=== PATIENT | female | born 1960 | race Caucasian/White ===

== ENCOUNTER 2022-05-01 08:57 | Outpatient (CLI) | payer MEDICAID, SELFPAY ==
[2022-05-01 11:58] LABS: Chloride* 105 mmol/L (96-114); Sodium* 141 mmol/L (135-149)
[2022-05-01 11:59] LABS: Potassium* 4.7 mmol/L (3.6-5.1)
[2022-05-01 12:01] LABS: Alkaline Phosphatase* 95 U/L (40-150); Aspartate Amino Transferase* 19 U/L (12-35); Bilirubin Total* 0.3 mg/dL (0.1-1.5); Blood Urea Nitrogen* 21 mg/dL (7-30); Carbon Dioxide* 30 mmol/L (20-32); Creatinine* 0.9 mg/dL (0.5-1.5); Estimated Glomerular Filt Rate 74 ml/min; Total Protein* 6.5 g/dL (6.0-8.3)
[2022-05-01 12:02] LABS: Alanine Aminotransferase* 10 U/L (4-35); Calcium* 9.3 mg/dL (8.4-10.6); Glucose* 117 mg/dL (60-115)
[2022-05-01 12:31] LABS: TSH With Reflex to FT4* 0.859 uIU/mL (0.270-4.200)
[2022-05-01 12:39] LABS: Ferritin* 66.3 ng/mL (11.1-264.0)
== END 2022-05-01 08:58 | disposition home or self-care (01) ==
PROVIDERS: PCP Family Medicine; Visit Provider Family Medicine
DX: G25.81 Restless legs syndrome (principal); I95.9 Hypotension, unspecified; R42 Dizziness and giddiness; E03.9 Hypothyroidism, unspecified; I10 Essential (primary) hypertension
CPT/HCPCS: 80053; 82728; 84443

== ENCOUNTER 2022-05-13 09:00 | Outpatient (RCR) | payer MEDICAID, SELFPAY | END 2022-08-14 13:50 | disposition home or self-care (01) | PROVIDERS: PCP Family Medicine; Visit Provider Family Medicine | DX: M54.16 Radiculopathy, lumbar region (principal); M51.36 Other intervertebral disc degeneration, lumbar region; M54.50 Low back pain, unspecified; Z51.89 Encounter for other specified aftercare | CPT/HCPCS: 97110 ==

== ENCOUNTER 2022-10-28 08:55 | Outpatient (CLI) | payer MEDICAID, SELFPAY ==
[2022-10-28 13:28] LABS: Basophils Absolute Auto 0.09 K/uL (0.00-0.30); Basophils Percent Auto 1.1 % (0.0-3.0); Eosinophils Absolute Auto 0.28 K/uL (0.00-0.50); Eosinophils Percent Auto 3.5 % (0.0-7.0); Hematocrit 41.9 % (33.0-51.0); Hemoglobin* 13.3 gm/dL (12.0-16.0); Immature Granulocytes Abs Auto 0.01 K/uL (0.00-0.30); Immature Granulocytes Pct Auto 0.1 %; Lymphocytes Percent Auto 44.2 % (20-44); Mean Corpuscular HGB Conc 32 gm/dL (32-36); Mean Corpuscular Hemoglobin 28 pg (26-34); Mean Corpuscular Volume 87 fL (80-100); Monocytes Percent Auto 6.8 % (0.0-11.0); Neutrophils Absolute Auto 3.53 K/uL (1.7-7.0); Neutrophils Percent Auto 44.3 % (42.0-72.0); Platelet Count* 360 K/uL (140-440); RDW Coefficient of Variation % 14.1 % (11.5-15.5); Red Blood Count 4.82 m/uL (4.00-5.20); White Blood Count* 7.98 K/uL (4.50-11.00)
[2022-10-28 13:40] LABS: Albumin* 4.1 g/dL (3.3-5.0); Chloride* 105 mmol/L (96-114); Sodium* 140 mmol/L (135-149)
[2022-10-28 13:41] LABS: Potassium* 5.5 mmol/L (3.6-5.1)
[2022-10-28 13:43] LABS: Bilirubin Total* 0.3 mg/dL (0.1-1.5); Carbon Dioxide* 29 mmol/L (20-32); Cholesterol* 200 mg/dL (90-199); Creatinine* 0.7 mg/dL (0.5-1.5); Estimated Glomerular Filt Rate 99 ml/min; Total Protein* 7.3 g/dL (6.0-8.3)
[2022-10-28 13:44] LABS: Alanine Aminotransferase* 12 U/L (4-35); Alkaline Phosphatase* 97 U/L (40-150); Blood Urea Nitrogen* 13 mg/dL (7-30); Calcium* 9.7 mg/dL (8.4-10.6); Glucose* 99 mg/dL (60-115); HDL Cholesterol* 45 mg/dL (>=50); LDL Cholesterol Calculated 130 mg/dL (<100); Triglycerides* 123 mg/dL (40-149)
[2022-10-28 13:58] LABS: Slide Review Reflex No
[2022-10-28 14:15] LABS: C Reactive Protein* < 0.5 mg/dL (0.5-1.0)
[2022-10-28 15:15] LABS: Erythrocyte SedimentationRate* 7 mm/hr (2-20)
[2022-10-28 15:17] LABS: TSH With Reflex to FT4* 0.801 uIU/mL (0.270-4.200)
[2022-10-28 15:35] LABS: Hepatitis C Virus Antibody* Negative (Negative)
[2022-10-28 16:03] LABS: Aspartate Amino Transferase* 20 U/L (12-35)
== END 2022-10-28 08:56 | disposition home or self-care (01) ==
PROVIDERS: PCP Nurse Practitioner Family; Visit Provider Nurse Practitioner Family
DX: R63.4 Abnormal weight loss (principal); E78.5 Hyperlipidemia, unspecified; E03.9 Hypothyroidism, unspecified
CPT/HCPCS: 80053; 80061; 84443; 85025; 85651; 86140; 86803

== ENCOUNTER 2022-11-11 10:48 | Outpatient (CLI) | payer MEDICAID, SELFPAY ==
[2022-11-11 14:39] LABS: Troponin I* < 0.01 ng/mL (0.01-0.04)
== END 2022-11-11 10:49 | disposition home or self-care (01) ==
LOC: KYNREF 10:52
PROVIDERS: PCP Nurse Practitioner Family; Visit Provider Nurse Practitioner Family
DX: R55 Syncope and collapse (principal)
CPT/HCPCS: 84484

== ENCOUNTER 2022-11-21 13:53 | Outpatient (CLI) | payer MEDICAID, SELFPAY ==
--- NOTE | 2022-11-21 14:00 | CRLHL7_ITS ---
For Patients: As a result of the Century Cures Act, medical imaging exams and procedure reports are released immediately into your electronic medical record. You may view this report before your referring provider. If you have questions, please contact your health care provider. Indication: UNINTENDED WEIGHT LOSS Technique: Postcontrast CT chest, abdomen and pelvis. 61 cc Isovue 370 intravenous contrast. Please note that all CT scans at this facility use dose modulation, iterative reconstruction, and/or weight-based dosing when appropriate to reduce radiation dose to as low as reasonably achievable. Comparison: 04/03/2021, 09/17/2019 Findings: In the chest, no suspicious pulmonary nodule is present. COPD/emphysema. No infiltrate or edema. No effusion or pneumothorax. No mediastinal, hilar or axillary adenopathy. No fracture. In the abdomen, a residual ovoid area of low attenuation is present adjacent to the superolateral spleen. Resolution of the previously noted ascites. Liver parenchyma normal. Small stones in the gallbladder. No biliary obstruction. Pancreas normal. Atherosclerotic disease. No aneurysm. Normal adrenal glands. Nonobstructing stones within the left kidney measuring 3 millimeters in the upper pole and 6 millimeters in the lower pole. No bowel obstruction or free air. No retroperitoneal or mesenteric adenopathy. In the pelvis, no pelvic or inguinal adenopathy noted. No inflammatory changes. Bladder, uterus and adnexa are normal. Normal appendix. Severe degenerative disc disease L4-5. Impression: COPD/emphysema. No suspicious pulmonary nodule. Small residual circumscribed ovoid area of decreased attenuation measuring 3.8 x 2.0 associated with the spleen representing sequela of previous injury. Resolution of previously noted ascites. Nonobstructing left renal stones measuring up to 6 millimeters. Please note that all CT scans at this facility use dose modulation, iterative reconstruction, and/or weight-based dosing when appropriate to reduce radiation dose to as low as reasonably achievable. Dictated by Jered Zaidi MD @ 11/22/2022 12:29:01 PM (Electronically Signed)
== END 2022-11-21 13:54 | disposition home or self-care (01) ==
PROVIDERS: PCP Nurse Practitioner Family; Visit Provider Nurse Practitioner Family
DX: R63.4 Abnormal weight loss (principal); J43.9 Emphysema, unspecified; N20.0 Calculus of kidney; I95.9 Hypotension, unspecified
CPT/HCPCS: 71260; 74177; 93306; Q9967

== ENCOUNTER 2022-12-02 10:57 | Outpatient (CLI) | payer MEDICAID, SELFPAY ==
[2022-12-02 13:44] LABS: Potassium* 4.5 mmol/L (3.6-5.1)
== END 2022-12-02 10:58 | disposition home or self-care (01) ==
LOC: KYNREF 10:57
PROVIDERS: PCP Nurse Practitioner Family; Visit Provider Nurse Practitioner Family
DX: E87.5 Hyperkalemia (principal)
CPT/HCPCS: 84132

== ENCOUNTER 2023-03-28 08:45 | Outpatient (RCR) | payer MEDICAID, SELFPAY | END 2023-07-16 10:18 | disposition home or self-care (01) | PROVIDERS: PCP Nurse Practitioner Family; Visit Provider Nurse Practitioner Family | DX: M54.50 Low back pain, unspecified (principal); M54.2 Cervicalgia; Z74.09 Other reduced mobility; R53.1 Weakness; Z51.89 Encounter for other specified aftercare | CPT/HCPCS: 97110; 97140; 97162 ==

== ENCOUNTER 2023-05-13 20:51 | Outpatient (CLI) | payer MEDICAID, SELFPAY | END 2023-05-13 20:52 | disposition home or self-care (01) | PROVIDERS: PCP Nurse Practitioner Family; Visit Provider Internal Medicine | DX: G47.33 Obstructive sleep apnea (adult) (pediatric) (principal) | CPT/HCPCS: 95810 ==

== ENCOUNTER 2023-06-06 08:21 | Outpatient (CLI) | payer MEDICAID, SELFPAY | END 2023-06-06 08:22 | disposition home or self-care (01) | PROVIDERS: PCP Nurse Practitioner Family; Visit Provider Nurse Practitioner Family | DX: R53.83 Other fatigue (principal); M25.562 Pain in left knee; E03.9 Hypothyroidism, unspecified | CPT/HCPCS: 84443; 85025; 85651; 86140; 86618; 87798 ==

== ENCOUNTER 2023-06-09 09:00 | Outpatient (RCR) | payer MEDICAID, SELFPAY | END 2023-06-30 14:31 | disposition home or self-care (01) | PROVIDERS: PCP Nurse Practitioner Family; Visit Provider Nurse Practitioner Family | DX: M54.50 Low back pain, unspecified (principal); R53.1 Weakness; Z74.09 Other reduced mobility; Z51.89 Encounter for other specified aftercare | CPT/HCPCS: 87798; 97110; 97161 ==

== ENCOUNTER 2023-07-29 09:00 | Outpatient (RCR) | payer MEDICAID, SELFPAY ==
--- NOTE | 2023-07-08 13:54 | URNOTE ---
Request received for authorization for?Injectafer ([id number]). Prior authorization is not required per [facility] JHON RepNighat Fitzpatrick Ref#[id number].
[2023-07-22 09:08] VITALS: BP 121/76; PULSE 66; RESP 16; TEMP 36.5; O2SAT 96
[2023-07-22] MEDS: SODIUM CHLORIDE 0.9 % (FLUSH) 10 ML SYRINGE IVF (09:15)
[2023-07-22] MEDS: FERRIC CARBOXYMALTOSE 750 MG in 0.9 % SODIUM CHLORIDE 250 ml 250 ML 1060 MG IVPB (09:31)
[2023-07-22] MEDS: 0.9 % SODIUM CHLORIDE 250 ml IV (09:33)
[2023-07-22 10:02] VITALS: BP 104/65; PULSE 51; RESP 16; TEMP 36.7; O2SAT 97
[2023-07-22 10:42] VITALS: BP 106/61; PULSE 50; RESP 16; TEMP 36.8; O2SAT 96
[2023-07-29 09:01] VITALS: BP 112/66; PULSE 58; RESP 16; TEMP 36.7; O2SAT 95
[2023-07-29] MEDS: 0.9 % SODIUM CHLORIDE 250 ml IV (09:10)
[2023-07-29] MEDS: SODIUM CHLORIDE 0.9 % (FLUSH) 10 ML SYRINGE IVF (09:10)
[2023-07-29] MEDS: FERRIC CARBOXYMALTOSE 750 MG in 0.9 % SODIUM CHLORIDE 250 ml 250 ML 1060 MG IVPB (09:35)
[2023-07-29 10:30] VITALS: BP 105/65; PULSE 65; RESP 14; TEMP 36.6; O2SAT 99
== END 2024-01-18 23:59 | disposition home or self-care (01) ==
LOC: CCIC 09:00
PROVIDERS: PCP Nurse Practitioner Family; Referring Provider Nurse Practitioner Family; Visit Provider Clinical Nurse Specialist
DX: G25.81 Restless legs syndrome (principal)
CPT/HCPCS: 96374; J1439; J7050

== ENCOUNTER 2023-09-30 15:14 | Outpatient (CLI) | payer MEDICAID, SELFPAY ==
--- OUTSIDE RECORDS SUMMARY | 2023-09-30 15:21 | XMS_ITS | Continuity of Care Document ---
Author Name Unknown Organization [facility] Address [address] [place] [address] Care Team Providers Care Therapeutic Support Staff Name Role Phone [facility] Unavailable Unav ailable Procedures Procedure Date INJECT EPIDURAL PATCH FLUOROGUIDE FOR SPINE INJECT Advance Directives Directive Yes / No Effective Date File Name No Information Encounters Encounter Description Practice Location Reason(s) For Visit Diagnoses Date Provider Providers Copied on Encounter [facility], [address] [place], [place], [id number], [facility] No Information [facility]. [address] [place], [place], [id number], . tel:[phone] Referring Provider: Shabnam Cardona, [address] [place], [address]. tel:[phone] Family History Family Member Type Diagnosis Age At Onset No Information Payers Payer name Insurance type Covered republican ID Authorkacia phoenix(s) David [facility] [id number] Social History Type Description Quantity Date Captured Comments Sex Female Smoking Status No Information Chief Complaint And Reason For Visit No Information Reason For Referral Reason For Referral No Information History Of Present Illness Encounter Date Complaint History Of Prese nt Illness No Information Functional Status Date Functional Assessmen t No Information Instructions Date Instruction Additional Infor mation No Information Assessments Type Assessment Date No Information Patient Care Teams Name Effective Dates (start - stop) Status Members No Information
--- OUTSIDE RECORDS SUMMARY | 2023-09-30 15:21 | XMS_ITS | Continuity of Care Document ---
Author Name Unknown Organization [facility] Address [address] [place] [address] Care Team Providers Care Prison Guard Supervisor Name Role Phone Alexis Gray CRNA Unavailable Unavailable Procedures Procedure Date ANESTH, HEAD/NECK/PTRUNK Percutaneous Image guided neuromodulatio n or intra Advance Directives Directive Yes / No Effective Date File Name No Information Encounters Encounter Description Practice Location Reason(s) For Visit Diagnoses Date Provider Providers Copied on Encounter [facility], [address] [place], [place], [id number], [facility] No Information 3 Isaac Espinoza. [address] [place], [place], [id number] , . tel:[phone] Referring Provider: Susannah Cabral, [address] [place], [address] . tel:[phone] [facility], [address] [place], [place], [id number], [facility] No Information 2 Alvaro Park. [address] [facility], [place], [place], [id number] , . tel:[phone] Referring Provider: Fredis Quintana [address] [facility] [address], [place], [address]. tel:[phone] Family History Family Member Type Diagnosis Age At Onset No Information Payers Payer name Insurance type Covered libertarian ID Tae garibay(s) [facility] [id number] Social History Type Description Quantity Date Captured [...]
--- OUTSIDE RECORDS SUMMARY | 2023-09-30 15:21 | XMS_ITS | Continuity of Care Document ---
Author Name Unknown Organization [facility] Address [address] [place] [phone] Phone Care Team Providers Care Direct Chill Casting Operator Name Role Phone [facility] Unavailable Unava ilable Procedures Procedure Date INSRT/REDO SPINE N GENERATOR IMPLANT NEUROELECTRODES Implt neurostim elctr each Imp neurosti pls gn any type FLUOROGUIDE FOR SPINE INJECT IMPLANT NEUROELECTRODES IMPLANT NEUROELECTRODES IMPLANT NEUROELECTRODES Implt neurostim elctr each Advance Directives Directive Yes / No Effective Date File Name No Information Encounters Encounter Description Practice Location Reason(s) For Visit Diagnoses Date Provider Providers Copied on Encounter [facility], [address] [place] [address], [id number], tel:[phone] [place] [address] No Information 2 [facility]. [address] [place] [address], [id number], [place]. tel:[phone] Referring Provider: Susannah Cabral, [address] [facility] [place], [address] . tel:[phone] [facility], [address] [place] [address], [id number], tel:[phone] [place] [address] No Information 2 [facility]. [address] [facility] [address], [place], [place], [id number], [place]. tel:[phone] Referring Provider: Rito Falcon [facility] [address], [place], [address]. tel:[phone] Family History Family Member Type Diagnosis Age At Onset No Information Payers Payer name Insurance type Covered alliance party ID Authorkathie garibay(s) David [facility] [id number] Social History Type Description Quantity Date Captured [...]
--- OUTSIDE RECORDS SUMMARY | 2023-09-30 15:22 | XMS_ITS | Continuity of Care Document ---
Author Name Unknown Organization [facility] Address [address] [place] [address] Phone Care Team Providers Care Dependency Case Manager Name Role Phone Apolinar Londono MD Unavailable Unavailable Advance Directives Directive Yes / No Effective Date File Name No Information Encounters Encounter Description Practice Location Reason(s) For Visit Diagnoses Date Provider Providers Copied on Encounter [facility] [place], [address] [place], [place] [address], [place], [address], [place] tel:[phone] [facility] No Information Spring Jiang. [facility], [address], [place], [place], [id number] , [place]. tel:[phone] Family History Family Member Type Diagnosis Age At Onset No Information Payers Payer name Insurance type Covered libertarian ID Authoriza tion(s) No Information Social History Type Description Quantity Date Captured [...]
--- OUTSIDE RECORDS SUMMARY | 2023-09-30 15:22 | XMS_ITS | Continuity of Care Document ---
Author Name Unknown Organization [facility] femi Address [address] [facility] [place] [address] Phone Care Team Providers Care Embedded Systems Software Developer Name Role Phone Samira Lyn DNP Unavailable Unavailable Allergies, Adverse Reactions, Alerts Substance Reaction Status Criticality PENICILLIN HivesHivesHives Active No Informati on celecoxib crawling out of body Active No In formation Medications Medication Instructions Dosage Effective Dates (start - stop) Status Comments hydrocodone 5 mg-acetaminophen 325 mg tablet take 1 tablet by ORAL route every 4 hours prn, MAX 3-4 /DAY for chronic pain - Active okay to fill early on 09/29 d/t national drug shortages, to start on 10/05 Fioricet 50 mg-300 mg-40 mg capsule take 1 - 2 capsule by oral route every 4 hours as needed not to exceed 2 capsules per 24hrs - Active Topamax 25 mg tablet take 1 tablet by oral route in am ; 3 tabs at HS chronic headaches - Active atorvastatin 20 mg tablet Take 1 tablet by mouth once daily. - Active prednisone 20 mg tablet take 1 tablet by oral route every day 20 MG - Active lorazepam 0.5 mg tablet take 2 tablet by oral route 3 times every day as needed as needed 1 MG - Active sertraline 100 mg tablet take 1 tablet by oral route every day 100 MG - Active levothyroxine 75 mcg tablet take 1 tablet by oral route every day 75 MCG - Active TRAZODONE HCL (unknown strength) take 1 - 2 tablet by ORAL route every bedtime after meals Not Available - Active omeprazole 20 mg capsule,delayed release take 1 capsule by oral route every day 30 minutes to 1 hour before a meal 20 MG - Active baclofen 10 mg tablet take 1 tablet by oral route 2 times every day 10 MG - Active CENTRUM ADULT 50 FRESH-FRUITY (unknown strength) Not Available - Active B COMPLEX WITH B-12 (unknown strength) Not Available - Active Extra Strength Narayan 500 mg tablet take 2 tablet by oral route every 6 hours as needed 1000 MG - Active CBD product OTC ORAL LIQUID - Active Procedures Procedure Date OFFICE/OUTPATIENT VISIT, EST Drug test def 8-14 classes Drug Urine Toxology With Chromatography OFFICE/OUTPATIENT VISIT, EST OFFICE/OUTPATIENT VISIT, EST OFFICE/OUTPATIENT VISIT, EST OFFICE/OUTPATIENT VISIT, EST Drug Urine Toxology With Chromatography Drug test def 8-14 classes OFFICE/OUTPATIENT VISIT, EST ANALYZE NEUROSTIM, COMPLEX OFFICE/OUTPATIENT VISIT, EST OFFICE/OUTPATIENT VISIT, EST Foll-up eval q3mo opiod tx Foll-up eval q3mo opiod tx OFFICE/OUTPATIENT VISIT, EST ANALYZE NEUROSTIM, COMPLEX OFFICE/OUTPATIENT VISIT, EST Drug Urine Toxology With Chromatography Drug test def 8-14 classes Foll-up eval q3mo opiod tx OFFICE/OUTPATIENT VISIT, EST PT EVAL MOD COMPLEX 30 MIN THERAPEUTIC EXERCISES OFFICE/OUTPATIENT VISIT, EST Foll-up eval q3mo opiod tx SCS Post Op Satellite Foll-up eval q3mo opiod tx SCS Post Op Satellite INSRT/REDO SPINE N GENERATOR IMPLANT NEUROELECTRODES ASC IMPLANT NEUROELECTRODES ASC Foll-up eval q3mo opiod tx OFFICE/OUTPATIENT VISIT, EST Foll-up eval q3mo opiod tx OFFICE/OUTPATIENT VISIT, EST EPIDURAL BLOOD PATCH SCS Lead Pull Satellite ORTHOTIC MGMT AND TRAINING Initial Encou nter Lower Back LSO Brace IMPLANT NEUROELECTRODES ASC IMPLANT NEUROELECTRODES ASC ANALYZE NEUROSTIM, COMPLEX Foll-up eval q3mo opiod tx OFFICE VISIT, EST TELEMEDICINE Foll-up eval q3mo opiod tx OFFICE/OUTPATIENT VISIT, EST Foll-up eval q3mo opiod tx OFFICE/OUTPATIENT VISIT, EST Foll-up eval q3mo opiod tx OFFICE/OUTPATIENT VISIT, EST Psych Dx Eval Drug Urine Toxology With Chromatography Drug test def 8-14 classes OFFICE/OUTPATIENT VISIT, NEW PT-FOCUSED HLTH RISK ASSMT Advance Directives Directive Yes / No Effective Date File Name No Information Encounters Encounter Description Practice Location Reason(s) For Visit Diagnoses Date Provider Providers Copied on Encounter [facility], [address] [facility] [place], [id number] , [place] tel: [phone] [facility] [place] No Information 3 Mtclement Samira. [address], [place], [id number] , [place]. tel: [phone] [facility], [address] [place], [id number] , [place] tel: [phone] [facility] [place] No Information 3 Yon Elias. [address] [facility] [place], [id number] , [place]. tel: [phone] OFFICE/OUTPAT IENT VISIT, EST [facility], [address], [place], [id number] , [place] tel: [phone] [facility] low back pain (chief complaint) Insomnia, unspecifiedChroni c pain syndromeOther spondylosis, cervical regionInterverteb ral disc disorders with radiculopathy, lumbar regionPostlaminec lucero syndrome, not elsewhere classifiedHeadach e, unspecifiedLong term (current) use of opiate analgesic [address] [facility] [address], [place], [place], [id number] , [place]. tel: [phone] Ref[facility]: [facility] [address] [place], [address]. [phone] [facility], [address], [place], [id number] , [place] tel: [phone] [facility] No Information [address] [facility] [address], [place], [place], [id number] , [place]. tel:[phone] Referring Provider: [facility] [address] [place], [address]. tel:[phone] OFFICE/OUTPAT IENT VISIT, [facility], [address], [place], [id number] , [place] tel: [phone] [facility] low back pain (chief complaint) Insomnia, unspecifiedChroni c pain syndromeOther spondylosis, cervical regionInterverteb ral disc disorders with radiculopathy, lumbar regionPostlaminec lucero syndrome, not elsewhere classifiedHeadach e, unspecifiedLong term (current) use of opiate analgesic [address] [facility] [address], [place], [place], [id number] , [place]. tel: [phone] Referring Provider: Keyon Muller [facility] [address] [place], [address]. tel:[phone] OFFICE/OUTPAT IENT VISIT, EST [facility], [address], [place], [id number] , [place] tel: [phone] [facility] low back pain (chief complaint) Insomnia, unspecifiedChroni c pain syndromeOther spondylosis, cervical regionInterverteb ral disc disorders with radiculopathy, lumbar regionPostlaminec lucero syndrome, not elsewhere classifiedLong term (current) use of opiate analgesicHeadache , unspecified Oct- 3 Nyongesa Samira. [address], [place], [id number] , [place]. tel: [phone] Referring Provider: Keyon Muller [facility] [address] [place], [address]. tel:[phone] OFFICE/OUTPAT IENT VISIT, EST [facility], [address], [place], [id number] , [place] tel: [phone] [facility] low back pain (chief complaint) Insomnia, unspecifiedChroni c pain syndromeOther spondylosis, cervical regionInterverteb ral disc disorders with radiculopathy, lumbar regionPostlaminec lucero syndrome, not elsewhere classifiedLong term (current) use of opiate analgesic Sep-0 3 Nyongesa Samira. [address], [place], [id number] , [place]. tel:[phone] Referring Provider: Keyon Muller [facility] [address] [place], [address]. [phone] OFFICE/OUTPAT IENT VISIT, [facility], [address] [place] [address], [id number] , [place] tel: [phone] [facility] low back pain (chief complaint) Chronic pain syndromeOther spondylosis, cervical regionInterverteb ral disc disorders with radiculopathy, lumbar regionPostlaminec lucero syndrome, not elsewhere classifiedLong term (current) use of opiate analgesicEncounte r for therapeutic drug level monitoringInsomni a, unspecified 3 Eboni Hogan. [address], [place], [id number] , [place]. tel: [phone] Referring Provider: Keyon Muller [facility] [address] [place], [address]. [phone] [facility], [address], [place], [id number] , [place] tel: [phone] [facility] [place] No Information [address] [facility] [address], [place], [id number] , [place]. tel: [phone] Referring Provider: Keyon Muller [facility] [address] [place], [address]. tel:[phone] OFFICE/OUTPAT IENT VISIT, EST [facility], [address], [place], [id number] , [place] tel: [phone] [facility] low back pain (chief complaint) Major depressive disorder, single episode, unspecifiedChroni c pain syndromeOther spondylosis, cervical regionInterverteb ral disc disorders with radiculopathy, lumbar regionPostlaminec lucero syndrome, not elsewhere classifiedLong term (current) use of opiate analgesic 3 Elisa Samira. [address], [place], [id number] , [place]. tel: [phone] Referring Provider: Keyon Muller [facility] [address] [place], [address]. tel:[phone] [facility], [address], [place], [id number] , [place] tel: [phone] [facility] Postlaminectomy syndrome, not elsewhere classified 3 Eboni Samira. [address], [place], [id number] , [place]. tel: [phone] OFFICE/OUTPAT IENT VISIT, EST [facility], [address], [place], [id number] , [place] tel: [phone] [facility] low back pain (chief complaint) Major depressive disorder, single episode, unspecifiedChroni c pain syndromeOther spondylosis, cervical regionInterverteb ral disc disorders with radiculopathy, lumbar regionPostlaminec lucero syndrome, not elsewhere classifiedLong term (current) use of opiate analgesic 3 Nyongesa Samira. [address], [place], [id number] , [place]. tel: [phone] Referring Provider: Keyon Muller [facility] [address] [place], [address]. [phone] OFFICE/OUTPAT IENT VISIT, [facility], [address], [place], [address] , [place] tel: [phone] [facility] low back pain (chief complaint) Major depressive disorder, single episode, unspecifiedInterv ertebral disc disorders with radiculopathy, lumbar regionPostlaminec lucero syndrome, not elsewhere classifiedLong term (current) use of opiate analgesicChronic pain syndromeOther spondylosis, cervical region 3 Nyongesa Samira. [address], [place], [id number] , [place]. tel:[phone] Referring [facility]: [facility] [address] [place], [address]. tel:[phone] OFFICE/OUTPAT IENT VISIT, [facility], [address], [place], [id number] , [place] tel: [phone] [facility] low back pain (chief complaint) Major depressive disorder, single episode, unspecifiedPostla minectomy syndrome, not elsewhere classifiedLong term (current) use of opiate analgesicInterver tebral disc disorders with radiculopathy, lumbar region 3 Nyongesa Samira. [address], [place], [id number] , [place]. tel:[phone] Referring Provider: Keyon Muller [facility] [address] [place], [address]. tel:[phone] [facility], [address], [place], [id number] , [place] tel:[phone] [facility] Intervertebral disc disorders with radiculopathy, lumbar region 3 Nyongesa Samira. [address], [place], [id number] , [place]. tel:[phone] Referring Provider: Keyon Muller [facility] [address] [place], [address]. tel:[phone] OFFICE/OUTPAT IENT VISIT, EST [facility], [address], [place], [id number] , [place] tel:[phone] [facility] low back pain (chief complaint) Major depressive disorder, single episode, unspecifiedInterv ertebral disc disorders with radiculopathy, lumbar regionPostlaminec lucero syndrome, not elsewhere classifiedLong term (current) use of opiate analgesic 3 Nyongesa Samira. [address], [place], [id number] , [place]. tel:[phone] Referring Provider: Keyon Muller [facility] [address] [place], [address]. tel:[phone] [facility], [address], [place], [id number] , [place] tel:[phone] [facility] No Information 3 Nyongesa Samira. [address], [place], [id number] , [place]. tel:[phone] Referring Provider: Keyon Muller [facility] [address] [facility], [place], [address]. tel:[phone] OFFICE/OUTPAT IENT VISIT, [facility], [address] [place] [address], [id number] , [place] tel: [phone] [facility] low back pain (chief complaint) Major depressive disorder, single episode, unspecifiedInterv ertebral disc disorders with radiculopathy, lumbar regionPostlaminec lucero syndrome, not elsewhere classifiedLong term (current) use of opiate analgesic 0 3 Eboni Hogan. [address], [place], [place], [address] , [place]. tel: [phone] Referring Provider: Keyon Muller [facility] [address] [place], [address]. [phone] [facility], [address] [place] [address], [id number] , [place] tel: [phone] [facility] No Information 3 Yon Elias. [address] [place] [address], [id number] , [place]. [phone] [facility], [address] [place] [address], [id number] , [place] tel: [phone] [facility] lumbago (chief complaint) Postlaminectomy syndrome, not elsewhere classified 3 Emily Cleveland. [address] [place], [place], [id number] , [place]. tel:[phone] Referring Provider: Keyon Muller [facility] [address] [place], [address]. tel:[phone] OFFICE/OUTPAT IENT VISIT, [facility], [address] [place] [address], [id number] , [place] tel:[phone] [facility] low back pain (chief complaint) Major depressive disorder, single episode, unspecifiedInterv ertebral disc disorders with radiculopathy, lumbar regionPostlaminec lucero syndrome, not elsewhere classifiedLong term (current) use of opiate analgesic 3 Eboni Hogan. [address], [place], [place], [address] , [place]. tel:[phone] Referring Provider: Keyon Muller [facility] [address] [place], [address]. [phone] [facility], [address] [place] [address], [id number] , [place] tel:[phone] [facility] low back pain (chief complaint) Major depressive disorder, single episode, unspecifiedInterv ertebral disc disorders with radiculopathy, lumbar regionPostlaminec lucero syndrome, not elsewhere classifiedLong term (current) use of opiate analgesic 3 Barron Muse. [address], [place], [address] , [place]. tel:[phone] Referring Provider: Keyon Muller [facility] [address] [place], [address]. tel:[phone] [facility], [address] [place] [address], [id number] , [place] tel:[phone] [place] [facility] [place] Postlaminectomy syndrome, not elsewhere classified 2 Misha Davalos. [address], [place], [id number] , [place]. tel:[phone] Referring Provider: Keyon Muller [facility] [address] [place], [address]. tel:[phone] OFFICE/OUTPAT IENT VISIT, EST [facility], [address] [place] [address], [id number] , [place] tel:[phone] [facility] low back pain (chief complaint) Major depressive disorder, single episode, unspecifiedInterv ertebral disc disorders with radiculopathy, lumbar regionPostlaminec lucero syndrome, not elsewhere classifiedLong term (current) use of opiate analgesicEncounte r for therapeutic drug level monitoring [address] [facility] [address], [place], [id number] , [place]. tel: [phone] Referring Provider: Keyon Muller [facility] [address] [place], [address]. [phone] OFFICE/OUTPAT IENT VISIT, [facility], [address] [facility] [place], [id number] , [place] tel: [phone] [facility] low back pain (chief complaint) Major depressive disorder, single episode, unspecifiedInterv ertebral disc disorders with radiculopathy, lumbar regionPostlaminec lucero syndrome, not elsewhere classifiedLong term (current) use of opiate analgesic [address] [facility] [address], [place], [id number] , [place]. tel: [phone] Referring Provider: Keyon Muller [facility] [address] [place], [address]. tel:[phone] [facility], [address] [facility] [address] [facility] [place], [address] , [place] tel: [phone] [facility] Postlaminectomy syndrome, not elsewhere classified 2 Dulce Haque. [address], [place], [id number] , [place]. tel:[phone] Referring Provider: Keyon Muller [facility] [address] [place], [address]. tel:[phone] [facility], [address] [facility] [address] [facility] [place], [address] , [place] tel:[phone] [facility] Postlaminectomy syndrome, not elsewhere classified 2 Yon Elias. [address], [place], [id number] , [place]. tel: [phone] [facility], [address] [facility] [place], [address] , [place] tel: [phone] [facility] [place] Postlaminectomy syndrome, not elsewhere classified 0 - [address] [facility] [address], [place], [id number] , [place]. tel: [phone] Referring Provider: Keyon Muller [facility] [address] [place], [address]. tel:[phone] [facility], [address] [facility] [place], [address] , [place] tel: [phone] [facility] No Information 0 [address] [facility] [address], [place], [place], [address] , [place]. tel: [phone] Referring Provider: Keyon Muller [facility] [address] [place], [address]. tel:[phone] [facility], [address], [place], [address] , [place] tel: [phone] [facility] Postlaminectomy syndrome, not elsewhere classified 0 [address] [facility] [address], [place], [place], [id number] , [place]. tel: [phone] Referring Provider: Keyon Muller [facility] [address] [place], [address]. tel:[phone] [facility], [address], [place], [address] , [place] tel: [phone] [place] [facility] [place] No Information Jun-2 2 Quintana Fredis. [facility], [address], [place], [address], [place]. [phone] Referring Provider: Keyon Muller [facility] [address] [place], [address]. tel:[phone] [facility], [address] [place] [address], [id number] , [place] tel: [phone] [facility] [place] Postlaminectomy syndrome, not elsewhere classified Sep-1 3-202 2 Nyongesa Samira. [address], [place], [place], [id number] , [place]. tel: [phone] Referring Provider: Keyon Muller, [facility] [address] [place], [address]. tel:[phone] OFFICE VISIT, EST TELEMEDICINE [facility], [address] [place] [address], [id number] , [place] tel: [phone] [facility] low back pain (chief complaint) Major depressive disorder, single episode, unspecifiedInterv ertebral disc disorders with radiculopathy, lumbar regionPostlaminec lucero syndrome, not elsewhere classifiedLong term (current) use of opiate analgesic Sep-0 8 2 Nyongesa Samira. [address], [place], [address] , [place]. tel: [phone] OFFICE/OUTPAT IENT VISIT, EST [facility], [address] [place] [address], [id number] , [place] tel: [phone] [facility] Back Pain (chief complaint) Major depressive disorder, single episode, unspecifiedInterv ertebral disc disorders with radiculopathy, lumbar regionOther intervertebral disc degeneration, lumbar regionPostlaminec lucero syndrome, not elsewhere classifiedLong term (current) use of opiate analgesic Aug-0 2 Nyongesa Samira. [address], [place], [place], [id number] , [place]. tel: [phone] Referring Provider: Keyon Muller, [facility] [address] [place], [address]. tel:[phone] OFFICE/OUTPAT IENT VISIT, EST [facility], [address], [place], [id number] , [place] tel: [phone] [facility] Back Pain (chief complaint) Major depressive disorder, single episode, unspecifiedInterv ertebral disc disorders with radiculopathy, lumbar regionOther intervertebral disc degeneration, lumbar regionPostlaminec lucero syndrome, not elsewhere classifiedLong term (current) use of opiate analgesic 2 Eboni Hogan. [address], [place], [address] , [place]. tel: [phone] Referring Provider: Keyon Muller [facility] [address] [place], [address]. [phone] OFFICE/OUTPAT IENT VISIT, [facility], [address], [place], [address] , [place] tel: [phone] [facility] Back Pain (chief complaint) Major depressive disorder, single episode, unspecifiedInterv ertebral disc disorders with radiculopathy, lumbar regionOther intervertebral disc degeneration, lumbar regionPostlaminec lucero syndrome, not elsewhere classifiedLong term (current) use of opiate analgesic 2 Genovevaongesa Hogan. [address], [place], [id number] , [place]. tel: [phone] Referring Provider: Keyon Muller [facility] [address] [place], [address]. [phone] Psych Dx Eval [facility], [address] [place] [address], [id number] , [place] tel: [phone] [facility] Pain disorder with related psychological factorsMajor depressive disorder, recurrent, in full remission 2 Rosa Shah. [address], [place], [id number] , [place]. tel: [phone] [facility], [address] [place] [address], [id number] , [place] tel:[phone] [facility] [place] No Information 2 Eboni Hogan. [address], [place], [id number] , [place]. tel: [phone] Referring Provider: Keyon Muller [facility] [address] [facility], [place], [address]. [phone] OFFICE/OUTPAT IENT VISIT, NEW [facility], [address], [place], [id number] , [place] tel: [phone] [facility] Back Pain (chief complaint) Encounter for screening for other disorderPostlamin ectomy syndrome, not elsewhere classifiedOther intervertebral disc degeneration, lumbar regionInterverteb ral disc disorders with radiculopathy, lumbar regionMajor depressive disorder, single episode, unspecified 2 Eboni Hogan. [address], [place], [id number] , [place]. tel: [phone] Referring Provider: Keyon Muller [facility] [facility] [address], [place], [id number]. [phone] [id number] Family History Family Member Type Diagnosis Age At Onset No Information Payers Payer name Insurance type Covered democrat ID Tae garibay(s) vitaliy [facility] [id number] Social History Type Description Quantity Date Captured Comments Sex Female Smoking Status No Information Chief Complaint And Reason For Visit No Information Reason For Referral Reason For Referral No Information Plan Of Treatment Date Type Action Status Goal UDT. Due on due Goal Order Annual PT. Due on due Goal Weight. Due on d ue Goal BUSINESS PERFORMANCE SPECIALIST Paperwork. Due on due Goal FIT-DNA. Due on due Goal Hepatitis C screening. Due o n due Goal Update Social History. Due o n due Goal PHQ-9. Due on du e Goal Review Allergy List. Due on due Goal DIRECTOR MEDICAL WRITING Scanned. Due on due Goal Lipid panel. Due on due Goal FIT. Due on due Goal AST (SGOT). Due on due Goal Medication Reconciliation. D ue on due Goal Tobacco Use. Due on due Goal Zoster vaccine (1st). Due on due Goal HPV. Due on due Goal Unhealthy drug use screening . Due on due Goal CT-Colonography. Due on due Goal ALT (SGPT). Due on due Goal Creatinine. Due on due Goal OARS. Due on due Goal Height. Due on d ue Goal OARS. Due on due Goal AST (SGOT). Due on due Goal UDT. Due on due Goal BUSINESS PERFORMANCE SPECIALIST Paperwork. Due on due Goal DIRECTOR MEDICAL WRITING Scanned. Due on due Goal Review Allergy List. Due on due Goal Creatinine. Due on due Goal Medication Reconciliation. D ue on due Goal ALT (SGPT). Due on due Goal Order Annual PT. Due on due Goal Update Social History. Due o n due Goal Lipid panel. Due on due Goal Height. Due on d ue Goal Hepatitis C screening. Due o n due Goal Unhealthy drug use screening . Due on due Goal HPV. Due on due Goal Zoster vaccine (1st). Due on due Goal FIT. Due on due Goal PHQ-9. Due on du e Goal Weight. Due on d ue Goal FIT-DNA. Due on due Goal Tobacco Use. Due on due Goal CT-Colonography. Due on due Goal Order Annual PT. Due on due Goal DIRECTOR MEDICAL WRITING Scanned. Due on due Goal Creatinine. Due on due Goal OARS. Due on due Goal ALT (SGPT). Due on due Goal AST (SGOT). Due on due Goal CT-Colonography. Due on due Goal Hepatitis C screening. Due o n due Goal UDT. Due on due Goal BUSINESS PERFORMANCE SPECIALIST Paperwork. Due on due Goal Zoster vaccine (1st). Due on due Goal PHQ-9. Due on du e Goal Update Social History. Due o n due Goal Height. Due on d ue Goal FIT. Due on due Goal Weight. Due on d ue Goal FIT-DNA. Due on due Goal Lipid panel. Due on due Goal Unhealthy drug use screening . Due on due Goal HPV. Due on due Goal Tobacco Use. Due on due Goal Medication Reconciliation. D ue on due Goal Review Allergy List. Due on due Goal Update Social History. Due o n due Goal UDT. Due on due Goal Medication Reconciliation. D ue on due Goal HPV. Due on due Goal Weight. Due on d ue Goal Tobacco Use. Due on due Goal Hepatitis C screening. Due o n due Goal PHQ-9. Due on du e Goal Creatinine. Due on due Goal OARS. Due on due Goal Zoster vaccine (1st). Due on due Goal Order Annual PT. Due on due Goal DIRECTOR MEDICAL WRITING Scanned. Due on due Goal CT-Colonography. Due on due Goal BUSINESS PERFORMANCE SPECIALIST Paperwork. Due on due Goal ALT (SGPT). Due on due Goal FIT. Due on due Goal AST (SGOT). Due on due Goal Unhealthy drug use screening . Due on due Goal FIT-DNA. Due on due Goal Review Allergy List. Due on due Goal Lipid panel. Due on due Goal Height. Due on d ue Goal AST (SGOT). Due on due Goal Unhealthy drug use screening . Due on due Goal Medication Reconciliation. D ue on due Goal OARS. Due on due Goal CT-Colonography. Due on due Goal Hepatitis C screening. Due o n due Goal ALT (SGPT). Due on due Goal Zoster vaccine (1st). Due on due Goal Creatinine. Due on due Goal Tobacco Use. Due on due Goal DIRECTOR MEDICAL WRITING Scanned. Due on due Goal PHQ-9. Due on du e Goal FIT. Due on due Goal BUSINESS PERFORMANCE SPECIALIST Paperwork. Due on due Goal HPV. Due on due Goal Weight. Due on d ue Goal Order Annual PT. Due on due Goal Update Social History. Due o n due Goal FIT-DNA. Due on due Goal Review Allergy List. Due on due Goal Lipid panel. Due on 023 due Goal UDT. Due on due Goal Height. Due on d ue Goal Tobacco cessation counseling completed Goal AST (SGOT). Due on due Goal FIT. Due on due Goal Lipid panel. Due on 023 due Goal Zoster vaccine (1st). Due on due Goal CT-Colonography. Due on due Goal Weight. Due on d ue Goal HPV. Due on due Goal PHQ-9. Due on du e Goal Creatinine. Due on due Goal Order Annual PT. Due on due Goal BUSINESS PERFORMANCE SPECIALIST Paperwork. Due on due Goal FIT-DNA. Due on due Goal OARS. Due on due Goal DIRECTOR MED[employer] WRITING Scanned. Due on 023 due Goal ALT (SGPT). Due on due Goal Unhealthy drug use screening . Due on due Goal UDT. Due on due Goal Review Allergy List. Due on due Goal Update Social History. Due o n due Goal Tobacco Use. Due on due Goal Hepatitis C screening. Due o n due Goal Height. Due on d ue Goal Medication Reconciliation. D ue on due Goal BUSINESS PERFORMANCE SPECIALIST Paperwork. Due on due Goal Order Annual PT. Due on due Goal FIT-DNA. Due on due Goal AST (SGOT). Due on due Goal ALT (SGPT). Due on due Goal Update Social History. Due o n due Goal Creatinine. Due on due Goal CT-Colonography. Due on due Goal Unhealthy drug use screening . Due on due Goal Tobacco Use. Due on due Goal FIT. Due on due Goal UDT. Due on due Goal Weight. Due on d ue Goal DIRECTOR MED[employer] WRITING Scanned. Due on due Goal Review Allergy List. Due on due Goal OARS. Due on due Goal Lipid panel. Due on due Goal Hepatitis C screening. Due o n due Goal Medication Reconciliation. D ue on due Goal Zoster vaccine (1st). Due on due Goal HPV. Due on due Goal Height. Due on d ue Goal PHQ-9. Due on du e Goal Creatinine. Due on due Goal AST (SGOT). Due on due Goal Order Annual PT. Due on due Goal ALT (SGPT). Due on due Goal Hepatitis C screening. Due o n due Goal OARS. Due on due Goal BUSINESS PERFORMANCE SPECIALIST Paperwork. Due on due Goal DIRECTOR MED[employer] WRITING Scanned. Due on due Goal UDT. Due on due Goal FIT-DNA. Due on due Goal Medication Reconciliation. D ue on due Goal Lipid panel. Due on due Goal Update Social History. Due o n due Goal FIT. Due on due Goal Review Allergy List. Due on due Goal Height. Due on d ue Goal Zoster vaccine (1st). Due on due Goal PHQ-9. Due on du e Goal CT-Colonography. Due on due Goal HPV. Due on due Goal Tobacco Use. Due on due Goal Unhealthy drug use screening . Due on due Goal Weight. Due on d ue Goal UDT. Due on due Goal Creatinine. Due on due Goal FIT-DNA. Due on due Goal Lipid panel. Due on due Goal Medication Reconciliation. D ue on due Goal Update Social History. Due o n due Goal BUSINESS PERFORMANCE SPECIALIST Paperwork. Due on due Goal Order Annual PT. Due on due Goal OARS. Due on due Goal Height. Due on d ue Goal AST (SGOT). Due on due Goal CT-Colonography. Due on due Goal HPV. Due on due Goal ALT (SGPT). Due on due Goal Zoster vaccine (1st). Due on due Goal PHQ-9. Due on du e Goal Tobacco Use. Due on due Goal Hepatitis C screening. Due o n due Goal Unhealthy drug use screening . Due on due Goal DIRECTOR MED[employer] WRITING Scanned. Due on due Goal Weight. Due on d ue Goal FIT. Due on due Goal Review Allergy List. Due on due Goal UDT. Due on due Goal Unhealthy drug use screening . Due on due Goal Creatinine. Due on due Goal Medication Reconciliation. D ue on due Goal Weight. Due on d ue Goal PHQ-9. Due on du e Goal OARS. Due on due Goal AST (SGOT). Due on due Goal ALT (SGPT). Due on due Goal Tobacco Use. Due on due Goal BUSINESS PERFORMANCE SPECIALIST Paperwork. Due on due Goal HPV. Due on due Goal Review Allergy List. Due on due Goal Update Social History. Due o n due Goal CT-Colonography. Due on due Goal DIRECTOR MED[employer] WRITING Scanned. Due on 023 due Goal Order Annual PT. Due on due Goal FIT-DNA. Due on due Goal Lipid panel. Due on 023 due Goal Zoster vaccine (1st). Due on due Goal Height. Due on d ue Goal FIT. Due on due Goal Hepatitis C screening. Due o n due Goal CT-Colonography. Due on due Goal AST (SGOT). Due on due Goal Creatinine. Due on due Goal UDT. Due on due Goal DIRECTOR MEDICAL WRITING Scanned. Due on due Goal Tobacco Use. Due on due Goal BUSINESS PERFORMANCE SPECIALIST Paperwork. Due on due Goal Review Allergy List. Due on due Goal Order Annual PT. Due on due Goal Height. Due on d ue Goal Lipid panel. Due on due Goal ALT (SGPT). Due on due Goal OARS. Due on due Goal HPV. Due on due Goal Medication Reconciliation. D ue on due Goal Weight. Due on d ue Goal FIT. Due on due Goal Zoster vaccine (1st). Due on due Goal FIT-DNA. Due on due Goal Update Social History. Due o n due Goal Hepatitis C screening. Due o n due Goal Unhealthy drug use screening . Due on due Goal PHQ-9. Due on du e Goal CT-Colonography. Due on due Goal DIRECTOR MEDICAL WRITING Scanned. Due on due Goal BUSINESS PERFORMANCE SPECIALIST Paperwork. Due on due Goal Order Annual PT. Due on due Goal Creatinine. Due on due Goal Tobacco Use. Due on due Goal ALT (SGPT). Due on due Goal FIT-DNA. Due on due Goal OARS. Due on due Goal AST (SGOT). Due on due Goal UDT. Due on due Goal Zoster vaccine (). Due on due Goal Hepatitis C screening. Due o n due Goal Unhealthy drug use screening . Due on due Goal Review Allergy List. Due on due Goal Height. Due on d ue Goal FIT. Due on due Goal HPV. Due on due Goal Medication Reconciliation. D ue on due Goal Update Social History. Due o n due Goal Weight. Due on d ue Goal PHQ-9. Due on du e Goal Lipid panel. Due on due Goal Tobacco cessation counseling completed Goal DIRECTOR MEDICAL WRITING Scanned. Due on due Goal AST (SGOT). Due on due Goal Zoster vaccine (1st). Due on due Goal ALT (SGPT). Due on due Goal CT-Colonography. Due on due Goal Creatinine. Due on due Goal Tobacco Use. Due on due Goal OARS. Due on due Goal FIT-DNA. Due on due Goal Medication Reconciliation. D ue on due Goal FIT. Due on due Goal UDT. Due on due Goal Review Allergy List. Due on due Goal Unhealthy drug use screening . Due on due Goal HPV. Due on due Goal Lipid panel. Due on due Goal BUSINESS PERFORMANCE SPECIALIST Paperwork. Due on due Goal Weight. Due on d ue Goal Height. Due on d ue Goal PHQ-9. Due on du e Goal Order Annual PT. Due on due Goal Hepatitis C screening. Due o n due Goal Update Social History. Due o n due Goal AST (SGOT). Due on due Goal ALT (SGPT). Due on due Goal UDT. Due on due Goal DIRECTOR MEDICAL WRITING Scanned. Due on due Goal Creatinine. Due on due Goal OARS. Due on due Goal BUSINESS PERFORMANCE SPECIALIST Paperwork. Due on due Goal Order Annual PT. Due on due Goal FIT-DNA. Due on due Goal Lipid panel. Due on due Goal PHQ-9. Due on du e Goal CT-Colonography. Due on due Goal Weight. Due on d ue Goal Tobacco Use. Due on due Goal Hepatitis C screening. Due o n due Goal FIT. Due on due Goal Update Social History. Due o n due Goal Zoster vaccine (1st). Due on due Goal Medication Reconciliation. D ue on due Goal HPV. Due on due Goal Height. Due on d ue Goal Review Allergy List. Due on due Goal Unhealthy drug use screening . Due on due Goal Order Annual PT. Due on due Goal AST (SGOT). Due on due Goal FIT-DNA. Due on due Goal BUSINESS PERFORMANCE SPECIALIST Paperwork. Due on due Goal FIT. Due on due Goal Lipid panel. Due on due Goal Height. Due on d ue Goal Review Allergy List. Due on due Goal CT-Colonography. Due on due Goal OARS. Due on due Goal Hepatitis C screening. Due o n due Goal Update Social History. Due o n due Goal Unhealthy drug use screening . Due on due Goal DIRECTOR MEDICAL WRITING Scanned. Due on due Goal Weight. Due on d ue Goal UDT. Due on due Goal HPV. Due on due Goal Zoster vaccine (1st). Due on due Goal ALT (SGPT). Due on due Goal PHQ-9. Due on du e Goal Creatinine. Due on due Goal Tobacco Use. Due on due Goal Medication Reconciliation. D ue on due Goal DIRECTOR MEDICAL WRITING Scanned. Due on due Goal Creatinine. Due on due Goal UDT. Due on due Goal ALT (SGPT). Due on due Goal AST (SGOT). Due on due Goal Unhealthy drug use screening . Due on due Goal CT-Colonography. Due on due Goal FIT. Due on due Goal BUSINESS PERFORMANCE SPECIALIST Paperwork. Due on due Goal OARS. Due on due Goal Order Annual PT. Due on due Goal Height. Due on d ue Goal Tobacco Use. Due on due Goal Weight. Due on d ue Goal Hepatitis C screening. Due o n due Goal Update Social History. Due o n due Goal Medication Reconciliation. D ue on due Goal HPV. Due on due Goal PHQ-9. Due on du e Goal Zoster vaccine (). Due on due Goal Review Allergy List. Due on due Goal FIT-DNA. Due on due Goal Lipid panel. Due on due Goal Creatinine. Due on due Goal Order Annual PT. Due on due Goal OARS. Due on due Goal Lipid panel. Due on due Goal FIT-DNA. Due on due Goal HPV. Due on due Goal Zoster vaccine (). Due on due Goal Tobacco Use. Due on due Goal CT-Colonography. Due on due Goal ALT (SGPT). Due on due Goal FIT. Due on due Goal Height. Due on d ue Goal Unhealthy drug use screening . Due on due Goal UDT. Due on due Goal PHQ-9. Due on du e Goal AST (SGOT). Due on due Goal Review Allergy List. Due on due Goal BUSINESS PERFORMANCE SPECIALIST Paperwork. Due on due Goal Weight. Due on d ue Goal Update Social History. Due o n due Goal Hepatitis C screening. Due o n due Goal Medication Reconciliation. D ue on due Goal DIRECTOR MEDICAL WRITING Scanned. Due on due Goal DIRECTOR MEDICAL WRITING Scanned. Due on due Goal BUSINESS PERFORMANCE SPECIALIST Paperwork. Due on due Goal OARS. Due on due Goal AST (SGOT). Due on due Goal Order Annual PT. Due on due Goal UDT. Due on due Goal Creatinine. Due on due Goal Zoster vaccine (1st). Due on due Goal Update Social History. Due o n due Goal Lipid panel. Due on due Goal HPV. Due on due Goal FIT. Due on due Goal CT-Colonography. Due on due Goal Unhealthy drug use screening . Due on due Goal Review Allergy List. Due on due Goal Height. Due on d ue Goal Tobacco Use. Due on due Goal ALT (SGPT). Due on due Goal FIT-DNA. Due on due Goal Hepatitis C screening. Due o n due Goal PHQ-9. Due on du e Goal Medication Reconciliation. D ue on due Goal Weight. Due on d ue Goal OARS. Due on due Goal AST (SGOT). Due on due Goal CT-Colonography. Due on due Goal PHQ-9. Due on du e Goal DIRECTOR MEDICAL WRITING Scanned. Due on due Goal Order Annual PT. Due on due Goal Review Allergy List. Due on due Goal Zoster vaccine (1st). Due on due Goal Medication Reconciliation. D ue on due Goal Lipid panel. Due on due Goal Hepatitis C screening. Due o n due Goal UDT. Due on due Goal Height. Due on d ue Goal Creatinine. Due on due Goal FIT-DNA. Due on due Goal ALT (SGPT). Due on due Goal BUSINESS PERFORMANCE SPECIALIST Paperwork. Due on due Goal HPV. Due on due Goal Tobacco Use. Due on due Goal Update Social History. Due o n due Goal Weight. Due on d ue Goal Unhealthy drug use screening . Due on due Goal FIT. Due on due Goal Creatinine. Due on due Goal BUSINESS PERFORMANCE SPECIALIST Paperwork. Due on due Goal Review Allergy List. Due on due Goal Weight. Due on d ue Goal FIT. Due on due Goal Order Annual PT. Due on due Goal Lipid panel. Due on 023 due Goal PHQ-9. Due on du e Goal OARS. Due on due Goal Medication Reconciliation. D ue on due Goal FIT-DNA. Due on due Goal ALT (SGPT). Due on due Goal Unhealthy drug use screening . Due on due Goal HPV. Due on due Goal Update Social History. Due o n due Goal Tobacco Use. Due on [address]-Colonography. Due on due Goal Hepatitis C screening. Due o n due Goal DIRECTOR MEDICAL WRITING Scanned. Due on 023 due Goal Height. Due on d ue Goal Zoster vaccine (1st). Due on due Goal UDT. Due on due Goal AST (SGOT). Due on due Goal DIRECTOR MEDICAL WRITING Scanned. Due on due Goal CT-Colonography. Due on due Goal AST (SGOT). Due on due Goal ALT (SGPT). Due on due Goal BUSINESS PERFORMANCE SPECIALIST Paperwork. Due on due Goal Creatinine. Due on due Goal OARS. Due on due Goal FIT-DNA. Due on due Goal UDT. Due on due Goal Weight. Due on d ue Goal Order Annual PT. Due on due Goal Hepatitis C screening. Due o n due Goal HPV. Due on due Goal PHQ-9. Due on du e Goal Tobacco Use. Due on due Goal Medication Reconciliation. D ue on due Goal Review Allergy List. Due on due Goal FIT. Due on due Goal Update Social History. Due o n due Goal Height. Due on d ue Goal Lipid panel. Due on due Goal Zoster vaccine (). Due on due Goal Unhealthy drug use screening . Due on due Goal BUSINESS PERFORMANCE SPECIALIST Paperwork. Due on due Goal FIT-DNA. Due on due Goal Hepatitis C screening. Due o n due Goal Creatinine. Due on due Goal CT-Colonography. Due on due Goal DIRECTOR MEDICAL WRITING Scanned. Due on due Goal Lipid panel. Due on due Goal Zoster vaccine (). Due on due Goal UDT. Due on due Goal Unhealthy drug use screening . Due on due Goal FIT. Due on due Goal Update Social History. Due o n due Goal Review Allergy List. Due on due Goal Tobacco Use. Due on due Goal Medication Reconciliation. D ue on due Goal Height. Due on d ue Goal HPV. Due on due Goal PHQ-9. Due on du e Goal Weight. Due on d ue Goal ALT (SGPT). Due on due Goal Order Annual PT. Due on due Goal AST (SGOT). Due on due Goal OARS. Due on due Goal Creatinine. Due on due Goal ALT (SGPT). Due on due Goal Order Annual PT. Due on due Goal AST (SGOT). Due on due Goal DIRECTOR MEDICAL WRITING Scanned. Due on due Goal HPV. Due on due Goal PHQ-9. Due on du e Goal Lipid panel. Due on due Goal Review Allergy List. Due on due Goal CT-Colonography. Due on due Goal Medication Reconciliation. D ue on due Goal FIT. Due on due Goal Weight. Due on d ue Goal Height. Due on d ue Goal FIT-DNA. Due on due Goal Hepatitis C screening. Due o n due Goal BUSINESS PERFORMANCE SPECIALIST Paperwork. Due on due Goal Unhealthy drug use screening . Due on due Goal Update Social History. Due o n due Goal Tobacco Use. Due on due Goal OARS. Due on due Goal Zoster vaccine (1st). Due on due Goal UDT. Due on due Goal Hepatitis C screening. Due o n due Goal DIRECTOR MEDICAL WRITING Scanned. Due on due Goal HPV. Due on due Goal UDT. Due on due Goal PHQ-9. Due on du e Goal AST (SGOT). Due on due Goal Review Allergy List. Due on due Goal Creatinine. Due on due Goal Weight. Due on d ue Goal BUSINESS PERFORMANCE SPECIALIST Paperwork. Due on due Goal Order Annual PT. Due on due Goal ALT (SGPT). Due on due Goal OARS. Due on due Goal Update Social History. Due o n due Goal Medication Reconciliation. D ue on due Goal Lipid panel. Due on due Goal Height. Due on d ue Goal Unhealthy drug use screening . Due on due Goal CT-Colonography. Due on due Goal FIT-DNA. Due on due Goal Zoster vaccine (1st). Due on due Goal Tobacco Use. Due on due Goal FIT. Due on due Goal Creatinine. Due on due Goal OARS. Due on due Goal UDT. Due on due Goal Review Allergy List. Due on due Goal Hepatitis C screening. Due o n due Goal Update Social History. Due o n due Goal Weight. Due on d ue Goal BUSINESS PERFORMANCE SPECIALIST Paperwork. Due on due Goal AST (SGOT). Due on due Goal Medication Reconciliation. D ue on due Goal Zoster vaccine (1st). Due on due Goal Lipid panel. Due on due Goal DIRECTOR MEDICAL WRITING Scanned. Due on due Goal Order Annual PT. Due on due Goal FIT-DNA. Due on due Goal ALT (SGPT). Due on due Goal Unhealthy drug use screening . Due on due Goal CT-Colonography. Due on due Goal Tobacco Use. Due on due Goal FIT. Due on due Goal Height. Due on d ue Goal HPV. Due on due Goal PHQ-9. Due on du e Goal DIRECTOR MEDICAL WRITING Scanned. Due on due Goal Creatinine. Due on due Goal ALT (SGPT). Due on due Goal Order Annual PT. Due on due Goal Hepatitis C screening. Due o n due Goal AST (SGOT). Due on due Goal Lipid panel. Due on due Goal OARS. Due on due Goal CT-Colonography. Due on due Goal BUSINESS PERFORMANCE SPECIALIST Paperwork. Due on due Goal Tobacco Use. Due on due Goal UDT. Due on due Goal FIT. Due on due Goal Height. Due on d ue Goal HPV. Due on due Goal PHQ-9. Due on du e Goal Medication Reconciliation. D ue on due Goal Unhealthy drug use screening . Due on due Goal Review Allergy List. Due on due Goal FIT-DNA. Due on due Goal Update Social History. Due o n due Goal Weight. Due on d ue Goal Zoster vaccine (1st). Due on due Goal Order Annual PT. Due on due Goal DIRECTOR MEDICAL WRITING Scanned. Due on due Goal Creatinine. Due on due Goal ALT (SGPT). Due on due Goal BUSINESS PERFORMANCE SPECIALIST Paperwork. Due on due Goal AST (SGOT). Due on due Goal OARS. Due on due Goal UDT. Due on due Goal Update Social History. Due o n due Goal HPV. Due on due Goal Tobacco Use. Due on due Goal Lipid panel. Due on due Goal Zoster vaccine (1st). Due on due Goal Medication Reconciliation. D ue on due Goal Review Allergy List. Due on due Goal FIT. Due on due Goal Hepatitis C screening. Due o n due Goal Height. Due on d ue Goal CT-Colonography. Due on due Goal PHQ-9. Due on du e Goal Unhealthy drug use screening . Due on due Goal Weight. Due on d ue Goal FIT-DNA. Due on due Goal Height. Due on d ue Goal Review Allergy List. Due on due Goal Update Social History. Due o n due Goal Creatinine. Due on due Goal DIRECTOR MEDICAL WRITING Scanned. Due on due Goal PHQ-9. Due on du e Goal Zoster vaccine (1st). Due on due Goal UDT. Due on due Goal CT-Colonography. Due on due Goal Order Annual PT. Due on due Goal FIT-DNA. Due on due Goal OARS. Due on due Goal Tobacco Use. Due on due Goal Hepatitis C screening. Due o n due Goal Unhealthy drug use screening . Due on due Goal Lipid panel. Due on due Goal ALT (SGPT). Due on due Goal BUSINESS PERFORMANCE SPECIALIST Paperwork. Due on due Goal AST (SGOT). Due on due Goal FIT. Due on due Goal Weight. Due on d ue Goal HPV. Due on due Goal Medication Reconciliation. D ue on due Goal Order Annual PT. Due on due Goal BUSINESS PERFORMANCE SPECIALIST Paperwork. Due on due Goal DIRECTOR MEDICAL WRITING Scanned. Due on due Goal Creatinine. Due on due Goal UDT. Due on due Goal ALT (SGPT). Due on due Goal AST (SGOT). Due on due Goal OARS. Due on due Goal Height. Due on d ue Goal PHQ-9. Due on du e Goal Unhealthy drug use screening . Due on due Goal FIT. Due on due Goal Review Allergy List. Due on due Goal HPV. Due on due Goal FIT-DNA. Due on due Goal Tobacco Use. Due on due Goal Lipid panel. Due on due Goal CT-Colonography. Due on due Goal Update Social History. Due o n due Goal Zoster vaccine (1st). Due on due Goal Medication Reconciliation. D ue on due Goal Hepatitis C screening. Due o n due Goal Weight. Due on d ue Goal UDT. Due on due Goal Order Annual PT. Due on due Goal AST (SGOT). Due on due Goal BUSINESS PERFORMANCE SPECIALIST Paperwork. Due on due Goal ALT (SGPT). Due on due Goal Creatinine. Due on due Goal OARS. Due on due Goal DIRECTOR MEDICAL WRITING Scanned. Due on due Goal Tobacco Use. Due on due Goal FIT. Due on due Goal CT-Colonography. Due on due Goal Weight. Due on d ue Goal Review Allergy List. Due on due Goal Zoster vaccine (1st). Due on due Goal HPV. Due on due Goal FIT-DNA. Due on due Goal Update Social History. Due o n due Goal Unhealthy drug use screening . Due on due Goal Height. Due on d ue Goal PHQ-9. Due on du e Goal Lipid panel. Due on due Goal Hepatitis C screening. Due o n due Goal Medication Reconciliation. D ue on due Goal Update Social History. Due o n due Goal Unhealthy drug use screening . Due on due Goal Medication Reconciliation. D ue on due Goal Height. Due on d ue Goal HPV. Due on due Goal FIT-DNA. Due on due Goal PHQ-9. Due on du e Goal Lipid panel. Due on due Goal Hepatitis C screening. Due o n due Goal Zoster vaccine (1st). Due on due Goal Review Allergy List. Due on due Goal Tobacco Use. Due on due Goal Weight. Due on d ue Goal FIT. Due on due Goal CT-Colonography. Due on due Goal Height. Due on d ue Goal Zoster vaccine (1st). Due on due Goal Medication Reconciliation. D ue on due Goal HPV. Due on due Goal Tobacco Use. Due on due Goal PHQ-9. Due on du e Goal Weight. Due on d ue Goal Hepatitis C screening. Due o n due Goal Lipid panel. Due on due Goal FIT. Due on due Goal Review Allergy List. Due on due Goal Unhealthy drug use screening . Due on due Goal CT-Colonography. Due on due Goal Update Social History. Due o n due Goal FIT-DNA. Due on due Goal Height. Due on d ue Goal Medication Reconciliation. D ue on due Goal PHQ-9. Due on du e Goal Zoster vaccine (1st). Due on due Goal Tobacco Use. Due on due Goal HPV. Due on due Goal Weight. Due on d ue Goal Unhealthy drug use screening . Due on due Goal Update Social History. Due o n due Goal FIT-DNA. Due on due Goal Hepatitis C screening. Due o n due Goal Lipid panel. Due on due Goal CT-Colonography. Due on due Goal Review Allergy List. Due on due Goal FIT. Due on due Appointment Coral Pandey #[id number] RFW#1 Right C2-C3, C3-C4 Joint(s) BOOKED Appointment Coral Pandey BOOKED History Of Present Illness Encounter Date Complaint History Of Prese nt Illness Comments: Henry pino is a 63 y/o female who presents for follow up and medication refill in the setting of chronic neck pain and low back pain with radiation into the BL legs. Pain has been fluctuating this month. Recently obtained a cervical MRI on 09/03/2023. Patient is accompanied by her who participates in today's discussion. Ongoing daily headaches have been the most bothersome. Notes the headaches begins at the base of the neck, radiates to the R side of the lateral head, and wrapping around to the R eye. Notes some increased pressure in her forehead. Denies radiating pain in her BL arms. Pain is aggravated by increased movement and standing up. Recently completed PT at [facility] with short-term benefit, though notes pain returned to baseline shortly after each visit. Continues to utilize HEP with benefit. Reports she is having increased head tremors and believes it may be related to increased muscle spasming in her neck.Notes she has been continually losing weight since May and believes it may be r/t increased anxiety. States she has lost 15 lbs in two months. Topamax started in july, ? If contributed to weight lossReports current medication regimen provides 10-20% pain relief and allows for increased functionality. Continues to utilize [place] 5-325mg with moderate benefit. Presents with a large surplus of medications today. Continues to utilize Topomax which reduces the intensity of her headaches. Denies OIC, which is managed with Senna-S, or other side effects from current medication regimen. No other concerns today. low back pain Severity level i s 6. Duration: chronic. The problem is worsening. It occurs persistently. Location of pain is neck and head. The client describes the pain as an ache, sharp and throbbing. Symptoms are aggravated by bending, daily activities, lifting, rising from sitting and prolonged positioning. Symptoms are relieved by heat, ice, massage, pain meds/drugs, stretching, rest and changing positions. Comments: Henry pino is a 63 y/o female who presents for follow up and medication refill in the setting of chronic neck pain and low back pain with radiation into the BL legs. Pain has been fluctuating this month. Have yet to obtain the Cervical MRI.Ongoing daily headaches have been the most bothersome. Notes the headaches begins at the base of the neck, radiates to the R side of the lateral head, and wrapping around to the R eye. She states she was trying to manage the headaches by increasing the Topamax 25mg to 2x/day which only helped for 10 days before worsening. Endorses light sensitivity but denies nausea and vomiting.Reports current medication regimen provides 20% pain relief and allows for increased functionality. Continues to utilize Le[place] 5-325mg with moderate benefit. Notes she had started a new job and cannot rely on her opioids. Denies OIC, which is managed with Senna-S, or other side effects from current medication regimen. No other concerns today. low back pain Severity level i s 7. Duration: chronic. The problem is worsening. It occurs persistently. The client describes the pain as an ache, burning, sharp and throbbing. Symptoms are aggravated by lifting, walking, housework and prolonged positioning. Symptoms are relieved by heat, ice, massage, pain meds/drugs, physical therapy, stretching, rest, sitting, caffeine and changing positions. Comments: Henry pino is a 63 y/o female who presents for follow up and medication refill in the setting of chronic neck pain and low back pain with radiation into the BL legs. Pain has been fluctuating this month. Neck pain right >left with associated headaches have been the most bothersome. Per her report, the cyst between her vertebrae was popped. Notes the cyst was found on her most recent Cervical CT. Had completed a sleep study on 07/02/[address] Scotty Mancia MD through [facility]. According to the visit summary note she brought in today, the sleep study did not show any significant sleep apnea but there was evidence of deep sleep and no REM sleep. Notes she was recommended a long acting opioid medication to help with the RLS.Reports current medication regimen provides 50% pain relief and allows for increased functionality. Continues to utilize Le[place]ster 5-325mg with moderate benefit. Denies OIC, which is managed with Senna-S, or other side effects from current medication regimen. No other concerns today. low back pain Severity level i s 4. Duration: chronic. The problem is fluctuating. It occurs persistently. The client describes the pain as an ache and sharp. Symptoms are aggravated by bending, lifting, standing, housework and prolonged positioning. Symptoms are relieved by heat, ice, pain meds/drugs, physical therapy, stretching, rest and changing positions. low back pain Severity level i s 6. Duration: chronic. The problem is fluctuating. It occurs intermittently. The client describes the pain as an ache, burning and sharp. Symptoms are aggravated by ascending stairs, bending, descending stairs, lifting, standing, walking, housework and prolonged positioning. Symptoms are relieved by heat, ice, lying down, pain meds/drugs, physical therapy, rest, sitting and changing positions. Comments: Henry pino is a 63 y/o female who presents for follow up and medication refill in the setting of chronic neck pain and low back pain with radiation into the BL legs. Pain has been stable this month. Denies any weakness or falls since OTIS.SCS continues to provide beneficial pain relief. She completed Pt which has also made a notifiable benefit. Mentions she is now able to work for up to an hour before having to take a break, prior to therapy she could only work for 15-30 minutes.She has a f/u with sleep study in 2 weeks and plans to inquire about Trazadone for sleep. Mentions her neck will be sore if she does not sleep in the correct position.Reports current medication regimen provides moderate pain relief and allows for increased functionality. Continues to utilize Leominster 5-325mg with moderate benefit and increased functionality. Denies OIC, which is managed with Senna-S, or other side effects from current medication regimen. No other concerns today. low back pain Severity level i s 3. Duration: chronic. The problem is stable. It occurs persistently. The client describes the pain as an ache, burning and sharp. Symptoms are aggravated by bending, lifting, running, standing, walking, housework, stairs and prolonged positioning. Symptoms are relieved by heat, ice, lying down, massage, pain meds/drugs, physical therapy, stretching, rest, sitting and changing positions. Comments: Henry pino is a 62 y/o female who presents for follow up and medication refill in the setting of chronic neck pain and low back pain with radiation into the BL legs. Pain has been stable this month. Continues to do PT at [facility] and use the [employer] SCS with benefit. Completed a in-hospital sleep study on 05/02/23. Notes she has resumed her sleep medications, Trazodone and Mirapex, as it was doing more harm than good when she stopped them. Have now been obtaining 3-4 hours of sleep at night but states she does not consistently sleep through the night. Reports current medication regimen provides moderate pain relief and allows for increased functionality. Rates her pain as 7/10 without medications and 3/10 with medications. Continues to utilize Le[place]ster 5-325mg with moderate benefit. Denies OIC, which is managed with Senna-S, or other side effects from current medication regimen. No other concerns today. low back pain Severity level i s 2. Duration: chronic. The problem is fluctuating. It occurs persistently. The client describes the pain as an ache and burning. Symptoms are aggravated by bending, lifting, running, sitting, standing, walking, housework and prolonged positioning. Symptoms are relieved by heat, ice, lying down, pain meds/drugs, physical therapy, stretching, rest, sitting, walking and changing positions. Comments: Henry pino is a 62 y/o female who presents for follow up and medication refill in the setting of chronic neck pain and low back pain with radiation into the BL legs. Pain has been fluctuating this month. Continues to do PT at [facility] and use the Leyva SCS with benefit. Notes the zapping sensations in the shoulders have been resolved since the reprogramming on 03/24/23. Have seen a sleep specialist, Dr. Scotty Mancia MD through [facility], for her ongoing struggles with sleep. She states the doctor has taken her off Trazodone and Mirapex. Notes he has also increased the Gabapentin to 600mg at 11-12pm and continue taking it at 600mg every 2 hours until bedtime. Will have a in-hospital sleep study on 05/02/23. Reports current medication regimen provides moderate pain relief and allows for increased functionality. Rates her pain as 5/10 without medications and 2/10 with medications. Continues to utilize Le[place]ster 5-325mg with moderate benefit. Denies OIC, which is managed with Senna-S, or other side effects from current medication regimen. No other concerns today. low back pain Severity level i s 4. Duration: chronic. The problem is worsening. It occurs persistently. The client describes the pain as an ache and tingling. Symptoms are aggravated by bending, lifting, running, standing, twisting, housework and prolonged positioning. Symptoms are relieved by heat, ice, lying down, massage, pain meds/drugs, physical therapy, stretching, rest, sitting, walking and changing positions. Comments: eHnry pino is a 62 y/o female who presents for follow up and medication refill in the setting of chronic low back pain with radiation into the BL legs. Pain has been worse this month. Unsure if the increased activity or the inefficacy of the SCS has been contributing to the worsening of the pain-pain worse in legs, and restlessness in legs at . Lower back pain is fairly well managed with SCS and oral opioids. Continues to do PT at [facility].Continues to the use the Leyva SCS with varying degrees of relief. Persistent zapping in the shoulders and restless legs, especially in the posterior aspect, at night and while sitting have been the most bothersome. She states the restless legs symptoms are similar to before the SCS surgery. SCS Reprogramming scheduled for today Reports current medication regimen provides moderate pain relief and allows for increased functionality. Rates her pain as 8/10 without medications and 4/10 with medications. Continues to utilize Le[place]ster 5-325mg with moderate benefit. Willing to increase Gabapentin. Denies OIC, which is managed with Senna-S, or other side effects from current medication regimen. No other concerns today. low back pain Severity level i s 2. Duration: chronic. The problem is improving. It occurs persistently. The client describes the pain as an ache and sharp. Symptoms are aggravated by bending, lifting, running, standing, twisting, housework, stairs and prolonged positioning. Symptoms are relieved by ice, lying down, pain meds/drugs, physical therapy, stretching, rest and changing positions. Comments: Henry pino is a 62 y/o female who presents for follow up and medication refill in the setting of chronic low back pain with radiation into the BL legs. Pain has been improving this month. Have been doing PT through [facility] with benefit. She states the neck pain has been the most bothersome and is having the physical therapist work on the area too.Continues to use the Leyva SCS with relief. Denies any recent falls or changes. Notes there is no persistent zapping sensations other than in the shoulders when she has improper posture. She states the sensations disappear when she corrects her posture. Of note, patient is planning to consult with a sleep specialist through [facility]. Hopes to be able to obtain at least 6-8 hours of sleep at night as she has been struggling with insomnia. Reports current medication regimen provides moderate pain relief and allows for increased functionality. Rates her pain as 5/10 without medications and 2/10 with medications. Continues to utilize Leominster 5-325mg with moderate benefit. Denies OIC, which is managed with Senna-S, or other side effects from current medication regimen. No other concerns today. Comments: Henry pino is a 62 y/o female who presents for follow up and medication refill in the setting of chronic lower back pain with radiation into the BL legs. Pain has been improving this month. Pain mainly locate din left upper lumbar , worse with activities. Notes when she gets better sleep her pain is much better. She has also started PT in [place] and is hopeful it will provide benefit.S/p Leyva Lumbar SCS implant on 10/10/[address] Cabral is continues to provide significant relief. Notes reprogramming on 12/23/22 has provided significant benefit, in particular it has decreased restlessness and pain in BL legs. Notes she is very happy with the stimulator. Reports current medication regiment provides moderate pain relief and allows for increased functionality. Continues to utilize Le[place]ster 5-325mg 3-4x/day with moderate benefit. Denies OIC or other side effects from current medication regimen. No other concerns today. low back pain Severity level i s 12/20. Duration: chronic. The problem is improving. It occurs persistently. Location of pain is lower back. The client describes the pain as an ache and burning. Symptoms are aggravated by ascending stairs, bending, lifting, running, standing, twisting, prolonged positioning and housework. Symptoms are relieved by heat, ice, lying down, pain meds/drugs and rest. Comments: Henry pino is a 62 y/o female who presents for follow up and medication refill in the setting of chronic lower back pain with radiation into the BL legs. Pain has been worse this month. Pain mainly locate din left upper lumbar , worse with activities. She notices that she back to struggling to stand more than 15 min at a time , and needs longer rest timeS/p Leyva Lumbar SCS implant on 10/10/[address] Cabral is continues to provide significant relief. Noticed increased restlessness and pain in the legs. After adjusting SCS implant this was resolved, but then back pain increased. Have completed one session of PT with [facility] post-implant with great benefit, she would like to go back PT in [place] closer to her home.Reports current medication regiment provides moderate pain relief and allows for increased functionality. Continues to utilize Le[place]ster 5-325mg 3-4x/day with moderate benefit. Denies OIC or other side effects from current medication regimen. Presents with shorter pilsl today, becuase we adjusted rx in last OVNo other concerns today. low back pain Severity level i s moderate. Duration: chronic. The problem is fluctuating. It occurs intermittently. The client describes the pain as an ache, deep, discomforting, sharp, shooting and stabbing. Symptoms are aggravated by ascending stairs, bending, changing positions, daily activities, descending stairs, pushing, running, standing, twisting and walking. Symptoms are relieved by heat, ice, over the counter medication, pain meds/drugs, rest, sitting and spinal cord stimulator. low back pain Severity level i s 6. Duration: chronic. The problem is stable. It occurs persistently. Symptoms are relieved by pain meds/drugs and spinal cord stimulator. Comments: Henry pino is a 62 y/o female who presents for follow up and medication refill in the setting of chronic lower back pain with radiation into the BL legs. Pain has been stable this month. Noticed slight swelling of the hands when she gets up in the morning. She states it typically goes away throughout the day but wonders why it happens.S/p Leyva Lumbar SCS implant on 10/10/[address] Cabral is continues to provide significant relief. Notes improved leg pain and almost complete relief for the low back. Reports she is able to be in the kitchen for 15 minutes longer and does not need to sit for a long time in order to be active. She states the burning sensation at the IPG site have been relieved. Have completed one session of PT with [facility] post-implant with great benefit. Inquires if she should schedule another appointment with her or continue with the exercises at home.Patient states she recently experienced a fall earlier in the month and bumped her low back, more specifically the IPG site, against a cabinet. Inquires if the impact of the bump will affect the leads in any way. Notes she has an upcoming appointment for an echocardiogram to monitor her heart. Reports current medication regiment provides moderate pain relief and allows for increased functionality. Continues to utilize Le[place] 5-325mg 3-4x/day with moderate benefit. Denies OIC or other side effects from current medication regimen. No other concerns today. lumbago Patient is a 62 year old female with complains of chronic lower back pain. Patient is now 4 weeks s/p SCS implant. Her lower back pain into her legs are better overall with the stimulator and hopes some adjusments in a few weeks will be even better. Is noticing she is not having to sit after 15 mintues of cooking, can last 30 minutes but then get upper back spasm. Has noticed she feels she has lost some of the strength since the implant. Has an increase in muscle spasm in her mid and upper back if not rest. Does report a fail last week. Hit her chin and hurt neck which is still painful. She is following up with her primary for this issue. Is not currently walking much because of the weather ad cold/ice. Wants to be healed up. Does reprot low blood pressure with fainting. is working on it with primary Comments: Henry pino is a 62 y/o female who presents for follow up and medication refill in the setting of chronic lower back pain with radiation into the BL legs. Pain has been stable this month. Flares noted with housework.S/p Leyva Lumbar SCS implant on 10/10/[address] Cabral is providing significant relief. She has noticed a burning sensation in her mid back where leads are, however this is improving.Reports current medication regiment provides 30% relief and allows for increased functionality. Continues to utilize Le[place] 5-325mg 3-4x/day with moderate benefit. Denies OIC or other side effects from current medication regimen. No other concerns today. low back pain Duration: chroni c. low back pain Severity level i s 4. Duration: chronic. The problem is fluctuating. It occurs persistently. Location of pain is legs. The client describes the pain as an ache, burning and sharp. Symptoms are aggravated by bending, lifting, lying/rest, running, sitting, standing, twisting, walking, housework, movement, stairs and prolonged positioning. Symptoms are relieved by ice, pain meds/drugs, rest, sitting, SCS and changing positions. Comments: Henry pino is a 62 y/o female who presents for follow up and medication refill in the setting of chronic lower back pain with radiation into the BL legs. Pain has been fluctuating this month. S/p Leyva Lumbar SCS implant on 10/10/[address] Cabral is gradually providing significant relief. Most of today's visit was spent on wound check and following up with her after 1 week post-implant. Reports current medication regiment provides 30% relief and allows for increased functionality. Rates her pain as 7/10 without medications and 4/10 with medications. Continues to utilize Le[place] 5-325mg 3-4x/day with moderate benefit. Endorses OIC which is managed with OTC. Denies other side effects from current medication regimen. No other concerns today. Comments: Henry pino is a 62 y/o female who presents for follow up and medication refill in the setting of chronic lower back pain with radiation into the BL legs. Pain has been stable this month. She states she experienced a fall about a week ago and reports recent muscle spasticity on the R side of the ribs.Patient continues to express interest with moving forward with Leyva SCS implant. Has an upcoming appointment for the implant scheduled on 10/10/[address] Cabral. Inquires if the nurse strike in [place] will affect her surgery and if she can travel 10 days after her implant to visit her sister in [place]. Will consider postponing her trip 2.5 week after the procedure.Reports current medication regiment provides 50% relief and allows for increased functionality. Continues to utilize Le[place] 5-325mg 3-4x/day with moderate benefit. Endorses OIC which is managed with OTC. Denies other side effects from current medication regimen. No other concerns today. low back pain Severity level i s 3. Duration: chronic. The problem is fluctuating. It occurs persistently. Location of pain is legs. The client describes the pain as an ache, burning and tingling. Symptoms are aggravated by lifting, sitting, standing, twisting, walking, housework and prolonged positioning. Symptoms are relieved by heat, ice, lying down, pain meds/drugs, physical therapy, stretching, rest, sitting and changing positions. low back pain Severity level i s 4. Duration: chronic. The problem is stable. It occurs persistently. The client describes the pain as an ache, burning, sharp and tingling. Symptoms are aggravated by bending, lifting, running, sitting, standing, twisting, walking, housework, movement, stairs and prolonged positioning. Symptoms are relieved by pain meds/drugs and rest. Comments: Henry pino is a 62 y/o female who presents for follow up and medication refill in the setting of chronic lower back pain with radiation into the BL legs. Pain has been stable this month. Continues to find benefit with PT through [facility].S/p Lumbar Epidural Blood Patch on 08/05/[address] Cardona for spinal fluid leak from SCS trial. Headaches are completely resolved Patient continues to express interest with moving forward with Leyva SCS implant. Most of today's OV was spent going through the pre-surgery education. Has an upcoming appointment for the implant scheduled on 10/10/[address] Cabral.Reports current medication regiment provides 50% relief and allows for increased functionality. Continues to utilize [place] 5-325mg 3-4x/day with moderate benefit. Endorses OIC which is managed with OTC. Denies other side effects from current medication regimen. No other concerns today. Comments: ira stoddard is a 62 y/o female who presents for follow up and medication refill in the setting of chronic lower back pain and legs. Pain has been stable this month. Notes benefits with PT through [facility]. Reports increasing restless leg syndrome and left Leg pain. She requests refill of mirapex and states that it does work Reports current medication regiment provides 50% relief and allows for increased functionality. She notes she has continued to have constipation. She has been handling the constipation with OTC. Denies other side effects from current medication regimen. No other concerns toda low back pain Severity level i s moderate. The problem is worsening. It occurs persistently. Location of pain is lower back. Pain is radiated to the legs. The client describes the pain as an ache and sharp. Symptoms are aggravated by standing and walking. Symptoms are relieved by ice, pain meds/drugs, physical therapy and stretching. Comments: Henry pino is a 62 y/o female who presents for follow up and medication refill in the setting of chronic lower back pain and lets. Pt presents with her . Pain has been worse this month. Notes benefits with PT through [facility]. Reports increasing restless leg syndrome and left Leg pain. Pt states mirapex does not work as well anymore. Notes she is unable to sleep at night d/t to her leg pain.Reports current medication regiment provides 50% relief and allows for increased functionality. She notes she has continued to have constipation. She has been handling the constipation with OTC. Denies other side effects from current medication regimen. No other concerns today. Back Pain Severity level i s 7. Duration: chronic. The problem is worsening. It occurs persistently. The client describes the pain as an ache, burning, sharp and tingling. Symptoms are aggravated by bending, lifting, running, sitting, standing, twisting, walking, housework and prolonged positioning. Symptoms are relieved by heat, ice, lying down, massage, pain meds/drugs, physical therapy, stretching, rest and changing positions. Back Pain Severity level i s 7. Duration: chronic. The problem is improving. It occurs persistently. The client describes the pain as an ache, burning, sharp and tingling. Symptoms are aggravated by bending, lifting, running, sitting, standing, twisting, housework and prolonged positioning. Symptoms are relieved by heat, ice, lying down, massage, pain meds/drugs, physical therapy, stretching, rest and changing positions. Comments: Henry pino is a 61 y/o female who presents for follow up in the setting of chronic lower back pain and lets. Pain has been stable this month. She states she is ready to move forward with the SCS trial and has her appointment scheduled for 06/21/[address] Andrews. She reports she will be bringing her in for the pre-trial appointment in order to have his questions answered and relieve his concern surrounding the trial. Reports current medication regiment provides 50% relief and allows for increased functionality. She reports the Mirapex 0.25mg has been helpful for her restless leg syndrome and allows her 5-8 hours of sleep every night. She notes she has some constipation but states it has been reoccurring since her colonoscopy. She has been handling the constipation with OTC. Denies other side effects from current medication regimen. No other concerns today. Back Pain Duration: chroni c. The problem is fluctuating. It occurs persistently. Location of pain is middle back and lower back. The client describes the pain as an ache and burning. Symptoms are aggravated by ascending stairs, bending, pushing and twisting. Symptoms are relieved by heat, ice, massage, pain meds/drugs and rest. Comments: Henry pino presents for an initial follow up regarding chronic lower back pain and lets. S/P back surgery in 1996. TESI injections 01/01/[address] Keyon Muller, with benefit. She reports that the back pain is worse today, likely d/t increased activity. This currently flare up is causing pain down the BL legs. Pursing SCS trial, had a psych visit with Dr. Alyssa Smith on 03/20/22. Currently on Gabapentin 900mg TID, Baclofen at HS, [place] helps her complete her house chores. Trailed amitriptyline since the last visit. She reports possible SE including restless during the night and sleep walking. Of note, she has checked her iron levels since the initial visit. States it is in normal range. No other concerns Comments: Henry pino presents with chronic lower back pain and lets. S/P back surgery in 1996. TESI injections 01/01/22 were helpful to remove the intense part of the pain in her legs but deep aching pain remains in BL legs, L>R. The left leg is in constant pain and restless. Restless sensation increases when lying down and decreases a little when standing . Advised to check iron levels with pcp Back pain is bending and twisting make pain worse. has not seen neurologist or nuclear weapons specialist since the surgery.Tried: Mirapex 2x with SE of intense WEBB w/n 2 hours of taking, TENS Unit Currently on Gabapentin 900mg TID, Baclofen at HS, [place] helps her complete her house chores pt notes she likes hunting and does not want to lose her right to [place] so declines medical cannabisOARS high risk d/t endorsed physical/sexual abuse, hx of psychiatric medications [and] endorsed being a smoker Notes she tapered off depression medications in 2020 after previously being on them for 30 years. Reports some anxietyNo other concerns Back Pain Severity level i s 9. Duration: chronic. The problem is worsening. It occurs persistently. Location of pain is middle back and legs. Symptoms are aggravated by bending, lifting, lying/rest, running, sitting, standing, twisting and walking. Symptoms are relieved by heat, ice, lying down, massage, pain meds/drugs, physical therapy, stretching, rest and sitting. Functional Status Date Functional Assessmen t No Information Instructions Date Instruction Additional Infor mation No Information Assessments Type Assessment Date No Information Patient Care Teams Name Effective Dates (start - stop) Status Members No Information
--- OUTSIDE RECORDS SUMMARY | 2023-09-30 15:22 | XMS_ITS | Continuity of Care Document ---
Author Name Unknown Organization [facility] Address [address] [place] [address] Phone Care Team Providers Care Oncology Account Specialist Name Role Phone Torres AMINAHSusannah Unavailable Unavailable Medications Medication Instructions Dosage Effective Dates (start - stop) Status Comments Pamelor 10 mg Cap nortriptyline 10mg #30 1 tab 1-2 hrs before hs - Active Paxil 40 mg Tab Take one capsule by mouth daily - No Longer Active Neurontin 300 mg Cap Take one capsule by mouth three times per day. May add one tablet every three days to equal 2 tabletsthree times a day - No Longer Active Vicodin 5 mg-500 mg Tab Take one tablet by mouth every six hours - No Longer Active Paxil 10 mg Tab Take one tablet by mouth daily ( Use with 20mg tablets to =30mg/day) - No Longer Active BEXTRA 10MGTABLET Take one tablet by mouth daily - No Longer Active Neurontin 300 mg Cap gabapentin 300mg #90 1 tab tid 2RF's - No Longer Active Advance Directives Directive Yes / No Effective Date File Name No Information Encounters Encounter Description Practice Location Reason(s) For Visit Diagnoses Date Provider Providers Copied on Encounter [facility], [address], [place], [place], [id number], [place] tel:[phone] [facility] No Information 2 [address] [place], [address], [place]. tel:[phone] Referring Provider: REFERRAL KATHYA HARRIS. Christos [facility], [address], [place], [place], [id number], [place] tel:[phone] [facility] No Information Mar-0 5-[address] [place], [address], [place]. tel:[phone] Referring Provider: Guillermina Freeman MD, [address] [place], [address]. tel:[phone] [facility], [address], [place], [place], [id number], [place] tel:[phone] [facility] No Information [address] [place], [address], [place]. tel:[phone] Referring Provider: REFERRAL [facility]AHT[facility]ARRIS. [facility], [address], [place], [id number], tel:[phone] [facility] No Information [address] [place], [address], [place]. tel:[phone] Referring Provider: REFERRAL KATHYA HARRIS. Family History Family Member Type Diagnosis Age At Onset No Information Payers Payer name Insurance type Covered alliance party ID Authoriza tion(s) No Information Social History [...]
== END 2023-09-30 15:15 | disposition home or self-care (01) ==
PROVIDERS: PCP Nurse Practitioner Family; Visit Provider Nurse Practitioner Family
DX: R42 Dizziness and giddiness (principal); R25.1 Tremor, unspecified
CPT/HCPCS: 80053; 82607; 83735; 84443; 84484; 85025

== ENCOUNTER 2023-12-15 16:00 | Outpatient (CLI) | payer MEDICAID, SELFPAY | END 2023-12-15 16:01 | disposition home or self-care (01) | PROVIDERS: PCP Nurse Practitioner Family; Visit Provider Nurse Practitioner Family | DX: R10.12 Left upper quadrant pain (principal) | CPT/HCPCS: 80053; 81001; 82150; 83690; 85025; 87086 ==

== ENCOUNTER 2023-12-18 15:20 | Outpatient (CLI) | payer MEDICAID, SELFPAY | END 2023-12-18 15:21 | disposition home or self-care (01) | LOC: NFLDREF 12-31 10:01 | PROVIDERS: PCP Nurse Practitioner Family; Referring Provider Nurse Practitioner Family; Visit Provider Nurse Practitioner Family | DX: R10.12 Left upper quadrant pain (principal) | CPT/HCPCS: 87338 ==

== ENCOUNTER 2023-12-22 14:29 | Outpatient (CLI) | payer MEDICAID, SELFPAY ==
--- NOTE | 2023-12-22 15:00 | CT_ITS ---
Facility:?[facility] Patient ID:?[id number] Site Patient ID:?[id number]. Site :?1960 Study:?CT-Chest/Abd/Pelvis W/ 56CC ISOVUE 370-12/22/2023 3:17:36 PM Ordering Physician:NAI Final Report: Indication: LUQ PAIN Technique: CT Chest/Abd/Pelvis W/ 56CC ISOVUE 370 Please note that all CT scans at this facility use dose modulation, iterative reconstruction, and/or weight-based dosing when appropriate to reduce radiation dose to as low as reasonably achievable. Comparison: 11/21/2022, 04/03/2021 Findings: In the chest, there is probable artifact within the left internal jugular vein although confirmation with ultrasound is suggested. Incidental calcification within the breast tissue. No adenopathy. Trace pericardial effusion is present. No pleural effusion. Neurostimulator wires. No fracture. Emphysema. Stable curvilinear scarring within the right medial lung with associated calcified densities. No infiltrate or edema. No effusion. In the abdomen, the liver is enlarged measuring 19.8 cm. No intrahepatic mass. Similar appearance of the spleen and adjacent lobular tissue. Thickening of the left adrenal gland is present. Normal right adrenal gland. Nonobstructing stone within the left kidney is present measuring 4 millimeters. There is a stone within the left proximal ureter measuring 6.7 millimeters with mild distention of the left ureter. Right kidney is normal. Calcified densities within the gallbladder are present measuring up to 4 millimeters. No biliary obstruction. Normal pancreas. Atherosclerotic changes. No aneurysm. In the pelvis, the bladder is incompletely distended. No bowel obstruction, free air, free fluid or abscess. Hyperdensity within the right adnexa is present. Degenerative disc disease L4-5 with discogenic sclerosis. No fracture. Impression: Partially obstructing 6.7 millimeter stone in the proximal left ureter. Nonobstructing 4 millimeter stone upper pole left kidney. Chronic hepatomegaly and cholelithiasis. Stable appearance of the spleen and adjacent lobular densities. Indeterminate area of density within the right adnexa with adjacent fluid attenuation. Pelvic ultrasound recommended to exclude ovarian lesion. Please note that all CT scans at this facility use dose modulation, iterative reconstruction, and/or weight-based dosing when appropriate to reduce radiation dose to as low as reasonably achievable. Dictated by Jered Zaidi MD @ 12/23/2023 10:25:21 AM Signed by:?Jered Zaidi MD @12/23/2023 10:25:21 AM (Electronic Signature)
== END 2023-12-22 14:30 | disposition home or self-care (01) ==
LOC: CT 14:31
PROVIDERS: PCP Nurse Practitioner Family; Visit Provider Nurse Practitioner Family
DX: R10.12 Left upper quadrant pain (principal); N20.1 Calculus of ureter; K80.20 Calculus of gallbladder without cholecystitis without obstruction; R16.0 Hepatomegaly, not elsewhere classified; N20.0 Calculus of kidney
CPT/HCPCS: 71260; 74177; Q9967

== ENCOUNTER 2024-01-06 07:00 | Outpatient (CLI) | payer MEDICAID, SELFPAY ==
--- NOTE | 2024-01-06 07:15 | US_ITS ---
Patient: WALTER OVALLE Facility:?[facility] Patient ID:?[id number] Site Patient ID:?[id number]. Site :?1960 Study:?US-Extremity Left DVT?-01/06/2024 9:08:36 AM Ordering Physician:NAI Final Report: INDICATION: Clot versus artifact CT 12/22/2023 COMPARISON: CT 12/22/2023 TECHNIQUE: Grayscale, color Doppler, and duplex Doppler of the left upper extremity deep and superficial venous systems. FINDINGS: Laterality: Left Examined veins: internal jugular, innominate, subclavian, axillary, brachial, ulnar, radial basilic, cephalic, antecubital Left ulnar vein is too small to see. The examined veins are patent with normal grayscale appearance and normal compressibility where anatomically feasible. Normal color Doppler flow. Normal venous waveforms on duplex Doppler ultrasound with normal augmentation. IMPRESSION: No deep or superficial venous thrombosis in the left upper extremity. Finding on CT is consistent with mixing artifact from the contrast bolus. Dictated by Falguni Martel MD @ 01/06/2024 9:16:00 AM Signed by:?Falguni Martel MD @01/06/2024 9:16:00 AM (Electronic Signature)
--- NOTE | 2024-01-06 08:15 | US_ITS ---
Patient: WALTER OVALLE Facility:?[facility] Patient ID:?[id number] Site Patient ID:?[id number]. Site :?1960 Study:?US-Pelvis -01/06/2024 9:11:06 AM Ordering Physician:NAI Final Report: INDICATION: Possible right adnexal mass on CT. TECHNIQUE: Transabdominal and transvaginal pelvic ultrasound. COMPARISON: 12/22/[address] FINDINGS: Uterus is anteverted and measures 5.2 x 1.9 x 4.0 cm. Endometrial stripe thickness is 1 mm. Both ovaries appear normal and have normal color Doppler flow. No right adnexal mass. Specifically, the right adnexal density seen on the CT is not visible on this exam. This was probably material within a loop of bowel. IMPRESSION: Normal pelvic ultrasound. Finding in the right adnexa on the previous study was probably in bowel. Dictated by Efren Del Cid MD @ 01/06/2024 2:21:47 PM Signed by:?Efren Del Cid MD @01/06/2024 2:21:47 PM (Electronic Signature)
--- NOTE | 2024-01-06 09:15 | US_ITS ---
Patient: WALTER OVALLE Facility:?[facility] Patient ID:?[id number] Site Patient ID:?[id number]. Site :?1960 Study:?US-Abdomen GB-01/06/2024 9:12:42 AM Ordering Physician:NAI Final Report: INDICATION: Cholelithiasis on CT. TECHNIQUE: Ultrasound of the gallbladder with grayscale and color Doppler images. COMPARISON: 12/22/2023. FINDINGS: Mobile echogenic shadowing foci in the gallbladder lumen compatible with stones. Normal gallbladder wall thickness. No pericholecystic fluid. Common bile duct normal caliber. IMPRESSION: Cholelithiasis. Dictated by Efren Del Cid MD @ 01/06/2024 2:33:07 PM Signed by:?Efren Del Cid MD @01/06/2024 2:33:07 PM (Electronic Signature)
== END 2024-01-06 07:01 | disposition home or self-care (01) ==
PROVIDERS: PCP Nurse Practitioner Family; Visit Provider Nurse Practitioner Family
DX: R93.89 Abnormal findings on diagnostic imaging of other specified body structures (principal); K80.20 Calculus of gallbladder without cholecystitis without obstruction
CPT/HCPCS: 76705; 76830; 76856; 93971

== ENCOUNTER 2024-02-02 11:42 | Outpatient (CLI) | payer MEDICAID, SELFPAY ==
--- OUTSIDE RECORDS SUMMARY | 2024-02-02 11:46 | XMS_ITS | Clinical Summary ---
Author Name Unknown Organization [facility] Address [address] [place] [address] Care Team Providers Care Oxygen Equipment Preparer Name Role Phone Unavailable Primary Care Provider Unavailabl e Source Comments Patient records contain information from all sites at [facility]. For routine questions regarding patient records, call [phone] during business hours, M-F 8:00 AM - 5:00 PM Central Time. Record requests for emergency care only can be directed to [phone] at any time.[facility] Allergies Active Allergy Reactions Criticality Noted Date Comments Celecoxib Other (see comments),Hallucinations 01/21/2007 feels as though My body is crawling I didn't feel myself Penicillins Hives (Reselect Reaction) 01/21/2007 Medications Medication Sig Dispensed Refills Start Date End Date Status atorvastatin (LIPITOR) 10 mg tablet Take 10 mg by mouth at bedtime. 02/07/2023 Active baclofen (LIORESAL) 10 mg tablet Take 10 mg by mouth 3 (three) times a day as needed for muscle spasms. 03/20/2022 Active gabapentin (NEURONTIN) 300 mg capsule Take 900 mg by mouth 3 (three) times a day. 10/08/2022 Active HYDROcodone-acetam inophen (NORCO) 5-325 mg per tablet Take 1 tablet by mouth 3 (three) times a day as needed for pain. 03/04/2022 Active levothyroxine (SYNTHROID, LEVOTHROID) 75 mcg tablet Take 75 mcg by mouth every morning before breakfast. 02/07/2023 Active LORazepam (ATIVAN) 0.5 mg tablet Take 0.5 mg by mouth 2 (two) times a day as needed for anxiety. 08/25/2023 Active omeprazole (PriLOSEC) [address] capsule Take 1 capsule by mouth at bedtime as needed (1-2 tablets as needed). 04/08/2017 Active traZODone (DESYREL) 50 mg tablet Take 50 mg by mouth at bedtime. 03/03/2023 Active butalbitaL-acetami nophen 25-325 mg tablet Take by mouth as directed. 09/18/2023 Active hydrOXYzine (ATARAX) 10 mg tablet Take 10 mg by mouth 3 (three) times a day as needed for anxiety. Active tamsulosin (FLOMAX) 0.4 mg 24 hr capsule Take 1 capsule (0.4 mg total) by mouth daily for 10 days. 10 capsule 12/29/2023 01/08/2024 sulfamethoxazole-t rimethoprim (BACTRIM) 400-80 mg per tablet Take 1 tablet by mouth every 12 (twelve) hours for 7 days. 14 tablet 12/30/2023 01/06/2024 ciprofloxacin (CIPRO) 250 mg tablet Take 1 tablet (250 mg total) by mouth 2 (two) times a day before breakfast and dinner for 7 days. 14 tablet 01/16/2024 01/23/2024 HYDROcodone-acetam inophen (NORCO) 5-325 mg per tabletIndications: Prolonged Acute Pain/Traumatic Injury Take 1-2 tablets by mouth every 6 (six) hours as needed for pain (pain) for up to 3 days Indication: Prolonged Acute Pain/Traumatic Injury. No more than 8 tablets per day 12 tablet 01/16/2024 01/19/2024 Active Problems Problem Noted Date Diagnosed Date Nephrolithiasis Calcium Oxalate 01/22/2024 Other Intervertebral Disc Displacement Lumbar Re gion 09/15/2017 Hyperlipidemia 06/24/2012 Gastroesophageal Reflux Disease NOS 11/07/2009 Other Chronic Pain 11/07/2009 Restless Leg Syndrome 11/07/2009 Degeneration Disc Lumbosacral 04/08/2007 Depression Major Recurrent Moderate 01/21/2007 Encounters Date Type Department Care Team Description 01/22/2024 8:30 AM CDT Office Visit Department of Urology in [place], [place] [address] [place] [address] Toya Crowder APRN, C.N.P. Nephrolithiasis Calcium Oxalate (Primary Dx) 01/16/2024 Orders Only Department of Urology in [address] [phone] Dk Byrd M.D. 01/07/2024 7:05 AM CDT - 01/07/2024 11:59 PM CDT Hospital Encounter Department of Radiology in [address] [phone] Dk Byrd M.D. Cystoscopy Status Post Discharge Disposition: Home or Self Care 12/30/2023 Orders Only Department of Urology in [address] [phone] Dk Byrd M.D. 12/29/2023 9:45 AM CDT Office Visit Department of Urology in [address] [phone] Dk Byrd M.D. Stone Kidney 12/29/2023 Clinical Communication Department of Urology in [address] [phone] Dk Byrd M.D. SURGERY DATE 12/23/2023 [facility] [address] [place] [address] Liana Pérez CNighatNNighatPNighat Stone Kidney (Primary Dx) from Last 3 Months Immunizations Name Administration Dates Next Due Influenza TIV (IM) 09/02/2007 Influenza, Seasonal, Injectable 09/02/2007,08/22 PCV20 12/02/2022 PPSV23(Discontinued) 02/23/2021 Td Preservative Free (TENIVAC, DECAVAC) 04/19/20 09 Tdap 01/11/2021 Social History Tobacco Use Types Packs/Day Years Used Date Smoking Tobacco: Every Day Cigarettes 1 44.3 Started: 10/13/1979 Smokeless Tobacco: Never Nutrition Answer Date Recorded Nutrition: EVOO Fat Source Unknown 12/22 Nutrition: Servings of Fruits/Vegetables per Day Not on file 12/23/2023 Dental Answer Date Recorded Dental: Regular Dentist Unknown 12/23/19 Sex and Gender Information Value Date Recorded Sex Assigned at Not on file Gender Identity Not on file Sexual Orientation Not on file Plan of Treatment Health Maintenance Due Date Last Done Comments CT Colonography 1962 Cologuard 1962 Depression Monitoring (PHQ-9) 1962 FIT 1962 Fasting Glucose for Diabetes Screening 1962 HIV Screening 1962 Hepatitis C Screening 1962 Lipid (Cholesterol) Screening 1962 Lung Cancer Screening 1962 Mammogram 1962 Thyroid Stimulating Hormone (TSH) test for thyroid function 1962 Tobacco Cessation counseling 1962 Zoster Vaccines (1 of 2) 2012 COVID-19 Vaccine (1 - season) 2023 Influenza Vaccine (#1) 2023 7, 09/02/2007, 08/22/2006 Cervical Cancer Screening 02/24/2024 02/23/2021 DTaP,Tdap,and Td Vaccines (2 - Td or Tdap) 01/11/2031 01/11/2021, 04/19/2009 Colonoscopy 04/03/2031 04/03/2021 Colorectal Cancer Screening 04/03/2031 Pneumococcal vaccine (0-64 years) Completed 023, 02/23/2021 Procedures Procedure Name Priority Date/Time Associated Diagnosis Comments WY CYSTHRSCPY RMVL FB/STENT SMPL Routine 01/22/2024 8:30 AM CDT Nephrolithiasis Calcium Oxalate FL FLUORO LESS THAN 1 HOUR RAD - Routine (most inpatients and all outpatients) 01/07/2024 9:37 AM CDT Cystoscopy Status Post BACTERIAL CULTURE, AEROBIC + SUSC, URINE Routine 12/29/2023 11:14 AM CDT [facility] OUTSIDE CT BODY Routine 12/22/2023 2:05 PM CDT from Last 3 Months Results * WY CYSTHRSCPY RMVL FB/STENT SMPL (01/22/2024 8:30 AM CDT) Narrative Toya Crowder APRN C.N.P. - 01/22/2024 8:30 AM CDT Toya Crowder APRN C.N.P. ? 01/22/2024 ??8:49 AM Cystoscopy Performed by: Toya Crowder APRN C.N.P. Authorized by: Toya Crowder APRN C.N.P. ?? Care team members present 1. Toya Crowder APRN C.N.PNighat 2. Maryann Herring R.N. IMPRESSION other Additional procedures performed: cystoscopy and stent removal ?? PROCEDURE DETAILS: Urethra (female): ??Normal: yes ?Diverticulum present: no ?? Sphincter: ??Characteristic: coapting ?? Trigone: ??Normal: yes Ureters: ??Characteristics: ??Effluxing clear urine ??Effluxing clear urine - side: ??Bilateral Bladder: ??Normal: yes ?Quality of urine: ??Clear ??Residual upon entry: ??Small ??Residual volume (cc): ??75 Tubes: ??Stent location: ??Left ??Stent encrusted: no ?Lee catheter placed: no ?? Ureteral stent removed: ??Side performed: ??Left Removal: simple ?Blue light imaging agent used: ??no A flexible cystoscope was inserted through the urethra into the bladder. Cystoscope was removed at the end of procedure. ??Utilizing grasping forceps ureteral stent is removed in its entirety without complication, the patient tolerated this well. CONSENT Consent obtained: verbal Consent given by: patient The benefits, risks and alternatives to the procedure and the potential need for sedation or anesthesia as well as the names, roles, and responsibilities of healthcare team members performing significant interventional tasks were discussed with the patient and/or decision maker. UNIVERSAL PROTOCOL All relevant documentation and testing were reviewed and available. All required blood products, implants, devices and or special equipment were made available as applicable. Pre-procedure verification was conducted and the correct site was marked if required. A fire risk assessment was done as applicable. The procedural time-out to verify correct patient, correct side/site, and procedure was conducted prior to performing the procedure and confirmed in a procedural pause. PRE-PROCEDURE DETAILS Procedure purpose: ??Therapeutic Indications: ??Stent removal Appropriate hand hygiene, gown, cap, mask, protective eyewear, sterile gloves, skin preparation, sterile drape, and strict aseptic technique were utilized as applicable for the procedure.: yes ?? Site preparation: ??Povidone-iodine SEDATION / ANESTHESIA Anesthesia method: topical application Topical application type: lidocaine POST-PROCEDURE DETAILS Procedure completed successfully: yes ?? Complications: no apparent complications ?? Comments ??Her stone was calcium oxalate. ??She drinks a wide variety of fluids, she does have some issues with orthostatic hypotension. ??She is encouraged to consume 100 oz of fluid daily. ??We discussed going forward with metabolic assessment in the form of 24 hour urine super saturation, she declines this at this time. ??If she does have another stone form we would recommend going through with metabolic assessment at that time. ??Complete antibiotics as prescribed. ??All questions answered. Toya Crowder APRN, C.N.P. UROLOGY O RDERABLES * FL Fluoro Less Than 1 Hour (01/07/2024 9:37 AM CDT) Anatomical Region Laterality Modality Digital Radiogra phy Impressions 01/07/2024 10:23 AM CDT Fluoroscopic guidance used intra-operatively. Narrative 01/07/2024 10:23 AM CDT EXAM: FL FLUORO LESS THAN 1 HOUR COMPARISON: Outside CT chest abdomen pelvis 12/22/2023 Procedure Note Anthony Brewer M.D. - 01/07/2024 EXAM: FL FLUORO LESS THAN 1 HOUR COMPARISON: Outside CT chest abdomen pelvis 12/22/2023 IMPRESSION: Fluoroscopic guidance used intra-operatively. Dk Byrd M.D. IMG FLUOROSCOPY PROC EDURES * (ABNORMAL) Bacterial Culture, Aerobic + Susceptibility, Urine (12/29/2023 11:14 AM CDT) Urine Culture Mixed microbiota (A) 12/30/2023 8:36 AM CDT MKTO Urine (Urine, Midstream) 12/29/2023 11:14 AM CDT 12/29/2023 1:47 PM CDT Comment:Specimen Source Site : Urine Dk Byrd M.D. LAB MICROBIOLOGY - G ENERAL ORDERABLES Performing Organization Address City/[facility] Co de Phone Number [facility] [address] [place] [address], [place] [facility] in [place] [address] [place] [address] * CT chest abdomen pelv w con-Outside CT Body (12/22/2023 2:05 PM CDT) Narrative IIMS - 12/23/2023 2:20 PM CDT This order has been created and auto-finalized to support the import of outside images. If available, original interpretation can be found on the Media Tab in Chart Review, in Document Viewer, or as an image in QREADS. If a re-interpretation or overread is required please follow defined workflow. ?? Provider Not In System IMG CT PROCEDURES Performing Organization Address City/[facility] Co de Phone Number IIMS NA from Last 3 Months
--- OUTSIDE RECORDS SUMMARY | 2024-02-02 11:46 | XMS_ITS ---
Author Name Unknown Organization [facility] Address [address] [place] [address] Care Team Providers Care Rnp Name Role Phone Unavailable Unavailable Unavailable Surgery Details Not on file Complications Check Surgery Details section. Procedure Estimated Blood Loss Check Surgery Details section. Procedure Findings Check Surgery Details section. Procedure Specimens Taken Check Surgery Details section.
--- OUTSIDE RECORDS SUMMARY | 2024-02-02 11:46 | XMS_ITS | Referral Summary ---
Author Name Unknown Organization [facility] Address [address] [place] [address] Care Team Providers Care Removable Prosthodontist Name Role Phone Unavailable Primary Care Provider Unavailabl e Source Comments Patient records contain information from all sites at [facility]. For routine questions regarding patient records, call [phone] during business hours, M-F 8:00 AM - 5:00 PM Central Time. Record requests for emergency care only can be directed to [phone] at any time.[facility] Encounters Date Type Department Care Team Description 01/22/2024 8:30 AM CDT Office Visit Department of Urology in [place], [place] [address] [phone] Toya Crowder APRN, C.N.P. Nephrolithiasis Calcium Oxalate (Primary Dx) 01/16/2024 Orders Only Department of Urology in [address] [phone] Dk Byrd M.D. 01/07/2024 7:05 AM CDT - 01/07/2024 11:59 PM CDT Hospital Encounter Department of Radiology in [place], [place] [address] [phone] Dk Byrd M.D. Cystoscopy Status Post Discharge Disposition: Home or Self Care 12/30/2023 Orders Only Department of Urology in [address] [phone] Dk Byrd M.D. 12/29/2023 Clinical Communication Department of Urology in [place], [place] [address] [place] [address] Dk Byrd M.D. SURGERY DATE 12/29/2023 9:45 AM CDT Office Visit Department of Urology in [place], [place] [address] [facility] [place] [address] Dk Byrd M.D. Stone Kidney 12/23/2023 [facility] [address] [place] [address] Liana Pérez C.N.P. Stone Kidney (Primary Dx) from Last 3 Months Allergies Active Allergy Reactions Criticality Noted Date [...] Lumbosacral 04/08/2007 Depression Major Recurrent Moderate 01/21/2007 Immunizations Name Administration Dates Next Due Influenza [...] Date Recorded Dental: Regular Dentist Unknown 12/23/19 24 Sex and Gender Information Value Date Recorded Sex Assigned at Not on file Gender Identity Not on file Sexual Orientation Not on file Plan of Treatment Not on file Procedures Procedure Name Priority Date/Time Associated Diagnosis Comments [place] CYSTHRSCPY RMVL FB/STENT SMPL Routine 01/22/2024 8:30 AM CDT Nephrolithiasis Calcium Oxalate FL FLUORO LESS THAN 1 HOUR RAD - Routine (most inpatients and all outpatients) 01/07/2024 9:37 AM CDT Cystoscopy Status Post BACTERIAL CULTURE, AEROBIC + SUSC, URINE Routine 12/29/2023 11:14 AM CDT [facility] OUTSIDE CT BODY Routine 12/22/2023 2:05 PM CDT from Last 3 Months Results * NC CYSTHRSCPY RMVL FB/STENT SMPL (01/22/2024 8:30 AM CDT) Narrative Toya Crowder APRN, C.N.P. - 01/22/2024 8:30 AM CDT Toya Crowder APRN, C.N.P. ? 01/22/2024 ??8:49 AM Cystoscopy Performed by: Toya Crowder APRN, C.N.P. Authorized by: Toya Crowder APRN, C.N.P. ?? Care team members present 1. Toya Crowder APRN, C.N.P. 2. Maryann Herring R.N. IMPRESSION other Additional [...] Mixed microbiota (A) 12/30/2023 8:36 AM CDT [facility] Urine (Urine, Midstream) 12/29/2023 11:14 AM CDT 12/29/2023 1:47 PM CDT Comment:Specimen Source Site : Urine Dk Byrd M.D. LAB MICROBIOLOGY - G ENERAL ORDERABLES [facility] [place] [address], [facility] [place] [address] [place] [address] * CT chest abdomen pelv w con-Outside [...] Provider Not In System IMG CT PROCEDURES IIMS NA from Last 3 Months
--- OUTSIDE RECORDS SUMMARY | 2024-02-02 11:47 | XMS_ITS | Encounter Summary ---
Author Name Unknown Organization [facility] Address [address] [place] [address] Care Team Providers Care Silverware Etcher Name Role Phone Unavailable Primary Care Provider Unavailabl e Reason for Referral * Outpatient (Routine) - Closed Specialty Diagnoses / Procedures Referred By Coral lares Referred To Contact Diagnoses Cystoscopy Status Post Procedures FL Fluoro Less Than 1 Hour Dk Byrd M.D. [address] [phone] [facility] Referral ID Status Reason Start Date Expiration Date Visits Re quested Visits Authorized [id number] Closed 01/07/2024 01/06/2025 1 1 Reason for Visit * Outpatient (Routine) - Closed Specialty Diagnoses / Procedures Referred By Coral lares Referred To Contact Diagnoses Cystoscopy Status Post Procedures FL Fluoro Less Than 1 Hour Dk Byrd M.D. [address] [phone] [facility] Referral ID Status Reason Start Date Expiration Date Visits Re quested Visits Authorized [id number] Closed 01/07/2024 01/06/2025 1 1 Encounter Details Date Type Department Care Team (Latest Contact Info) Description 01/07/2024 7:05 AM CDT - 01/07/2024 11:59 PM CDT Hospital Encounter Department of Radiology in [place], [place] [address] [place] [phone] Dk Byrd M.D. [address] [place] [phone] Cystoscopy Status Post Discharge Disposition: Home or Self Care Social History Tobacco Use Types Packs/Day Years [...] on file Sexual Orientation Not on file documented as of this encounter Medications at Time of Discharge Medication Sig Dispensed Refills Start Date End Date atorvastatin (LIPITOR) 10 mg tablet Take 10 mg by mouth at bedtime. 02/07/2023 baclofen (LIORESAL) 10 mg tablet Take 10 mg by mouth 3 (three) times a day as needed for muscle spasms. 03/20/2022 butalbitaL-acetaminophe n 25-325 mg tablet Take by mouth as directed. 09/18/2023 gabapentin (NEURONTIN) 300 mg capsule Take 900 mg by mouth 3 (three) times a day. 10/08/2022 HYDROcodone-acetaminoph en (NORCO) 5-325 mg per tablet Take 1 tablet by mouth 3 (three) times a day as needed for pain. 03/04/2022 hydrOXYzine (ATARAX) 10 mg tablet Take 10 mg by mouth 3 (three) times a day as needed for anxiety. levothyroxine (SYNTHROID, LEVOTHROID) 75 mcg tablet Take 75 mcg by mouth every morning before breakfast. 02/07/2023 LORazepam (ATIVAN) 0.5 mg tablet Take 0.5 mg by mouth 2 (two) times a day as needed for anxiety. 08/25/2023 omeprazole (PriLOSEC) [address] capsule Take 1 capsule by mouth at bedtime as needed (1-2 tablets as needed). 04/08/2017 traZODone (DESYREL) 50 mg tablet Take 50 mg by mouth at bedtime. 03/03/2023 tamsulosin (FLOMAX) 0.4 mg 24 hr capsule Take 1 capsule (0.4 mg total) by mouth daily for 10 days. 10 capsule 12/29/2023 01/08/2024 documented as of this encounter Plan of Treatment Not on file documented as of this encounter Procedures Procedure Name Priority Date/Time Associated Diagnosis Comments FL FLUORO LESS THAN 1 HOUR RAD - Routine (most inpatients and all outpatients) 01/07/2024 9:37 AM CDT Cystoscopy Status Post documented in this encounter Results * FL Fluoro Less Than 1 Hour [...] Fluoroscopic guidance used intra-operatively. Dk Byrd M.D. Bigg FLUOROSCOPY PROC EDURES documented in this encounter Visit Diagnoses Diagnosis Cystoscopy Status Post documented in this encounter
--- OUTSIDE RECORDS SUMMARY | 2024-02-02 11:47 | XMS_ITS | Encounter Summary ---
Author Name Unknown Organization [facility] Address [address] [place] [address] Care Team Providers Care Continuous Improvement Facilitator Name Role Phone Unavailable Primary Care Provider Unavailabl e Encounter Details Date Type Department Care Team (Late st Contact Info) Description 12/30/2023 Orders Only Department of Urology in [place], [place] [address] [place] [phone] Dk Byrd M.D. [address] [phone] Social History Tobacco Use Types Packs/Day Years [...] on file documented as of this encounter Plan of Treatment Not on file documented as of this encounter Visit Diagnoses Not on filedocumented in this encounter
--- OUTSIDE RECORDS SUMMARY | 2024-02-02 11:47 | XMS_ITS | Encounter Summary ---
Author Name Unknown Organization [facility] Address [address] [place] [address] Care Team Providers Care Supervisor Insulation Name Role Phone Unavailable Primary Care Provider Unavailabl e Encounter Details Date Type Department Care Team (Late st Contact Info) Description 01/16/2024 Orders Only Department of Urology in [place], [place] [address] [place] [phone] Dk Byrd M.D. [address] [phone] Social History Tobacco Use Types Packs/Day Years [...]
--- OUTSIDE RECORDS SUMMARY | 2024-02-02 11:47 | XMS_ITS | Encounter Summary ---
Author Name Unknown Organization [facility] Address [address] [place] [address] Care Team Providers Care Television Operator Name Role Phone Unavailable Primary Care Provider Unavailabl e Reason for Referral * Outpatient (Routine) - Closed Specialty Diagnoses / Procedures Referred By Coral lares Referred To Contact Urology Diagnoses Stone Kidney Liana Pérez, C.N.P. [address] [place] [address] [facility] Referral ID Status Reason Start Date Expiration Date Visits Re quested Visits Authorized [id number] Closed 12/23/2023 06/23/2025 1 1 Encounter Details Date Type Department Care Team (Late st Contact Info) Description 12/23/2023 [facility] [address] [place] [address] Liana Pérez, C.N.P. [address] [place] [phone] Stone Kidney (Primary Dx) Social History Tobacco Use Types Packs/Day Years Used Date Smoking Tobacco: Never Assessed Nutrition Answer Date Recorded Nutrition: EVOO Fat Source Unknown 12/22 Nutrition: Servings of Fruits/Vegetables per Day Not on file 12/23/2023 Dental Answer Date Recorded Dental: Regular Dentist Unknown 12/23/19 Sex and Gender Information Value Date Recorded Sex Assigned at Not on file Gender Identity Not on file Sexual Orientation Not on file documented as of this encounter Plan of Treatment Scheduled Referrals Name Type Priority Associated Diagnoses Orde r Schedule Urology Referral Outpatient Referral Routine Stone Kidney Expected: 12/23/2023 (Approximate), Expires: 03/24/2025 documented as of this encounter Visit Diagnoses Diagnosis Stone Kidney- Primary documented in this encounter
--- OUTSIDE RECORDS SUMMARY | 2024-02-02 11:47 | XMS_ITS | Encounter Summary ---
Author Name Unknown Organization [facility] Address [address] [place] [address] Care Team Providers Care Credit Review Officer Name Role Phone Unavailable Primary Care Provider Unavailabl e Reason for Referral * Outpatient (Routine) - Closed Specialty Diagnoses / Procedures Referred By Coral lares Referred To Contact Diagnoses Nephrolithiasis Calcium Oxalate Procedures Cystoscopy Toya Crowder APRN, C.N.P. [address] [address] [facility] Region Referral ID Status Reason Start Date Expiration Date Visits Re quested Visits Authorized [id number] Closed 01/22/2024 01/21/2025 1 1 Reason for Visit * Reason Comments Post-op * Outpatient (Routine) - Closed Specialty Diagnoses / Procedures Referred By Coral lares Referred To Contact Urology Dk Byrd M.D. [address], [place] [address] [facility] Referral ID Status Reason Start Date Expiration Date Visits Re quested Visits Authorized [id number] Closed 12/29/2023 06/29/2025 1 1 Encounter Details Date Type Department Care Team (Late st Contact Info) Description 01/22/2024 8:30 AM CDT Office Visit Department of Urology in [place], [place] [address] [address] Toya Crowder APRN, C.N.P. [address] [phone] Nephrolithiasis Calcium Oxalate (Primary Dx) Social History Tobacco Use Types [...] on file documented as of this encounter Procedure Notes * Toya Crowder APRN, C.N.P. - 01/22/2024 8:30 AM CDTAssociated Order(s): Cystoscopy Post-Procedure Diagnose(s): Nephrolithiasis Calcium Oxalate Cystoscopy Performed by: Toya Crowder APRN, C.N.P. Authorized by: Toya Crowder APRN, C.N.P. Care team members present 1. Toya Crowder APRN C.N.P. 2. Maryann Herring R.N. IMPRESSION other Additional procedures performed: cystoscopy and stent removal PROCEDURE DETAILS: Urethra (female): Normal: yes Diverticulum present: no Sphincter: Characteristic: coapting Trigone: Normal: yes Ureters: Characteristics: Effluxing clear urine Effluxing clear urine - side: Bilateral Bladder: Normal: yes Quality of urine: Clear Residual upon entry: Small Residual volume (cc): 75 Tubes: Stent location: Left Stent encrusted: no Lee catheter placed: no Ureteral stent removed: Side performed: Left Removal: simple Blue light imaging agent used: no A flexible cystoscope was inserted through the urethra into the bladder. Cystoscope was removed at the end of procedure. Utilizing grasping forceps ureteral stent is removed in [...] a procedural pause. PRE-PROCEDURE DETAILS Procedure purpose: Therapeutic Indications: Stent removal Appropriate hand hygiene, gown, cap, mask, protective eyewear, sterile gloves, skin preparation, sterile drape, and strict aseptic technique were utilized as applicable for the procedure.: yes Site preparation: Povidone-iodine SEDATION / ANESTHESIA Anesthesia method: topical application Topical application type: lidocaine POST-PROCEDURE DETAILS Procedure completed successfully: yes Complications: no apparent complications Comments Her stone was calcium oxalate. She drinks a wide variety of fluids, she does have some issues with orthostatic hypotension. She is encouraged to consume 100 oz of fluid daily. We discussed going forward with metabolic assessment in the form of 24 hour urine super saturation, she declines this at this time. If she does have another stone form we would recommend going through with metabolic assessment at that time. Complete antibiotics as prescribed. All questions answered. documented in this encounter Plan of Treatment Not on file documented as of this encounter Procedures Procedure Name Priority Date/Time Associated Diagnosis Comments AR CYSTHRSCPY RMVL FB/STENT SMPL Routine 01/22/2024 8:30 AM CDT Nephrolithiasis Calcium Oxalate documented in this encounter Results * AR CYSTHRSCPY RMVL FB/STENT SMPL (01/22/2024 8:30 AM CDT) Narrative Toya Crowder APRN, C.N.P. - 01/22/2024 8:30 AM CDT Toya Crowder APRN, C.N.P. ? 01/22/2024 ??8:49 AM Cystoscopy Performed by: Toya Crowder APRN, C.N.P. Authorized by: Toya Crowder APRN, C.N.P. ?? Care team members present 1. Toya Crowder APRN, C.N.PNighat 2. Maryann Herring R.N. IMPRESSION other [...] as prescribed. ??All questions answered. Toya Crowder APRN C.N.P. UROLOGY O [place] documented in this encounter Visit Diagnoses Diagnosis Nephrolithiasis Calcium Oxalate- Primary documented in this encounter
--- OUTSIDE RECORDS SUMMARY | 2024-02-02 11:47 | XMS_ITS | Continuity of Care Document ---
Author Name Unknown Organization [facility] Address [address] [place] [address] Care Team Providers Care House Shorer Name Role Phone Alexis Gray CRNA Unavailable Unavailable Procedures Procedure Date ANESTH, HEAD/NECK/PTRUNK Percutaneous Image guided neuromodulatio n or intra Advance Directives Directive Yes / No Effective Date File Name No Information Encounters Encounter Description Practice Location Reason(s) For Visit Diagnoses Date Provider Providers Copied on Encounter [facility], [address] [place], [place], [id number], [facility] No Information 3 Isaac Espinoza. [address] [place], [place], [id number] , . tel:[phone] Referring Provider: Susannah Cabral, [address] [place], [address] . tel:[phone] [facility], [address] [place], [place], [id number], [facility] No Information 2 Alvaro Park. [address] [facility], [place], [place], [id number] , . tel:[phone] Referring Provider: Fredis Quintana [address] [facility] [address], [place], [address]. tel:[phone] Family History Family Member Type Diagnosis Age At Onset No Information Payers Payer name Insurance type Covered libertarian ID Tae garibay(s) [facility] [id number] Social History Type Description Quantity Date Captured [...]
--- OUTSIDE RECORDS SUMMARY | 2024-02-02 11:47 | XMS_ITS | Continuity of Care Document ---
Author Name Unknown Organization [facility] Address [address] [place] [address] Care Team Providers Care Instructor Painting Name Role Phone [facility] Unavailable Unav ailable Procedures Procedure Date INJECT EPIDURAL PATCH FLUOROGUIDE FOR SPINE INJECT Advance Directives Directive Yes / No Effective Date File Name No Information Encounters Encounter Description Practice Location Reason(s) For Visit Diagnoses Date Provider Providers Copied on Encounter [facility], [address] [place], [place], [id number], [facility] No Information [facility]. [address] [place], [place], [id number], . tel:[phone] Referring Provider: Shabnam Cardona, [address] [place], [address]. tel:[phone] Family History Family Member Type Diagnosis Age At Onset No Information Payers Payer name Insurance type Covered alliance party ID Authorkacia phoenix(s) David [facility] [id number] Social History Type Description Quantity Date Captured [...]
--- OUTSIDE RECORDS SUMMARY | 2024-02-02 11:47 | XMS_ITS | Encounter Summary ---
Author Name Unknown Organization [facility] Address [address] [place] [address] Care Team Providers Care Mortgage Loan Originator Name Role Phone Unavailable Primary Care Provider Unavailabl e Reason for Referral * Outpatient (Routine) - Closed Specialty Diagnoses / Procedures Referred By Coral lares Referred To Contact Urology Dk Byrd M.D. [address] [address] [facility] Region Referral ID Status Reason Start Date Expiration Date Visits Re quested Visits Authorized [id number] Closed 12/29/2023 06/29/2025 1 1 * Outpatient (Routine) - Authorized Specialty Diagnoses / Procedures Referred By Coral lares Referred To Contact Family Medicine Diagnoses Stone Kidney Dk Byrd M.D. [address] [address] [facility] Region Referral ID Status Reason Start Date Expiration Date V isits Requested Visits Authorized [id number] Authorized 12/29/2023 06/29/2025 1 1 Reason for Visit * Reason Comments Consult Urolithiasis * Outpatient (Routine) - Closed Specialty Diagnoses / Procedures Referred By Coral lares Referred To Contact Urology Diagnoses Stone Kidney Liana Pérez, C.N.PNighat [address] [place] [address] [facility] Region Referral ID Status Reason Start Date Expiration Date Visits Re quested Visits Authorized [id number] Closed 12/23/2023 06/23/2025 1 1 Encounter Details Date Type Department Care Team (Late st Contact Info) Description 12/29/2023 9:45 AM CDT Office Visit Department of Urology in [place], [place] [address] [place] [phone] Dk Byrd M.D. [address] [place] [phone] Stone Kidney Social History Tobacco Use Types Packs/Day Years [...] on file documented as of this encounter Consult Notes * Dk Byrd M.D. - 12/29/2023 9:45 AM CDT SUBJECTIVE CHIEF COMPLAINT / REASON FOR VISIT Chief Complaint Patient presents with Consult Urolithiasis REFERRING PROVIDER: Liana Pérez C.N.P. HISTORY OF PRESENT ILLNESS This is a 63-year-old female whom I am asked to see. She has a five week history of left flank pain. Pain is not changed since it his started. It is in the same location. She is also having some painin the left shoulder region. She has not having any change in lower urinary tract symptoms. This isher first stone event. She was started on tamsulosin about one week ago, she has not noticed any stones pass during this time. MEDICAL HISTORY Post laminectomy syndrome History of depression Long-term opiate use Chronic pain Gastroesophageal reflux Hyperlipidemia Plantar fasciitis Anxiety SURGICAL HISTORY Lumbar SCS implant October 10, 2022 History of breast biopsy History of laminectomy Status post excision of vocal cord nodule FAMILY HISTORY Negative for urinary stones SOCIAL HISTORY Social History Tobacco Use Smoking status: Every Day Packs/day: 1 Types: Cigarettes Start date: 10/13/1979 Smokeless tobacco: Never Substance Use Topics Alcohol use: Not on file CURRENT MEDICATIONS Current Outpatient Medications Medication Sig Dispense Refill atorvastatin (LIPITOR) 10 mg tablet Take 10 mg by mouth at bedtime. baclofen (LIORESAL) 10 mg tablet Take 10 mg by mouth 3 (three) times a day as needed for muscle spasms. butalbitaL-acetaminophen 25-325 mg tablet Take by mouth as directed. gabapentin (NEURONTIN) 300 mg capsule Take 900 mg by mouth 3 (three) times a day. HYDROcodone-acetaminophen (NORCO) 5-325 mg per tablet Take 1 tablet by mouth 3 (three) times a day as needed for pain. levothyroxine (SYNTHROID, LEVOTHROID) 75 mcg tablet Take 75 mcg by mouth every morning before breakfast. LORazepam (ATIVAN) 0.5 mg tablet Take 0.5 mg by mouth 2 (two) times a day as needed for anxiety. omeprazole (PriLOSEC) [address] capsule Take 1 capsule by mouth at bedtime as needed (1-2 tablets asneeded). traZODone (DESYREL) 50 mg tablet Take 50 mg by mouth at bedtime. hydrOXYzine (ATARAX) 10 mg tablet Take 10 mg by mouth 3 (three) times a day as needed for anxiety. tamsulosin (FLOMAX) 0.4 mg 24 hr capsule Take 1 capsule (0.4 mg total) by mouth daily for 10 days. 10 capsule 0 No current facility-administered medications for this visit. ALLERGIES/ CONTRAINDICATIONS Allergies Allergen Reactions Celecoxib Other (see comments) and Hallucinations feels as though My body is crawling I didn't feel myself Penicillins Hives (Reselect Reaction) OBJECTIVE PHYSICAL EXAMINATION General: Well-nourished, well-developed adult female in no apparent distress, no communication barriers. Head: No abnormality of appearance. No facial abnormalities. Abdomen: Flat and nondistended. Gait: Normal. DIAGNOSTICS CT scan dated December 22, 2023, films are reviewed. Report is not available. Study is done with IV contrast. 4 mm nonobstructing stone in the middle of the left kidney. 7 x 8 mm stone proximal left ureter with mild proximal hydroureteronephrosis. Hounsfield units are approximately 1200. ASSESSMENT / PLAN #1 Stone Kidney Two stones in the left renal unit. One 4 mm nonobstructing stone in within the left kidney. 7 x 8 mm obstructing stone proximal left ureter. Plan: We discussed a variety of options. Given the location of the stones and their size, as there Hounsfield units, I am inclined to recommend ureteroscopy with laser lithotripsy as the best management option. In the meantime she should continue on tamsulosin drink plenty of fluids. Indications for tamsulosin are reviewed. Specifically it improves the risk of spontaneous passage, may make it easier to gain access to the stone we via ureteroscopy and lessens discomfort associatedwith ureteral stent. Ureteroscopy is explained to the patient and her . This includes a discussion of potential risks including bleeding, infection, inability to access the stone, major and minor ureteral injury. We will tentatively plan to do the surgery on FridayJanuary 06. She will need preoperative medical clearance. Urine culture is collected today. She will be seen approximately one week later for stent removal. At that point arrangements will be made to definitively identify metabolic risk factors for future stone disease. She will need to be NPO and have a electric screw driver operator. In broad brush strokes we discussed modifiable factors for minimizing stone disease. We also discussed symptoms associated with an indwelling ureteral stent. Dk Byrd M.D. 12/29/23 10:35 AM CDT documented in this encounter Plan of Treatment Scheduled Referrals Name Type Priority Associated Diagnoses Orde r Schedule Primary Care - MIKHAIL consult (clinic) Outpatient Referral Routine Stone Kidney Expected: 12/29/2023, Expires: 03/30/2025 Urology office visit (clinic) Outpatient Referral Routine Expected: 01/05/2024, Expires: 03/30/2025 documented as of this encounter Procedures Procedure Name Priority Date/Time Associated Diagnosis Comments BACTERIAL CULTURE, AEROBIC + SUSC, URINE Routine 12/29/2023 11:14 AM CDT Stone Kidney documented in this encounter Results * (ABNORMAL) Bacterial Culture, Aerobic + Susceptibility, Urine (12/29/2023 11:14 AM CDT) Urine Culture Mixed microbiota (A) 12/30/2023 8:36 AM CDT MKTO Urine (Urine, Midstream) 12/29/2023 11:14 AM CDT 12/29/2023 1:47 PM CDT Comment:Specimen Source Site : Urine Dk Byrd M.D. LAB MICROBIOLOGY - G ENERAL ORDERABLES [facility] [address] [place] [address], [facility] [place] [address] documented in this encounter Visit Diagnoses Diagnosis Stone Kidney documented in this encounter
--- OUTSIDE RECORDS SUMMARY | 2024-02-02 11:47 | XMS_ITS | Continuity of Care Document ---
Author Name Unknown Organization [facility]i Address [address] [place] [address] Phone Care Team Providers Care Chemical Educator Name Role Phone Samira Lyn DNP Unavailable Unavailable Allergies, Adverse Reactions, Alerts Substance Reaction Status Criticality PENICILLIN HivesHivesHives Active No Informati on celecoxib crawling out of body Active No In formation Medications Medication Instructions Dosage Effective Dates (start - stop) Status Comments Fioricet 50 mg-300 mg-40 mg capsule take 1 - 2 capsule by oral route every 4 hours as needed not to exceed 2 capsules per 24hrs - Active NII: [id number] hydrocodone 5 mg-acetaminophen 325 mg tablet take 1 tablet by ORAL route every 4 hours prn, MAX 3-4 /DAY for chronic pain - Active atorvastatin 20 mg tablet Take 1 tablet by mouth once daily. - Active Azo Bladder Control 300 mg capsule as needed - Active lorazepam 0.5 mg tablet take 1-2 tablet by oral route every day as needed - Active levothyroxine 75 mcg tablet take [...] CBD product OTC ORAL LIQUID - Active hydrocodone 5 mg-acetaminophen 325 mg tablet take 1 tablet by ORAL route every 4 hours prn, MAX 3-4 /DAY for chronic pain - No Longer Active Fioricet 50 mg-300 mg-40 mg capsule take 1 - 2 capsule by oral route every 4 hours as needed not to exceed 2 capsules per 24hrs - No Longer Active NII: [id number] tamsulosin 0.4 mg capsule take 1 capsule by oral route every day 1/2 hour following the same meal each day 0.4 MG - No Longer Active Flomax 0.4 mg capsule take 1 capsule by oral route every day 1/2 hour following the same meal each day 0.4 MG - No Longer Active Bactrim 400 mg-80 mg tablet take 1 tablet by oral route every 12 hours 1 tablet - No Longer Active Procedures Procedure Date OFFICE/OUTPATIENT VISIT, EST OFFICE/OUTPATIENT VISIT, EST Drug Urine Toxology With Chromatography Drug test def 8-14 classes OFFICE/OUTPATIENT VISIT, EST OFFICE/OUTPATIENT VISIT, EST OFFICE/OUTPATIENT VISIT, EST Drug test def 8-14 [...] classes OFFICE/OUTPATIENT VISIT, NEW PT-FOCUSED HLTH RISK ASSMN Advance Directives Directive Yes / No Effective Date File Name No Information Encounters Encounter Description Practice Location Reason(s) For Visit Diagnoses Date Provider Providers Copied on Encounter OFFICE/OUTPAT IENT VISIT, [facility], [address] [facility] [address] [place], [address] , [place] tel:[phone] [facility] low back pain (chief complaint) Chronic pain syndromeOther spondylosis, cervical regionPostlaminec lucero syndrome, not elsewhere classifiedHeadach e, unspecifiedLong term (current) use of opiate analgesic 4 Eboni Hogan. [address] [facility] [address], [place], [id number] , [place]. tel:[phone] Referring Provider: Keyon Muller [facility] [address] [place], [address]. tel:[phone] OFFICE/OUTPAT IENT VISIT, [facility], [address] [facility] [place], [place], [address] , [place] tel:[phone] [facility] low back pain (chief complaint) Chronic pain syndromeOther spondylosis, cervical regionPostlaminec lucero syndrome, not elsewhere classifiedHeadach e, unspecifiedLong term (current) use of opiate analgesicEncounte r for therapeutic drug level monitoring 4 Eboni Hogan. [address] [facility] [address], [place], [id number] , [place]. tel:[phone] Ref[facility]: [facility] [address] [place], [address]. tel:[phone] [facility], [address] [facility] [place], [place], [address] , [place] tel:[phone] [facility] No Information Nov- 4 Yon Elias. [address] [facility], [place], [address] , [place]. tel:[phone] OFFICE/OUTPAT IENT VISIT, EST [facility], [address] [place], [place], [address] , [place] tel: [phone] [facility] low back pain (chief complaint) Chronic pain syndromeOther spondylosis, cervical regionPostlaminec lucero syndrome, not elsewhere classifiedHeadach e, unspecifiedLong term (current) use of opiate analgesic 4 Nyongesa Samira. [address] [facility] [address], [place], [id number] , [place]. tel: [phone] Referring Provider: Keyon Muller [facility] [address] [place], [address]. tel:[phone] OFFICE/OUTPAT IENT VISIT, [facility], [address] [place] [address], [id number] , [place] tel: [phone] [facility] low back pain (chief complaint) Chronic pain syndromeOther spondylosis, cervical regionPostlaminec lucero syndrome, not elsewhere classifiedHeadach e, unspecifiedLong term (current) use of opiate analgesic 4 Nyongesa Samira. [address] [facility] [address], [place], [id number] , [place]. tel: [phone] Referring Provider: Keyon Muller, [facility] [address] [place], [address]. tel:[phone] OFFICE/OUTPAT IENT VISIT, [facility], [address] [place], [place], [address] , [place] tel: [phone] [facility] low back pain (chief complaint) Insomnia, unspecifiedChroni c pain syndromeOther spondylosis, cervical regionInterverteb ral disc disorders with radiculopathy, lumbar regionPostlaminec lucero syndrome, not elsewhere classifiedHeadach e, unspecifiedLong term (current) use of opiate analgesic 3 Nyongesa Samira. [address] [facility] [address], [place], [id number] , [place]. tel: [phone] Referring Provider: Keyon Muller [facility] [address] [place], [address]. [phone] [facility], [address] [place], [place], [address] , [place] tel: [phone] [facility] No Information 3 Eboni Hogan. [address] [facility] [address], [place], [id number] , [place]. tel: [phone] Referring Provider: Keyon Muller [facility] [address] [place], [address]. tel:[phone] OFFICE/OUTPAT IENT VISIT, [facility], [address] [place], [place], [address] , [place] tel: [phone] [facility] low back pain (chief complaint) Insomnia, unspecifiedChroni c pain syndromeOther spondylosis, cervical regionInterverteb ral disc disorders with radiculopathy, lumbar regionPostlaminec lucero syndrome, not elsewhere classifiedHeadach e, unspecifiedLong term (current) use of opiate analgesic 3 Nyongesa Samira. [address] [facility] [address], [place], [id number] , [place]. tel:[phone] Referring Provider: Keyon Muller [facility] [address] [place], [address]. tel:[phone] OFFICE/OUTPAT IENT VISIT, [facility], [address] [place], [place], [address] , [place] tel: [phone] [facility] low back pain (chief complaint) Insomnia, unspecifiedChroni c pain syndromeOther spondylosis, cervical regionInterverteb ral disc disorders with radiculopathy, lumbar regionPostlaminec lucero syndrome, not elsewhere classifiedLong term (current) use of opiate analgesicHeadache , unspecified 3 Nyongesa Samira. [address] [facility] [address], [place], [id number] , [place]. tel:[phone] Referring Provider: Keyon Muller [facility] [address] [place], [address]. tel:[phone] OFFICE/OUTPAT IENT VISIT, EST [facility], [address] [place], [place], [address] , [place] tel: [phone] [facility] low back pain (chief complaint) Insomnia, unspecifiedChroni c pain syndromeOther spondylosis, cervical regionInterverteb ral disc disorders with radiculopathy, lumbar regionPostlaminec lucero syndrome, not elsewhere classifiedLong term (current) use of opiate analgesic Jun- 3 Nyongesa Samira. [address] [facility] [address], [place], [place], [address] , [place]. tel:[phone] Referring Provider: Keyon Muller [facility] [address] [place], [address]. tel:[phone] OFFICE/OUTPAT IENT VISIT, EST [facility], [address] [place], [place], [address] , [place] tel:[phone] [facility] low back pain (chief complaint) Chronic pain syndromeOther spondylosis, cervical regionInterverteb ral disc disorders with radiculopathy, lumbar regionPostlaminec lucero syndrome, not elsewhere classifiedLong term (current) use of opiate analgesicEncounte r for therapeutic drug level monitoringInsomni a, unspecified May- 3 Nyongesa Samira. [address] [facility] [address], [place], [address] , [place]. tel:[phone] Referring Provider: Keyon Muller [facility] [address] [place], [address]. tel:[phone] [facility], [address] [place], [place], [address] , [place] tel:[phone] [facility] No Information 3 Nyongesa Samira. [address] [facility] [address], [place], [id number] , [place]. tel: [phone] Referring Provider: Keyon Muller [facility] [address] [place], [address]. tel:[phone] OFFICE/OUTPAT IENT VISIT, EST [facility], [address] [place], [place], [address] , [place] tel: [phone] [facility] low back pain (chief complaint) Major depressive disorder, single episode, unspecifiedChroni c pain syndromeOther spondylosis, cervical regionInterverteb ral disc disorders with radiculopathy, lumbar regionPostlaminec lucero syndrome, not elsewhere classifiedLong term (current) use of opiate analgesic 3 Nyongesa Samira. [address] [facility] [address], [place], [id number] , [place]. tel: [phone] Ref[facility] [address] [place], [address]. tel:[phone] [facility], [address] [place], [place], [address] , [place] tel: [phone] [facility] Postlaminectomy syndrome, not elsewhere classified 3 Nyongesa Samira. [address] [facility] [address], [place], [id number] , [place]. tel: [phone] OFFICE/OUTPAT IENT VISIT, EST [facility], [address] [place], [place], [address] , [place] tel: [phone] [facility] low back pain (chief complaint) Major depressive disorder, single episode, unspecifiedChroni c pain syndromeOther spondylosis, cervical regionInterverteb ral disc disorders with radiculopathy, lumbar regionPostlaminec lucero syndrome, not elsewhere classifiedLong term (current) use of opiate analgesic 3 Nyongesa Samira. [address] [facility] [address], [place], [id number] , [place]. tel: [phone] Referring Provider: Keyon Muller [facility] [address] [place], [address]. [phone] OFFICE/OUTPAT IENT VISIT, EST [facility], [address] [place], [place], [address] , [place] tel: [phone] [facility] low back pain (chief complaint) Major depressive disorder, single episode, unspecifiedInterv ertebral disc disorders with radiculopathy, lumbar regionPostlaminec lucero syndrome, not elsewhere classifiedLong term (current) use of opiate analgesicChronic pain syndromeOther spondylosis, cervical region February- 3 Nyongesa Samira. [address] [facility] [address], [place], [place], [address] , [place]. tel: [phone] Referring Provider: Keyon Muller [facility] [address] [place], [address]. tel:[phone] OFFICE/OUTPAT IENT VISIT, [facility], [address] [place], [place], [address] , [place] tel: [phone] [facility] low back pain (chief complaint) Major depressive disorder, single episode, unspecifiedPostla minectomy syndrome, not elsewhere classifiedLong term (current) use of opiate analgesicInterver tebral disc disorders with radiculopathy, lumbar region Apr-10 14- 3 Nyongesa Samira. [address] [facility] [address], [place], [place], [address] , [place]. tel: [phone] Referring Provider: Keyon Muller [facility] [address] [place], [address]. tel:[phone] [facility], [address] [place], [place], [address] , [place] tel:[phone] [facility] Intervertebral disc disorders with radiculopathy, lumbar region Dec-10 15- 3 Nyongesa Samira. [address] [facility] [address], [facility] [place], [place], [address] , [place]. tel: [phone] Referring Provider: Keyon Muller [facility] [address] [place], [address]. tel:[phone] OFFICE/OUTPAT IENT VISIT, EST [facility], [address] [place], [place], [address] , [place] tel: [phone] [facility] low back pain (chief complaint) Major depressive disorder, single episode, unspecifiedInterv ertebral disc disorders with radiculopathy, lumbar regionPostlaminec lucero syndrome, not elsewhere classifiedLong term (current) use of opiate analgesic 3 Nyongesa Samira. [address] [facility] [address], [place], [address] , [place]. tel: [phone] Referring Provider: Keyon Muller [facility] [address] [place], [address]. tel:[phone] [facility], [address] [place], [place], [address] , [place] tel: [phone] [facility] No Information 3 Nyongesa Samira. [address] [facility] [address], [place], [id number] , [place]. tel: [phone] Referring Provider: Keyon Muller [facility] [address] [place], [address]. tel:[phone] OFFICE/OUTPAT IENT VISIT, EST [facility], [address] [place], [place], [address] , [place] tel: [phone] [facility] low back pain (chief complaint) Major depressive disorder, single episode, unspecifiedInterv ertebral disc disorders with radiculopathy, lumbar regionPostlaminec lucero syndrome, not elsewhere classifiedLong term (current) use of opiate analgesic 3 Nyongesa Samira. [address] [facility] [address], [place], [address] , [place]. tel:[phone] Referring Provider: Keyon Muller [facility] [address] [place], [address]. tel:[phone] [facility], [address] [facility] [place], [id number] , [place] tel:[phone] [facility] [place] No Information 3 Yon Elias. [address] [facility] [place], [address] , [place]. tel:[phone] [facility], [address] [place] [address] [place], [place], [address] , [place] tel:[phone] [facility] lumbago (chief complaint) Postlaminectomy syndrome, not elsewhere classified 3 Emily Megha. [address] [facility] [place], [place], [address] , [place]. tel:[phone] Referring Provider: Keyon Muller [facility] [address] [place], [address]. [phone] OFFICE/OUTPAT IENT VISIT, EST [facility], [address] [place] [address] [place], [address] , [place] tel:[phone] [facility] low back pain (chief complaint) Major depressive disorder, single episode, unspecifiedInterv ertebral disc disorders with radiculopathy, lumbar regionPostlaminec lucero syndrome, not elsewhere classifiedLong term (current) use of opiate analgesic 3 Nyjayda Hogan. [address] [facility] [address], [place], [address] , [place]. tel:[phone] Referring Provider: Keyon Muller [facility] [address] [place], [address]. tel:[phone] [facility], [address] [place] [address], [id number] , [place] tel:[phone] [facility] low back pain (chief complaint) Major depressive disorder, single episode, unspecifiedInterv ertebral disc disorders with radiculopathy, lumbar regionPostlaminec lucero syndrome, not elsewhere classifiedLong term (current) use of opiate analgesic 3 Barron Muse. [address] [facility] [address], [place], [place], [address] , [place]. tel: [phone] Referring Provider: Keyon Muller [facility] [address] [place], [address]. tel:[phone] [facility], [address] [place], [place], [address] , [place] tel: [phone] [facility] Postlaminectomy syndrome, not elsewhere classified 2 Misha Davalos. [address] [place], [place], [address] , [place]. tel: [phone] Referring Provider: Keyon Muller [facility] [address] [place], [address]. tel:[phone] OFFICE/OUTPAT IENT VISIT, EST [facility], [address] [place], [place], [address] , [place] tel: [phone] [facility] low back pain (chief complaint) Major depressive disorder, single episode, unspecifiedInterv ertebral disc disorders with radiculopathy, lumbar regionPostlaminec lucero syndrome, not elsewhere classifiedLong term (current) use of opiate analgesicEncounte r for therapeutic drug level monitoring 2 Elisasa Hogan. [address] [facility] [address], [place], [address] , [place]. tel: [phone] Referring Provider: Keyon Muller [facility] [address] [place], [address]. tel:[phone] OFFICE/OUTPAT IENT VISIT, EST [facility], [address] [place], [place], [address] , [place] tel: [phone] [facility] low back pain (chief complaint) Major depressive disorder, single episode, unspecifiedInterv ertebral disc disorders with radiculopathy, lumbar regionPostlaminec lucero syndrome, not elsewhere classifiedLong term (current) use of opiate analgesic - 2 Nyongesa Samira. [address] [facility] [address], [place], [address] , [place]. tel:[phone] Referring Provider: Keyon Muller, [facility] [address] [place], [address]. tel:[phone] [facility], [address] [facility] [place], [address] , [place] tel: [phone] [facility] [place] Postlaminectomy syndrome, not elsewhere classified 2 Dulce Haque. [address] [facility] [place], [address] , [place]. tel: [phone] Ref[facility] [address] [place], [address]. tel:[phone] [facility], [address] [facility] [place], [address] , [place] tel: [phone] [facility] Postlaminectomy syndrome, not elsewhere classified 2 Yon Elias. [address] [facility] [place], [address] , [place]. tel: [phone] [facility], [address] [facility] [place], [place], [address] , [place] tel:[phone] [facility] Postlaminectomy syndrome, not elsewhere classified 2 Eboni Hogan. [address] [facility] [address], [place], [address] , [place]. tel:[phone] Referring Provider: Keyon Muller [facility] [address] [place], [address]. tel:[phone] [facility], [address] [facility] [place], [address] , [place] tel: [phone] [facility] No Information Jul-0 2 Eboni Hogan. [address] [facility] [address], [place], [address] , [place]. tel: [phone] Referring Provider: Keyon Muller [facility] [address] [place], [address]. tel:[phone] [facility], [address] [place], [place], [address] , [place] tel: [phone] [facility] Postlaminectomy syndrome, not elsewhere classified 2 Eboni Hogan. [address] [facility] [address], [place], [place], [address] , [place]. tel: [phone] Referring Provider: Keyon Muller [facility] [address] [place], [address]. tel:[phone] [facility], [address] [place] [address], [id number] , [place] tel: [phone] [facility] No Information Sep-2 2 Mariano Mcneal. [facility], [address], [place], [address], [place]. tel: [phone] Referring Provider: Keyon Muller [facility] [address] [place], [address]. tel:[phone] [facility], [address] [place], [place], [address] , [place] tel: [phone] [facility] Postlaminectomy syndrome, not elsewhere classified Sep- 2 Eboni Hogan. [address] [facility] [address], [place], [place], [address] , [place]. tel: [phone] Referring Provider: Keyon Muller [facility] [address] [place], [address]. tel:[phone] OFFICE VISIT, EST TELEMEDICINE [facility], [address] [facility] [place], [address] , [place] tel: [phone] [facility] low back pain (chief complaint) Major depressive disorder, single episode, unspecifiedInterv ertebral disc disorders with radiculopathy, lumbar regionPostlaminec lucero syndrome, not elsewhere classifiedLong term (current) use of opiate analgesic Sep-0 2 Nyongesa Samira. [address] [facility] [address], [place], [id number] , [place]. tel: [phone] OFFICE/OUTPAT IENT VISIT, EST [facility], [address] [place], [place], [address] , [place] tel: [phone] [facility] Back Pain (chief complaint) Major depressive disorder, single episode, unspecifiedInterv ertebral disc disorders with radiculopathy, lumbar regionOther intervertebral disc degeneration, lumbar regionPostlaminec lucero syndrome, not elsewhere classifiedLong term (current) use of opiate analgesic May- 2 Nyongesa Samira. [address] [facility] [address], [place], [address] , [place]. tel: [phone] [facility] [address] [place], [address]. tel:[phone] OFFICE/OUTPAT IENT VISIT, EST [facility], [address] [place], [place], [address] , [place] tel: [phone] [facility] Back Pain (chief complaint) Major depressive disorder, single episode, unspecifiedInterv ertebral disc disorders with radiculopathy, lumbar regionOther intervertebral disc degeneration, lumbar regionPostlaminec lucero syndrome, not elsewhere classifiedLong term (current) use of opiate analgesic Apr- 2 Nyongesa Samira. [address] [facility] [address], [place], [address] , [place]. tel: [phone] Referring Provider: Keyon Muller [facility] [address] [place], [address]. tel:[phone] OFFICE/OUTPAT IENT VISIT, [facility], [address] [place], [place], [address] , [place] tel: [phone] [facility] Back Pain (chief complaint) Major depressive disorder, single episode, unspecifiedInterv ertebral disc disorders with radiculopathy, lumbar regionOther intervertebral disc degeneration, lumbar regionPostlaminec lucero syndrome, not elsewhere classifiedLong term (current) use of opiate analgesic 2 Nyongesa Samira. [address] [facility] [address], [place], [id number] , [place]. tel:[phone] Referring Provider: Keyon Muller [facility] [address] [place], [address]. [phone] Psych Dx Eval [facility], [address], [place], [id number] , [place] tel: [phone] [facility] Pain disorder with related psychological factorsMajor depressive disorder, recurrent, in full remission 2 [address] [place], [place], [id number] , [place]. tel:[phone] [facility], [address], [place], [id number] , [place] tel: [phone] [facility] No Information 2 Nyongesa Samira. [address] [facility] [address], [place], [place], [id number] , [place]. tel:[phone] Referring Provider: Keyon Muller [facility] [address] [place], [address]. tel:[phone] OFFICE/OUTPAT IENT VISIT, [facility], [address], [place], [id number] , [place] tel:[phone] [facility] Back Pain (chief complaint) Encounter for screening for other disorderPostlamin ectomy syndrome, not elsewhere classifiedOther intervertebral disc degeneration, lumbar regionInterverteb ral disc disorders with radiculopathy, lumbar regionMajor depressive disorder, single episode, unspecified 2 Eboni Hogan. [address] [facility] [address], [place], [id number] , [place]. tel:[phone] Referring Provider: Keyon Muller, [facility] [address], [place], [address]. tel:[phone] Family History Family Member Type Diagnosis Age At Onset No Information Payers Payer name Insurance type Covered libertarian ID Authoriza tialexandru(s) vitaliy [facility] [id number] Social History Type Description Quantity Date Captured Comments Alcohol Use Details 3 drinks monthly 4 Caffeine Use Details Unknown Tobacco Use Status Heavy cigarette smok er (20-39 cigs/day) Smoking Status Heavy tobacco smoker Sex Female Vital Signs Date / Time: Height Weight BMI Pulse Rate Blood Pressure Temperature Respiratory Rate Body Surface Area Head Circumference Head Circ. Percentile Wt./Timothy. Percentile BMI percentile Pulse Ox Inhaled Ox 8:13 AM 62.00 in 51.710 kg (114.00 lbs) 20.8 5 kg/m yasmeen (2) Chief Complaint And Reason For Visit From encounter dated '02/02/2024 08:20'. low back pain (chief complaint). Description: Severity level is 9/10. Duration: chronic. The problem is worsening. It occurs persistently. Location of pain isLocation of pain is lower back neck and headache kidney stones., lower back, neck and headache kidney stones. The client describes the pain as The client describes the pain as an ache and burning. an ache and burning. Symptoms are aggravatedby Symptoms are aggravated by bending lifting, walking, prolonged positioning and housework., bending, lifting, walking, prolonged positioning and housework. Symptoms are relieved by Symptoms are relieved by heat ice, pain meds/drugs, stretching, rest, changing positions and chiropractic., heat, ice, pain meds/drugs, stretching, rest, changing positions and chiropractic. Reason For Referral Reason For Referral No Information Plan Of Treatment Date Type Action Status Goal AST (SGOT). Due on due Goal LAYBOY OPERATOR Scanned. Due on due Goal UDT. Due on due Goal OARS. Due on due Goal Order Annual PT. Due on due Goal SIZING SPRAYER Paperwork. Due on due Goal ALT (SGPT). Due on due Goal Creatinine. Due on due Goal Tobacco Use. Due on due Goal Hepatitis C screening. Due o n due Goal Unhealthy drug use screening . Due on due Goal Review Allergy List. Due on due Goal FIT. Due on due Goal FIT-DNA. Due on due Goal PHQ-9. Due on du e Goal Weight. Due on d ue Goal HPV. Due on due Goal CT-Colonography. Due on [...] Goal AST (SGOT). Due on due Goal SIZING SPRAYER Paperwork. Due on due Goal LAYBOY OPERATOR Scanned. Due on due Goal ALT (SGPT). Due on due Goal OARS. Due on due Goal Height. Due on d ue Goal HPV. Due on due Goal Zoster vaccine (1st). Due on due Goal CT-Colonography. Due on due Goal Unhealthy drug use screening . Due on due Goal Hepatitis C screening. Due o n due Goal Weight. Due on d ue Goal Lipid panel. Due on due Goal PHQ-9. Due on du e Goal Review Allergy List. Due on due Goal FIT. Due on due Goal Update Social History. Due o n due Goal Tobacco Use. Due on due Goal FIT-DNA. Due on due Goal Medication Reconciliation. D ue on due Goal UDT. Due on due Goal Order Annual PT. Due on due Goal SIZING SPRAYER Paperwork. Due on due Goal LAYBOY OPERATOR Scanned. Due on due Goal AST (SGOT). Due on due Goal ALT (SGPT). Due on due Goal Creatinine. Due on due Goal OARS. Due on due Goal Weight. Due on d ue Goal FIT-DNA. Due on due Goal Hepatitis C screening. Due o n due Goal Update Social History. Due o n due Goal PHQ-9. Due on du e Goal Review Allergy List. Due on due Goal Lipid panel. Due on due Goal FIT. Due on due Goal Medication Reconciliation. D ue on due Goal Tobacco Use. Due on due Goal Zoster vaccine (1st). Due on due Goal HPV. Due on due Goal Unhealthy drug use screening . Due on due Goal CT-Colonography. Due on due Goal Height. Due on d ue Goal OARS. Due on due Goal Order Annual PT. Due on due Goal ALT (SGPT). Due on due Goal AST (SGOT). Due on due Goal LAYBOY OPERATOR Scanned. Due on due Goal Creatinine. Due on due Goal UDT. Due on due Goal SIZING SPRAYER Paperwork. Due on due Goal Review Allergy List. Due on due Goal Medication Reconciliation. D [...] e Goal FIT. Due on due Goal Weight. Due on d ue Goal Creatinine. Due on due Goal OARS. Due on due Goal Order Annual PT. Due on due Goal LAYBOY OPERATOR Scanned. Due on due Goal SIZING SPRAYER Paperwork. Due on due Goal ALT (SGPT). Due on due Goal AST (SGOT). Due on due Goal UDT. Due on due Goal Update Social History. Due o n due Goal Hepatitis C screening. Due o n due Goal PHQ-9. Due on du e Goal Height. Due on d ue Goal Zoster vaccine (1st). Due on due Goal CT-Colonography. Due on due Goal FIT. Due on due Goal Unhealthy drug use screening . Due on due Goal Weight. Due on d ue Goal Tobacco Use. Due on 023 due Goal Medication Reconciliation. D ue on due Goal HPV. Due on due Goal Lipid panel. Due on due Goal Review Allergy List. Due on due Goal FIT-DNA. Due on due Goal AST (SGOT). Due on due Goal OARS. Due on due Goal ALT (SGPT). Due on due Goal Creatinine. Due on due Goal LAYBOY OPERATOR Scanned. Due on due Goal SIZING SPRAYER Paperwork. Due on due Goal Order Annual PT. Due on due Goal UDT. Due on due Goal Unhealthy drug use screening . Due on due Goal Medication Reconciliation. D ue on due Goal CT-Colonography. Due on due Goal Hepatitis C screening. Due o n due Goal Zoster vaccine (1st). Due on due Goal Tobacco Use. Due on due Goal PHQ-9. Due on du e Goal FIT. Due on due Goal HPV. Due on due Goal Weight. Due on d ue Goal Update Social History. Due o n due Goal FIT-DNA. Due on due Goal Review Allergy List. Due on due Goal Lipid panel. Due on due Goal Height. Due on d ue Goal Creatinine. Due on due Goal Order Annual PT. Due on due Goal SIZING SPRAYER Paperwork. Due on due Goal AST (SGOT). Due on due Goal OARS. Due on due Goal LAYBOY OPERATOR Scanned. Due on due Goal ALT (SGPT). Due on due Goal UDT. Due on due Goal Weight. Due on d ue Goal HPV. Due on due Goal PHQ-9. Due on du e Goal FIT-DNA. Due on due Goal FIT. Due on due Goal Medication Reconciliation. D [...] C screening. Due o n due Goal Tobacco cessation counseling completed Goal SIZING SPRAYER Paperwork. Due on due Goal Order Annual PT. Due on due Goal AST (SGOT). Due on due Goal ALT (SGPT). Due on due Goal Creatinine. Due on due Goal UDT. Due on due Goal LAYBOY OPERATOR Scanned. Due on due Goal OARS. Due on [...] due Goal OARS. Due on due Goal SIZING SPRAYER Paperwork. Due on due Goal LAYBOY OPERATOR Scanned. Due on due Goal UDT. Due on due Goal Creatinine. Due on due Goal FIT. Due on due Goal Weight. Due on d ue Goal CT-Colonography. Due on due Goal Unhealthy drug use screening . Due on due Goal Hepatitis C screening. Due o n due Goal Lipid panel. Due on due Goal Update Social History. Due o n due Goal Tobacco Use. Due on due Goal Review Allergy List. Due on due Goal FIT-DNA. Due on due Goal Medication Reconciliation. D ue on due Goal Height. Due on d ue Goal HPV. Due on due Goal Zoster vaccine (1st). Due on due Goal PHQ-9. Due on du e Goal LAYBOY OPERATOR Scanned. Due on due Goal UDT. Due on due Goal SIZING SPRAYER Paperwork. Due on due Goal Order Annual PT. Due on due Goal OARS. Due on due Goal AST (SGOT). Due on due Goal Creatinine. Due on due Goal ALT (SGPT). Due on due Goal Hepatitis C screening. Due o n due Goal FIT. Due on due Goal Review Allergy List. Due on due Goal Medication Reconciliation. D [...] Goal ALT (SGPT). Due on due Goal SIZING SPRAYER Paperwork. Due on due Goal LAYBOY OPERATOR Scanned. Due on due Goal Order Annual PT. Due on due Goal Unhealthy drug use [...] due Goal UDT. Due on due Goal LAYBOY OPERATOR Scanned. Due on due Goal SIZING SPRAYER Paperwork. Due on due Goal Order Annual PT. Due on due Goal AST (SGOT). Due on due Goal ALT (SGPT). Due on due Goal OARS. Due on due Goal FIT-DNA. Due on due Goal Update Social History. Due o n due Goal FIT. Due on due Goal Hepatitis C screening. Due o n due Goal Tobacco Use. Due on due Goal Review Allergy List. [...] Goal Weight. Due on d ue Goal LAYBOY OPERATOR Scanned. Due on due Goal SIZING SPRAYER Paperwork. Due on due Goal Order Annual PT. Due on due Goal Creatinine. Due on due Goal ALT (SGPT). Due on due Goal OARS. Due on due Goal AST (SGOT). Due on due Goal UDT. Due on due Goal Tobacco Use. Due on due Goal Review Allergy List. Due on due Goal CT-Colonography. Due on due Goal Lipid panel. Due on due Goal Height. Due on d ue Goal Medication Reconciliation. D ue on due Goal Update Social History. Due o n due Goal Weight. Due on d ue Goal PHQ-9. Due on du e Goal FIT-DNA. Due on due Goal Zoster vaccine (1st). Due on due Goal Hepatitis C screening. Due o n due Goal Unhealthy drug use screening . Due on due Goal FIT. Due on due Goal HPV. Due on due Goal LAYBOY OPERATOR Scanned. Due on due Goal AST (SGOT). Due on due Goal ALT (SGPT). Due on due Goal Creatinine. Due on due Goal OARS. Due on due Goal UDT. Due on due Goal SIZING SPRAYER Paperwork. Due on due Goal Order Annual PT. Due on due Goal Zoster vaccine (1st). Due on due Goal CT-Colonography. Due on due Goal Tobacco Use. Due on due Goal FIT-DNA. Due on due Goal Medication Reconciliation. D ue on due Goal FIT. Due on due Goal Review Allergy List. Due on due Goal Unhealthy drug use screening . Due on due Goal HPV. Due on due Goal Lipid panel. Due on due Goal Weight. Due on d ue Goal Height. Due on d ue Goal PHQ-9. Due on du e Goal Hepatitis C screening. Due o n due Goal Update Social History. Due o n due Goal Tobacco cessation counseling completed Goal AST (SGOT). Due on due Goal UDT. Due on due Goal LAYBOY OPERATOR Scanned. Due on due Goal Creatinine. Due on due Goal OARS. Due on due Goal SIZING SPRAYER Paperwork. Due on due Goal Order Annual [...] Goal Height. Due on d ue Goal Order Annual PT. Due on due Goal AST (SGOT). Due on due Goal SIZING SPRAYER Paperwork. Due on due Goal OARS. Due on due Goal LAYBOY OPERATOR Scanned. Due on due Goal UDT. Due on due Goal ALT (SGPT). Due on due Goal Creatinine. Due on due Goal FIT-DNA. Due on due Goal FIT. Due on [...] ue Goal HPV. Due on due Goal Zoster vaccine (1st). Due on due Goal PHQ-9. Due on du e Goal Tobacco Use. Due on due Goal Medication Reconciliation. D ue on due Goal LAYBOY OPERATOR Scanned. Due on due Goal Creatinine. Due on due Goal UDT. Due on due Goal SIZING SPRAYER Paperwork. Due on due Goal OARS. Due on due Goal ALT (SGPT). Due on due Goal AST (SGOT). Due on due Goal Order Annual PT. Due on due Goal FIT-DNA. Due on due Goal Unhealthy drug use screening . Due on due Goal PHQ-9. Due on du e Goal Zoster vaccine (1st). Due on due Goal Lipid panel. Due on due Goal CT-Colonography. Due on due Goal FIT. Due on due Goal Review Allergy List. Due on due Goal Tobacco Use. Due on due Goal Height. Due on d ue Goal Medication Reconciliation. D ue on due Goal HPV. Due on due Goal Weight. Due on d ue Goal Hepatitis C screening. Due o n due Goal Update Social History. Due o n due Goal LAYBOY OPERATOR Scanned. Due on due Goal Creatinine. Due on due Goal ALT (SGPT). Due on due Goal UDT. Due on due Goal AST (SGOT). Due on due Goal SIZING SPRAYER Paperwork. Due on due Goal OARS. Due on due Goal Order Annual PT. Due on due Goal Tobacco Use. Due on due Goal CT-Colonography. Due on due Goal FIT. Due on due Goal Height. Due on d ue Goal Unhealthy drug use screening . Due on due Goal PHQ-9. Due on du e Goal Review Allergy List. Due on due Goal Weight. Due on d ue Goal HPV. Due on due Goal Zoster [...] Goal AST (SGOT). Due on due Goal SIZING SPRAYER Paperwork. Due on due Goal LAYBOY OPERATOR Scanned. Due on due Goal ALT (SGPT). Due [...] Goal Tobacco Use. Due on due Goal Height. Due on d ue Goal Weight. Due on d ue Goal Medication Reconciliation. D ue on due Goal PHQ-9. Due on du e Goal Hepatitis C screening. Due o n due Goal FIT-DNA. Due on due Goal Creatinine. Due on due Goal OARS. Due on due Goal Order Annual PT. Due on due Goal SIZING SPRAYER Paperwork. Due on due Goal LAYBOY OPERATOR Scanned. Due on due Goal UDT. Due on due Goal AST (SGOT). Due on due Goal ALT (SGPT). Due on due Goal Zoster vaccine (1st). Due on due Goal Update Social History. Due o n due Goal PHQ-9. Due on du e Goal HPV. Due on due Goal Unhealthy drug use screening . Due on due Goal Review Allergy List. Due on due Goal Medication Reconciliation. D ue on due Goal FIT-DNA. Due on due Goal CT-Colonography. Due on due Goal FIT. Due on due Goal Hepatitis C screening. Due o n due Goal Weight. Due on d ue Goal Tobacco Use. Due on due Goal Height. Due on d ue Goal Lipid panel. Due on due Goal Creatinine. Due on due Goal SIZING SPRAYER Paperwork. Due on due Goal Order Annual PT. Due on due Goal OARS. Due on due Goal ALT (SGPT). Due on due Goal LAYBOY OPERATOR Scanned. Due on due Goal AST (SGOT). Due on due Goal UDT. Due on due Goal Review Allergy List. Due on due Goal Weight. Due on d ue Goal FIT. Due on due Goal Lipid panel. Due on due Goal PHQ-9. Due on du e Goal Medication Reconciliation. D ue on due Goal FIT-DNA. Due on due Goal Unhealthy drug use screening . Due on due Goal HPV. Due on due Goal Update Social History. Due o n due Goal Tobacco Use. Due on due Goal CT-Colonography. Due on due Goal Hepatitis C screening. Due o n due Goal Zoster vaccine (1st). Due on due Goal Height. Due on d ue Goal SIZING SPRAYER Paperwork. Due on due Goal AST (SGOT). Due on due Goal OARS. Due on due Goal Creatinine. Due on due Goal LAYBOY OPERATOR Scanned. Due on due Goal ALT (SGPT). Due on due Goal UDT. Due on due Goal Order Annual PT. Due on due Goal Unhealthy drug use screening . Due on due Goal Height. Due on d ue Goal Medication Reconciliation. D ue on due Goal PHQ-9. Due on du e Goal Weight. Due on d ue Goal Tobacco Use. Due on 023 due Goal Hepatitis C screening. Due o n due Goal Review Allergy List. Due on due Goal FIT. Due on due Goal HPV. Due on due Goal CT-Colonography. Due on due Goal FIT-DNA. Due on due Goal Zoster vaccine (). Due on due Goal Update Social History. Due o n due Goal Lipid panel. Due on due Goal LAYBOY OPERATOR Scanned. Due on due Goal Creatinine. Due on due Goal SIZING SPRAYER Paperwork. Due on due Goal OARS. Due on due Goal AST (SGOT). Due on due Goal Order Annual PT. Due on due Goal ALT (SGPT). Due on due Goal UDT. Due on due Goal CT-Colonography. Due on due Goal Hepatitis C screening. Due o n due Goal FIT-DNA. Due on due Goal Weight. Due on d ue Goal PHQ-9. Due on du e Goal HPV. Due on due Goal Height. Due on d ue Goal Medication Reconciliation. D ue on due Goal Tobacco Use. Due on due Goal Review Allergy List. Due on due Goal Update Social History. Due o n due Goal FIT. Due on due Goal Unhealthy drug use screening . Due on due Goal Zoster vaccine (1st). Due on due Goal Lipid panel. Due on due Goal SIZING SPRAYER Paperwork. Due on due Goal Creatinine. Due on due Goal ALT (SGPT). Due on due Goal OARS. Due on due Goal UDT. Due on due Goal AST (SGOT). Due on due Goal Order Annual PT. Due on due Goal LAYBOY OPERATOR Scanned. Due on due Goal Height. Due on d ue Goal FIT-DNA. Due on due Goal Hepatitis C screening. Due o n due Goal Unhealthy drug use screening . Due on due Goal Update Social History. Due o n due Goal Weight. Due on d ue Goal Tobacco Use. Due on due Goal Zoster vaccine (). Due on due Goal FIT. Due on due Goal HPV. Due on due Goal PHQ-9. Due on du e Goal Lipid panel. Due on due Goal Review Allergy List. Due on due Goal CT-Colonography. Due on due Goal Medication Reconciliation. D ue on due Goal AST (SGOT). Due on due Goal ALT (SGPT). Due on due Goal Order Annual PT. Due on due Goal Creatinine. Due on due Goal LAYBOY OPERATOR Scanned. Due on due Goal OARS. Due on due Goal SIZING SPRAYER Paperwork. Due on due Goal UDT. Due on due Goal HPV. Due on due Goal FIT. Due on due Goal CT-Colonography. Due on due Goal PHQ-9. Due on du e Goal Unhealthy drug use screening . Due on due Goal Zoster vaccine (1st). Due on due Goal FIT-DNA. Due on due Goal Update Social History. Due o n due Goal Medication Reconciliation. D ue on due Goal Height. Due on d ue Goal Review Allergy List. Due on due Goal Lipid panel. Due on due Goal Tobacco Use. Due on due Goal Weight. Due on d ue Goal Hepatitis C screening. Due o n due Goal Creatinine. Due on due Goal OARS. Due on due Goal UDT. Due on due Goal SIZING SPRAYER Paperwork. Due on due Goal AST (SGOT). Due on due Goal LAYBOY OPERATOR Scanned. Due on due Goal Order Annual PT. Due on due Goal ALT (SGPT). Due on due Goal Review Allergy List. Due on due Goal HPV. Due on due Goal PHQ-9. Due on du e Goal Hepatitis C screening. Due o n due Goal Update Social History. Due o n due Goal Weight. Due on d ue Goal FIT. Due on due Goal Height. Due on d ue Goal Medication Reconciliation. D ue on due Goal Zoster vaccine (). Due on due Goal Lipid panel. Due on due Goal FIT-DNA. Due on due Goal Unhealthy drug use screening . Due on due Goal CT-Colonography. Due on due Goal Tobacco Use. Due on due Goal LAYBOY OPERATOR Scanned. Due on due Goal Creatinine. Due on due Goal AST (SGOT). Due on due Goal ALT (SGPT). Due on due Goal Order Annual PT. Due on due Goal OARS. Due on due Goal UDT. Due on due Goal SIZING SPRAYER Paperwork. Due on due Goal Zoster vaccine (). Due on due Goal FIT-DNA. Due on due Goal Update Social History. Due o n due Goal Weight. Due on d ue Goal Hepatitis C screening. Due o n due Goal Lipid panel. Due on due Goal Review Allergy List. Due on due Goal Medication Reconciliation. D ue on due Goal Unhealthy drug use screening . Due on due Goal CT-Colonography. Due on due Goal Tobacco Use. Due on due Goal FIT. Due on due Goal Height. Due on d ue Goal HPV. Due on due Goal PHQ-9. Due on du e Goal LAYBOY OPERATOR Scanned. Due on due Goal Creatinine. Due on due Goal ALT (SGPT). Due on due Goal Order Annual PT. Due on due Goal OARS. Due on due Goal UDT. Due on due Goal AST (SGOT). Due on due Goal SIZING SPRAYER Paperwork. Due on due Goal Lipid panel. Due on due Goal Tobacco Use. Due on due Goal CT-Colonography. Due on due Goal Hepatitis C screening. Due o n due Goal Update Social History. Due o n due Goal Review Allergy List. Due on due Goal Medication Reconciliation. D ue on due Goal HPV. Due on due Goal PHQ-9. Due on du e Goal Height. Due on d ue Goal FIT. Due on due Goal Weight. Due on d ue Goal FIT-DNA. Due on due Goal Unhealthy drug use screening . Due on due Goal Zoster vaccine (). Due on due Goal SIZING SPRAYER Paperwork. Due on due Goal AST (SGOT). Due on due Goal OARS. Due on due Goal LAYBOY OPERATOR Scanned. Due on due Goal ALT (SGPT). Due on due Goal Order Annual PT. Due on due Goal UDT. Due on due Goal Creatinine. Due on due Goal Update Social History. Due o n due Goal Tobacco Use. Due on due Goal HPV. Due on due Goal Medication Reconciliation. D ue on due Goal Unhealthy drug use screening . Due on due Goal PHQ-9. Due on du e Goal Zoster vaccine (). Due on due Goal FIT-DNA. Due on due Goal Hepatitis C screening. Due o n due Goal Weight. Due on d ue Goal Lipid panel. Due on due Goal CT-Colonography. Due on due Goal Review Allergy List. Due on due Goal Height. Due on d ue Goal FIT. Due on due Goal SIZING SPRAYER Paperwork. Due on due Goal LAYBOY OPERATOR Scanned. Due on due Goal Order Annual [...] Goal Weight. Due on d ue Goal CT-Colonography. Due on due Goal Update [...] due Goal UDT. Due on due Goal Order Annual PT. Due on due Goal AST (SGOT). Due on due Goal SIZING SPRAYER Paperwork. Due on due Goal ALT (SGPT). Due on due Goal Creatinine. Due on due Goal OARS. Due on due Goal LAYBOY OPERATOR Scanned. Due on due Goal PHQ-9. Due on du e Goal Lipid panel. Due on due Goal Hepatitis C screening. Due o n due Goal Tobacco Use. Due on due Goal CT-Colonography. Due on due Goal FIT. Due on due Goal FIT-DNA. Due on due Goal Unhealthy drug use screening . Due on due Goal Height. Due on d ue Goal Weight. Due on d ue Goal Review Allergy List. Due on due Goal Zoster vaccine (1st). Due on due Goal Medication Reconciliation. D ue on due Goal HPV. Due on due Goal Update Social History. Due o n due Goal UDT. Due on due Goal Order Annual PT. Due on due Goal AST (SGOT). Due on due Goal SIZING SPRAYER Paperwork. Due on due Goal ALT (SGPT). Due on due Goal Creatinine. Due on due Goal OARS. Due on due Goal LAYBOY OPERATOR Scanned. Due on due Goal CT-Colonography. Due on due Goal FIT. Due on due Goal Weight. Due on d ue Goal Tobacco Use. Due on due Goal Review Allergy List. Due on due Goal Zoster vaccine (1st). Due on due Goal Hepatitis C screening. Due o n due Goal Lipid panel. Due on due Goal PHQ-9. Due on du e Goal FIT-DNA. Due on due Goal HPV. Due on due Goal Height. Due on d ue Goal Medication Reconciliation. D ue on due Goal Unhealthy drug use screening . Due on due Goal Update Social History. Due o n due Goal HPV. Due on due Goal Tobacco Use. Due on due Goal PHQ-9. Due on du e Goal Hepatitis C screening. Due o n due Goal Lipid panel. Due on due Goal FIT. Due on due Goal Height. Due on d ue Goal Zoster vaccine (). Due on due Goal Weight. Due on d ue Goal Medication Reconciliation. [...] FIT. Due on due Appointment Coral Pandey BOOKED History Of Present Illness Encounter Date Complaint History Of Prese nt Illness Comments: Henry pino is a 63 y/o female who presents for follow up and medication refill in the setting of chronic neck pain and low back pain with radiation into the BL legs. Pain has been worse this month. Continues to use the [place] SCS with benefit. Details low back pain and currently has a headache with associated light sensitivity. Denies syx of nausea and vomiting. She is s/p kidney stone removal surgery on 01/07/24 and had a stent placed put in for a week. Reports since she had her stents removed she has had increased kidney pain and constant aching in her low back. Also notes significant discomfort on her right side, similar to the discomfort she felt with her kidney stones on her left side. She will be following up with her surgeon again today. Also endorses significant fatigue since the surgery and is having a hard time being active.Reports current medication regimen provides 40-50% pain relief and allows for increased functionality. Continues to utilize [place] 5-325mg with moderate benefit. Denies OIC, which is managed with Senna-S, or other side effects from current medication regimen. No other concerns today. low back pain Severity level i s 06/22. Duration: chronic. The problem is worsening. It occurs persistently. Location of pain isLocation of pain is lower back neck and headache kidney stones., lower back, neck and headache kidney stones. The client describes the pain as The client describes the pain as an ache and burning. an ache and burning. Symptoms are aggravated by Symptoms are aggravated by bending lifting, walking, prolonged positioning and housework., bending, lifting, walking, prolonged positioning and housework. Symptoms are relieved by Symptoms are relieved by heat ice, pain meds/drugs, stretching, rest, changing positions and chiropractic., heat, ice, pain meds/drugs, stretching, rest, changing positions and chiropractic. low back pain Severity level i s 4. Duration: chronic. The problem is fluctuating. It occurs persistently. The client describes the pain as an ache and burning. Symptoms are aggravated by lifting, walking, housework and prolonged positioning. Symptoms are relieved by exercise, heat, ice, massage, pain meds/drugs, stretching, rest, sitting, chiropractic, SCS and changing positions. Comments: Henry pino is a 63 y/o female who presents for follow up and medication refill in the setting of chronic neck pain and low back pain with radiation into the BL legs. Pain has been fluctuating this month. Continues to use the Leyva SCS with benefit.Complains of continued L flank pain, primarily around the kidneys, due to a kidney stone. Despite stopping the Topamax for 2 months, she states she had picked it up again the last time she refilled the Fioricet. Notes she did not want to rely on the Fioricet only to manage the migraines. Will be pursuing a kidney stone removal on 01/07/24 and will be having a stent put in for a week.Reports current medication regimen provides 40-50% pain relief and allows for increased functionality. Continues to utilize Brookhaven 5-325mg with moderate benefit. Denies OIC, which is managed with Senna-S, or other side effects from current medication regimen. No other concerns today. low back pain Severity level i s 5. Duration: chronic. The problem is fluctuating. It occurs persistently. The client describes the pain as an ache and sharp. Symptoms are aggravated by lifting, walking, housework and prolonged positioning. Symptoms are relieved by heat, ice, massage, pain meds/drugs, stretching, sitting, chiropractic and changing positions. Comments: Henry pino is a 63 y/o female who presents for follow up and medication refill in the setting of chronic neck pain and low back pain with radiation into the BL legs. Pain has been fluctuating this month. Continues to use the Leyva SCS with benefit. Notes she needs to switch programs every few days to utilize the full effects of the device.Ongoing migraines are currently managed with Fioricet. Notes the headaches and migraines have improved significantly since being off the Topamax and starting the Fioricet. She states she has #2tabs remaining and denies any refills at this time (typically gets 6tabs/day). Upcoming appointment with [facility] on 11/26/23 for a brain MRI due to TremorsComplains of new onset of L flank pain, primarily around the kidneys. She states the pain began 2.5 weeks ago and denies any inciting events. Will be following up with her PCP for further care if pain continues to persist or worsen.Of note, patient is following with [facility] for psychiatry/mental health.Reports current medication regimen provides 30% pain relief and allows for increased functionality. Continues to utilize Brookhaven 5-325mg with moderate benefit. Denies OIC, which is managed with Senna-S, or other side effects from current medication regimen. No other concerns today. Comments: Henry pino is a 63 y/o female who presents for follow up and medication refill in the setting of chronic neck pain and low back pain with radiation into the BL legs. Pain has been fluctuating this month. Low back pain with radiation into the legs have been the most bothersome. Notes the R leg is her weather leg as she can tell when the weather will change. Lumbar SCS implant continue to be helpful with lumbar spine painPatient tapered off Topamax d/t weight loss, states now appetite improved. Tremors somehow improved as well, upcoming neurology consult. Pt hamilton jones 2 bad headaches improved with fioricet since being off Topamax. Also currently seeing chiropractic for neck adjustments. Would like to hold off on the Cervical RFW as pain has improved, will consider once pain worsens.Reports current medication regimen provides 50% pain relief and allows for increased functionality. Continues to utilize Brookhaven 5-325mg with moderate benefit. Denies OIC, which is managed with Senna-S, or other side effects from current medication regimen. No other concerns today. low back pain Severity level i s 3. Duration: chronic. The problem is fluctuating. It occurs persistently. The client describes the pain as an ache and sharp. Symptoms are aggravated by lifting, standing, walking, housework and prolonged positioning. Symptoms are relieved by heat, ice, massage, pain meds/drugs, stretching, rest, chiropractic and changing positions. Comments: Henry pino is [...] and standing up. Recently completed PT at [facility] with short-term benefit, though notes pain returned [...] allows for increased functionality. Continues to utilize Brookhaven 5-325mg with moderate benefit. Presents with a [...] allows for increased functionality. Continues to utilize Brookhaven 5-325mg with moderate benefit. Notes she had [...] 07/02/[address] Scotty Mancia MD through [facility]. According to the visit summary note she brought in today, the sleep study did not show any significant sleep apnea but there was evidence of deep sleep and no REM sleep. Notes she was recommended a long acting opioid medication to help with the RLS.Reports current medication regimen provides 50% pain relief and allows for increased functionality. Continues to utilize Brookhaven 5-325mg with moderate benefit. Denies OIC, which [...] allows for increased functionality. Continues to utilize Brookhaven 5-325mg with moderate benefit and increased functionality. [...] this month. Continues to do PT at [facility] and use the [employer] SCS with benefit. Completed a in-hospital sleep [...] and 3/10 with medications. Continues to utilize Brookhaven 5-325mg with moderate benefit. Denies OIC, which [...] this month. Continues to do PT at [facility] and use the Leyva SCS with benefit. Notes the zapping sensations in the shoulders have been resolved since the reprogramming on 03/24/23. Have seen a sleep specialist, Dr. Scotty Mancia MD through [facility], for her ongoing struggles with sleep. She [...] and 2/10 with medications. Continues to utilize Brookhaven 5-325mg with moderate benefit. Denies OIC, which [...] oral opioids. Continues to do PT at [facility].Continues to the use the Leyva SCS with [...] and 4/10 with medications. Continues to utilize Brookhaven 5-325mg with moderate benefit. Willing to increase [...] this month. Have been doing PT through [facility] with benefit. She states the neck pain [...] to consult with a sleep specialist through [facility]. Hopes to be able to obtain at least 6-8 hours of sleep at night as she has been struggling with insomnia. Reports current medication regimen provides moderate pain relief and allows for increased functionality. Rates her pain as 5/10 without medications and 2/10 with medications. Continues to utilize Brookhaven 5-325mg with moderate benefit. Denies OIC, which [...] better. She has also started PT in [place] and is hopeful it will provide benefit.S/p [...] allows for increased functionality. Continues to utilize Brookhaven 5-325mg 3-4x/day with moderate benefit. Denies OIC [...] would like to go back PT in [place] closer to her home.Reports current medication regiment provides moderate pain relief and allows for increased functionality. Continues to utilize Brookhaven 5-325mg 3-4x/day with moderate benefit. Denies OIC [...] allows for increased functionality. Continues to utilize Brookhaven 5-325mg 3-4x/day with moderate benefit. Denies OIC [...] allows for increased functionality. Continues to utilize Brookhaven 5-325mg 3-4x/day with moderate benefit. Denies OIC [...] and 4/10 with medications. Continues to utilize Brookhaven 5-325mg 3-4x/day with moderate benefit. Endorses OIC [...] Cabral. Inquires if the nurse strike in [place] will affect her surgery and if she can travel 10 days after her implant to visit her sister in [place]. Will consider postponing her trip 2.5 week after the procedure.Reports current medication regiment provides 50% relief and allows for increased functionality. Continues to utilize Brookhaven 5-325mg 3-4x/day with moderate benefit. Endorses OIC [...] Continues to find benefit with PT through [facility].S/p Lumbar Epidural Blood Patch on 08/05/22 with [...] allows for increased functionality. Continues to utilize Brookhaven 5-325mg 3-4x/day with moderate benefit. Endorses OIC which is managed with OTC. Denies other side effects from current medication regimen. No other concerns today. Comments: ira stoddard is a 62 y/o female who presents for follow up and medication refill in the setting of chronic lower back pain and legs. Pain has been stable this month. Notes benefits with PT through [facility]. Reports increasing restless leg syndrome and left [...] this month. Notes benefits with PT through [facility]. Reports increasing restless leg syndrome and left [...] on Gabapentin 900mg TID, Baclofen at [facility], Brookhaven helps her complete her house chores. Trailed [...] pain worse. has not seen neurologist or scientific specialist since the surgery.Tried: Mirapex 2x with SE of intense WEBB w/n 2 hours of taking, TENS Unit Currently on Gabapentin 900mg TID, Baclofen at [facility], Brookhaven helps her complete her house chores pt [...] No Information Instructions Date Instruction Additional Infor uyen No Information Assessments Type Assessment Date assessment Chronic pain syndrome 4 impression Coral is a 63 y/o female here with chronic neck pain and low back pain with radiation into the BL legs. Hx of L L5-S1 hemilaminectomy in 1996 and insomnia (completed sleep study in the past).She is s/p kidney stone removal surgery on 01/07/24 and had a stent placed put in for a week. Reports since she had her stents removed she has had increased kidney pain and constant aching in her low back. Also notes significant discomfort on her right side, similar to the discomfort she felt with her kidney stones on her left side. Also endorses increased fatigue since the surgery and has been sleeping significantly more than usual. Previously completed a sleep study and has no hx of sleep apnea assessment Other spondylosis, cervical heber on impression Ongoing neck pain wi th associated headaches. Denies any radicular symptoms. Currently in chiropractic.[Forwarded Hx]Cervical MRI on 09/03/23CONCLUSION: Multilevel spondylosis with the following findings:1. Right C3-4 inflammatory facet arthropathy.2. Moderate foraminal stenosis right C5-6, left C6-7.3. Multilevel disc bulging with mild to moderate central stenosis at C5-6 and C6-7.4. C5-6 mild type 1 discogenic signal assessment Postlaminectomy syndrome, not el sewhere classified impression Ongoing low back cadence n with radiation into the legs (R>L). [Forwarded Hx]Hx of L L5-S1 hemilaminectomy in 1996.S/p Leyva SCS implant on 10/10/22 with improved leg and lumbarsacral pain. Reprogramming completed on 03/24/23 with zapping sensations in the shoulders resolved.Completed PT at [facility] in 08/2023 with some benefit.Last completed Lumbar MRI on 08/02/21 with results showing multilevel DDD and foraminal stenosis with right L4 and bilateral L5 nerve irritation and left L5/S1 laminotomy assessment Headache, unspecified impression Daily headaches star ting at the base of the neck, radiating to the R side of the lateral head, and wrapping around to the face with sharpness behind the R eye. Endorses light sensitivity. 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 Patient has been managing medications appropriately, and is not confused or oversedated during our office visit. MNPMP queried and shows no outside prescriptions. UDT results from 01/01/24 previously reviewed and are consistent with current medication regimen. Appropriate to continue with opioid therapy Mental Status Date Cognitive Assessment Orientation - [place] ed to time, place, person, situation.Normal Orientation Patient Care Teams Name Effective Dates (start - stop) Status Members No Information
--- OUTSIDE RECORDS SUMMARY | 2024-02-02 11:47 | XMS_ITS | Continuity of Care Document ---
Author Name Unknown Organization [facility] Address [address] [place] [address] Phone Care Team Providers Care Apartment Assistant Manager Name Role Phone Torres AMINAHSusannah Unavailable Unavailable [...] Providers Copied on Encounter [facility], [address], [place], [place], [id number], [place] tel:[phone] [facility] No Information 2 [address] [place], [address], [place]. tel:[phone] Referring Provider: REFERRAL KATHYA HARRIS. Christos [facility], [address], [place], [place], [id number], [place] tel:[phone] [facility] No Information Mar-0 5-200 [address] [place], [address], [place]. tel:[phone] Referring Provider: Guillermina Freeman MD, [address] [place], [address]. tel:[phone] [facility], [address], [place], [place], [id number], [place] tel:[phone] [facility] No Information 3[address]. [address] [place], [address], [place]. tel:[phone] Referring Provider: REFERRAL KATHYA HARRIS. [facility], [address], [place], [id number], tel:[phone] [facility] No Information 8[address] Vonda [address]. [address] [place], [address], [place]. tel:[phone] Referring Provider: REFERRAL KATHYA HARRIS. Family History Family Member Type Diagnosis Age At Onset No Information Payers Payer name Insurance type Covered democrat ID Authoriza tion(s) No Information Social History [...]
--- OUTSIDE RECORDS SUMMARY | 2024-02-02 11:47 | XMS_ITS | Encounter Summary ---
Author Name Unknown Organization [facility] Address [address] [place] [address] Care Team Providers Care Data Entry Clerk Name Role Phone Unavailable Primary Care Provider Unavailabl e Reason for Visit * Reason Onset Date Comments SURGERY DATE 12/29/2023 Encounter Details Date Type Department Care Team (Late st Contact Info) Description 12/29/2023 Clinical Communication Department of Urology in [place], [place] [address] [phone] Dk Byrd M.D. [address] [phone] SURGERY DATE Social History Tobacco Use Types Packs/Day Years [...]
--- OUTSIDE RECORDS SUMMARY | 2024-02-02 11:47 | XMS_ITS | Continuity of Care Document ---
Author Name Unknown Organization [facility] Address [address] [place] [address] Phone Care Team Providers Care Editor House Organ Name Role Phone Apolinar Londono MD Unavailable Unavailable Advance Directives Directive Yes / No Effective Date File Name No Information Encounters Encounter Description Practice Location Reason(s) For Visit Diagnoses Date Provider Providers Copied on Encounter [facility] [place], [address], [place], [address], [place] tel:[phone] [facility] No Information Spring Jiang. [facility], [address], [place], [place], [id number] , [place]. tel:[phone] Family History Family Member Type Diagnosis Age At Onset No Information Payers Payer name Insurance type Covered republican ID Authoriza tion(s) No Information Social History [...]
--- OUTSIDE RECORDS SUMMARY | 2024-02-02 11:47 | XMS_ITS | Continuity of Care Document ---
Author Name Unknown Organization [facility] Address [address] [place] [id number] Phone Care Team Providers Care Surface Supervisor Name Role Phone [facility] Unavailable Unava ilable Procedures Procedure Date [...] Diagnoses Date Provider Providers Copied on Encounter [facility], [address] [place] [address], [id number], tel:[phone] [place] [address] No Information 2 [facility]. [address] [place] [address], [id number], [place]. tel:[phone] Referring Provider: Susannah Cabral, [address] [facility] [place], [address] . tel:[phone] [facility], [address] [place] [address], [id number], tel:[phone] [place] [address] No Information 2 [facility]. [address], [place], [place], [id number], [place]. tel:[phone] Referring Provider: Fredis Quintana [facility] [address], [place], [address]. tel:[phone] Family History Family Member Type Diagnosis Age At Onset No Information Payers Payer name Insurance type Covered green party ID Authoriza phoenix(s) David [facility] [id number] Social History Type Description Quantity Date Captured [...]
--- OUTSIDE RECORDS SUMMARY | 2024-02-02 11:48 | XMS_ITS | Clinical Summary ---
Author Name Unknown Organization [facility] Address [place], [place] [address] Care Team Providers Care Environmental Engineering Intern Name Role Phone Mya Loco NP Primary Care Provider Unava ilable Allergies Active Allergy Reactions Criticality Noted Date Comments Celecoxib Other - Describe In Comment Field,Behavioral Disturbances 01/21/2007 feels as though My body is crawling I didn't feel myself Penicillins Hives 01/21/2007 Medications Medication Sig Dispensed Refills Start Date End Date Status omeprazole (PRILOSEC) 20 mg Delayed-Release capsule Take 1-2 capsules. by mouth once daily. 2 04/08/2017 Active HYDROcodone-acetamin ophen (NORCO) 5-325 mg per tabletIndications:Sarah mbar radiculopathy,DDD (degenerative disc disease), lumbar,S/P lumbar discectomy TAKE 1 TABLET BY MOUTH 3 TIMES DAILY IF NEEDED FOR PAIN. 60 Tablet 03/04/2022 Active baclofen (LIORESAL) 10 mg tabletIndications:Sarah mbar facet arthropathy,Lumbar disc herniation,Degenerat ion of lumbar or lumbosacral intervertebral disc TAKE 1 TABLET (10 MG) BY MOUTH 3 TIMES DAILY IF NEEDED (MUSCLE SPASM AND PAIN). 90 Tablet 5 03/20/2022 Active gabapentin (NEURONTIN) 300 mg capsuleIndications:L umbar facet arthropathy,Lumbar disc herniation,Degenerat ion of lumbar or lumbosacral intervertebral disc TAKE 3 CAPSULES (900 MG) BY MOUTH 3 TIMES DAILY. 810 Capsule 10/08/2022 Active atorvastatin (LIPITOR) 10 mg tablet Take 10 mg by mouth at bedtime. 02/07/2023 Active levothyroxine (SYNTHROID) 75 mcg tablet Take 0.5 Tablets (37.5 mcg) by mouth once daily. 02/07/2023 Active traZODone (DESYREL) 50 mg tablet at bedtime. 03/03/2023 Active LORazepam (ATIVAN) 0.5 mg tab every 6 hours if needed. 08/25/2023 Active butalbitaL-acetamino phen 25-325 mg tabIndications:Migra ine without status migrainosus, not intractable, unspecified migraine type Take by mouth every 4 hours if needed. Rescue med for migraines 0 09/18/2023 Active hydrOXYzine HCL (ATARAX) 10 mg tablet Take 10 mg by mouth 3 times daily if needed. Active oxyCODONE (ROXICODONE) 5 mg immediate release tabletIndications:Chriss lindsay Take 1 Tablet (5 mg) by mouth every 4 hours if needed for Pain. 16 Tablet 01/07/2024 Active tamsulosin (FLOMAX) 0.4 mg capsule Take 0.4 mg by mouth once daily after a meal. 12/29/2023 trimethoprim-sulfame thoxazole, 160-800 mg, (BACTRIM DS, SEPTRA DS) tabIndications:Emperatriz lindsya Take 1 Tablet by mouth two times daily for 3 days. 6 Tablet 01/07/2024 Active Problems Problem Noted Date Diagnosed Date Lumbar facet arthropathy 09/15/2017 Lumbar disc herniation 09/15/2017 Hyperlipidemia 06/24/2012 Chronic pain 11/07/2009 Depression 11/07/2009 Gastroesophageal reflux 11/07/2009 Restless legs syndrome 11/07/2009 Degeneration of lumbar or lumbosacral interverte bral disc 04/08/2007 Major depressive disorder, recurrent episode, mo derate 01/21/2007 Encounters Date Type Department Care Team Description 01/07/2024 8:57 AM CDT - 01/07/2024 10:24 AM CDT Surgery [facility] [address] [place] [address] Dk Byrd MD LITHOTRIPSY URETEROSCOPY WITH LASER-LEFT 01/07/2024 8:44 AM CDT Anesthesia Event [facility] [address] [place] [address] Dyllan Blankenship DO 01/07/2024 7:45 AM CDT - 01/07/2024 11:45 AM CDT Hospital Encounter [facility] [address] [place] [address] Dk Byrd MD Kidney stone (Primary Dx); Lumbar radiculopathy; DDD (degenerative disc disease), lumbar; S/P lumbar discectomy Discharge Disposition: Home Self Care 01/07/2024 Travel from Last 3 Months Immunizations Name Administration Dates Next Due Influenza, IIV3 (Age >=3 years) 09/02/2007 Family History Medical History Relation Name Comments Alcohol/Drug Brother Psychiatric illness Father depressi on Psychiatric illness Mother depressi on Thyroid Disease Mother surgical had removed-cancerous Psychiatric illness Paternal Aunt depress ion Psychiatric illness Paternal Grandfather bipolar Psychiatric illness Paternal Uncle depres thalia and anxiety Psychiatric illness Son depressi on and anxiety Relation Name Status Comments Brother Father Mother Paternal Aunt Paternal Grandfather Paternal Uncle Son Social History Tobacco Use Types Packs/Day Years Used Date Smoking Tobacco: Every Day Cigarettes 1 25 Smokeless Tobacco: Never Tobacco Cessation:Ready to Q uit: No; Counseling Given: Yes Alcohol Use Standard Drinks/Week Comments Not Currently 0 (1 standard drink = 0.6 oz pur e alcohol) binge drinking in the past Social Connections Answer Date Recorded Frequency of Communication with Friends and Fami ly Not on file 10/09/2021 Alcohol Use Answer Date Recorded How often do you have a drink containing alcohol ? 0 04/08/2022 Average Number of Drinks Not on file 022 How often do you have five or more drinks on one occasion? 0 04/08/2022 Financial Resource Strain Answer Date R ecorded Difficulty of Paying Living Expenses Not on file 10/09/2021 Difficulty of Paying Living Expenses Not on file 10/09/2021 Sex and Gender Information Value Date Recorded Sex Assigned at Not on file Gender Identity Not on file Sexual Orientation Not on file Obstetrics History Last Filed Vital Signs Vital Sign Reading Time Taken Comments Blood Pressure 89/55 01/07/2024 11:20 AM CDT Pulse 61 01/07/2024 11:20 AM CDT Temperature 36.6 ??C (97.8 ??F) 01/07/2024 1 0:05 AM CDT Respiratory Rate 18 01/07/2024 11:2 0 AM CDT Oxygen Saturation 95% 01/07/2024 11: 20 AM CDT Inhaled Oxygen Concentration - - Weight 52.1 kg (114 lb 14.4 oz) 01/07/2024 8:11 AM CDT Height 156.8 cm (5' 1.73) 09/18/2023 3:25 PM CS T Body Mass Index 21.2 09/18/2023 3:25 PM SAXOPHONE ASSEMBLER Plan of Treatment Health Maintenance Due Date Last Done Comments Pneumococcal series for age 6-64 (1 of 2 - PCV) 1968 Tdap 1973 Depression screening for age 12+ 1974 HIV for age 15-65 1977 Hepatitis C screening for ag e 18-79 1980 Tetanus booster 1982 Lipids for age 45-75 2007 Mammogram for age 45-75 2007 Zoster (shingles) series for age 50+ (1 of 2) 2012 COVID-19 vaccine series () 06/13/2023 Pap test for age 21-65 02/24/2024 02/23/2021, 2020 Influenza for age 50-64 06/13/2024 09/02/2007 BMI (ht and wt on same day) for age 18+ 09/18/2024 09/18/2023, 07/02/2023, 07/28/2017, Additional history exists Colonoscopy through age 75 04/03/2031 04/03/2021, Medical Devices Implanted Type Area Floor Worker Device Identifier Shelf Expiration Date Model / Serial / Lot Stent Uret [id number] Contour - [id number] Implanted:Qty: 1 on 01/07/2024 by Dk Byrd MD at [facility] Left: Ureter [facility] Urology 05/28/2026 [id number] / / [id number] Procedures Procedure Name Priority Date/Time Associated Diagnosis Comments XR C-ARM EQUAL OR LESS 1 HR Routine 01/07/2024 9:38 AM CDT STONE ANALYSIS Today 01/07/2024 9:09 AM CDT SUPRAGLOTTIC-LMA Routine 01/07/2024 8:56 AM CDT CYSTOSCOPY PLACEMENT URETERAL STENT 01/07/2024 8:44 AM CDT same Case Notes Big C-Arm Special Needs [id number] LITHOTRIPSY URETEROSCOPY WITH LASER 01/07/2024 8:44 AM CDT same Case Notes Big C-Arm Special Needs [id number] SCAN CORRESP-EKG RESULTS 01/01/2024 1:27 PM CDT SCAN CORRESP-LABORATORY RESULTS 01/01/2024 1:27 PM CDT SCAN-COLONOSCOPY 04/03/2021 12:0 0 AM CDT APPLIED STATISTICIAN THIN PREP PAP SCREEN IMAGED Routine 02/23/2021 1:27 PM CDT from Last 3 Months or Most Recently Relevant to Health Maintenance Results * XR C-ARM EQUAL OR LESS 1 HR (01/07/2024 9:38 AM CDT) Anatomical Region Laterality Modality Other Dk Byrd MD FLUOROSCOPY * STONE ANALYSIS (01/07/2024 9:09 AM CDT) Source Comment 01/14/2024 7:13 AM CDT [facility] Comment:Left Kidney Color Brown 01/14/2024 7:13 AM CDT [facility] Size 4x4 mm 01/14/2024 7:13 AM CDT [facility] Comment: Multiple pieces received. ??Dimensions of the largest piece reported. Weight 110 mg 01/14/2024 7:13 AM CDT [facility] Composition Comment 01/14/2024 7:[address] [facility] Comment:Percentage (Represen ts the % composition) Calcium Oxalate Monoh 90 % 01/14/2024 7:13 AM CDT [facility] Calcium Oxalate Dihyd 10 % 01/14/2024 7:13 AM T [facility] Comment Comment 01/14/2024 7:13 AM T [facility] Comment: Calculus received wet. Wet calculi must be dried before analysis, which delays reporting of results. Leaving calculi wet (such as water, saline, blood, urine) may lead to changes in composition. Photo Comment 01/14/2024 7:13 AM T [facility] Comment:Photograph will foll ow under a separate cover Comment: Comment 01/14/2024 7:13 AM T [facility] Comment: Physician questions regarding Calculi Analysis contact [facility] at: [phone]. Please note: Comment 01/14/2024 7:13 AM T [facility] Comment: Calculi report will follow via computer, mail or sample examiner delivery. Disclaimer: Comment 01/14/2024 7:13 AM T [facility] Comment: This test was developed and its performance characteristics determined by [facility]. ??It has not been cleared or approved by the Food and Drug Administration. Calculi (stone) (Left Kidney Stone ) Non-Blood / Unknown 01/07/2024 9:09 AM CDT 01/07/2024 10:02 AM CDT Narrative [facility] - 01/14/2024 7:13 AM CDT Performed at: ??[address] ??[id number] Firesetter: Kasie Gustafson, Phone: ??[phone] Dk Byrd MD SEND OUTS [facility] [address] [place] [address], * Supraglottic (01/07/2024 8:56 AM CDT) Narrative Gisela White CRNA - 01/07/2024 8:56 AM CDT Gisela White CRNA ? 01/07/2024 ??8:56 AM Procedure: Supraglottic Patient location during procedure: OR Supraglottic Airway Properties Mask Ventilation: not attempted Type: i-gel Tube Size: 3 Insertion Attempts: 1 Placement Verification: CO2 detection Assessment Assessment: atraumatic and dentition unchanged Dyllan Blankenship DO ANESTHESIA PX NOTE ORDERABLES * SCAN CORRESP-LABORATORY RESULTS (01/01/2024 1:27 PM CDT) Narrative 01/01/2024 1:27 PM CDT Ordered by an unspecified provider. Other Clinical Staff OTHER * SCAN CORRESP-EKG RESULTS (01/01/2024 1:27 PM CDT) Narrative 01/01/2024 1:27 PM CDT Ordered by an unspecified provider. Other Clinical Staff OTHER * SCAN-COLONOSCOPY (04/03/2021 12:00 AM CDT) Scanner OTHER * APPLIED STATISTICIAN THIN PREP PAP SCREEN IMAGED (02/23/2021 1:27 PM CDT) Case Report Gynecologic Cytology Report ? Case: [id number] ? Authorizing Provider: ??Becki Cortes MD ??Collected: ? 02/23/2021 1327 ? Ordering Location: ? [facility] ?Received: ?02/26/2021 0904 ? First Screen: ?Binh Owen ? Specimen: ?APPLIED STATISTICIAN ThinPrep Vial Screening, Cervical/Vaginal ? 03/07/2021 10:25 AM T [facility] INTERPRETATION/ RESULT NEGATIVE FOR INTRAEPITHELIAL LESION OR MALIGNANCY (NIL) (none) 03/07/2021 10:25 AM [facility] IMEN ADEQUACY Satisfactory for evaluation Endocervical component present 03/07/2021 10:25 AM T [facility] HPV REQUEST HPV and PAP 03/07/2021 10:25 AM [facility] Date of LMP 03/07/2021 10:25 AM [facility] Comment:N/A Last Pap Date 03/07/2021 10:25 AM [facility] Comment:20 yrs ago Menstrual Status 03/07/2021 10:25 AM [facility] Comment:Menopause Additional Information 03/07/2021 10:25 AM [facility] Comment: Interpreted at [facility] Central Laboratory - [address], [place] [address] Automated Review Successful 03/07/2021 10:25 AM [facility] Comment:Specimen processed s uccessfully by automated parcel wrapper device, ThinPrep Imaging System, [employer] ANCILLARY TESTING APPLIED STATISTICIAN HPV Ordered, Please see separate report 03/07/2021 10:25 AM [facility] Note The pap test is a screening technique, not a diagnostic procedure. It is used primarily to screen for squamous cancers and precursor lesions. Published studies have shown that it is subject to both false negative and false positive results. The pap test should not be used as the sole means to diagnose or exclude pre-malignant and malignant lesions. 03/07/2021 10:25 AM CDT [facility] Other (Cervical/Vagina l) 02/23/2021 1:27 PM CDT 02/26/2021 9:04 AM CDT Becki Cortes MD PATHOLOGY/CYTOLO GY [facility] [address] [place] [address], from Last 3 Months or Most Recently Relevant to Health Maintenance Advance Directives * Full Code (Latest Code Status on File) Date Activated Date Inactivated Comments 01/07/2024 7:47 AM 01/07/2024 5:50 PM Question Answer Comments Code Status Discussion: Unable to Assess Preferences, Provider to review later Care Teams Environmental Engineering Intern Relationship Specialty Start Date End Date Mya Loco NP PCP - General Nurse Practitioner - Women's Health 04/17/23
== END 2024-02-02 11:43 | disposition home or self-care (01) ==
PROVIDERS: PCP Nurse Practitioner Family; Visit Provider Nurse Practitioner Family
DX: R10.11 Right upper quadrant pain (principal)
CPT/HCPCS: 80048; 81001; 85027; 86803; 87086

== ENCOUNTER 2024-02-04 13:00 | Outpatient (CLI) | payer MEDICAID, SELFPAY ==
--- OUTSIDE RECORDS SUMMARY | 2024-02-05 07:16 | XMS_ITS | Clinical Summary ---
Author Name Unknown Organization [facility] Address [address] [place] [address] Care Team Providers Care Roller Presser Operator Name Role Phone Unavailable Primary Care Provider Unavailabl e Source Comments Patient records contain information from all sites at [facility]. For routine questions regarding patient records, call [phone] during business hours, M-F 8:00 AM - 5:00 PM Central Time. Record requests for emergency care only can be directed to [phone] at any time.[facility] Allergies Active Allergy Reactions Criticality Noted [...] CDT Office Visit Department of Urology in [place], [place] [address] [place] [address] Toya Crowder APRN, C.N.P. Nephrolithiasis Calcium Oxalate (Primary Dx) 01/16/2024 Orders Only Department of Urology in [address] [phone] Dk Byrd M.D. 01/07/2024 7:05 AM CDT - 01/07/2024 11:59 PM CDT Hospital Encounter Department of Radiology in [address] [phone] Dk Byrd M.D. Cystoscopy Status Post Discharge Disposition: Home or Self Care 12/30/2023 Orders Only Department of Urology in [address] [address] Dk Byrd M.D. 12/29/2023 9:45 AM CDT Office Visit Department of Urology in [address] [address] Dk Byrd M.D. Stone Kidney 12/29/2023 Clinical Communication Department of Urology in [address] [address] Dk Byrd M.D. SURGERY DATE 12/23/2023 [facility] [address] [place] [address] Liana Pérez CNighatNNighatPNighat Stone Kidney (Primary Dx) [...] - G ENERAL ORDERABLES Performing Organization Address City/[facility] Co de Phone Number [facility] [address] [place] [address], [place] MKTO [facility] [place] [address] [place] [address] * CT chest abdomen pelv w con-Outside [...] System IMG CT PROCEDURES Performing Organization Address City/[facility] Co de Phone Number [facility] NA from Last 3 Months
--- OUTSIDE RECORDS SUMMARY | 2024-02-05 07:17 | XMS_ITS | Continuity of Care Document ---
Author Name Unknown Organization [facility] enter Address [address] [place] [phone] Phone Care Team Providers Care Escapement Matcher Name Role Phone [facility] Unavailable Unava ilable Procedures Procedure Date INSRT/REDO SPINE N GENERATOR IMPLANT NEUROELECTRODES Implt neurostim elctr each Imp neurosti pls gn any type FLUOROGUIDE FOR SPINE INJECT IMPLANT NEUROELECTRODES IMPLANT NEUROELECTRODES IMPLANT NEUROELECTRODES Implt neurostim elctr each Advance Directives Directive Yes / No Effective Date File Name No Information Encounters Encounter Description Practice Location Reason(s) For Visit Diagnoses Date Provider Providers Copied on Encounter [facility] [place], [address] [place] [address], [id number], tel:[phone] [place] [address] No Information 2 [facility]. [address] [place] [address], [id number], [place]. tel:[phone] Referring Provider: Susannah Cabral, [address] [facility] [place], [address] . tel:[phone] [facility] [place], [address] [place] [address], [id number], tel:[phone] [place] [address] No Information 2 [facility] [place]. [address] [facility] [address], [place], [place], [id number], [place]. tel:[phone] Referring Provider: Fredis Quintana [facility] [address], [place], [address]. tel:[phone] Family History Family Member Type Diagnosis Age At Onset No Information Payers Payer name Insurance type Covered republican ID Authoriza phoenix(s) David [facility] [id number] Social History Type Description Quantity Date Captured [...]
--- OUTSIDE RECORDS SUMMARY | 2024-02-05 07:17 | XMS_ITS | Encounter Summary ---
Author Name Unknown Organization [facility] Address [address] [place] [address] Care Team Providers Care Evaporative Cooler Installer Name Role Phone Unavailable Primary Care Provider Unavailabl e Reason for Referral * Outpatient (Routine) - Closed Specialty Diagnoses / Procedures Referred By Coral lares Referred To Contact Urology Dk Byrd M.D. [address] [phone] [facility] Region Referral ID Status Reason Start Date Expiration Date Visits Re quested Visits Authorized [id number] Closed 12/29/2023 06/29/2025 1 1 * Outpatient (Routine) - Authorized Specialty Diagnoses / Procedures Referred By Coral lares Referred To Contact Family Medicine Diagnoses Stone Kidney Dk Byrd M.D. [address] [address] [facility] Region Referral ID Status Reason Start Date Expiration Date V isits Requested Visits Authorized [id number] Authorized 12/29/2023 06/29/2025 1 1 Reason for Visit * Reason Comments Consult Urolithiasis * Outpatient (Routine) - Closed Specialty Diagnoses / Procedures Referred By Coral lares Referred To Contact Urology Diagnoses Stone Kidney Liana Pérez, C.N.PNighat [address] [place] [address] [facility] Region Referral ID Status Reason Start Date Expiration Date Visits Re quested Visits Authorized [id number] Closed 12/23/2023 06/23/2025 1 1 Encounter Details Date Type Department Care Team (Late st Contact Info) Description 12/29/2023 9:45 AM CDT Office Visit Department of Urology in [place], [place] [address] [place] [phone] Dk Byrd M.D. 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 In broad brush strokes we discussed modifiable [...] M.D. LAB MICROBIOLOGY - G ENERAL ORDERABLES [facility] [address] [place] [address], [facility] [place] [address] documented in this encounter Visit Diagnoses Diagnosis Stone Kidney documented in this encounter
--- OUTSIDE RECORDS SUMMARY | 2024-02-05 07:17 | XMS_ITS | Encounter Summary ---
Author Name Unknown Organization [facility] Address [address] [place] [address] Care Team Providers Care Mapping Pilot Name Role Phone Unavailable Primary Care Provider Unavailabl e Reason for Visit * Reason Onset Date Comments SURGERY DATE 12/29/2023 Encounter Details Date Type Department Care Team (Late st Contact Info) Description 12/29/2023 Clinical Communication Department of Urology in [place], [place] [address] [phone] Dk Byrd M.D. [address] [phone] SURGERY DATE Social History Tobacco Use Types [...]
--- OUTSIDE RECORDS SUMMARY | 2024-02-05 07:17 | XMS_ITS | Continuity of Care Document ---
Author Name Unknown Organization [facility] Address [address] [place] [address] Phone Care Team Providers Care Rotational Moulding Operator Name Role Phone Apolinar Londono MD Unavailable Unavailable Advance Directives Directive Yes / No Effective Date File Name No Information Encounters Encounter Description Practice Location Reason(s) For Visit Diagnoses Date Provider Providers Copied on Encounter [facility] [place], [address], [place], [address], [place] tel:[phone] [facility] No Information Spring Jiang. [facility], [address], [place], [place], [id number] , [place]. tel:[phone] Family History Family Member Type Diagnosis Age At Onset No Information Payers Payer name Insurance type Covered green party ID Authoriza tion(s) No Information Social [...]
--- OUTSIDE RECORDS SUMMARY | 2024-02-05 07:17 | XMS_ITS ---
Author Name Unknown Organization [facility] Address [address] [place] [address] Care Team Providers Care Retort Operator Name Role Phone Unavailable Unavailable Unavailable Surgery Details Not on file Complications Check Surgery Details section. Procedure Estimated Blood Loss Check Surgery Details section. Procedure Findings Check Surgery Details section. Procedure Specimens Taken Check Surgery Details section.
--- OUTSIDE RECORDS SUMMARY | 2024-02-05 07:17 | XMS_ITS | Encounter Summary ---
Author Name Unknown Organization [facility] Address [address] [place] [address] Care Team Providers Care Government Employee Name Role Phone Unavailable Primary Care Provider Unavailabl e Reason for Referral * Outpatient (Routine) - Closed Specialty Diagnoses / Procedures Referred By Coral lares Referred To Contact Diagnoses Cystoscopy Status Post Procedures FL Fluoro Less Than 1 Hour kD Byrd M.D. [address] [phone] [facility] Referral ID Status Reason Start Date Expiration Date Visits Re quested Visits Authorized [id number] Closed 01/07/2024 01/06/2025 1 1 Reason for Visit * Outpatient (Routine) - Closed Specialty Diagnoses / Procedures Referred By Coral lares Referred To Contact Diagnoses Cystoscopy Status Post Procedures FL Fluoro Less Than 1 Hour Dk Byrd M.D. [address] [phone] [facility] Referral ID Status Reason Start Date Expiration Date Visits Re quested Visits Authorized [id number] Closed 01/07/2024 01/06/2025 1 1 Encounter Details Date Type Department Care Team (Latest Contact Info) Description 01/07/2024 7:05 AM CDT - 01/07/2024 11:59 PM CDT Hospital Encounter Department of Radiology in [place], [place] [address] [place] [phone] Dk Byrd M.D. [address] [place] [phone] Cystoscopy Status Post Discharge Disposition: Home or [...]
--- OUTSIDE RECORDS SUMMARY | 2024-02-05 07:17 | XMS_ITS | Encounter Summary ---
Author Name Unknown Organization [facility] Address [address] [place] [address] Care Team Providers Care Metal Roofer Name Role Phone Unavailable Primary Care Provider Unavailabl e Reason for Referral * Outpatient (Routine) - Closed Specialty Diagnoses / Procedures Referred By Coral lares Referred To Contact Diagnoses Nephrolithiasis Calcium Oxalate Procedures Cystoscopy Toya Crowder APRN, C.N.P. [address] [phone] [facility] Region Referral ID Status Reason Start Date Expiration Date Visits Re quested Visits Authorized [id number] Closed 01/22/2024 01/21/2025 1 1 Reason for Visit * Reason Comments Post-op * Outpatient (Routine) - Closed Specialty Diagnoses / Procedures Referred By Coral lares Referred To Contact Urology Dk Byrd M.D. [address], [place] [address] [facility] Referral ID Status Reason Start Date Expiration Date Visits Re quested Visits Authorized [id number] Closed 12/29/2023 06/29/2025 1 1 Encounter Details Date Type Department Care Team (Late st Contact Info) Description 01/22/2024 8:30 AM CDT Office Visit Department of Urology in [place], [place] [address] [address] Toya Crowder APRN, C.N.P. [address] [phone] Nephrolithiasis Calcium Oxalate (Primary Dx) Social History [...] Procedure Name Priority Date/Time Associated Diagnosis Comments WV CYSTHRSCPY RMVL FB/STENT SMPL Routine 01/22/2024 8:30 AM CDT Nephrolithiasis Calcium Oxalate documented in this encounter Results * WV CYSTHRSCPY RMVL FB/STENT SMPL (01/22/2024 8:30 AM [...]
--- OUTSIDE RECORDS SUMMARY | 2024-02-05 07:17 | XMS_ITS | Continuity of Care Document ---
Author Name Unknown Organization [facility] Address [address] [place] [address] Care Team Providers Care Shorthand Teacher Name Role Phone [facility] Unavailable Unav ailable Procedures Procedure Date INJECT EPIDURAL PATCH FLUOROGUIDE FOR SPINE INJECT Advance Directives Directive Yes / No Effective Date File Name No Information Encounters Encounter Description Practice Location Reason(s) For Visit Diagnoses Date Provider Providers Copied on Encounter [facility], [address] [place], [place], [id number], [facility] No Information [facility]. [address] [place], [place], [id number], . tel:[phone] Referring Provider: Shabnam Cardona, [address] [place], [address]. tel:[phone] Family History Family Member Type Diagnosis Age At Onset No Information Payers Payer name Insurance type Covered libertarian ID Authorkacia phoenix(s) David [facility] [id number] Social History Type Description Quantity Date Captured [...]
--- OUTSIDE RECORDS SUMMARY | 2024-02-05 07:17 | XMS_ITS | Continuity of Care Document ---
Author Name Unknown Organization [facility] Address [address] [place] [address] Care Team Providers Care Reheater Name Role Phone Alexis Gray CRNA Unavailable Unavailable Procedures Procedure Date ANESTH, HEAD/NECK/PTRUNK Percutaneous Image guided neuromodulatio n or intra Advance Directives Directive Yes / No Effective Date File Name No Information Encounters Encounter Description Practice Location Reason(s) For Visit Diagnoses Date Provider Providers Copied on Encounter [facility], [address] [place], [place], [id number], [facility] No Information 3 Isaac Espinoza. [address] [place], [place], [id number] , . tel:[phone] Referring Provider: Susannah Cabral, [address] [place], [address] . tel:[phone] [facility], [address] [place], [place], [id number], [facility] No Information 2 Alvaro Park. [address] [facility], [place], [place], [id number] , . tel:[phone] Referring Provider: Fredis Quintana [address] Tracey [address] [facility] [address], [place], [address]. tel:[phone] Family History Family Member Type Diagnosis Age At Onset No Information Payers Payer name Insurance type Covered democrat ID Tae garibay(s) [facility] [id number] Social History Type Description Quantity Date Captured [...]
--- OUTSIDE RECORDS SUMMARY | 2024-02-05 07:17 | XMS_ITS | Encounter Summary ---
Author Name Unknown Organization [facility] Address [address] [place] [address] Care Team Providers Care Embossing Toolsetter Name Role Phone Unavailable Primary Care Provider Unavailabl e Reason for Referral * Outpatient (Routine) - Closed Specialty Diagnoses / Procedures Referred By Coral lares Referred To Contact Urology Diagnoses Stone Kidney Liana Pérez, C.N.P. [address] [place] [address] [facility] Referral ID Status Reason Start Date Expiration Date Visits Re quested Visits Authorized [id number] Closed 12/23/2023 06/23/2025 1 1 Encounter Details Date Type Department Care Team (Late st Contact Info) Description 12/23/2023 [facility] [address] [place] [address] Liana Pérez, C.N.P. [address] [place] [phone] Stone Kidney (Primary Dx) Social History Tobacco [...]
--- OUTSIDE RECORDS SUMMARY | 2024-02-05 07:17 | XMS_ITS | Encounter Summary ---
Author Name Unknown Organization [facility] Address [address] [place] [address] Care Team Providers Care Laundry Folder Name Role Phone Unavailable Primary Care Provider Unavailabl e Encounter Details Date Type Department Care Team (Late st Contact Info) Description 01/16/2024 Orders Only Department of Urology in [place], [place] [address] [place] [phone] Dk Byrd M.D. [address] [phone] Social History Tobacco Use Types Packs/Day Years [...]
--- OUTSIDE RECORDS SUMMARY | 2024-02-05 07:17 | XMS_ITS | Referral Summary ---
Author Name Unknown Organization [facility] Address [address] [place] [address] Care Team Providers Care Silver Chaser Name Role Phone Unavailable Primary Care Provider Unavailabl e Source Comments Patient records contain information from all sites at [facility]. For routine questions regarding patient records, call [phone] during business hours, M-F 8:00 AM - 5:00 PM Central Time. Record requests for emergency care only can be directed to [phone] at any time.[facility] Encounters Date Type Department Care Team Description 01/22/2024 8:30 AM CDT Office Visit Department of Urology in [place], [place] [address] [place] [phone] Toya Crowder APRN, C.N.P. Nephrolithiasis Calcium Oxalate (Primary Dx) 01/16/2024 Orders Only Department of Urology in [address] [phone] Dk Byrd M.D. 01/07/2024 7:05 AM CDT - 01/07/2024 11:59 PM CDT Hospital Encounter Department of Radiology in [place], [place] [address] [phone] Dk Byrd M.D. Cystoscopy Status Post Discharge Disposition: Home or Self Care 12/30/2023 Orders Only Department of Urology in [address] [phone] Dk Byrd M.D. 12/29/2023 Clinical Communication Department of Urology in [place], [place] [address] [place] [address] Dk Byrd M.D. SURGERY DATE 12/29/2023 9:45 AM CDT Office Visit Department of Urology in [place], [place] [address] [facility] [place] [address] Dk Byrd M.D. Stone Kidney 12/23/2023 [facility] [address] [place] [address] Liana Pérez C.N.P. Stone Kidney (Primary Dx) [...] Procedure Name Priority Date/Time Associated Diagnosis Comments CA CYSTHRSCPY RMVL FB/STENT SMPL Routine 01/22/2024 8:30 AM CDT Nephrolithiasis Calcium Oxalate FL FLUORO LESS THAN 1 HOUR RAD - Routine (most inpatients and all outpatients) 01/07/2024 9:37 AM CDT Cystoscopy Status Post BACTERIAL CULTURE, AEROBIC + SUSC, URINE Routine 12/29/2023 11:14 AM CDT [facility] Kidney OUTSIDE CT BODY Routine 12/22/2023 2:05 PM CDT from Last 3 Months Results * CA CYSTHRSCPY RMVL FB/STENT SMPL (01/22/2024 8:30 AM [...] Mixed microbiota (A) 12/30/2023 8:36 AM CDT [facility] Urine (Urine, Midstream) 12/29/2023 11:14 AM CDT 12/29/2023 1:47 PM CDT Comment:Specimen Source Site : Urine Dk Byrd M.D. LAB MICROBIOLOGY - G ENERAL ORDERABLES [facility] [place] [address], [facility] [place] [address] [place] [address] * CT chest abdomen pelv w con-Outside [...]
--- OUTSIDE RECORDS SUMMARY | 2024-02-05 07:17 | XMS_ITS | Continuity of Care Document ---
Author Name Unknown Organization [facility] Address [address] [place] [address] Phone Care Team Providers Care User Experience Manager Name Role Phone Torres AMINAHSusannah Unavailable [...] Providers Copied on Encounter [facility], [address], [place], [place], [id number], [place] tel:[phone] [facility] No Information 2 2[address] Torresshant Davalos. [address] [place], [address], [place]. tel:[phone] Referring Provider: REFERRAL KATHYA HARRIS. [facility], [address], [place], [place], [id number], [place] tel:[phone] [facility] No Information Mar-0 5-200 3 Torresshant Davalos. [address] [place], [address], [place]. tel:[phone] Referring Provider: Guillermina Freeman MD, [address] [place], [address]. tel:[phone] [facility], [address] [facility] [address], [place], [place], [id number], [place] tel:[phone] [facility] No Information 3[address] Brian Davalos. [address] [place], [address], [place]. tel:[phone] Referring Provider: REFERRAL KATH[facility]ARRIS. [facility], [address] [facility] [address], [place], [id number], tel:[phone] [facility] No Information 8-[address] 3 Vonda Lawton. [address] [place], [address], [place]. tel:[phone] Referring Provider: REFERRAL KATHYA HARRIS. Family History [...]
--- OUTSIDE RECORDS SUMMARY | 2024-02-05 07:17 | XMS_ITS | Encounter Summary ---
Author Name Unknown Organization [facility] Address [address] [place] [address] Care Team Providers Care Seo Intern Name Role Phone Unavailable Primary Care Provider Unavailabl e Encounter Details Date Type Department Care Team (Late st Contact Info) Description 12/30/2023 Orders Only Department of Urology in [place], [place] [address] [place] [phone] Dk Byrd M.D. [address] [phone] Social History Tobacco Use Types Packs/Day Years [...]
--- OUTSIDE RECORDS SUMMARY | 2024-02-05 07:18 | XMS_ITS | Clinical Summary ---
Author Name Unknown Organization [employer] [facility] Address [place], [place] [address] Care Team Providers Care Nail Feeder Name Role Phone Mya Loco NP Primary [...] 160-800 mg, (BACTRIM DS, SEPTRA DS) tabIndications:Emperatriz lindsay Take 1 Tablet by mouth two times [...] CDT - 01/07/2024 10:24 AM CDT Surgery [facility] [address] [place] [address] Dk Byrd MD LITHOTRIPSY URETEROSCOPY WITH LASER-LEFT 01/07/2024 8:44 AM CDT Anesthesia Event [facility] [address] [place] [address] Dyllan Blankenship DO 01/07/2024 7:45 AM CDT - 01/07/2024 11:45 AM CDT Hospital Encounter [facility] [address] [place] [address] Dk Byrd MD Kidney stone (Primary Dx); [...] Body Mass Index 21.2 09/18/2023 3:25 PM FUEL 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 Plan of Treatment Health Maintenance Due Date [...] 04/03/2031 04/03/2021, Medical Devices Implanted Type Area Rn Endoscopy Device Identifier Shelf Expiration Date Model / Serial / Lot Stent Uret [id number] Contour - [id number] Implanted:Qty: 1 on 01/07/2024 by Dk Byrd MD at [facility] Left: Ureter [facility] 05/28/2026 [id number] / / [id number] Procedures Procedure Name Priority Date/Time Associated Diagnosis Comments XR C-ARM EQUAL OR LESS 1 HR Routine 01/07/2024 9:38 AM CDT STONE ANALYSIS Today 01/07/2024 9:09 AM CDT SUPRAGLOTTIC-LMA Routine 01/07/2024 8:56 AM CDT CYSTOSCOPY PLACEMENT URETERAL STENT 01/07/2024 8:44 AM CDT same Case Notes Big C-Arm Special Needs [id number] LITHOTRIPSY URETEROSCOPY WITH LASER 01/07/2024 8:44 AM CDT same Case Notes Big C-Arm Special Needs [id number] SCAN CORRESP-EKG RESULTS 01/01/2024 1:27 PM CDT SCAN CORRESP-LABORATORY RESULTS 01/01/2024 1:27 PM CDT SCAN-COLONOSCOPY 04/03/2021 12:0 0 AM CDT DIESEL LOCOMOTIVE CRANE OPERATOR THIN PREP PAP SCREEN IMAGED Routine 02/23/2021 1:27 PM CDT from Last 3 Months or Most Recently Relevant to Health Maintenance Results * XR C-ARM EQUAL OR LESS 1 HR (01/07/2024 9:38 AM CDT) Anatomical Region Laterality Modality Other Dk Byrd MD FLUOROSCOPY * STONE ANALYSIS (01/07/2024 9:09 AM CDT) Source Comment 01/14/2024 7:13 AM CDT [facility] Comment:Left Kidney Color Brown 01/14/2024 7:13 AM CDT [facility] Size 4x4 mm 01/14/2024 7:13 AM CDT [facility] Comment: Multiple pieces received. ??Dimensions of the largest piece reported. Weight 110 mg 01/14/2024 7:13 AM CDT [facility] Composition Comment 01/14/2024 7:13 AM CDT [facility] Comment:Percentage (Represen ts the % composition) Calcium Oxalate Monoh 90 % 01/14/2024 7:13 AM CDT [facility] Calcium Oxalate Dihyd 10 % 01/14/2024 7:13 AM T [facility] Comment Comment 01/14/2024 7:13 AM T [facility] Comment: Calculus received wet. Wet calculi must be dried before analysis, which delays reporting of results. Leaving calculi wet (such as water, saline, blood, urine) may lead to changes in composition. Photo Comment 01/14/2024 7:13 AM T [facility] Comment:Photograph will foll ow under a separate cover Comment: Comment 01/14/2024 7:13 AM T [facility] Comment: Physician questions regarding Calculi Analysis contact [facility] at: [phone]. Please note: Comment 01/14/2024 7:13 AM T [facility] Comment: Calculi report will follow via computer, mail or natural gas basis trader delivery. Disclaimer: Comment 01/14/2024 7:13 AM T [facility] Comment: This test was developed and its performance characteristics determined by [facility]. ??It has not been cleared or approved by the Food and Drug Administration. Calculi (stone) (Left Kidney Stone ) Non-Blood / Unknown 01/07/2024 9:09 AM CDT 01/07/2024 10:02 AM CDT Narrative [facility] - 01/14/2024 7:13 AM CDT Performed at: ??[address] ??[id number] Network Systems Engineer: Kasie Gustafson, Phone: ??[phone] Dk Byrd MD SEND OUTS [facility] ([facility]) [address] [place] [address], * Supraglottic (01/07/2024 8:56 AM CDT) Narrative [...] (04/03/2021 12:00 AM CDT) Scanner OTHER * DIESEL LOCOMOTIVE CRANE OPERATOR THIN PREP PAP SCREEN IMAGED (02/23/2021 1:27 PM CDT) Case Report Gynecologic Cytology Report ? Case: [id number] ? Authorizing Provider: ??Becki Cortes MD ??Collected: ? 02/23/2021 1327 ? Ordering Location: ? [facility] ?Received: ?02/26/2021 0904 ? First Screen: ?Binh Owen ? Specimen: ?DIESEL LOCOMOTIVE CRANE OPERATOR ThinPrep Vial Screening, Cervical/Vaginal ? 03/07/2021 10:25 AM T [facility] INTERPRETATION/ RESULT NEGATIVE FOR INTRAEPITHELIAL LESION OR MALIGNANCY (NIL) (none) 03/07/2021 10:25 AM [facility] IMEN ADEQUACY Satisfactory for evaluation Endocervical component present 03/07/2021 10:25 AM T [facility] HPV REQUEST HPV and PAP 03/07/2021 10:25 AM [facility] Date of LMP 03/07/2021 10:25 AM [facility] Comment:N/A Last Pap Date 03/07/2021 10:25 AM [facility] Comment:20 yrs ago Menstrual Status 03/07/2021 10:25 AM [facility] Comment:Menopause Additional Information 03/07/2021 10:25 AM [facility] Comment: Interpreted at [facility] Central Laboratory - [address], [place] [address] Automated Review Successful 03/07/2021 10:25 AM [facility] Comment:Specimen processed s uccessfully by automated sound person device, ThinPrep Imaging System, [employer] ANCILLARY TESTING DIESEL LOCOMOTIVE CRANE OPERATOR HPV Ordered, Please see separate report 03/07/2021 10:25 AM [facility] Note The pap test is a [...] and malignant lesions. 03/07/2021 10:25 AM CDT [facility] Other (Cervical/Vagina l) 02/23/2021 1:27 PM CDT 02/26/2021 9:04 AM CDT Becki Cortes MD PATHOLOGY/CYTOLO GY [facility] [address] [place] [address], from Last 3 Months or Most Recently Relevant to Health Maintenance Advance Directives * Full Code (Latest Code Status on File) Date Activated Date Inactivated Comments 01/07/2024 7:47 AM 01/07/2024 5:50 PM Question Answer Comments Code Status Discussion: Unable to Assess Preferences, Provider to review later Care Teams Nail Feeder Relationship Specialty Start Date End Date Mya Loco NP PCP - General Nurse Practitioner - Women's Health 04/17/23
--- OUTSIDE RECORDS SUMMARY | 2024-02-05 07:18 | XMS_ITS | Continuity of Care Document ---
Author Name Unknown Organization [facility] Address [address] [facility] [place] [address] Phone Care Team Providers Care Screen Operator Name Role Phone Samira Lyn DNP Unavailable [...] 2 capsules per 24hrs - Active NII: [id number] hydrocodone 5 mg-acetaminophen 325 mg tablet take [...] per 24hrs - No Longer Active NII: [id number] Bactrim 400 mg-80 mg tablet take 1 tablet by oral route every 12 hours 1 tablet - No Longer Active Flomax 0.4 mg capsule take 1 capsule by oral route every day 1/2 hour following the same meal each day 0.4 MG - No Longer Active tamsulosin 0.4 mg capsule take 1 capsule by oral route every day 1/2 hour following the same meal each day 0.4 MG - No Longer Active Procedures Procedure Date [...] classes OFFICE/OUTPATIENT VISIT, NEW PT-FOCUSED HL[facility] Advance Directives Directive Yes / No Effective Date File Name No Information Encounters Encounter Description Practice Location Reason(s) For Visit Diagnoses Date Provider Providers Copied on Encounter OFFICE/OUTPAT IENT VISIT, [facility], [address] [facility] [place], [address] , [place] tel:[phone] [facility] low back pain (chief complaint) Chronic pain syndromeOther spondylosis, cervical regionPostlaminec lucero syndrome, not elsewhere classifiedHeadach e, unspecifiedLong term (current) use of opiate analgesic 4 Eboni Hogan. [address] [facility] [address], [place], [id number] , [place]. tel:[phone] Referring Provider: Keyon Muller [facility] [address] [place], [address]. tel:[phone] OFFICE/OUTPAT IENT VISIT, [facility], [address] [facility] [place], [place], [address] , [place] tel:[phone] [facility] low back pain (chief complaint) Chronic pain syndromeOther spondylosis, cervical regionPostlaminec lucero syndrome, not elsewhere classifiedHeadach e, unspecifiedLong term (current) use of opiate analgesicEncounte r for therapeutic drug level monitoring 4 Eboni Hogan. [address] [facility] [address], [place], [id number] , [place]. tel:[phone] [facility] [address] [place], [address]. tel:[phone] [facility], [address] [facility] [place], [address] , [place] tel:[phone] [facility] No Information Nov- 4 Yon Elias. [address] [facility], [place], [address] , [place]. tel:[phone] OFFICE/OUTPAT IENT VISIT, EST [facility], [address] [place], [address] , [place] tel: [phone] [facility] low back pain (chief complaint) Chronic pain syndromeOther spondylosis, cervical regionPostlaminec lucero syndrome, not elsewhere classifiedHeadach e, unspecifiedLong term (current) use of opiate analgesic 4 Nyongesa Samira. [address] [facility] [address] [facility] [address], [place], [id number] , [place]. tel: [phone] Referring Provider: Keyon Muller [facility] [address] [place], [address]. tel:[phone] OFFICE/OUTPAT IENT VISIT, [facility], [address] [place] [address], [id number] , [place] tel: [phone] [facility] low back pain (chief complaint) Chronic pain syndromeOther spondylosis, cervical regionPostlaminec lucero syndrome, not elsewhere classifiedHeadach e, unspecifiedLong term (current) use of opiate analgesic 4 Nyongesa Samira. [address] [facility] [address], [place], [address] , [place]. tel: [phone] Referring Provider: Keyon Muller, [facility] [address] [place], [address]. tel:[phone] OFFICE/OUTPAT IENT VISIT, [facility], [address] [place], [place], [address] , [place] tel: [phone] [facility] low back pain (chief complaint) Insomnia, unspecifiedChroni c pain syndromeOther spondylosis, cervical regionInterverteb ral disc disorders with radiculopathy, lumbar regionPostlaminec lucero syndrome, not elsewhere classifiedHeadach e, unspecifiedLong term (current) use of opiate analgesic 3 Nyongesa Samira. [address] [facility] [address], [place], [id number] , [place]. tel: [phone] Referring Provider: Keyon Muller [facility] [address] [place], [address]. [phone] [facility], [address] [place], [place], [address] , [place] tel: [phone] [facility] No Information 3 Eboni Hogan. [address], [place], [id number] , [place]. tel: [phone] Referring Provider: Keyon Muller [facility] [address] [place], [address]. tel:[phone] OFFICE/OUTPAT IENT VISIT, [facility], [address] [place], [place], [address] , [place] tel: [phone] [facility] low back pain (chief complaint) Insomnia, unspecifiedChroni c pain syndromeOther spondylosis, cervical regionInterverteb ral disc disorders with radiculopathy, lumbar regionPostlaminec lucero syndrome, not elsewhere classifiedHeadach e, unspecifiedLong term (current) use of opiate analgesic 3 Nyongesa Smaira. [address] [facility] [address], [place], [id number] , [place]. tel:[phone] Referring Provider: Keyon Muller [facility] [address] [place], [address]. tel:[phone] OFFICE/OUTPAT IENT VISIT, [facility], [address] [place], [place], [address] , [place] tel: [phone] [facility] low back pain (chief complaint) Insomnia, unspecifiedChroni c pain syndromeOther spondylosis, cervical regionInterverteb ral disc disorders with radiculopathy, lumbar regionPostlaminec lucero syndrome, not elsewhere classifiedLong term (current) use of opiate analgesicHeadache , unspecified 3 Nyongesa Samira. [address], [place], [address] , [place]. tel:[phone] Referring Provider: Keyon Muller [facility] [address] [place], [address]. tel:[phone] OFFICE/OUTPAT IENT VISIT, EST [facility], [address] [place], [place], [address] , [place] tel: [phone] [facility] low back pain (chief complaint) Insomnia, unspecifiedChroni c pain syndromeOther spondylosis, cervical regionInterverteb ral disc disorders with radiculopathy, lumbar regionPostlaminec lucero syndrome, not elsewhere classifiedLong term (current) use of opiate analgesic Jun- 3 Nyongesa Samira. [address] [facility] [address], [place], [place], [address] , [place]. tel:[phone] Referring Provider: Keyon Muller [facility] [address] [place], [address]. tel:[phone] OFFICE/OUTPAT IENT VISIT, EST [facility], [address] [place], [address] , [place] tel:[phone] [facility] low back pain (chief complaint) Chronic pain syndromeOther spondylosis, cervical regionInterverteb ral disc disorders with radiculopathy, lumbar regionPostlaminec lucero syndrome, not elsewhere classifiedLong term (current) use of opiate analgesicEncounte r for therapeutic drug level monitoringInsomni a, unspecified May- 3 Nyongesa Samira. [address] [facility] [address], [place], [address] , [place]. tel:[phone] Referring Provider: Keyon Muller [facility] [address] [place], [address]. tel:[phone] [facility], [address] [place], [place], [address] , [place] tel:[phone] [facility] No Information 3 Nyongesa Samira. [address] [facility] [address], [place], [id number] , [place]. tel: [phone] Referring Provider: Keyon Muller [facility] [address] [place], [address]. tel:[phone] OFFICE/OUTPAT IENT VISIT, EST [facility], [address] [place], [address] , [place] tel: [phone] [facility] low back pain (chief complaint) Major depressive disorder, single episode, unspecifiedChroni c pain syndromeOther spondylosis, cervical regionInterverteb ral disc disorders with radiculopathy, lumbar regionPostlaminec lucero syndrome, not elsewhere classifiedLong term (current) use of opiate analgesic 3 Nyongesa Saimra. [address] [facility] [address], [place], [id number] , [place]. tel: [phone] [facility] [address] [place], [address]. tel:[phone] [facility], [address] [place], [address] , [place] tel: [phone] [facility] Postlaminectomy syndrome, not elsewhere classified 3 Nyongesa Samira. [address] [facility] [address], [place], [address] , [place]. tel: [phone] OFFICE/OUTPAT IENT VISIT, EST [facility], [address] [place], [address] , [place] tel: [phone] [facility] low back pain (chief complaint) Major depressive disorder, single episode, unspecifiedChroni c pain syndromeOther spondylosis, cervical regionInterverteb ral disc disorders with radiculopathy, lumbar regionPostlaminec lucero syndrome, not elsewhere classifiedLong term (current) use of opiate analgesic 3 Nyongesa Samira. [address] [facility] [address], [place], [address] , [place]. tel: [phone] Referring Provider: Keyon Muller [facility] [address] [place], [address]. [phone] OFFICE/OUTPAT IENT VISIT, EST [facility], [address] [place], [address] , [place] tel: [phone] [facility] low back pain (chief complaint) Major depressive disorder, single episode, unspecifiedInterv ertebral disc disorders with radiculopathy, lumbar regionPostlaminec lucero syndrome, not elsewhere classifiedLong term (current) use of opiate analgesicChronic pain syndromeOther spondylosis, cervical region February- 3 Nyongesa Samira. [address] [facility] [address], [place], [place], [address] , [place]. tel: [phone] Referring Provider: Keyon Muller [facility] [address] [place], [address]. tel:[phone] OFFICE/OUTPAT IENT VISIT, [facility], [address] [place], [address] , [place] tel: [phone] [facility] low back pain (chief complaint) Major depressive disorder, single episode, unspecifiedPostla minectomy syndrome, not elsewhere classifiedLong term (current) use of opiate analgesicInterver tebral disc disorders with radiculopathy, lumbar region Apr-10 14- 3 Nyongesa Samira. [address] [facility] [address], [place], [place], [address] , [place]. tel: [phone] Referring Provider: Keyon Muller [facility] [address] [place], [address]. tel:[phone] [facility], [address] [place], [place], [address] , [place] tel:[phone] [facility] Intervertebral disc disorders with radiculopathy, lumbar region Dec-10 15- 3 Nyongesa Samira. [address] [facility] [address], [facility] [place], [address] , [place]. tel: [phone] Referring Provider: Keyon Muller [facility] [address] [place], [address]. tel:[phone] OFFICE/OUTPAT IENT VISIT, EST [facility], [address] [place], [address] , [place] tel: [phone] [facility] low back pain (chief complaint) Major depressive disorder, single episode, unspecifiedInterv ertebral disc disorders with radiculopathy, lumbar regionPostlaminec lucero syndrome, not elsewhere classifiedLong term (current) use of opiate analgesic 3 Nyongesa Samira. [address] [facility] [address], [place], [address] , [place]. tel: [phone] Referring Provider: Keyon Muller [facility] [address] [place], [address]. tel:[phone] [facility], [address] [place], [address] , [place] tel: [phone] [facility] No Information 3 Nyongesa Samira. [address] [facility] [address], [place], [address] , [place]. tel: [phone] Referring Provider: Keyon Muller [facility] [address] [place], [address]. tel:[phone] OFFICE/OUTPAT IENT VISIT, EST [facility], [address] [place], [address] , [place] tel: [phone] [facility] low back pain (chief complaint) Major depressive disorder, single episode, unspecifiedInterv ertebral disc disorders with radiculopathy, lumbar regionPostlaminec lucero syndrome, not elsewhere classifiedLong term (current) use of opiate analgesic 3 Nyongesa Samira. [address] [facility] [address], [place], [place], [address] , [place]. tel:[phone] Referring Provider: Keyon Muller [facility] [address] [place], [address]. tel:[phone] [facility], [address] [facility] [place], [address] , [place] tel:[phone] [facility] [place] No Information 3 Yon Elias. [address] [facility], [address] , [place]. tel:[phone] [facility], [address] [place] [address] [place], [place], [address] , [place] tel:[phone] [facility] lumbago (chief complaint) Postlaminectomy syndrome, not elsewhere classified 3 Emily Megha. [address] [facility] [place], [place], [address] , [place]. tel:[phone] Referring Provider: Keyon Muller [facility] [address] [place], [address]. [phone] OFFICE/OUTPAT IENT VISIT, EST [facility], [address] [place] [address] [place], [address] , [place] tel:[phone] [facility] low back pain (chief complaint) Major depressive disorder, single episode, unspecifiedInterv ertebral disc disorders with radiculopathy, lumbar regionPostlaminec lucero syndrome, not elsewhere classifiedLong term (current) use of opiate analgesic 3 Nyjayda Hogan. [address] [facility] [address], [place], [id number] , [place]. tel:[phone] Referring Provider: Keyon Muller [facility] [address] [place], [address]. tel:[phone] [facility], [address] [place] [id number] , [place] tel:[phone] [facility] low back pain (chief complaint) Major depressive disorder, single episode, unspecifiedInterv ertebral disc disorders with radiculopathy, lumbar regionPostlaminec lucero syndrome, not elsewhere classifiedLong term (current) use of opiate analgesic 3 Barron Muse. [address] [facility] [address], [place], [place], [address] , [place]. tel: [phone] Referring Provider: Keyon Muller [facility] [address] [place], [address]. tel:[phone] [facility], [address] [place], [place], [address] , [place] tel: [phone] [facility] Postlaminectomy syndrome, not elsewhere classified 2 Misha Davalos. [address] [place], [place], [address] , [place]. tel: [phone] Referring Provider: Keyon Muller [facility] [address] [place], [address]. tel:[phone] OFFICE/OUTPAT IENT VISIT, EST [facility], [address] [place], [place], [address] , [place] tel: [phone] [facility] low back pain (chief complaint) Major depressive disorder, single episode, unspecifiedInterv ertebral disc disorders with radiculopathy, lumbar regionPostlaminec lucero syndrome, not elsewhere classifiedLong term (current) use of opiate analgesicEncounte r for therapeutic drug level monitoring 2 Elisasa Hogan. [address] [facility] [address], [place], [place], [address] , [place]. tel: [phone] Referring Provider: Keyon Muller [facility] [address] [place], [address]. tel:[phone] OFFICE/OUTPAT IENT VISIT, EST [facility], [address] [place], [place], [address] , [place] tel: [phone] [facility] low back pain (chief complaint) Major depressive disorder, single episode, unspecifiedInterv ertebral disc disorders with radiculopathy, lumbar regionPostlaminec lucero syndrome, not elsewhere classifiedLong term (current) use of opiate analgesic - 2 Nyongesa Samira. [address] [facility] [address], [place], [address] , [place]. tel:[phone] Referring Provider: Keyon Muller, [facility] [address] [place], [address]. tel:[phone] [facility], [address] [facility] [place], [address] , [place] tel: [phone] [facility] [place] Postlaminectomy syndrome, not elsewhere classified 2 Dulce Haque. [address] [facility] [place], [address] , [place]. tel: [phone] [facility] [address] [place], [address]. tel:[phone] [facility], [address] [facility] [place], [address] , [place] tel: [phone] [facility] Postlaminectomy syndrome, not elsewhere classified 2 Yon Elias. [address] [facility] [place], [place], [address] , [place]. tel: [phone] [facility], [address] [facility] [place], [address] , [place] tel:[phone] [facility] Postlaminectomy syndrome, not elsewhere classified 2 Eboni Hogan. [address] [facility] [address], [place], [address] , [place]. tel:[phone] Referring Provider: Keyon Muller [facility] [address] [place], [address]. tel:[phone] [facility], [address] [facility] [place], [address] , [place] tel: [phone] [facility] No Information Jul-0 2 Eboni Hogan. [address] [facility] [address], [place], [address] , [place]. tel: [phone] Referring Provider: Keoyn Muller [facility] [address] [place], [address]. tel:[phone] [facility], [address] [place], [place], [address] , [place] tel: [phone] [facility] Postlaminectomy syndrome, not elsewhere classified 2 Eboni Hogan. [address] [facility] [address], [place], [place], [address] , [place]. tel: [phone] Referring Provider: Keyon Muller [facility] [address] [place], [address]. tel:[phone] [facility], [address] [place] [address], [address] , [place] tel: [phone] [facility] No Information Sep-2 2 Mariano Mcneal. [facility], [address] [facility] [address], [place], [address], [place]. tel: [phone] Referring Provider: Keyon Muller [facility] [address] [place], [address]. tel:[phone] [facility], [address] [place], [address] , [place] tel: [phone] [facility] Postlaminectomy syndrome, not elsewhere classified Sep- 2 Eboni Hogan. [address] [facility] [address], [place], [place], [address] , [place]. tel: [phone] Referring Provider: Keyon Muller [facility] [address] [place], [address]. tel:[phone] OFFICE VISIT, EST TELEMEDICINE [facility], [address] [facility] [place], [address] , [place] tel: [phone] [facility] low back pain (chief complaint) Major depressive disorder, single episode, unspecifiedInterv ertebral disc disorders with radiculopathy, lumbar regionPostlaminec lucero syndrome, not elsewhere classifiedLong term (current) use of opiate analgesic Sep-0 2 Nyongesa Samira. [address] [facility] [address], [place], [address] , [place]. tel: [phone] OFFICE/OUTPAT IENT VISIT, EST [facility], [address] [place], [address] , [place] tel: [phone] [facility] Back Pain (chief complaint) Major depressive disorder, single episode, unspecifiedInterv ertebral disc disorders with radiculopathy, lumbar regionOther intervertebral disc degeneration, lumbar regionPostlaminec lucero syndrome, not elsewhere classifiedLong term (current) use of opiate analgesic May- 2 Nyongesa Samira. [address] [facility] [address], [place], [address] , [place]. tel: [phone] [facility] [address] [place], [address]. tel:[phone] OFFICE/OUTPAT IENT VISIT, EST [facility], [address] [place], [place], [address] , [place] tel: [phone] [facility] Back Pain (chief complaint) Major depressive disorder, single episode, unspecifiedInterv ertebral disc disorders with radiculopathy, lumbar regionOther intervertebral disc degeneration, lumbar regionPostlaminec lucero syndrome, not elsewhere classifiedLong term (current) use of opiate analgesic Apr- 2 Nyongesa Samira. [address] [facility] [address], [place], [address] , [place]. tel: [phone] Referring Provider: Keyon Muller [facility] [address] [place], [address]. tel:[phone] OFFICE/OUTPAT IENT VISIT, [facility], [address] [place], [place], [address] , [place] tel: [phone] [facility] Back Pain (chief complaint) Major depressive disorder, single episode, unspecifiedInterv ertebral disc disorders with radiculopathy, lumbar regionOther intervertebral disc degeneration, lumbar regionPostlaminec lucero syndrome, not elsewhere classifiedLong term (current) use of opiate analgesic 2 Nyongesa Samira. [address] [facility] [address], [place], [place], [address] , [place]. tel:[phone] Referring Provider: Keyon Muller [facility] [address] [place], [address]. [phone] Psych Dx Eval [facility], [address] [place], [address] , [place] tel: [phone] [facility] Pain disorder with related psychological factorsMajor depressive disorder, recurrent, in full remission 2 Rosa Smith Peg. [address] [place], [place], [address] , [place]. tel:[phone] [facility], [address] [place], [address] , [place] tel: [phone] [facility] No Information 2 Nyongesa Samira. [address] [facility] [address], [place], [place], [address] , [place]. tel:[phone] Referring Provider: Keyon Muller [facility] [address] [place], [address]. tel:[phone] OFFICE/OUTPAT IENT VISIT, [facility], [address] [place], [place], [address] , [place] tel:[phone] [facility] Back Pain (chief complaint) Encounter for screening for other disorderPostlamin ectomy syndrome, not elsewhere classifiedOther intervertebral disc degeneration, lumbar regionInterverteb ral disc disorders with radiculopathy, lumbar regionMajor depressive disorder, single episode, unspecified 2 Eboni Hogan. [address] [facility] [address], [place], [address] , [place]. tel:[phone] Referring Provider: Keyon Muller, [facility] [address], [place], [address]. tel:[phone] Family History Family Member Type Diagnosis Age At Onset No Information Payers Payer name Insurance type Covered green party ID Authoriza tialexandru(s) vitaliy [facility]LY [facility] [id number] Social History Type Description Quantity Date Captured [...] Of Treatment Date Type Action Status Goal Zoster vaccine (1st). Due on due [...] Goal Tobacco Use. Due on due Goal Creatinine. Due on due Goal ALT (SGPT). Due on due Goal ECOLOGIST Paperwork. Due on due Goal Order Annual PT. Due on due Goal OARS. Due on due Goal UDT. Due on due Goal TABLE ASSEMBLER Scanned. Due on due Goal AST (SGOT). Due on due Goal Weight. Due on [...] Goal AST (SGOT). Due on due Goal ECOLOGIST Paperwork. Due on due Goal TABLE ASSEMBLER Scanned. Due on due Goal ALT (SGPT). Due on due Goal UDT. Due on due Goal CT-Colonography. Due on due Goal Height. Due on d ue Goal Order Annual PT. Due on due Goal ECOLOGIST Paperwork. Due on due Goal TABLE ASSEMBLER Scanned. Due on due Goal AST (SGOT). [...] Goal AST (SGOT). Due on due Goal TABLE ASSEMBLER Scanned. Due on due Goal Creatinine. Due on due Goal UDT. Due on due Goal ECOLOGIST Paperwork. Due on due Goal OARS. Due on due Goal Order Annual PT. Due on due Goal Review Allergy List. Due on due Goal Medication Reconciliation. D ue on due Goal Creatinine. Due on due Goal OARS. Due on due Goal Order Annual PT. Due on due Goal TABLE ASSEMBLER Scanned. Due on due Goal ECOLOGIST Paperwork. Due on due Goal ALT (SGPT). [...] due Goal Creatinine. Due on due Goal TABLE ASSEMBLER Scanned. Due on due Goal ECOLOGIST Paperwork. Due on due Goal Order Annual PT. Due on due Goal UDT. Due on due Goal Unhealthy drug use screening . Due on due Goal Medication Reconciliation. D ue on due Goal CT-Colonography. Due on due Goal Hepatitis C screening. Due o n due Goal Zoster vaccine (1st). Due on due Goal Tobacco Use. Due on 023 due Goal PHQ-9. Due [...] Goal Height. Due on d ue Goal UDT. Due on due Goal CT-Colonography. Due on due Goal Hepatitis C screening. Due o n due Goal Weight. Due on d ue Goal Creatinine. Due on due Goal Order Annual PT. Due on due Goal ECOLOGIST Paperwork. Due on due Goal AST (SGOT). Due on due Goal OARS. Due on due Goal TABLE ASSEMBLER Scanned. Due on due Goal ALT (SGPT). Due on due Goal HPV. Due on [...] vaccine (1st). Due on due Goal Tobacco cessation counseling completed Goal ECOLOGIST Paperwork. Due on due Goal Order Annual PT. Due on due Goal AST (SGOT). Due on due Goal ALT (SGPT). Due on due Goal Creatinine. Due on due Goal UDT. Due on due Goal TABLE ASSEMBLER Scanned. Due on due Goal OARS. Due [...] due Goal OARS. Due on due Goal ECOLOGIST Paperwork. Due on due Goal TABLE ASSEMBLER Scanned. Due on due Goal UDT. Due on due Goal Creatinine. Due on due Goal Hepatitis C screening. [...] Zoster vaccine (). Due on due Goal PHQ-9. Due on du e Goal FIT. Due on due Goal Review [...] Zoster vaccine (). Due on due Goal PHQ-9. Due on du e Goal TABLE ASSEMBLER Scanned. Due on due Goal UDT. Due on due Goal ECOLOGIST Paperwork. Due on due Goal Order Annual PT. Due on due Goal OARS. Due on due Goal AST (SGOT). Due on due Goal Creatinine. Due on due Goal ALT (SGPT). Due on due Goal Hepatitis C screening. Due o n due Goal Unhealthy drug use screening . Due on due Goal Weight. Due on d ue Goal TABLE ASSEMBLER Scanned. Due on due Goal Tobacco Use. [...] C screening. Due o n due Goal Order Annual PT. Due on due Goal Unhealthy drug use screening . Due on due Goal Medication Reconciliation. D ue on due Goal Weight. Due on d ue Goal PHQ-9. Due on du e Goal UDT. Due on due Goal Creatinine. Due on due Goal OARS. Due on due Goal AST (SGOT). Due on due Goal ALT (SGPT). Due on due Goal ECOLOGIST Paperwork. Due on due Goal Hepatitis C screening. Due o n due Goal Medication Reconciliation. D ue on due Goal Weight. Due on d ue Goal Tobacco Use. Due on due Goal Creatinine. Due on due Goal UDT. Due on due Goal TABLE ASSEMBLER Scanned. Due on due Goal ECOLOGIST Paperwork. Due on due Goal Order Annual [...] due Goal HPV. Due on due Goal TABLE ASSEMBLER Scanned. Due on due Goal ECOLOGIST Paperwork. Due on due Goal Order Annual [...] Zoster vaccine (1st). Due on due Goal TABLE ASSEMBLER Scanned. Due on due Goal AST (SGOT). Due on due Goal ALT (SGPT). Due on due Goal Creatinine. Due on due Goal OARS. Due on due Goal UDT. Due on due Goal ECOLOGIST Paperwork. Due on due Goal CT-Colonography. Due on [...] PHQ-9. Due on du e Goal Tobacco cessation counseling completed Goal Order Annual PT. Due on due Goal HPV. Due on due Goal Height. Due on d ue Goal ALT (SGPT). Due on due Goal AST (SGOT). Due on due Goal UDT. Due on due Goal TABLE ASSEMBLER Scanned. Due on due Goal Creatinine. Due on due Goal OARS. Due on due Goal ECOLOGIST Paperwork. Due on due Goal CT-Colonography. Due on [...] Medication Reconciliation. D ue on due Goal ECOLOGIST Paperwork. Due on due Goal OARS. Due on due Goal TABLE ASSEMBLER Scanned. Due on due Goal UDT. Due [...] Social History. Due o n due Goal ECOLOGIST Paperwork. Due on due Goal OARS. Due on due Goal ALT (SGPT). Due on due Goal AST (SGOT). Due on due Goal Order Annual PT. Due on due Goal FIT-DNA. Due on due Goal TABLE ASSEMBLER Scanned. Due on due Goal Creatinine. Due on due Goal UDT. Due on due Goal TABLE ASSEMBLER Scanned. Due on due Goal Creatinine. Due on due Goal ALT (SGPT). Due on due Goal UDT. Due on due Goal AST (SGOT). Due on due Goal ECOLOGIST Paperwork. Due on due Goal OARS. Due on due Goal Order Annual PT. Due on due Goal Tobacco Use. Due on 023 [...] Lipid panel. Due on 023 due Goal FIT-DNA. Due on due Goal FIT. Due on due Goal Hepatitis C screening. Due o n due Goal FIT-DNA. Due on due Goal Review Allergy List. Due on due Goal OARS. Due on due Goal Order Annual PT. Due on due Goal Creatinine. Due on due Goal UDT. Due on due Goal AST (SGOT). Due on due Goal ECOLOGIST Paperwork. Due on due Goal TABLE ASSEMBLER Scanned. Due on due Goal ALT (SGPT). Due on due Goal Unhealthy drug use screening . Due on due Goal CT-Colonography. Due on due Goal HPV. Due on due Goal Lipid panel. Due on due Goal Update Social History. Due o n due Goal Zoster vaccine (1st). Due on due Goal Tobacco Use. Due on 023 due Goal Height. Due on d ue Goal Weight. Due on d ue Goal Medication Reconciliation. D ue on due Goal PHQ-9. Due on du e Goal Hepatitis C screening. Due o n due Goal Weight. Due on d ue Goal Tobacco Use. Due on 023 due Goal Height. Due on d ue Goal Lipid panel. Due on due Goal OARS. Due on due Goal Order Annual PT. Due on due Goal ECOLOGIST Paperwork. Due on due Goal TABLE ASSEMBLER Scanned. Due on due Goal UDT. Due on due Goal AST (SGOT). Due on due Goal ALT (SGPT). Due on due Goal Zoster vaccine (). Due on due Goal Update Social History. Due o n due Goal PHQ-9. Due on du e Goal HPV. Due on due Goal Unhealthy drug use screening . Due on due Goal Review Allergy List. Due on due Goal Medication Reconciliation. D ue on due Goal Creatinine. Due on due Goal FIT-DNA. Due on due Goal CT-Colonography. Due on due Goal FIT. Due on due Goal ECOLOGIST Paperwork. Due on due Goal Zoster vaccine (1st). Due on due Goal Height. Due on d ue Goal Order Annual PT. Due on due Goal OARS. Due on due Goal ALT (SGPT). Due on due Goal TABLE ASSEMBLER Scanned. Due on due Goal AST (SGOT). [...] due Goal Creatinine. Due on due Goal Hepatitis C screening. Due o n due Goal Update Social History. Due o n due Goal Lipid panel. Due on due Goal Review Allergy List. Due on due Goal ECOLOGIST Paperwork. Due on due Goal AST (SGOT). Due on due Goal OARS. Due on due Goal Creatinine. Due on due Goal TABLE ASSEMBLER Scanned. Due on due Goal ALT (SGPT). [...] due Goal FIT. Due on due Goal TABLE ASSEMBLER Scanned. Due on due Goal Creatinine. Due on due Goal ECOLOGIST Paperwork. Due on due Goal OARS. Due [...] use screening . Due on due Goal ECOLOGIST Paperwork. Due on due Goal CT-Colonography. Due on due Goal Medication Reconciliation. D ue on due Goal Creatinine. Due on due Goal ALT (SGPT). Due on due Goal OARS. Due on due Goal UDT. Due on due Goal AST (SGOT). Due on due Goal Order Annual PT. Due on due Goal TABLE ASSEMBLER Scanned. Due on due Goal Height. Due [...] Review Allergy List. Due on due Goal ECOLOGIST Paperwork. Due on due Goal Weight. Due [...] Goal Tobacco Use. Due on due Goal AST (SGOT). Due on due Goal ALT (SGPT). Due on due Goal Order Annual PT. Due on due Goal Creatinine. Due on due Goal TABLE ASSEMBLER Scanned. Due on due Goal OARS. Due on due Goal Lipid panel. Due on due Goal CT-Colonography. Due on due Goal Tobacco Use. Due on due Goal FIT-DNA. Due on due Goal Creatinine. Due on due Goal OARS. Due on due Goal UDT. Due on due Goal ECOLOGIST Paperwork. Due on due Goal AST (SGOT). Due on due Goal Unhealthy drug use screening . Due on due Goal TABLE ASSEMBLER Scanned. Due on due Goal Order Annual [...] Zoster vaccine (). Due on due Goal TABLE ASSEMBLER Scanned. Due on due Goal Creatinine. Due on due Goal AST (SGOT). Due on due Goal ALT (SGPT). Due on due Goal Order Annual PT. Due on due Goal OARS. Due on due Goal UDT. Due on due Goal ECOLOGIST Paperwork. Due on due Goal Zoster vaccine [...] Goal Height. Due on d ue Goal TABLE ASSEMBLER Scanned. Due on due Goal Creatinine. Due on due Goal ALT (SGPT). Due on due Goal Order Annual PT. Due on due Goal OARS. Due on due Goal UDT. Due on due Goal AST (SGOT). Due on due Goal ECOLOGIST Paperwork. Due on due Goal Lipid panel. [...] ue Goal FIT-DNA. Due on due Goal ECOLOGIST Paperwork. Due on due Goal AST (SGOT). Due on due Goal OARS. Due on due Goal TABLE ASSEMBLER Scanned. Due on due Goal ALT (SGPT). Due on due Goal Order Annual PT. Due on due Goal UDT. Due on due Goal Creatinine. Due on due Goal Update Social History. Due o n due Goal Height. Due on d ue Goal FIT. Due on due Goal Tobacco Use. Due [...] Review Allergy List. Due on due Goal Review Allergy List. Due on due Goal Unhealthy drug use screening . Due on due Goal FIT. Due on due Goal HPV. Due on due Goal FIT-DNA. Due on due Goal Height. Due on d ue Goal PHQ-9. Due on du e Goal ECOLOGIST Paperwork. Due on due Goal TABLE ASSEMBLER Scanned. Due on due Goal Order Annual [...] Goal Lipid panel. Due on due Goal UDT. Due on due Goal Order Annual PT. Due on due Goal AST (SGOT). Due on due Goal ECOLOGIST Paperwork. Due on due Goal ALT (SGPT). Due on due Goal Creatinine. Due on due Goal OARS. Due on due Goal TABLE ASSEMBLER Scanned. Due on due Goal HPV. Due [...] Goal AST (SGOT). Due on due Goal ECOLOGIST Paperwork. Due on due Goal ALT (SGPT). Due on due Goal Creatinine. Due on due Goal OARS. Due on due Goal TABLE ASSEMBLER Scanned. Due on due Goal CT-Colonography. Due [...] Date Complaint History Of Prese nt Illness low back pain Severity level i s [...] meds/drugs, stretching, rest, changing positions and chiropractic. Comments: Henry pino is a 63 y/o [...] allows for increased functionality. Continues to utilize [place] 5-325mg with moderate benefit. Denies OIC, which [...] allows for increased functionality. Continues to utilize [place] 5-325mg with moderate benefit. Denies OIC, which [...] time (typically gets 6tabs/day). Upcoming appointment with [facility] on 11/26/23 for a brain MRI due to TremorsComplains of new onset of L flank pain, primarily around the kidneys. She states the pain began 2.5 weeks ago and denies any inciting events. Will be following up with her PCP for further care if pain continues to persist or worsen.Of note, patient is following with [facility] for psychiatry/mental health.Reports current medication regimen provides 30% pain relief and allows for increased functionality. Continues to utilize [place] 5-325mg with moderate benefit. Denies OIC, which [...] allows for increased functionality. Continues to utilize [place] 5-325mg with moderate benefit. Denies OIC, which [...] and standing up. Recently completed PT at [place] with short-term benefit, though notes pain returned [...] allows for increased functionality. Continues to utilize [place] 5-325mg with moderate benefit. Presents with a [...] allows for increased functionality. Continues to utilize [place] 5-325mg with moderate benefit. Notes she had [...] stretching, rest, sitting, caffeine and changing positions. low back pain Severity [...] 07/02/[address] Scotty Mancia MD through [facility]. According to the visit summary note she brought in today, the sleep study did not show any significant sleep apnea but there was evidence of deep sleep and no REM sleep. Notes she was recommended a long acting opioid medication to help with the RLS.Reports current medication regimen provides 50% pain relief and allows for increased functionality. Continues to utilize [place] 5-325mg with moderate benefit. Denies OIC, which [...] allows for increased functionality. Continues to utilize [place] 5-325mg with moderate benefit and increased functionality. [...] this month. Continues to do PT at [place] and use the Zyncd SCS with benefit. Completed a in-hospital sleep [...] and 3/10 with medications. Continues to utilize [place] 5-325mg with moderate benefit. Denies OIC, which [...] this month. Continues to do PT at [place] and use the Leyva SCS with benefit. Notes the zapping sensations in the shoulders have been resolved since the reprogramming on 03/24/23. Have seen a sleep specialist, Dr. Scotty Mancia MD through [facility], for her ongoing struggles with sleep. She [...] and 2/10 with medications. Continues to utilize [place] 5-325mg with moderate benefit. Denies OIC, which [...] oral opioids. Continues to do PT at [place].Continues to the use the Leyva SCS with [...] and 4/10 with medications. Continues to utilize [place] 5-325mg with moderate benefit. Willing to increase [...] this month. Have been doing PT through [place] with benefit. She states the neck pain [...] to consult with a sleep specialist through [facility]. Hopes to be able to obtain at least 6-8 hours of sleep at night as she has been struggling with insomnia. Reports current medication regimen provides moderate pain relief and allows for increased functionality. Rates her pain as 5/10 without medications and 2/10 with medications. Continues to utilize [place] 5-325mg with moderate benefit. Denies OIC, which [...] better. She has also started PT in [place] and is hopeful it will provide benefit.S/p [...] allows for increased functionality. Continues to utilize [place] 5-325mg 3-4x/day with moderate benefit. Denies OIC [...] ice, lying down, pain meds/drugs and rest. low back pain Severity level i s [...] meds/drugs, rest, sitting and spinal cord stimulator. Comments: Henry pino [...] would like to go back PT in [place] closer to her home.Reports current medication regiment provides moderate pain relief and allows for increased functionality. Continues to utilize [place] 5-325mg 3-4x/day with moderate benefit. Denies OIC [...] allows for increased functionality. Continues to utilize [place] 5-325mg 3-4x/day with moderate benefit. Denies OIC [...] allows for increased functionality. Continues to utilize [place] 5-325mg 3-4x/day with moderate benefit. Denies OIC or other side effects from current medication regimen. No other concerns today. low back pain Duration: chroni c. Comments: Henry pino is a 62 y/o [...] and 4/10 with medications. Continues to utilize [place] 5-325mg 3-4x/day with moderate benefit. Endorses OIC [...] meds/drugs, rest, sitting, SCS and changing positions. low back pain Severity [...] [place]. Inquires if the nurse strike in [place] will affect her surgery and if she can travel 10 days after her implant to visit her sister in [place]. Will consider postponing her trip 2.5 week after the procedure.Reports current medication regiment provides 50% relief and allows for increased functionality. Continues to utilize [place] 5-325mg 3-4x/day with moderate benefit. Endorses OIC [...] Continues to find benefit with PT through [facility].S/p Lumbar Epidural Blood Patch on [...] allows for increased functionality. Continues to utilize [place] 5-325mg 3-4x/day with moderate benefit. Endorses OIC [...] pain meds/drugs, physical therapy and stretching. Comments: ira stoddard is a 62 y/o female who presents for follow up and medication refill in the setting of chronic lower back pain and legs. Pain has been stable this month. Notes benefits with PT through [facility]. Reports increasing restless leg syndrome and left Leg pain. She requests refill of mirapex and states that it does work Reports current medication regiment provides 50% relief and allows for increased functionality. She notes she has continued to have constipation. She has been handling the constipation with OTC. Denies other side effects from current medication regimen. No other concerns toda Back Pain Severity level i s 7. [...] this month. Notes benefits with PT through [facility]. Reports increasing restless leg syndrome [...] concerns today. Comments: Henry pino is a 61 y/o [...] stretching, rest and changing positions. Back Pain Duration: chroni c. The problem [...] on Gabapentin 900mg TID, Baclofen at [facility], [place] helps her complete her house chores. Trailed [...] pain worse. has not seen neurologist or ingredient specialist since the surgery.Tried: Mirapex 2x with SE of intense WEBB w/n 2 hours of taking, TENS Unit Currently on Gabapentin 900mg TID, Baclofen at HS, [place] helps her complete her house chores pt [...] sensations in the shoulders resolved.Completed PT at [place] [facility] in 08/2023 with some benefit.Last completed [...] 25mg (weight loss and kidney stones) assessment joint terminal attack controller (current) use of opiat e analgesic impression [...] Mental Status Date Cognitive Assessment Orientation - [place] ed to time, place, person, situation.Normal Orientation Patient Care Teams Name Effective Dates (start - stop) Status Members No Information
== END 2024-02-04 13:01 | disposition home or self-care (01) ==
LOC: NFLDREF 02-05 07:15
PROVIDERS: PCP Nurse Practitioner Family; Referring Provider Nurse Practitioner Family; Visit Provider Nurse Practitioner Family
DX: R19.7 Diarrhea, unspecified (principal)
CPT/HCPCS: 87493

== ENCOUNTER 2024-03-16 11:23 | Outpatient (CLI) | payer MEDICAID, SELFPAY ==
--- OUTSIDE RECORDS SUMMARY | 2024-03-16 11:29 | XMS_ITS | Encounter Summary ---
Author Organization [facility] Address [address] [place] [address] Care Team Providers Care Hall Clerk Name Role Phone Unavailable Primary Care Provider Unavailabl e Reason for Referral * Outpatient (Routine) - Closed Specialty Diagnoses / Procedures Referred By Coral lares Referred To Contact Urology Dk Byrd M.D. [address] [phone] [facility] Referral ID Status Reason Start Date Expiration Date Visits Re quested Visits Authorized [id number] Closed 12/29/2023 06/29/2025 1 1 * Outpatient (Routine) - Authorized Specialty Diagnoses / Procedures Referred By Coral lares Referred To Contact Family Medicine Diagnoses [facility] Dk Byrd M.D. [address] [phone] [facility] Region Referral ID Status Reason Start Date Expiration Date V isits Requested Visits Authorized [id number] Authorized 12/29/2023 06/29/2025 1 1 Reason for Visit * Reason Comments Consult Urolithiasis * Outpatient (Routine) - Closed Specialty Diagnoses / Procedures Referred By Coral lares Referred To Contact Urology Diagnoses [facility] Liana Pérez C.NNighatPNighat [address] [place] [phone] [facility] Region Referral ID Status Reason Start Date Expiration Date Visits Re quested Visits Authorized [id number] Closed 12/23/2023 06/23/2025 1 1 Encounter Details Date Type Department Care Team (Late st Contact Info) Description 12/29/2023 9:45 AM CDT Office Visit Department of Urology in [place], [place] [address], [place] [phone] Dk Byrd M.D. 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 In broad brush strokes we discussed [...] M.D. LAB MICROBIOLOGY - G ENERAL ORDERABLES [facility] [address] [place] [address], [facility] MKTO [facility] [place] [address] documented in this encounter Visit Diagnoses Diagnosis [facility] documented in this encounter
--- OUTSIDE RECORDS SUMMARY | 2024-03-16 11:29 | XMS_ITS | Encounter Summary ---
Author Organization [facility] Address [address] [place] [address] Care Team Providers Care Switcher Name Role Phone Unavailable Primary Care Provider Unavailabl e Reason for Referral * Outpatient (Routine) - Closed Specialty Diagnoses / Procedures Referred By Coral lares Referred To Contact Diagnoses Nephrolithiasis Pain Flank Procedures US Kidneys Bilateral with Bladder Richard Olmstead M.D. [address] [place] [phone] [facility] Region Referral ID Status Reason Start Date Expiration Date Visits Re quested Visits Authorized [id number] Closed 02/12/2024 02/11/2025 1 1 Reason for Visit * Outpatient (Routine) - Closed Specialty Diagnoses / Procedures Referred By Coral lares Referred To Contact Diagnoses Nephrolithiasis Pain Flank Procedures US Kidneys Bilateral with Bladder Richard Olmstead M.D. [address] [place] [phone] [facility] Region Referral ID Status Reason Start Date Expiration Date Visits Re quested Visits Authorized [id number] Closed 02/12/2024 02/11/2025 1 1 Encounter Details Date Type Department Care Team (Latest Contact Info) Description 02/19/2024 3:24 PM CDT - 02/19/2024 11:59 PM CDT Hospital Encounter Department of Radiology in [place], [place] [address] [place] [phone] Richard Olmstead M.D. [address] [place] [phone] Nephrolithiasis; Pain Flank Discharge Disposition: Home or Self Care Social [...] day as needed for muscle spasms. 03/20/2022 butalbitaL-acetaminophen 25-325 mg tablet Take by mouth as directed. 09/18/2023 citalopram (CeleXA) 10 mg tablet 12/02/2023 gabapentin (NEURONTIN) 300 mg capsule Take 900 mg by mouth 3 (three) times a day. 10/08/2022 HYDROcodone-acetaminophe n (NORCO) 5-325 mg per tablet Take 1 [...] as needed (1-2 tablets as needed). 04/08/2017 tamsulosin (FLOMAX) 0.4 mg 24 hr capsule Take 1 capsule (0.4 mg total) by mouth daily. 30 capsule 1 02/09/2024 traZODone (DESYREL) 50 mg tablet Take 50 mg by mouth at bedtime. 03/03/2023 venlafaxine XR (EFFEXOR-XR) 37.5 mg 24 hr capsule 11/13/2023 Ventolin HFA 90 mcg/actuation inhaler 11/06/2023 Viibryd 20 mg tablet 10 mg. 01/09/2024 documented as of this encounter Plan of Treatment Not on file documented as of this encounter Procedures Procedure Name Priority Date/Time Associated Diagnosis Comments US KIDNEYS BILATERAL WITH BLADDER RAD - Routine (most inpatients and all outpatients) 02/19/2024 3:49 PM CDT Nephrolithiasis Pain Flank documented in this encounter Results * US Kidneys Bilateral with Bladder (02/19/2024 3:49 PM CDT) Anatomical Region Laterality Modality Abdomen, Renal, Ultrasound R ST LOS, Ultrasound ARZ LOS, Ultrasound FLA LOS Bilateral Ultrasound Impressions 02/19/2024 4:09 PM CDT 1. The kidneys are normal by ultrasound without evidence of hydronephrosis. The small stone in the left upper intrarenal collecting system on the 12/22/2023 could not be visualized by ultrasound. Presumably stone in the left proximal ureter has been removed. 2. Urinary bladder only minimally distended but normal. Narrative 02/19/2024 4:09 PM CDT EXAM: US KIDNEYS BILATERAL WITH BLADDER COMPARISON: Outside CT chest, abdomen, and pelvis 12/22/2023. FINDINGS: Right kidney: 10.4 cm Cortical thickness: Normal. Parenchymal echogenicity: Normal. Collecting system: No hydronephrosis. Masses: None detected. Left kidney: 10.3 cm Cortical thickness: Normal. Parenchymal echogenicity: Normal. Collecting system: No hydronephrosis. These stone in the left upper kidney on the prior CT could not be visualized by ultrasound. The stone in the left proximal ureter on the prior CT presumably has been removed. Masses: None detected. Bladder: Urinary bladder only minimally distended and grossly normal. Procedure Note Stu Sommer M.D. - 02/19/2024 EXAM: US KIDNEYS BILATERAL WITH BLADDER COMPARISON: Outside CT chest, abdomen, and pelvis 12/22/2023. FINDINGS: Right kidney: 10.4 cm Cortical thickness: Normal. Parenchymal echogenicity: Normal. Collecting system: No hydronephrosis. Masses: None detected. Left kidney: 10.3 cm Cortical thickness: Normal. Parenchymal echogenicity: Normal. Collecting system: No hydronephrosis. These stone in the left upper kidneyon the prior CT could not be visualized by ultrasound. The stone in theleft proximal ureter on the prior CT presumably has been removed. Masses: None detected. Bladder: Urinary bladder only minimally distended and grossly normal. IMPRESSION: 1. The kidneys are normal by ultrasound without evidence ofhydronephrosis. The small stone in the left upper intrarenal collectingsystem on the 12/22/2023 could not be visualized by ultrasound. Presumablystone in the left proximal ureter has been removed. 2. Urinary bladder only minimally distended but normal. Richard CORONA US PROCEDURES documented in this encounter Visit Diagnoses Diagnosis Nephrolithiasis Pain Flank documented in this encounter
--- OUTSIDE RECORDS SUMMARY | 2024-03-16 11:29 | XMS_ITS | Encounter Summary ---
Author Organization [facility] Address [address] [place] [address] Care Team Providers Care Tetryl Wringer Operator Name Role Phone Unavailable Primary Care Provider Unavailabl e Encounter Details Date Type Department Care Team (Latest Contact Info) Description 02/12/2024 10:45 AM CDT - 02/12/2024 10:52 AM CDT Hospital Encounter Department of Laboratory Medicine in [place], [place] [address] [place] [phone] Richard Olmstead M.D. [address] [place] [phone] Nephrolithiasis; Pain Flank Discharge Disposition: Home or [...] Procedure Name Priority Date/Time Associated Diagnosis Comments CBC WITH DIFFERENTIAL, B Routine 02/12/2024 10:51 AM CDT Nephrolithiasis Pain Flank BASIC METABOLIC PANEL, S/P Routine 02/12/2024 10:51 AM CDT Nephrolithiasis Pain Flank documented in this encounter Results * CBC with Differential, Blood (02/12/2024 10:51 AM CDT) Hemoglobin 13.4 11.6 - 15.0 g/dL 02/12/2024 11:04 AM CDT NPRG Hematocrit 42.1 35.5 - 44.9 % 02/12/2024 11:04 AM CDT NPRG Erythrocytes 4.79 3.92 - 5.13 x10(12)/L 02/12/2024 11:04 AM CDT NPRG MCV 87.9 78.2 - 97.9 fL 02/12/2024 11:04 AM CDT NPRG RBC Distrib Width 12.2 12.2 - 16.1 % 02/12/2024 11:04 AM CDT NPRG Platelet Count 277 157 - 371 x10(9)/L 02/12/2024 11:04 AM CDT NPRG Leukocytes 8.2 3.4 - 9.6 x10(9)/L 02/12/2024 11:04 AM CDT NPRG Neutrophils 4.76 1.56 - 6.45 x10(9)/L 02/12/2024 11:04 AM CDT NPRG Lymphocytes 2.40 0.95 - 3.07 x10(9)/L 02/12/2024 11:04 AM CDT NPRG Monocytes 0.70 0.26 - 0.81 x10(9)/L 02/12/2024 11:04 AM CDT NPRG Eosinophils 0.23 0.03 - 0.48 x10(9)/L 02/12/2024 11:04 AM CDT NPRG Basophils 0.07 0.01 - 0.08 x10(9)/L 02/12/2024 11:04 AM CDT NPRG Blood (Blood, Venous) 02/12/2024 10:51 AM CDT 02/12/2024 10:59 AM CDT Richard Olmstead M.D. LAB BLOOD ADD-ON [facility] [address] [place] [address], [facility] [address] [place] [address] * (ABNORMAL) Basic Metabolic Panel (02/12/2024 10:51 AM CDT) Potassium, P 3.8 3.6 - 5.2 mmol/L 02/12/2024 11:15 AM CDT NPRG Sodium, P 140 135 - 145 mmol/L 02/12/2024 11:15 AM CDT NPRG Chloride, P 101 98 - 107 mmol/L 02/12/2024 11:15 AM CDT NPRG Bicarbonate, P 31(H) 22 - 29 mmol/L 02/12/2024 11:15 AM CDT NPRG Anion Gap, P 8 7 - 15 02/12/2024 11:15 AM CDT NPRG BUN (Blood Urea Nitrogen), P 9 6 - 21 mg/dL 02/12/2024 11:15 AM CDT NPRG Creatinine 0.88 0.59 - 1.04 mg/dL 02/12/2024 11:15 AM CDT NPRG Estimated GFR (eGFR) 75 >=60 mL/min/BSA 02/12/2024 11:15 AM CDT NPRG Comment: Estimated GFR calculated using the 2020 CKD_EPI creatinine equation. Calcium, Total, P 9.2 8.8 - 10.2 mg/dL 02/12/2024 11:15 AM CDT NPRG Glucose, P 94 70 - 140 mg/dL 02/12/2024 11:15 AM CDT NPRG Blood (Blood, Venous) 02/12/2024 10:51 AM CDT 02/12/2024 10:59 AM CDT Richard Olmstead M.D. LAB BLOOD ADD-ON [facility] [address] [place] [address], [place] NPRG [facility] [address] [place] [address] documented in this encounter Visit Diagnoses Diagnosis Nephrolithiasis Pain Flank documented in this encounter
--- OUTSIDE RECORDS SUMMARY | 2024-03-16 11:29 | XMS_ITS | Encounter Summary ---
Author Organization [facility] Address [address] [place] [address] Care Team Providers Care Car Lubricator Name Role Phone Unavailable Primary Care Provider Unavailabl e Reason for Referral * Outpatient (Routine) - Closed Specialty Diagnoses / Procedures Referred By Coral lares Referred To Contact Diagnoses Nephrolithiasis Calcium Oxalate Procedures Cystoscopy Toya Crowder APRN, C.N.P. [address] [phone] [facility] Region Referral ID Status Reason Start Date Expiration Date Visits Re quested Visits Authorized [id number] Closed 01/22/2024 01/21/2025 1 1 Reason for Visit * Reason Comments Post-op * Outpatient (Routine) - Closed Specialty Diagnoses / Procedures Referred By Coral lares Referred To Contact Urology Dk Byrd M.D. [address], [place] [phone] [facility] Referral ID Status Reason Start Date Expiration Date Visits Re quested Visits Authorized [id number] Closed 12/29/2023 06/29/2025 1 1 Encounter Details Date Type Department Care Team (Late st Contact Info) Description 01/22/2024 8:30 AM CDT Office Visit Department of Urology in [place], [place] [address], [place] [phone] Toya Crowder APRN, C.N.P. [address] [phone] Nephrolithiasis Calcium Oxalate (Primary Dx) Social History [...] Procedure Name Priority Date/Time Associated Diagnosis Comments AK CYSTHRSCPY RMVL FB/STENT SMPL Routine 01/22/2024 8:30 AM CDT Nephrolithiasis Calcium Oxalate documented in this encounter Results * AK CYSTHRSCPY RMVL FB/STENT SMPL (01/22/2024 8:30 AM [...] answered. Toya Crowder APRN, C.N.P. UROLOGY O [facility] documented in this encounter Visit Diagnoses Diagnosis Nephrolithiasis Calcium Oxalate- Primary documented in this encounter
--- OUTSIDE RECORDS SUMMARY | 2024-03-16 11:29 | XMS_ITS | Encounter Summary ---
Author Organization [facility] Address [address] [place] [address] Care Team Providers Care Computer Tech Name Role Phone Unavailable Primary Care Provider Unavailabl e Reason for Referral * Outpatient (Routine) - Closed Specialty Diagnoses / Procedures Referred By Coral lares Referred To Contact Diagnoses Nephrolithiasis Pain Flank Procedures DX Kidneys Ureters Bladder Richard Olmstead M.D. [address] [place] [phone] [facility] Referral ID Status Reason Start Date Expiration Date Visits Re quested Visits Authorized [id number] Closed 02/12/2024 02/11/2025 1 1 Reason for Visit * Outpatient (Routine) - Closed Specialty Diagnoses / Procedures Referred By Coral lares Referred To Contact Diagnoses Nephrolithiasis Pain Flank Procedures DX Kidneys Ureters Bladder Richard Olmstead M.D. [address] [place] [phone] [facility] Referral ID Status Reason Start Date Expiration Date Visits Re quested Visits Authorized [id number] Closed 02/12/2024 02/11/2025 1 1 Encounter Details Date Type Department Care Team (Latest Contact Info) Description 02/12/2024 10:53 AM CDT - 02/12/2024 11:59 PM CDT Hospital Encounter Department of Radiology, [facility], in [place], [place] [address] [place] [phone] Richard Olmstead M.D. [address] [place] [address] [place] [phone] Nephrolithiasis; Pain Flank Discharge Disposition: Home or [...] Procedure Name Priority Date/Time Associated Diagnosis Comments DX KIDNEYS URETERS BLADDER RAD - Routine (most inpatients and all outpatients) 02/12/2024 11:10 AM CDT Nephrolithiasis Pain Flank documented in this encounter Results * DX Kidneys Ureters Bladder (02/12/2024 11:10 AM CDT) Anatomical Region Laterality Modality Abdomen, Pelvis, Abdominal R ST LOS, Abdominal ARZ LOS, Abdominal FLA LOS N/A Digital Radiography Impressions 02/12/2024 11:51 AM CDT 1. No nephro or ureterolithiasis identified. 2. Nonspecific bowel gas pattern. Narrative 02/12/2024 11:51 AM CDT EXAM: DX KIDNEYS URETERS BLADDER COMPARISON: CT of the chest abdomen and pelvis of 12/22/2023. FINDINGS: Bowel gas pattern is nonspecific with gas and stool scattered in nondilated colon. Renal outlines are partially obscured by overlying bowel gas and stool. No definite nephro or ureterolithiasis is identified. No abnormal mass or suspicious calcification is noted. There are bilateral pelvic phleboliths. Neurostimulator is in place with its leads overlying the mid thoracic spinal canal. There is advanced degenerative disc and facet disease in the lower lumbar spine. Procedure Note Raj Chance Jr., M.D. - 02/12/2024 EXAM: DX KIDNEYS URETERS BLADDER COMPARISON: CT of the chest abdomen and pelvis of 12/22/2023. FINDINGS: Bowel gas pattern is nonspecific with gas and stool scattered innondilated colon. Renal outlines are partially obscured by overlying bowelgas and stool. No definite nephro or ureterolithiasis is identified. Noabnormal mass or suspicious calcification is noted. There are bilateral pelvic phleboliths.Neurostimulator is in place with its leads overlying the mid thoracicspinal canal. There is advanced degenerative disc and facet disease in thelower lumbar spine. IMPRESSION: 1. No nephro or ureterolithiasis identified. 2. Nonspecific bowel gas pattern. Richard CORONA DIAGNOSTIC IMAG ING PROCEDURES documented in this encounter Visit Diagnoses Diagnosis Nephrolithiasis Pain Flank documented in this encounter
--- OUTSIDE RECORDS SUMMARY | 2024-03-16 11:29 | XMS_ITS ---
Author Organization [facility] Address [address] [place] [address] Care Team Providers Care Section Leader And Machine Setter Name Role Phone Unavailable Unavailable Unavailable Surgery Details Not on file Complications Check Surgery Details section. Procedure Estimated Blood Loss Check Surgery Details section. Procedure Findings Check Surgery Details section. Procedure Specimens Taken Check Surgery Details section.
--- OUTSIDE RECORDS SUMMARY | 2024-03-16 11:29 | XMS_ITS | Encounter Summary ---
Author Organization [facility] Address [address] [place] [address] Care Team Providers Care Computer Lab Assistant Name Role Phone Unavailable Primary Care Provider Unavailabl e Encounter Details Date Type Department Care Team (Late st Contact Info) Description 02/24/2024 Clinical Communication Department of Urology in [place], [place] [address] [place] [phone] Richard Olmstead M.D. [address] [place] [phone] Social History Tobacco Use Types Packs/Day Years [...] on file documented as of this encounter Miscellaneous Notes * Telephone Encounter - Richard Olmstead M.D. - 02/24/2024 3:24 PM CDT Spoke with patient, discussed results of x-ray and renal ultrasound. No hydronephrosis was seen, noresidual nephrolithiasis or ureterolithiasis was seen. She reports that she has been significantly improving. Plan at this time is to have her stop the tamsulosin, see how symptoms play out over the next few weeks. If she worsens or pain does not fully resolve over the next month, she was encouraged to contact me for additional recommendations. documented in this encounter Plan of Treatment Not on file documented as of this encounter Visit Diagnoses Not on filedocumented in this encounter
--- OUTSIDE RECORDS SUMMARY | 2024-03-16 11:29 | XMS_ITS | Clinical Summary ---
Author Organization [facility] Address [address] [place] [address] Care Team Providers Care Intake Manager Name Role Phone Unavailable Primary Care Provider Unavailabl e Source Comments Patient records contain information from all sites at [facility]. For routine questions regarding patient records, call [phone] during business hours, M-F 8:00 AM - 5:00 PM Central Time. Record requests for emergency care only can be directed to [phone] at any time.[facility] Allergies Active Allergy Reactions Criticality Noted [...] 3 (three) times a day. 10/08/2022 Active HYDROcodone-acetamin ophen (NORCO) 5-325 mg per tablet Take 1 [...] mg by mouth at bedtime. 03/03/2023 Active butalbitaL-acetamino phen 25-325 mg tablet Take by mouth as directed. 09/18/2023 Active hydrOXYzine (ATARAX) 10 mg tablet Take 10 mg by mouth 3 (three) times a day as needed for anxiety. Active tamsulosin (FLOMAX) 0.4 mg 24 hr capsule Take 1 capsule (0.4 mg total) by mouth daily. 30 capsule 1 02/09/2024 Active Ventolin HFA 90 mcg/actuation inhaler 11/06/2023 Active citalopram (CeleXA) 10 mg tablet 12/02/2023 Active venlafaxine XR (EFFEXOR-XR) 37.5 mg 24 hr capsule 11/13/2023 Active Viibryd 20 mg tablet 10 mg. 01/09/2024 Acti ve Active Problems Problem Noted Date Diagnosed Date Nephrolithiasis Calcium Oxalate 01/22/2024 Other Intervertebral Disc Displacement Lumbar Re gion 09/15/2017 Hyperlipidemia 06/24/2012 Gastroesophageal Reflux Disease NOS 11/07/2009 Other Chronic Pain 11/07/2009 Restless Leg Syndrome 11/07/2009 Degeneration Disc Lumbosacral 04/08/2007 Depression Major Recurrent Moderate 01/21/2007 Encounters Date Type Department Care Team Description 02/24/2024 Clinical Communication Department of Urology in [place] [address] [place] [address] Richard Olmstead M.D. 02/19/2024 3:24 PM CDT - 02/19/2024 11:59 PM CDT Hospital Encounter Department of Radiology in [address] [address] Richard Olmstead M.D. Nephrolithiasis; Pain Flank Discharge Disposition: Home or Self Care 02/12/2024 10:53 AM CDT - 02/12/2024 11:59 PM CDT Hospital Encounter Department of Radiology, [facility], in [place] [address] [place] [address] Richard Olmstead M.D. Nephrolithiasis; Pain Flank Discharge Disposition: Home or Self Care 02/12/2024 10:45 AM CDT - 02/12/2024 10:52 AM CDT Hospital Encounter Department of Laboratory Medicine in [place], [place] [address] [place] [address] Richard Olmstead M.D. Nephrolithiasis; Pain Flank Discharge Disposition: Home or Self Care 02/12/2024 10:00 AM CDT Office Visit Department of Urology in [place], [place] [address] [place] [address] Richard Olmstead M.D. Nephrolithiasis (Primary Dx); Pain Flank Discharge Disposition: Home or Self Care 02/09/2024 Clinical Communication Department of Urology in [address] [address] Dk Byrd M.D. Return Call Request 01/22/2024 8:30 AM CDT Office Visit Department of Urology in [address] [address] Toya Crowder, BLAZE, C.N.P. Nephrolithiasis Calcium Oxalate (Primary Dx) 01/16/2024 Orders Only Department of Urology in [address] [address] Dk Byrd M.D. 01/07/2024 7:05 AM CDT - 01/07/2024 11:59 PM CDT Hospital Encounter Department of Radiology in [address] [address] Dk Byrd M.D. Cystoscopy Status Post Discharge Disposition: Home or Self Care 12/30/2023 Orders Only Department of Urology in [address] [address] Dk Byrd M.D. 12/29/2023 9:45 AM CDT Office Visit Department of Urology in [place], [place] [address] [address] Dk Byrd M.D. Stone Kidney 12/29/2023 Clinical Communication Department of Urology in [place], [place] [address] [place] [address] Dk Byrd M.D. SURGERY DATE 12/23/2023 [facility] [address] [place] [address] Liana Pérez C.N.P. Stone Kidney (Primary Dx) from Last 3 Months Immunizations Name Administration Dates Next Due Influenza TIV (IM) 09/02/2007 Influenza, Seasonal, Injectable 09/02/2007,08/22 PCV20 12/02/2022 PPSV23 02/23/2021 Td Preservative Free (TENIVAC, DECAVAC) 04/19/20 [...] 1962 Depression Monitoring (PHQ-9) 1962 FIT 1962 HIV Screening 1962 Hepatitis C Screening 1962 Lipid (Cholesterol) Screening 1962 Lung Cancer Screening 1962 Mammogram 1962 Thyroid Stimulating Hormone (TSH) test for thyroid function 1962 Tobacco Cessation counseling 1962 Zoster Vaccines (1 of 2) 2012 COVID-19 Vaccine ( season) 2023 Influenza Vaccine (#1) 2023 7, 09/02/2007, 08/22/2006 Cervical Cancer Screening 02/24/2024 02/23/2021 Fasting Glucose for Diabetes Screening 02/11/2027 02/12/2024 DTaP,Tdap,and Td Vaccines (2 - Td or Tdap) 01/11/2031 01/11/2021, 04/19/2009 Colonoscopy 04/03/2031 04/03/2021 Colorectal Cancer Screening 04/03/2031 Pneumococcal vaccine (0-64 years) Completed 023, 02/23/2021 Procedures Procedure Name Priority Date/Time Associated Diagnosis Comments US KIDNEYS BILATERAL WITH BLADDER RAD - Routine (most inpatients and all outpatients) 02/19/2024 3:49 PM CDT Nephrolithiasis Pain Flank DX KIDNEYS URETERS BLADDER RAD - Routine (most inpatients and all outpatients) 02/12/2024 11:10 AM CDT Nephrolithiasis Pain Flank CBC WITH DIFFERENTIAL, B Routine 02/12/2024 10:51 AM CDT Nephrolithiasis Pain Flank BASIC METABOLIC PANEL, S/P Routine 02/12/2024 10:51 AM CDT Nephrolithiasis Pain Flank URINALYSIS WITH MICROSCOPIC Routine 02/12/2024 10:38 AM CDT Nephrolithiasis Pain Flank BACTERIAL CULTURE, AEROBIC + SUSC, URINE Routine 02/12/2024 10:38 AM CDT Nephrolithiasis Pain Flank [place] CYSTHRSCPY RMVL FB/STENT SMPL Routine 01/22/2024 8:30 AM CDT Nephrolithiasis Calcium Oxalate FL FLUORO LESS THAN 1 HOUR RAD - Routine (most inpatients and all outpatients) 01/07/2024 9:37 AM CDT Cystoscopy Status Post BACTERIAL CULTURE, AEROBIC + SUSC, URINE Routine 12/29/2023 11:14 AM CDT Stone Kidney OUTSIDE CT BODY Routine 12/22/2023 2:05 PM CDT from Last 3 Months Results * US Kidneys Bilateral with Bladder [...] distended but normal. Richard CORONA US PROCEDURES * DX Kidneys Ureters Bladder (02/12/2024 11:10 [...] identified. 2. Nonspecific bowel gas pattern. Richard Olmstead M.D. IMG DIAGNOSTIC IMAG ING PROCEDURES * CBC with Differential, Blood (02/12/2024 10:51 [...] AM CDT 02/12/2024 10:59 AM CDT Richard Bershow M.D. LAB BLOOD ADD-ON [facility] [address] [place] [address], [facility] NPRG [place] [address] [place] [address] * (ABNORMAL) Basic Metabolic Panel (02/12/2024 10:51 [...] CDT Richard Olmstead M.D. LAB BLOOD ADD-ON [facility] [address] [place] [address], [facility] NPRG [facility] [address] [place] [address] * (ABNORMAL) Bacterial Culture, Aerobic + Susceptibility, Urine (02/12/2024 10:38 AM CDT) Only the most recent of2 resultswithin the time period is included. Pathologist [facility] Urine Culture Mixed microbiota (A) 02/13/2024 9:15 AM CDT [facility] Urine (Urine, Midstream) 02/12/2024 10:38 AM CDT 02/12/2024 2:58 PM CDT Comment:Specimen Source Site : Urine Richard Olmstead M.D. LAB MICROBIOLOGY - GENERAL ORDERABLES [facility] [address] [place] [address], [facility] [place] [facility] in [place] [address] [place] [address] * Urinalysis, with Microscopic: Urine, Midstream (02/12/2024 10:38 AM CDT) Source Urine, Urine, Midstream 02/12/2024 10:49 AM CDT NPR[facility] Clarity Clear Clear 02/12/2024 11:12 AM CDT NPR[facility] Color Yellow 02/12/2024 11:12 AM CDT NPR[facility] Comment: ----REFERENCE VALUE---- Colorless Yellow Marissa Blood Negative Negative 02/12/2024 11:12 AM CDT NPRG Nitrite Negative Negative 02/12/2024 11:12 AM CDT NPR[facility] Leukocyte Esterase Negative Negative 02/12/2024 11:12 AM CDT NPR[facility] Protein Negative mg/dL 02/12/2024 11:12 AM CDT NPR[facility] Comment: ----REFERENCE VALUE---- Negative Trace Glucose Negative Negative mg/dL 02/12/2024 11:12 AM CDT NPR[facility] Ketones, QI(U) Negative Negative mg/dL 02/12/2024 11:12 AM CDT NPR[facility] Bilirubin Negative Negative 02/12/2024 11:12 AM CDT NPR[facility] pH 5.5 5.0 - 8.0 02/12/2024 11:12 AM CDT NPR[facility] Specific [place] 1.010 1.001 - 1.035 02/12/2024 11:12 AM CDT NPRG Urobilinogen 0.2 0.2 - 1.0 mg/dL 02/12/2024 11:12 AM CDT NPRG White Blood Cells None Seen /hpf 02/12/2024 11:12 AM CDT NPRG Comment: ----REFERENCE VALUE---- Males: 0-3 Females: 0-10 Unknown: 0-10 Red Blood Cells None Seen 0 - 2 /hpf 11:12 AM CDT NPRG Squamous Cells Occ-3 /hpf 02/12/2024 11:12 AM CDT [facility] Urine (Urine, Midstream) 02/12/2024 10:38 AM CDT 02/12/2024 10:49 AM CDT Richard Olmstead M.D. LAB URINE ORDERABLE [facility] [address] [place] [address], [facility] NPRG [facility] [address] [place] [address] * [place] CYSTHRSCPY RMVL FB/STENT SMPL (01/22/2024 8:30 AM [...] Byrd M.D. IMG FLUOROSCOPY PROC EDURES * CT chest abdomen pelv w con-Outside [...]
--- OUTSIDE RECORDS SUMMARY | 2024-03-16 11:29 | XMS_ITS | Referral Summary ---
Author Organization [facility] Address [address] [place] [address] Care Team Providers Care Fresh Meat Grader Name Role Phone Unavailable Primary Care Provider Unavailabl e Source Comments Patient records contain information from all sites at [facility]. For routine questions regarding patient records, call [phone] during business hours, M-F 8:00 AM - 5:00 PM Central Time. Record requests for emergency care only can be directed to [phone] at any time.[facility] Encounters Date Type Department Care Team Description 02/24/2024 Clinical Communication Department of Urology in [address] [address] Richard Olmstead M.D. 02/19/2024 3:24 PM CDT - 02/19/2024 11:59 PM CDT Hospital Encounter Department of Radiology in [address] [address] Richard Olmstead M.D. Nephrolithiasis; Pain Flank Discharge Disposition: Home or Self Care 02/12/2024 10:53 AM CDT - 02/12/2024 11:59 PM CDT Hospital Encounter Department of Radiology, [facility], in [address] [address] Richard Olmstead M.D. Nephrolithiasis; Pain Flank Discharge Disposition: Home or Self Care 02/12/2024 10:45 AM CDT - 02/12/2024 10:52 AM CDT Hospital Encounter Department of Laboratory Medicine in [address] [address] Richard Olmstead M.D. Nephrolithiasis; Pain Flank Discharge Disposition: Home or Self Care 02/12/2024 10:00 AM CDT Office Visit Department of Urology in [place], [place] [address] [place] [address] Richard Olmstead M.D. Nephrolithiasis (Primary Dx); Pain Flank Discharge Disposition: Home or Self Care 02/09/2024 Clinical Communication Department of Urology in [address] [address] Dk Byrd M.D. Return Call Request 01/22/2024 8:30 AM CDT Office Visit Department of Urology in [address] [address] Toya Crowder APRN, C.N.P. Nephrolithiasis Calcium Oxalate (Primary Dx) 01/16/2024 Orders Only Department of Urology in [address] [address] Dk Byrd M.D. 01/07/2024 7:05 AM CDT - 01/07/2024 11:59 PM CDT Hospital Encounter Department of Radiology in [place], [place] [address] [place] [address] Dk Byrd M.D. Cystoscopy Status Post Discharge Disposition: Home or Self Care 12/30/2023 Orders Only Department of Urology in [address] [address] Dk Byrd M.D. 12/29/2023 Clinical Communication Department of Urology in [place], [place] [address] [place] [address] Dk Byrd M.D. SURGERY DATE 12/29/2023 9:45 AM CDT Office Visit Department of Urology in [place], [place] [address] [place] [address] Dk Byrd M.D. Stone Kidney 12/23/2023 [facility] [address] [place] [address] Liana Pérez C.N.P. Stone Kidney (Primary Dx) [...] 02/12/2024 10:38 AM CDT Nephrolithiasis Pain Flank DE CYSTHRSCPY RMVL FB/STENT SMPL Routine 01/22/2024 8:30 [...] Olmstead M.D. LAB BLOOD ADD-ON [facility] [address] [place] [address], [facility] NPRG [facility] [address] [place] [address] * (ABNORMAL) Basic Metabolic Panel (02/12/2024 10:51 [...] CDT Richard Olmstead M.D. LAB BLOOD ADD-ON [facility] [address] [place] [address], [facility] NPRG [facility] [address] [place] [address] * (ABNORMAL) Bacterial Culture, Aerobic + Susceptibility, Urine (02/12/2024 10:38 AM CDT) Only the most recent of2 resultswithin the time period is included. Urine Culture Mixed microbiota (A) 02/13/2024 9:15 AM CDT [facility] Urine (Urine, Midstream) 02/12/2024 10:38 AM CDT 02/12/2024 2:58 PM CDT Comment:Specimen Source Site : Urine Richard Olmstead M.D. LAB MICROBIOLOGY - GENERAL ORDERABLES [facility] [address] [place] [address], [place] [facility] in [place] [address] [place] [address] * Urinalysis, with Microscopic: Urine, Midstream (02/12/2024 [...] 8.0 02/12/2024 11:12 AM CDT NPR[facility] Specific [place] 1.010 1.001 - 1.035 02/12/2024 11:12 AM [...] Richard Olmstead M.D. LAB URINE ORDERABLE S [facility] [address] [place] [address], [facility] NPRG [facility] [address] [place] [address] * DE CYSTHRSCPY RMVL FB/STENT SMPL (01/22/2024 8:30 AM CDT) Narrative Toya Crowder APRN C.N.P. - 01/22/2024 8:30 AM CDT Toya Crowder APRN C.N.P. ? 01/22/2024 ??8:49 AM Cystoscopy Performed by: Toya Crowder APRN C.N.PNighat Authorized by: Toya Crowder APRN C.N.P. ?? [...] Provider Not In System IMG CT PROCEDURES IIIL NA from Last 3 Months
--- OUTSIDE RECORDS SUMMARY | 2024-03-16 11:29 | XMS_ITS | Encounter Summary ---
Author Organization [facility] Address [address] [place] [address] Care Team Providers Care Continuum Of Care Manager Name Role Phone Unavailable Primary Care Provider Unavailabl e Reason for Referral * Outpatient (Routine) - Closed Specialty Diagnoses / Procedures Referred By Coral lares Referred To Contact Diagnoses Cystoscopy Status Post Procedures [place] Fluoro Less Than 1 Hour Dk Byrd M.D. [address] [address] [facility] Region Referral ID Status Reason Start Date Expiration Date Visits Re quested Visits Authorized [id number] Closed 01/07/2024 01/06/2025 1 1 Reason for Visit * Outpatient (Routine) - Closed Specialty Diagnoses / Procedures Referred By Coral lares Referred To Contact Diagnoses Cystoscopy Status Post Procedures FL Fluoro Less Than 1 Hour Dk Byrd M.D. [address] [address] [facility] Region Referral ID Status Reason Start Date Expiration Date Visits Re quested Visits Authorized [id number] Closed 01/07/2024 01/06/2025 1 1 Encounter Details Date Type Department Care Team (Latest Contact Info) Description 01/07/2024 7:05 AM CDT - 01/07/2024 11:59 PM CDT Hospital Encounter Department of Radiology in [place], [place] [address], [place] [address] Dk yBrd M.D. [address] [place] [phone] Cystoscopy Status Post Discharge Disposition: Home or [...] 11/13/2023 Ventolin HFA 90 mcg/actuation inhaler 11/06/2023 tamsulosin (FLOMAX) 0.4 mg 24 hr capsule [...] Fluoroscopic guidance used intra-operatively. Dk Byrd M.D. G FLUOROSCOPY PROC EDURES documented in this encounter Visit Diagnoses Diagnosis Cystoscopy Status Post documented in this encounter
--- OUTSIDE RECORDS SUMMARY | 2024-03-16 11:29 | XMS_ITS | Encounter Summary ---
Author Organization [facility] Address [address] [place] [address] Care Team Providers Care Operating Room Assistant Name Role Phone Unavailable Primary Care Provider Unavailabl e Encounter Details Date Type Department Care Team (Late st Contact Info) Description 12/30/2023 Orders Only Department of Urology in [place], [place] [address] [place] [phone] Dk Byrd M.D. [address] [address] Social History Tobacco Use Types Packs/Day Years [...]
--- OUTSIDE RECORDS SUMMARY | 2024-03-16 11:29 | XMS_ITS | Encounter Summary ---
Author Organization [facility] Address [address] [place] [address] Care Team Providers Care Conveyor Feeder Name Role Phone Unavailable Primary Care Provider Unavailabl e Reason for Visit * Reason Onset Date Comments SURGERY DATE 12/29/2023 Encounter Details Date Type Department Care Team (Late st Contact Info) Description 12/29/2023 Clinical Communication Department of Urology in [place], [place] [address] [phone] Dk Byrd M.D. [address] [phone] SURGERY DATE Social History Tobacco Use Types [...]
--- OUTSIDE RECORDS SUMMARY | 2024-03-16 11:29 | XMS_ITS | Encounter Summary ---
Author Organization [facility] Address [address] [place] [address] Care Team Providers Care In Store Marketer Name Role Phone Unavailable Primary Care Provider Unavailabl e Reason for Visit * Reason Onset Date Comments Return Call Request 02/09/2024 Encounter Details Date Type Department Care Team (Latest Contact Info) Description 02/09/2024 Clinical Communication Department of Urology in [place], [place] [address] [address] Dk Byrd M.D. [address] [phone] Return Call Request Social History Tobacco Use Types Packs/Day Years [...] encounter Miscellaneous Notes * Telephone Encounter - Corrie Hawkins, R.N. - 02/09/2024 3:20 PM CDT OW Uro RN spoke with patient and informed of Rx sent in. Continue fluids and start prescription. Ifno relief or wishes to be seen, likely earlier appointment closer to patient's home in [place]. Patient verbalized understanding and will contact [place]. No further needs at this time. * Telephone Encounter - Toya Crowder APRN, C.N.P. - 02/09/2024 2:32 PM CDT I sent prescription for Flomax daily to help with possible stone pain to her local pharmacy. If jazmins to be seen quickly, our urology team at [facility] would likely be able to see her this week. * Telephone Encounter - Corrie Hawkins R.N. - 02/09/2024 2:13 PM CDT OW Uro RN called patient back. Patient states pain started about one and half week ago. Saw PCP last week 02/02/24. Blood and urine looked fine; eGFR was I think 58 so might recheck in a month she did not do images because I just had a CT done in December. Left side is constant, like I gotpunched up under the ribs and right side is occasional feels like last time I had stones I takeAzo almost daily for discomfort. Denies constipation, drinking close to the 100 ounce samara. Patient does not have tamsulosin tablets. Takes Powersite for chronic pain. Will forward to Provider Lakesha to review and advise. documented in this encounter Plan of Treatment Not on file documented as of this encounter Visit Diagnoses Not on filedocumented in this encounter
--- OUTSIDE RECORDS SUMMARY | 2024-03-16 11:29 | XMS_ITS | Encounter Summary ---
Author Organization [facility] Address [address] [place] [address] Care Team Providers Care Adult Protective Caseworker Name Role Phone Unavailable Primary Care Provider Unavailabl e Encounter Details Date Type Department Care Team (Late st Contact Info) Description 01/16/2024 Orders Only Department of Urology in [place], [place] [address] [place] [phone] Dk Byrd M.D. [address] [phone] Social History Tobacco Use Types [...]
--- OUTSIDE RECORDS SUMMARY | 2024-03-16 11:29 | XMS_ITS | Encounter Summary ---
Author Organization [facility] Address [address] [place] [address] Care Team Providers Care Chemical Treatment Plant Technician Name Role Phone Unavailable Primary Care Provider Unavailabl e Reason for Referral * Outpatient (Routine) - Closed Specialty Diagnoses / Procedures Referred By Coral lares Referred To Contact Diagnoses Nephrolithiasis Pain Flank Procedures DX Kidneys Ureters Richard Booker M.D. [address] [place] [phone] [facility] Referral ID Status Reason Start Date Expiration Date Visits Re quested Visits Authorized [id number] Closed 02/12/2024 02/11/2025 1 1 * Outpatient (Routine) - Closed Specialty Diagnoses / Procedures Referred By Coral lares Referred To Contact Diagnoses Nephrolithiasis Pain Flank Procedures US Kidneys Bilateral with Richard Booker M.D. [address] [place] [phone] [facility] Region Referral ID Status Reason Start Date Expiration Date Visits Re quested Visits Authorized [id number] Closed 02/12/2024 02/11/2025 1 1 Reason for Visit * Reason Comments Follow-up * Appointment Request (Routine) - Closed Specialty Diagnoses / Procedures Referred By Coral t Referred To Contact Urology Referral ID Status Reason Start Date Expiration Date Visits Re quested Visits Authorized [id number] Closed 02/09/2024 02/08/2025 1 1 Encounter Details Date Type Department Care Team (Latest Contact Info) Description 02/12/2024 10:00 AM CDT Office Visit Department of Urology in [place], [place] [address] [place] [phone] Richard Olmstead M.D. [address] [place] [address] Nephrolithiasis (Primary Dx); Pain Flank Discharge Disposition: [...] as of this encounter Consult Notes * Richard Olmstead M.D. - 02/12/2024 10:00 AM CDT SUBJECTIVE CHIEF COMPLAINT / REASON FOR VISIT Coral Pandey is a 63 y.o. female presenting in referral from the [facility] system regarding flank pain following recent stone intervention in December 2023 HISTORY OF PRESENT ILLNESS Patient had ureteroscopy with laser lithotripsy on 01/07/2024 for an 8 mm left proximal ureteral stone. The ureteral stone was removed, as well as a 2nd 4 mm stone in the left lower pole calyx. At the time of surgery, there was evidence of mild mucosal trauma, partial thickness, result from the sheath. A double-J ureteral stent was placed, removed by office cystoscopy on 01/22/2024. Patient reports that she did well in the immediate aftermath of the surgery. Two weeks ago, she developed significant left flank pain. Left flank pain is constant, she has occasional right flank painas well. She describes the severity of her symptoms as worse than with her original kidney stone, however, she was placed on tamsulosin 3 days ago and that has made a significant improvement in her symptoms. She does note that when she gets greater than 24 hours out from her last tamsulosin dose, her pain starts to return. No fevers or chills, other systemic symptoms. No dysuria, no hematuria. She does note some increase in urinary urgency compared to her baseline from before her 1st stone episode, however, it has been relatively plateaued over the past 2 months. Reviewed documentation from prior evaluation by external Urology. Lab studies reviewed including kidney stone analysis demonstrating 100% calcium oxalate. Personally reviewed imaging including CT chest abdomen pelvis from 12/22/2023 The following portions of the patient's history were reviewed and updated as appropriate: allergies, current medications, family history, medical history, social history, surgical history, and problem list. OBJECTIVE PHYSICAL EXAM Patient appears well Left CVA tenderness Left lateral abdominal tenderness ASSESSMENT / PLAN 1. Nephrolithiasis 2. Pain Flank Orders Placed This Encounter Procedures Bacterial Culture, Aerobic + Susceptibility, Urine US Kidneys Bilateral with Bladder DX Kidneys Ureters Bladder Urinalysis, with Microscopic: Urine, Midstream Basic Metabolic Panel CBC with Differential, Blood Patient has severe left flank pain following left ureteroscopy for ureteral stone on 01/07/2024. Symptoms are relieved by tamsulosin use. I am concerned about the potential for ureteral stricture. Recurrent stone formation would be unlikely as she did not have any residual stones in the left following her procedure, no stones were seen on the right. Plan for KUB and renal ultrasound, depending onthose results, she may also need a CT urogram. I will contact her regarding her results and determine the follow-up plan at that time. She will continue on the tamsulosin for now, she does have enough medication to last until a definitive plan is in place. documented in this encounter Plan of Treatment Not on file documented as of this encounter Procedures Procedure Name Priority Date/Time Associated Diagnosis Comments BACTERIAL CULTURE, AEROBIC + SUSC, URINE Routine 02/12/2024 10:38 AM CDT Nephrolithiasis Pain Flank URINALYSIS WITH MICROSCOPIC Routine 02/12/2024 10:38 AM CDT Nephrolithiasis Pain Flank documented in [...] bladder only minimally distended but normal. Richard Olmstead M.D. IMG US PROCEDURES * DX Kidneys Ureters Bladder [...] identified. 2. Nonspecific bowel gas pattern. Richard REYNOSOG DIAGNOSTIC IMAG ING PROCEDURES * CBC with [...] CDT Richard Olmstead M.D. LAB BLOOD ADD-ON [facility] [address] [place] [address], [facility] NPRG [facility] [address] [place] [address] * (ABNORMAL) Basic Metabolic Panel (02/12/2024 10:51 [...] CDT Richard Olmstead M.D. LAB BLOOD ADD-ON [facility] [address] [place] [address], [place] NPRG [facility] [address] [place] [address] * Urinalysis, with Microscopic: Urine, Midstream (02/12/2024 [...] 8.0 02/12/2024 11:12 AM CDT NPRG Specific [place] 1.010 1.001 - 1.035 02/12/2024 11:12 AM [...] Richard Olmstead M.D. LAB URINE ORDERABLE S [facility] [address] [place] [address], [place] NPRG [facility] [address] [place] [address] * (ABNORMAL) Bacterial Culture, Aerobic + Susceptibility, Urine (02/12/2024 10:38 AM CDT) Urine Culture Mixed microbiota (A) 02/13/2024 9:15 AM CDT MKTERRELL Urine (Urine, Midstream) 02/12/2024 10:38 AM CDT 02/12/2024 2:58 PM CDT Comment:Specimen Source Site : Urine Richard Olmstead M.D. LAB MICROBIOLOGY - GENERAL ORDERABLES [facility] [address] [place] [address], [facility] MKTO [facility] in [place] [address] [place] [address] documented in this encounter Visit Diagnoses Diagnosis Nephrolithiasis- Primary Pain Flank Nephrolithiasis Pain Flank Nephrolithiasis Pain Flank documented in this encounter
--- OUTSIDE RECORDS SUMMARY | 2024-03-16 11:30 | XMS_ITS | Continuity of Care Document ---
Author Organization [facility] Address [address] [facility] [address] [place] [address] Phone Care Team Providers Care Recruiter Account Manager Name Role Phone Torres AMINAHSusannah Unavailable [...] Providers Copied on Encounter [facility], [address] [facility] [address], [place], [place], [id number], tel:[phone] [facility] No Information [address] Davalos. [address] [place], [address], [place]. tel:[phone] Referring Provider: REFERRAL KATHYA HARRIS. Christos [facility], [address], [place], [id number], [place] tel:[phone] [facility] No Information [address] Davalos. [address] [place], [address], [place]. tel:[phone] Referring Provider: Guillermina Freeman MD, [address] [place], [address]. tel:[phone] [facility], [address] [facility] [address], [place], [id number], [place] tel:[phone] [facility] No Information [address] Brian Davalos. [address] [place], [address], [place]. tel:[phone] Referring Provider: REFERRAL KATHYA HARRIS. Christos [facility], [address], [id number], tel:[phone] [facility] No Information [address] Vonda Lawton. [address] [place], [address], [place]. tel:[phone] Referring Provider: REFERRAL KATHYA HARRIS. Family History [...]
--- OUTSIDE RECORDS SUMMARY | 2024-03-16 11:30 | XMS_ITS | Continuity of Care Document ---
Author Organization [facility] Address [address] [place] [address] Phone Care Team Providers Care Roller Printer Name Role Phone Spring DILLON, Apolinar Unavailable Unavailable Advance Directives Directive Yes / No Effective Date File Name No Information Encounters Encounter Description Practice Location Reason(s) For Visit Diagnoses Date Provider Providers Copied on Encounter [facility], [address], [place], [address], [place] tel:[phone] [facility] No Information Spring Jiang. [facility], [address], [place], [place], [id number] , [place]. tel:[phone] Family History Family Member Type Diagnosis Age [...]
--- OUTSIDE RECORDS SUMMARY | 2024-03-16 11:30 | XMS_ITS | Encounter Summary ---
Author Organization [facility] Address [address] [place] [address] Care Team Providers Care Dictaphone Mechanic Name Role Phone Unavailable Primary Care Provider Unavailabl e Reason for Referral * Outpatient (Routine) - Closed Specialty Diagnoses / Procedures Referred By Coral lares Referred To Contact Urology Diagnoses Stone Kidney Liana Pérez, C.N.P. [address] [place] [address] [facility] Region Referral ID Status Reason Start Date Expiration Date Visits Re quested Visits Authorized [id number] Closed 12/23/2023 06/23/2025 1 1 Encounter Details Date Type Department Care Team (Late st Contact Info) Description 12/23/2023 [facility] [address] [place] [address] Liana Pérez C.N.P. [address] [place] [phone] Stone Kidney (Primary Dx) Social History Tobacco [...]
--- OUTSIDE RECORDS SUMMARY | 2024-03-16 11:32 | XMS_ITS | Clinical Summary ---
Author Organization [employer] [facility] Address [place], [place] [address] Care Team Providers Care Hotel Supplies Salesperson Name Role Phone Mya Loco NP Primary [...] by mouth once daily. 2 04/08/2017 Active HYDROcodone-acetamino phen (NORCO) 5-325 mg per tabletIndications:Lum bar radiculopathy,DDD (degenerative disc disease), lumbar,S/P lumbar discectomy TAKE 1 TABLET BY MOUTH 3 TIMES DAILY IF NEEDED FOR PAIN. 60 Tablet 03/04/2022 Active baclofen (LIORESAL) 10 mg tabletIndications:Lum bar facet arthropathy,Lumbar disc herniation,Degenerati on of lumbar or lumbosacral intervertebral disc TAKE 1 TABLET (10 MG) BY MOUTH 3 TIMES DAILY IF NEEDED (MUSCLE SPASM AND PAIN). 90 Tablet 5 03/20/2022 Active gabapentin (NEURONTIN) 300 mg capsuleIndications:Sarah mbar facet arthropathy,Lumbar disc herniation,Degenerati on of lumbar or lumbosacral intervertebral disc TAKE [...] every 6 hours if needed. 08/25/2023 Active butalbitaL-acetaminop hen 25-325 mg tabIndications:Migrai ne without status migrainosus, not intractable, unspecified migraine type Take by mouth every 4 hours if needed. Rescue med for migraines 0 09/18/2023 Active hydrOXYzine HCL (ATARAX) 10 mg tablet Take 10 mg by mouth 3 times daily if needed. Active oxyCODONE (ROXICODONE) 5 mg immediate release tabletIndications:Kid yolanda stone Take 1 Tablet (5 mg) by mouth every 4 hours if needed for Pain. 16 Tablet 01/07/2024 Active Active Problems Problem Noted Date Diagnosed Date Lumbar facet arthropathy 09/15/2017 Lumbar disc herniation 09/15/2017 Hyperlipidemia 06/24/2012 Chronic pain 11/07/2009 Depression 11/07/2009 Gastroesophageal reflux 11/07/2009 Restless legs syndrome 11/07/2009 Degeneration of lumbar or lumbosacral interverte bral disc 04/08/2007 Major depressive disorder, recurrent episode, mo derate 01/21/2007 Encounters Date Type Department Care Team Description 01/07/2024 8:57 AM CDT - 01/07/2024 10:24 AM CDT Surgery [address] [address] Dk Byrd MD LITHOTRIPSY URETEROSCOPY WITH LASER-LEFT 01/07/2024 8:44 AM CDT Anesthesia Event [address] [address] Dyllan Blankenship DO 01/07/2024 7:45 AM CDT - 01/07/2024 11:45 AM CDT Hospital Encounter [address] [address] Dk Byrd MD Kidney stone (Primary Dx); [...] Paternal Grandfather bipolar Psychiatric illness Paternal Uncle deprdoc thalia and anxiety Psychiatric illness Son depressi [...] Body Mass Index 21.2 09/18/2023 3:25 PM PORTER LUGGAGE Plan of Treatment Health Maintenance Due Date [...] (1 of 2) 2012 COVID-19 vaccine series ( - 2022- season) 2023 Pap test for age 21-65 02/24/2024 02/23/2021, 2020 Influenza for age 50-64 06/13/2024 09/02/2007 BMI (ht and wt on same day) for age 18+ 09/18/2024 09/18/2023, 07/02/2023, 07/28/2017, Additional history exists Colonoscopy through age 75 04/03/2031 04/03/2021, Medical Devices Implanted Type Area Aerophysics Engineer Device Identifier Shelf Expiration Date Model / Serial / Lot Stent Uret [id number] Contour - [id number] Implanted:Qty: 1 on 01/07/2024 by Dk Byrd MD at [facility] Left: Ureter [employer] Urology 05/28/2026 [id number] / / [id number] Procedures Procedure Name Priority Date/Time Associated Diagnosis Comments XR C-ARM EQUAL OR LESS 1 HR Routine 01/07/2024 9:38 AM CDT STONE ANALYSIS Today 01/07/2024 9:09 AM CDT SUPRAGLOTTIC-LMA Routine 01/07/2024 8:56 AM CDT CYSTOSCOPY PLACEMENT URETERAL STENT 01/07/2024 8:44 AM CDT same Case Notes [facility] Special Needs [id number] LITHOTRIPSY URETEROSCOPY WITH LASER 01/07/2024 8:44 AM CDT same Case Notes Big C-Arm Special Needs [id number] SCAN CORRESP-EKG RESULTS 01/01/2024 1:27 PM CDT SCAN CORRESP-LABORATORY RESULTS 01/01/2024 1:27 PM CDT SCAN-COLONOSCOPY 04/03/2021 12:0 0 AM CDT DATA PROCESSOR THIN PREP PAP SCREEN IMAGED Routine 02/23/2021 1:27 PM CDT from Last 3 Months or Most Recently Relevant to Health Maintenance Results * XR C-ARM EQUAL OR LESS 1 HR (01/07/2024 9:38 AM CDT) Anatomical Region Laterality Modality Other Dk Byrd MD FLUOROSCOPY * STONE ANALYSIS (01/07/2024 9:09 AM CDT) Source Comment 01/14/2024 7:13 AM CDT [facility] Comment:Left Kidney Color Brown 01/14/2024 7:13 AM CDT [facility] Size 4x4 mm 01/14/2024 7:13 AM CDT [facility] Comment: Multiple pieces received. ??Dimensions of the largest piece reported. Weight 110 mg 01/14/2024 7:13 AM CDT [facility] Composition Comment 01/14/2024 7:13 AM CDT [facility] Comment:Percentage (Represen ts the % composition) Calcium Oxalate Monoh 90 % 01/14/2024 7:13 AM CDT [facility] Calcium Oxalate Dihyd 10 % 01/14/2024 7:13 AM CDT [facility] Comment Comment 01/14/2024 7:13 AM CDT [facility] Comment: Calculus received wet. Wet calculi must be dried before analysis, which delays reporting of results. Leaving calculi wet (such as water, saline, blood, urine) may lead to changes in composition. Photo Comment 01/14/2024 7:13 AM CDT [facility] Comment:Photograph will foll ow under a separate cover Comment: Comment 01/14/2024 7:13 AM CDT [facility] Comment: Physician questions regarding Calculi Analysis contact [facility] at: [phone]. Please note: Comment 01/14/2024 7:13 AM CDT [facility] Comment: Calculi report will follow via computer, mail or high pressure kettle operator delivery. Disclaimer: Comment 01/14/2024 7:13 AM CDT [facility] Comment: This test was developed and its performance characteristics determined by [facility]. ??It has not been cleared or approved by the Food and Drug Administration. Calculi (stone) (Left Kidney Stone ) Non-Blood / Unknown 01/07/2024 9:09 AM CDT 01/07/2024 10:02 AM CDT Narrative [facility] - 01/14/2024 7:13 AM CDT Performed at: ??[address] ??[id number] Child Caregiver Private Home: Kasie Gustafson, Phone: ??[phone] Dk Byrd MD SEND OUTS [facility]) [address] [place] [address], * Supraglottic (01/07/2024 8:56 AM CDT) Narrative [...] (04/03/2021 12:00 AM CDT) Scanner OTHER * DATA PROCESSOR THIN PREP PAP SCREEN IMAGED (02/23/2021 1:27 PM CDT) Pathologist [facility] Case Report Gynecologic Cytology Report ? Case: [id number] ? Authorizing Provider: ??Becki Cortes MD ??Collected: ? 02/23/2021 1327 ? Ordering Location: ? [facility] ?Received: ?02/26/2021 0904 ? First Screen: ?Binh Owen ? Specimen: ?DATA PROCESSOR ThinPrep Vial Screening, Cervical/Vaginal ? 03/07/2021 10:25 AM [facility] INTERPRETATION/ RESULT NEGATIVE FOR INTRAEPITHELIAL LESION OR MALIGNANCY (NIL) (none) 03/07/2021 10:25 AM [facility] IMEN ADEQUACY Satisfactory for evaluation Endocervical component present 03/07/2021 10:25 AM [facility] HPV REQUEST HPV and PAP 03/07/2021 10:25 AM [facility] Date of LMP 03/07/2021 10:25 AM [facility] Comment:N/A Last Pap Date 03/07/2021 10:25 AM [facility] Comment:20 yrs ago Menstrual Status 03/07/2021 10:25 AM [facility] Comment:Menopause Additional Information 03/07/2021 10:25 AM [facility] Comment: Interpreted at [facility] Laboratory - [address], [place] [address] Automated Review Successful 03/07/2021 10:25 AM [facility] Comment:Specimen processed s uccessfully by automated instrumentation controls engineer device, ThinPrep Imaging System, [employer] ANCILLARY TESTING DATA PROCESSOR HPV Ordered, Please see separate report 03/07/2021 10:25 AM [facility] Note The pap test is a screening technique, not a diagnostic procedure. It is used primarily to screen for squamous cancers and precursor lesions. Published studies have shown that it is subject to both false negative and false positive results. The pap test should not be used as the sole means to diagnose or exclude pre-malignant and malignant lesions. 03/07/2021 10:25 AM [facility] Other (Cervical/Vagina l) 02/23/2021 1:27 PM CDT 02/26/2021 9:04 AM CDT Becki Cortes MD PATHOLOGY/CYTOLO GY [facility] [address] [place] [address], [place] from Last 3 Months or Most Recently Relevant to Health Maintenance Advance Directives * Full Code (Latest Code Status on File) Date Activated Date Inactivated Comments 01/07/2024 7:47 AM 01/07/2024 5:50 PM Question Answer Comments Code Status Discussion: Unable to Assess Preferences, Provider to review later Care Teams Hotel Supplies Salesperson Relationship Specialty Start Date End Date Mya Loco NP PCP - General Nurse Practitioner - Women's Health 04/17/23
== END 2024-03-16 11:24 | disposition home or self-care (01) ==
PROVIDERS: PCP Nurse Practitioner Family; Visit Provider Nurse Practitioner Family
DX: E03.9 Hypothyroidism, unspecified (principal); E78.5 Hyperlipidemia, unspecified; I95.9 Hypotension, unspecified; R53.1 Weakness; Z13.228 Encounter for screening for other metabolic disorders; Z13.0 Encounter for screening for diseases of the blood and blood-forming organs and certain disorders involving the immune mechanism; Z13.21 Encounter for screening for nutritional disorder
CPT/HCPCS: 80053; 80061; 82306; 82607; 84207; 84443; 85027

== ENCOUNTER 2024-07-12 12:45 | Outpatient (REF) | payer MEDICAID, SELFPAY ==
--- OUTSIDE RECORDS SUMMARY | 2024-07-12 12:48 | XMS_ITS | Continuity of Care Document ---
Author Organization [facility] Address [address] [place] [address] Care Team Providers Care Fish Drier Name Role Phone Alexis Gray CRNA Unavailable Unavailable Procedures Procedure Date ANESTH, HEAD/NECK/PTRUNK Percutaneous Image guided neuromodulatio n or intra Advance Directives Directive Yes / No Effective Date File Name No Information Encounters Encounter Description Practice Location Reason(s) For Visit Diagnoses Date Provider Providers Copied on Encounter [facility], [address] [place], [place], [id number], [facility] No Information 3 Isaac Espinoza. [address] [place], [place], [id number] , . tel:[phone] Referring Provider: Susannah Cabral, [address] [place], [address] . tel:[phone] [facility], [address] [place], [place], [id number], [facility] No Information 2 Alvaro Park. [address], [place], [place], [id number] , . [phone] Referring Provider: Fredis Quintana [address] [facility] [address], [place], [address]. tel:[phone] Family History Family Member Type Diagnosis Age At Onset No Information Payers Payer name Insurance type Covered libertarian ID Tae garibay(s) [facility] [id number] Social History Type Description Quantity Date Captured [...]
--- OUTSIDE RECORDS SUMMARY | 2024-07-12 12:48 | XMS_ITS | Clinical Summary ---
Author Organization [facility] Address [address] [place] [address] Care Team Providers Care Supervisor Sample Name Role Phone Unavailable Primary Care Provider Unavailabl e Source Comments Patient records contain information from all sites at [facility]. For routine questions regarding patient records, call [phone] during business hours, M-F 8:00 AM - 5:00 PM Central Time. Record requests for emergency care only can be directed to [phone] at any time.[facility] Allergies [...] Date Smoking Tobacco: Every Day Cigarettes 1 44.7 Started: 10/13/1979 Smokeless Tobacco: Never Nutrition Answer [...] 1962 Zoster Vaccines (1 of 2) 2012 Cervical Cancer Screening 02/24/2024 02/23/2021 COVID-19 Vaccine (1 - season) 2024 Influenza Vaccine (#1) 2024 7, 09/02/2007, 08/22/2006 Fasting Glucose for Diabetes Screening 02/11/2027 02/12/2024 DTaP,Tdap,and Td Vaccines (2 - Td or Tdap) 01/11/2031 01/11/2021, 04/19/2009 Colonoscopy 04/03/2031 04/03/2021 Colorectal Cancer Screening 04/03/2031 Pneumococcal vaccine (0-64 years) Completed 023, 02/23/2021 Procedures Procedure Name Priority Date/Time Associated Diagnosis Comments BASIC METABOLIC PANEL, S/P Routine 02/12/2024 10:51 AM CDT Nephrolithiasis Pain Flank from Last 3 Months or Most Recently Relevant to Health Maintenance Results * (ABNORMAL) Basic Metabolic Panel (02/12/2024 10:51 [...] CDT Richard Olmstead M.D. LAB BLOOD ADD-ON [facility] [address] [place] [address], [place] NPRG [facility] [address] [place] [address] from Last 3 Months or Most Recently Relevant to Health Maintenance
--- OUTSIDE RECORDS SUMMARY | 2024-07-12 12:48 | XMS_ITS ---
Author Organization [facility] Address [address] [place] [address] Care Team Providers Care Cotton Tier Name Role Phone Unavailable Unavailable Unavailable Surgery Details Not on file Complications Check Surgery Details section. Procedure Estimated Blood Loss Check Surgery Details section. Procedure Findings Check Surgery Details section. Procedure Specimens Taken Check Surgery Details section.
--- OUTSIDE RECORDS SUMMARY | 2024-07-12 12:48 | XMS_ITS | Continuity of Care Document ---
Author Organization [facility] Address [address] [place] [id number] Care Team Providers Care Earth Science Teacher Name Role Phone [facility] Unavailable Unav ailable Procedures Procedure Date INJECT EPIDURAL PATCH FLUOROGUIDE FOR SPINE INJECT Advance Directives Directive Yes / No Effective Date File Name No Information Encounters Encounter Description Practice Location Reason(s) For Visit Diagnoses Date Provider Providers Copied on Encounter [facility], [address] [place] [address], [id number], [facility] No Information [facility]. [address] [place], [place], [id number], . tel:[phone] Referring Provider: Shabnam Cardona, [address] [place], [address]. tel:[phone] Family History Family Member Type Diagnosis Age At Onset No Information Payers Payer name Insurance type Covered constitution party ID Authorkacia phoenix(s) [facility] [id number] Social History Type Description Quantity Date Captured [...]
--- OUTSIDE RECORDS SUMMARY | 2024-07-12 12:48 | XMS_ITS | Continuity of Care Document ---
Author Organization [facility] Address [address] [place] [address] Phone Care Team Providers Care Mold Carpenter Name Role Phone Spring DILLON, Apolinar Unavailable Unavailable Advance Directives Directive Yes / No Effective Date File Name No Information Encounters Encounter Description Practice Location Reason(s) For Visit Diagnoses Date Provider Providers Copied on Encounter [facility] [place], [address] [address], [place], [address], [place] tel:[phone] [facility] No Information Spring Jiang. [facility], [address], [place], [place], [id number] , [place]. tel:[phone] Family History Family Member Type Diagnosis Age [...]
--- OUTSIDE RECORDS SUMMARY | 2024-07-12 12:48 | XMS_ITS | Referral Summary ---
Author Organization [facility] Address [address] [place] [address] Care Team Providers Care Burling And Joining Supervisor Name Role Phone Unavailable Primary Care Provider Unavailabl e Source Comments Patient records contain information from all sites at [facility]. For routine questions regarding patient records, call [phone] during business hours, M-F 8:00 AM - 5:00 PM Central Time. Record requests for emergency care only can be directed to [phone] at any time.[facility] Allergies Active Allergy Reactions Criticality Noted Date [...] CDT Richard Olmstead M.D. LAB BLOOD ADD-ON [facility] [address] [place] [address], [facility] [address] [place] [address] from Last 3 Months or Most Recently Relevant to Health Maintenance
--- OUTSIDE RECORDS SUMMARY | 2024-07-12 12:48 | XMS_ITS | Continuity of Care Document ---
Author Organization [facility] enter Address [address] [place] [phone] Phone Care Team Providers Care Auto Radio Mechanic Name Role Phone [facility] Unavailable Unava ilable Procedures Procedure Date [...] Diagnoses Date Provider Providers Copied on Encounter [facility], [address] [place] [address], [id number], tel:[phone] [place] [address] No Information 2 [facility]. [address] [place] [address], [id number], [place]. tel:[phone] Referring Provider: Susannah Cabral, [address] [facility] [place], [address] . tel:[phone] [facility], [address] [place] [address], [id number], tel:[phone] [place] [address] No Information 2 [facility]. [address] [place] [address] [address], [place], [place], [id number], [place]. tel:[phone] Referring Provider: [facility] [address], [place], [address]. tel:[phone] Family History Family Member Type Diagnosis Age At Onset No Information Payers Payer name Insurance type Covered libertarian ID Authoriza tialexandru(s) David [facility] [id number] Social History Type Description Quantity Date Captured [...]
--- OUTSIDE RECORDS SUMMARY | 2024-07-12 12:49 | XMS_ITS | Continuity of Care Document ---
Author Organization [facility] femi Address [address] [facility] [address] Phone Care Team Providers Care Co Founder Name Role Phone Vickie BURR Remedios Unavailable Unavailable Allergies, Adverse Reactions, Alerts Substance Reaction Status Criticality PENICILLIN HivesHivesHives Active No Informati on celecoxib crawling out of body Active No In formation Medications Medication Instructions Dosage Effective Dates (start - stop) Status Comments gabapentin 300 mg capsule take 3 capsule BID by oral route, then 4 capsules at HS - Active hydrocodone 5 mg-acetaminophen 325 mg tablet take 1 tablet by ORAL route every 4 hours prn, MAX 4 /DAY for chronic pain-30 day RX - Active Quantity of #105 correct BUTALBITAL/APAP/CA FFEINE 50-300-40MG TAKE 1 OR 2 CAPSULES BY MOUTH EVERY 4 HOURS NEEDED NOT TO EXCEED 2 CAPSULES IN 24 HOURS. - Active atorvastatin 20 mg tablet Take 1 tablet by mouth once daily. - Active MigreLief 200 mg-180 mg-50 mg tablet - Active Ajovy 225 mg/1.5 mL subcutaneous auto-injector inject (225MG) by subcutaneous route every month in the abdomen, thigh, or upper arm 225 MG - Active magnesium 200 mg tablet 400MG DAILY - Active lorazepam 0.5 mg tablet take [...] FRESH-FRUITY (unknown strength) Not Available - Active Extra Strength Narayan 500 mg tablet take 2 tablet by oral route every 6 hours as needed 1000 MG - Active CBD product OTC ORAL LIQUID - Active hydrocodone 5 mg-acetaminophen 325 mg tablet take 1 tablet by ORAL route every 4 hours prn, MAX 3-4 /DAY for chronic pain - No Longer Active Procedures Procedure Date OFFICE VISIT, EST TELEMEDICINE No Charge For Visit Per Prov OFFICE/OUTPATIENT VISIT, EST Drug Urine Toxology With [...] With Chromatography Drug test def 8-14 classes Michel-01-2022 OFFICE/OUTPATIENT VISIT, NEW PT-FOCUSED HLTH RISK [facility] Advance Directives Directive Yes / No Effective Date File Name No Information Encounters Encounter Description Practice Location Reason(s) For Visit Diagnoses Date Provider Providers Copied on Encounter OFFICE VISIT, EST TELEMEDICINE [facility], [address] [place], [place], [id number] , [place] tel:[phone] [facility] Neck Pain (chief complaint) low back pain (chief complaint) Chronic pain syndromePostlamin ectomy syndrome, not elsewhere classifiedOther spondylosis, cervical regionLong term (current) use of opiate analgesicHeadache , unspecifiedRadicu lopathy, lumbar region Sep- 4 Vickie Whittaker. [address] [place], [place], [address] , [place]. tel:[phone] [facility], [address] [place], [place], [address] , [place] tel:[phone] [facility] Postlaminectomy syndrome, not elsewhere classified 4 Eboni Hogan. [address] [facility] [address] [facility] [address], [place], [place], [address] , [place]. tel:[phone] Referring Provider: Curt Burger, [address] [place], [address]. tel:[phone] OFFICE/OUTPAT IENT VISIT, [facility], [address], [place], [address] , [place] tel:[phone] [facility] low back pain (chief complaint) Headache, unspecifiedLong term (current) use of opiate analgesicChronic pain syndromeOther spondylosis, cervical regionPostlaminec lucero syndrome, not elsewhere classifiedEncount er for therapeutic drug level monitoring 4 Eboni Hogan. [address] [facility] [address], [place], [place], [address] , [place]. [phone] Referring Provider: Keyon Muller, [address], [place], [address]. tel:[phone] [facility], [address] [facility] [place], [address] , [place] tel: [phone] [facility] [place] No Information 4 Eboni Hogan. [address] [facility] [address] [facility] [address], [place], [id number] , [place]. tel: [phone] OFFICE/OUTPAT IENT VISIT, EST [facility], [address] [place], [place], [address] , [place] tel: [phone] [facility] low back pain (chief complaint) Headache, unspecifiedLong term (current) use of opiate analgesicChronic pain syndromeOther spondylosis, cervical regionPostlaminec lucero syndrome, not elsewhere classified 4 Eboni Hogan. [address] [facility] [address] [facility] [address], [place], [address] , [place]. tel: [phone] Referring Provider: Keyon Muller [address] [place], [address]. tel:[phone] OFFICE/OUTPAT IENT VISIT, [facility], [address] [place], [place], [address] , [place] tel: [phone] [facility] low back pain (chief complaint) Headache, unspecifiedLong term (current) use of opiate analgesicChronic pain syndromeOther spondylosis, cervical regionPostlaminec lucero syndrome, not elsewhere classified 4 Eboni Hogan. [address] [facility] [address], [place], [address] , [place]. tel: [phone] [facility] [address] [place], [address]. [phone] OFFICE/OUTPAT IENT VISIT, [facility], [address] [place], [place], [address] , [place] tel: [phone] [facility] low back pain (chief complaint) Headache, unspecifiedLong term (current) use of opiate analgesicChronic pain syndromeOther spondylosis, cervical regionPostlaminec lucero syndrome, not elsewhere classified 4 Eboni Hogan. [address] [facility] [address], [place], [place], [address] , [place]. tel:[phone] Referring Provider: Keyon Muller [address] [place], [address]. tel:[phone] OFFICE/OUTPAT IENT VISIT, EST [facility], [address] [place], [place], [address] , [place] tel: [phone] [facility] low back pain (chief complaint) Chronic pain syndromeOther spondylosis, cervical regionPostlaminec lucero syndrome, not elsewhere classifiedHeadach e, unspecifiedLong term (current) use of opiate analgesic Jan- 4 Eboni Hogan. [address] [facility] [address], [place], [id number] , [place]. tel: [phone] [facility] [address] [place], [address]. tel:[phone] OFFICE/OUTPAT IENT VISIT, [facility], [address] [place] [address], [id number] , [place] tel: [phone] [facility] low back pain (chief complaint) Chronic pain syndromeOther spondylosis, cervical regionPostlaminec lucero syndrome, not elsewhere classifiedHeadach e, unspecifiedLong term (current) use of opiate analgesicEncounte r for therapeutic drug level monitoring 4 Eboni Hogan. [address] [facility] [address], [place], [id number] , [place]. tel: [phone] Referring Provider: Keyon Muller [address] [place], [address]. tel:[phone] OFFICE/OUTPAT IENT VISIT, [facility], [address] [place], [place], [address] , [place] tel: [phone] [facility] low back pain (chief complaint) Chronic pain syndromeOther spondylosis, cervical regionPostlaminec lucero syndrome, not elsewhere classifiedHeadach e, unspecifiedLong term (current) use of opiate analgesic 4 Nyongesa Samira. [address] [facility] [address], [place], [place], [address] , [place]. tel: [phone] Referring Provider: Keyon Muller [address] [place], [address]. tel:[phone] OFFICE/OUTPAT IENT VISIT, EST [facility], [address] [place], [place], [address] , [place] tel: [phone] [facility] low back pain (chief complaint) Chronic pain syndromeOther spondylosis, cervical regionPostlaminec lucero syndrome, not elsewhere classifiedHeadach e, unspecifiedLong term (current) use of opiate analgesic 4 Sdongesa Samira. [address] [facility] [address], [place], [place], [id number] , [place]. tel: [phone] Referring Provider: Keyon Muller [address] [place], [address]. tel:[phone] OFFICE/OUTPAT IENT VISIT, EST [facility], [address] [place], [place], [address] , [place] tel: [phone] [facility] low back pain (chief complaint) Insomnia, unspecifiedChroni c pain syndromeOther spondylosis, cervical regionInterverteb ral disc disorders with radiculopathy, lumbar regionPostlaminec lucero syndrome, not elsewhere classifiedHeadach e, unspecifiedLong term (current) use of opiate analgesic 3 Nyongesa Samira. [address], [place], [place], [address] , [place]. tel: [phone] Referring Provider: Keyon Muller [address] [place], [address]. tel:[phone] [facility], [address] [place], [place], [address] , [place] tel: [phone] [facility] No Information 3 Nyongesa Samira. [address] [facility] [address], [place], [id number] , [place]. tel: [phone] Referring Provider: Keyon Muller [address] [place], [address]. tel:[phone] OFFICE/OUTPAT IENT VISIT, [facility], [address] [place], [place], [address] , [place] tel: [phone] [facility] low back pain (chief complaint) Insomnia, unspecifiedChroni c pain syndromeOther spondylosis, cervical regionInterverteb ral disc disorders with radiculopathy, lumbar regionPostlaminec lucero syndrome, not elsewhere classifiedHeadach e, unspecifiedLong term (current) use of opiate analgesic 3 Nyongesa Samira. [address] [facility] [address], [place], [id number] , [place]. tel: [phone] Referring Provider: Keyon Muller [address] [place], [address]. tel:[phone] OFFICE/OUTPAT IENT VISIT, [facility], [address] [place], [place], [address] , [place] tel: [phone] [facility] low back pain (chief complaint) Insomnia, unspecifiedChroni c pain syndromeOther spondylosis, cervical regionInterverteb ral disc disorders with radiculopathy, lumbar regionPostlaminec lucero syndrome, not elsewhere classifiedLong term (current) use of opiate analgesicHeadache , unspecified 3 Nyongesa Samira. [address] [facility] [address], [place], [place], [id number] , [place]. tel: [phone] Referring Provider: Keyon Muller [address] [place], [address]. tel:[phone] OFFICE/OUTPAT IENT VISIT, [facility], [address] [place] [address], [id number] , [place] tel: [phone] [facility] low back pain (chief complaint) Insomnia, unspecifiedChroni c pain syndromeOther spondylosis, cervical regionInterverteb ral disc disorders with radiculopathy, lumbar regionPostlaminec lucero syndrome, not elsewhere classifiedLong term (current) use of opiate analgesic Sep-0 3 Nyongesa Samira. [address] [facility] [address], [place], [id number] , [place]. tel: [phone] Referring Provider: Keyon Muller [address] [place], [address]. tel:[phone] OFFICE/OUTPAT IENT VISIT, [facility], [address] [place] [address], [id number] , [place] tel: [phone] [facility] low back pain (chief complaint) Chronic pain syndromeOther spondylosis, cervical regionInterverteb ral disc disorders with radiculopathy, lumbar regionPostlaminec lucero syndrome, not elsewhere classifiedLong term (current) use of opiate analgesicEncounte r for therapeutic drug level monitoringInsomni a, unspecified May-0 3 Nyongesa Samira. [address] [facility] [address], [place], [id number] , [place]. tel: [phone] Referring Provider: Keyon Muller [address] [place], [address]. tel:[phone] [facility], [address] [place] [address], [address] , [place] tel: [phone] [facility] No Information May-0 3 Nyongesa Samira. [address] [facility] [address], [place], [id number] , [place]. tel: [phone] Referring Provider: Keyon Muller [address] [place], [address]. [phone] OFFICE/OUTPAT IENT VISIT, [facility], [address] [place], [place], [address] , [place] tel: [phone] [facility] low back pain (chief complaint) Major depressive disorder, single episode, unspecifiedChroni c pain syndromeOther spondylosis, cervical regionInterverteb ral disc disorders with radiculopathy, lumbar regionPostlaminec lucero syndrome, not elsewhere classifiedLong term (current) use of opiate analgesic 3 Nyongesa Samira. [address], [place], [place], [address] , [place]. tel: [phone] Referring Provider: Keyon Muller [address] [place], [address]. tel:[phone] [facility], [address] [place], [place], [address] , [place] tel: [phone] [facility] Postlaminectomy syndrome, not elsewhere classified 3 Nyongesa Samira. [address] [facility] [address], [place], [place], [address] , [place]. tel: [phone] OFFICE/OUTPAT IENT VISIT, [facility], [address] [place], [place], [address] , [place] tel: [phone] [facility] low back pain (chief complaint) Major depressive disorder, single episode, unspecifiedChroni c pain syndromeOther spondylosis, cervical regionInterverteb ral disc disorders with radiculopathy, lumbar regionPostlaminec lucero syndrome, not elsewhere classifiedLong term (current) use of opiate analgesic 3 Nyongesa Samira. [address] [facility] [address], [place], [place], [address] , [place]. tel: [phone] Referring Provider: Keyon Muller [address] [place], [address]. [phone] OFFICE/OUTPAT IENT VISIT, EST [facility], [address] [place], [place], [address] , [place] tel: [phone] [facility] low back pain (chief complaint) Major depressive disorder, single episode, unspecifiedInterv ertebral disc disorders with radiculopathy, lumbar regionPostlaminec lucero syndrome, not elsewhere classifiedLong term (current) use of opiate analgesicChronic pain syndromeOther spondylosis, cervical region February-0 9- 3 Nyongesa Samira. [address] [facility] [address], [place], [id number] , [place]. tel: [phone] Referring Provider: Keyon Muller [address] [place], [address]. tel:[phone] OFFICE/OUTPAT IENT VISIT, EST [facility], [address] [place], [place], [address] , [place] tel: [phone] [facility] low back pain (chief complaint) Major depressive disorder, single episode, unspecifiedPostla minectomy syndrome, not elsewhere classifiedLong term (current) use of opiate analgesicInterver tebral disc disorders with radiculopathy, lumbar region Apr- 2-202 3 Nyongesa Samira. [address] [facility] [address], [place], [id number] , [place]. tel: [phone] Referring Provider: Keyon Muller [address] [place], [address]. tel:[phone] [facility], [address] [place], [place], [address] , [place] tel: [phone] [facility] Intervertebral disc disorders with radiculopathy, lumbar region Dec- 3-202 3 Nyongesa Samira. [address] [facility] [address], [place], [id number] , [place]. tel: [phone] Referring Provider: Keyon Muller [address] [place], [address]. tel:[phone] OFFICE/OUTPAT IENT VISIT, EST [facility], [address] [place], [place], [address] , [place] tel: [phone] [facility] low back pain (chief complaint) Major depressive disorder, single episode, unspecifiedInterv ertebral disc disorders with radiculopathy, lumbar regionPostlaminec lucero syndrome, not elsewhere classifiedLong term (current) use of opiate analgesic 3 Nyongesa Samira. [address] [facility] [address], [place], [place], [id number] , [place]. tel:[phone] Referring Provider: Keyon Muller [address] [place], [address]. tel:[phone] [facility], [address] [place], [place], [address] , [place] tel: [phone] [facility] No Information 3 Nyongesa Samira. [address] [facility] [address], [place], [place], [address] , [place]. tel: [phone] Referring Provider: Keyon Muller, [address] [place], [address]. tel:[phone] OFFICE/OUTPAT IENT VISIT, [facility], [address] [place], [place], [address] , [place] tel: [phone] [facility] low back pain (chief complaint) Major depressive disorder, single episode, unspecifiedInterv ertebral disc disorders with radiculopathy, lumbar regionPostlaminec lucero syndrome, not elsewhere classifiedLong term (current) use of opiate analgesic 3 Nyongesa Samira. [address] [facility] [address], [place], [id number] , [place]. tel: [phone] Referring Provider: Keyon Muller [address] [facility], [place], [address]. tel:[phone] [facility], [address] [place] [address], [id number] , [place] tel:[phone] [facility] No Information 3 Yon Elias. [address] [facility] [place], [address] , [place]. tel:[phone] [facility], [address] [place] [address], [id number] , [place] tel: [phone] [facility] lumbago (chief complaint) Postlaminectomy syndrome, not elsewhere classified 3 Emily Cleveland. [address] [facility] [place], [address] , [place]. tel: [phone] Referring Provider: Keyon Muller [address] [place], [address]. [phone] OFFICE/OUTPAT IENT VISIT, EST [facility], [address] [place] [address], [id number] , [place] tel: [phone] [facility] low back pain (chief complaint) Major depressive disorder, single episode, unspecifiedInterv ertebral disc disorders with radiculopathy, lumbar regionPostlaminec lucero syndrome, not elsewhere classifiedLong term (current) use of opiate analgesic 3 Eboni Hogan. [address] [facility] [address], [place], [place], [address] , [place]. tel:[phone] Referring Provider: Keyon Muller [address] [place], [address]. tel:[phone] [facility], [address] [place] [address], [id number] , [place] tel:[phone] [facility] low back pain (chief complaint) Major depressive disorder, single episode, unspecifiedInterv ertebral disc disorders with radiculopathy, lumbar regionPostlaminec lucero syndrome, not elsewhere classifiedLong term (current) use of opiate analgesic 3 Barron Muse. [address] [facility] [address], [place], [address] , [place]. tel: [phone] Referring Provider: Keyon Muller [address] [place], [address]. tel:[phone] [facility], [address] [place], [place], [address] , [place] tel: [phone] [facility] Postlaminectomy syndrome, not elsewhere classified 2 Spikeyue Bange. [address] [place], [place], [address] , [place]. tel: [phone] Referring Provider: Keyon Muller [address] [place], [address]. tel:[phone] OFFICE/OUTPAT IENT VISIT, EST [facility], [address] [place] [address], [id number] , [place] tel: [phone] [facility] low back pain (chief complaint) Major depressive disorder, single episode, unspecifiedInterv ertebral disc disorders with radiculopathy, lumbar regionPostlaminec lucero syndrome, not elsewhere classifiedLong term (current) use of opiate analgesicEncounte r for therapeutic drug level monitoring 2 Genovevajayda Hogan. [address], [place], [address] , [place]. tel: [phone] Referring Provider: Keyon Muller [address] [place], [address]. tel:[phone] OFFICE/OUTPAT IENT VISIT, [facility], [address] [place] [address], [id number] , [place] tel: [phone] [facility] low back pain (chief complaint) Major depressive disorder, single episode, unspecifiedInterv ertebral disc disorders with radiculopathy, lumbar regionPostlaminec lucero syndrome, not elsewhere classifiedLong term (current) use of opiate analgesic - 2 Eboni Hogan. [address], [place], [place], [address] , [place]. tel:[phone] Referring Provider: Keyon Muller [address] [place], [address]. tel:[phone] [facility], [address] [place], [place], [address] , [place] tel: [phone] [facility] [place] Postlaminectomy syndrome, not elsewhere classified 2 Dulce Haque. [address] [place], [place], [address] , [place]. tel: [phone] Referring Provider: Keyon Muller [address] [place], [address]. tel:[phone] [facility], [address] [place], [place], [address] , [place] tel: [phone] [facility] Postlaminectomy syndrome, not elsewhere classified 2 Yon Elias. [address] [place], [place], [address] , [place]. tel: [phone] [facility], [address] [place], [place], [address] , [place] tel: [phone] [facility] Postlaminectomy syndrome, not elsewhere classified 0 2 Eboni Hogan. [address] [facility] [address], [place], [place], [id number] , [place]. tel: [phone] Referring Provider: Keyon Muller [address] [place], [address]. tel:[phone] [facility], [address] [place], [place], [address] , [place] tel: [phone] [facility] [place] No Information 2 Nyongesa Samira. [address], [place], [place], [id number] , [place]. tel:[phone] Referring Provider: Keyon Muller [address] [place], [address]. [phone] [facility], [address] [place], [place], [address] , [place] tel:[phone] [facility] Postlaminectomy syndrome, not elsewhere classified 2 Nyjayda Hogan. [address], [place], [id number] , [place]. tel:[phone] Referring Provider: Keyon Muller [address] [place], [address]. [phone] [facility], [address] [place], [place], [address] , [place] tel:[phone] [facility] [place] No Information Sep-2 2 Quintanabrett Mcneal. [facility], [address], [place], [address], [place]. [phone] Referring Provider: Keyon Muller [address] [place], [address]. tel:[phone] [facility], [address] [place], [place], [address] , [place] tel:[phone] [facility] Postlaminectomy syndrome, not elsewhere classified Sep- 2 Nyongesa Hogan. [address] [facility] [address], [place], [address] , [place]. tel:[phone] Referring Provider: Keyon Muller [address] [place], [address]. tel:[phone] OFFICE VISIT, EST TELEMEDICINE [facility], [address] [place], [place], [address] , [place] tel: [phone] [facility] [place] low back pain (chief complaint) Major depressive disorder, single episode, unspecifiedInterv ertebral disc disorders with radiculopathy, lumbar regionPostlaminec lucero syndrome, not elsewhere classifiedLong term (current) use of opiate analgesic Sep-0 2 Nyongesa Samira. [address], [place], [place], [address] , [place]. tel: [phone] OFFICE/OUTPAT IENT VISIT, [facility], [address] [place], [place], [address] , [place] tel: [phone] [facility] Back Pain (chief complaint) Major depressive disorder, single episode, unspecifiedInterv ertebral disc disorders with radiculopathy, lumbar regionOther intervertebral disc degeneration, lumbar regionPostlaminec lucero syndrome, not elsewhere classifiedLong term (current) use of opiate analgesic May- 2 Genovevaongesa Samira. [address] [facility] [address], [facility], [id number] , [place]. tel: [phone] Referring Provider: Keyon Muller [address] [place], [address]. tel:[phone] OFFICE/OUTPAT IENT VISIT, [facility], [address] [place] [address], [id number] , [place] tel: [phone] [facility], [place] [facility] (chief complaint) Major depressive disorder, single episode, unspecifiedInterv ertebral disc disorders with radiculopathy, lumbar regionOther intervertebral disc degeneration, lumbar regionPostlaminec lucero syndrome, not elsewhere classifiedLong term (current) use of opiate analgesic 2 Nyongesa Samira. [address] [facility] [address], [place], [id number] , [place]. tel: [phone] Referring Provider: Keyon Muller [address] [place], [address]. tel:[phone] OFFICE/OUTPAT IENT VISIT, [facility], [address] [place], [place], [id number] , [place] tel: [phone] [facility], [place] [facility] (chief complaint) Major depressive disorder, single episode, unspecifiedInterv ertebral disc disorders with radiculopathy, lumbar regionOther intervertebral disc degeneration, lumbar regionPostlaminec lucero syndrome, not elsewhere classifiedLong term (current) use of opiate analgesic 2 Eboni Hogan. [address] [facility] [address], [place], [place], [id number] , [place]. tel:[phone] Referring Provider: Keyon Muller [address] [place], [address]. tel:[phone] Psych Dx Eval [facility], [address] [place], [place], [id number] , [place] tel: [phone] [facility] Pain disorder with related psychological factorsMajor depressive disorder, recurrent, in full remission 0 2 Rosa Luis Peg. [address] [place], [place], [id number] , [place]. tel:[phone] [facility], [address] [place], [place], [id number] , [place] tel: [phone] [facility] [place] No Information 2 Eboni Hogan. [address] [facility] [address], [place], [id number] , [place]. tel:[phone] Referring Provider: Keyon Muller [address] [place], [address]. tel:[phone] OFFICE/OUTPAT IENT VISIT, [facility], [address] [place], [place], [id number] , [place] tel:[phone] [facility], [place] [facility] (chief complaint) Encounter for screening for other disorderPostlamin ectomy syndrome, not elsewhere classifiedOther intervertebral disc degeneration, lumbar regionInterverteb ral disc disorders with radiculopathy, lumbar regionMajor depressive disorder, single episode, unspecified Michel-0 1-202 2 Eboni oHgan. [address] [facility] [address], [place], [id number] , [place]. tel:[phone] Referring Provider: Keyon Muller, [facility] [address], [place], [address]. tel:[phone] Family History Family Member Type Diagnosis Age At Onset No Information Payers Payer name Insurance type Covered alliance party ID Authorkaciedwin gonzalezalexandru(s) David [facility] [id number] Social History Type Description Quantity Date Captured Comments Alcohol Use Details Unknown Caffeine Use Details Unknown Tobacco Use Status Smoking Status No Information Sex Female Chief Complaint And Reason For Visit From encounter dated '07/02/2024 14:41'. Neck Pain (chief complaint) low back pain (chief complaint). Description: Severity level is 5. It occurs persistently. Locationof pain is lower back and neck. Pain is radiated to the bilateral LE. Reason For Referral Reason For Referral No Information Plan Of Treatment Date Type Action Status Goal UDT. Due on due Goal INFANTRY UNIT LEADER Scanned. Due on due Goal ALT (SGPT). Due on due Goal COMMERCIAL CREDIT HEAD Paperwork. Due on due Goal Order Annual PT. Due on due Goal AST (SGOT). Due on due Goal Creatinine. Due on due Goal OARS. Due on due Goal Height. Due on d ue Goal Review Allergy L ist. Due on due Goal Medication Recon ciliation. Due on due Goal Lipid panel. Due on due Goal HPV. Due on due Goal FIT. Due on due Goal Update Social Hi story. Due on due Goal Unhealthy drug u se screening. Due on due Goal CT-Colonography. Due on due Goal Zoster vaccine ( 1st). Due on due Goal FIT-DNA. Due on due Goal PHQ-9. Due on du e Goal Hepatitis C scre ening. Due on due Goal Tobacco Use. Due on due Goal Weight. Due on d ue Goal COMMERCIAL CREDIT HEAD Paperwork. Due on due Goal AST (SGOT). Due on due Goal UDT. Due on due Goal ALT (SGPT). Due on due Goal OARS. Due on due Goal Creatinine. Due on due Goal Order Annual PT. Due on due Goal INFANTRY UNIT LEADER Scanned. Due on due Goal Unhealthy drug u se screening. Due on due Goal FIT-DNA. Due on due Goal Tobacco Use. Due on due Goal Medication Recon ciliation. Due on due Goal CT-Colonography. Due on due Goal Height. Due on d ue Goal Update Social Hi story. Due on due Goal Lipid panel. Due on due Goal Zoster vaccine ( ). Due on due Goal Hepatitis C scre ening. Due on due Goal PHQ-9. Due on du e Goal FIT. Due on due Goal Weight. Due on d ue Goal Review Allergy L ist. Due on due Goal HPV. Due on due Goal INFANTRY UNIT LEADER Scanned. Due on due Goal AST (SGOT). Due on due Goal OARS. Due on due Goal ALT (SGPT). Due on due Goal Creatinine. Due on due Goal COMMERCIAL CREDIT HEAD Paperwork. Due on due Goal UDT. Due on due Goal Order Annual PT. Due on due Goal Hepatitis C scre ening. Due on due Goal Medication Recon ciliation. Due on due Goal PHQ-9. Due on du e Goal Update Social Hi story. Due on due Goal Weight. Due on d ue Goal Zoster vaccine ( 1st). Due on due Goal FIT. Due on due Goal FIT-DNA. Due on due Goal Lipid panel. Due on due Goal Tobacco Use. Due on due Goal HPV. Due on due Goal Review Allergy L ist. Due on due Goal CT-Colonography. Due on due Goal Unhealthy drug u se screening. Due on due Goal Height. Due on d ue Goal Order Annual PT. Due on due Goal OARS. Due on due Goal COMMERCIAL CREDIT HEAD Paperwork. Due on due Goal UDT. Due on due Goal ALT (SGPT). Due on due Goal Creatinine. Due on due Goal AST (SGOT). Due on due Goal INFANTRY UNIT LEADER Scanned. Due on due Goal Review Allergy L ist. Due on due Goal Lipid panel. Due on due Goal Unhealthy drug u se screening. Due on due Goal PHQ-9. Due on du e Goal Update Social Hi story. Due on due Goal Hepatitis C scre ening. Due on due Goal Weight. Due on d ue Goal HPV. Due on due Goal Tobacco Use. Due on due Goal FIT-DNA. Due on due Goal FIT. Due on due Goal Medication Recon ciliation. Due on due Goal Zoster vaccine ( ). Due on due Goal CT-Colonography. Due on due Goal Height. Due on d ue Goal COMMERCIAL CREDIT HEAD Paperwork. Due on due Goal Order Annual PT. Due on due Goal INFANTRY UNIT LEADER Scanned. Due on due Goal Creatinine. Due on due Goal AST (SGOT). Due on due Goal OARS. Due on due Goal ALT (SGPT). Due on due Goal UDT. Due on due Goal Medication Recon ciliation. Due on due Goal Zoster vaccine ( ). Due on due Goal PHQ-9. Due on du e Goal Lipid panel. Due on due Goal Hepatitis C scre ening. Due on due Goal Review Allergy L ist. Due on due Goal Weight. Due on d ue Goal FIT-DNA. Due on due Goal HPV. Due on due Goal FIT. Due on due Goal CT-Colonography. Due on due Goal Unhealthy drug u se screening. Due on due Goal Tobacco Use. Due on due Goal Height. Due on d ue Goal Update Social Hi story. Due on due Goal AST (SGOT). Due on due Goal ALT (SGPT). Due on due Goal OARS. Due on due Goal COMMERCIAL CREDIT HEAD Paperwork. Due on due Goal INFANTRY UNIT LEADER Scanned. Due on due Goal UDT. Due on due Goal Order Annual PT. Due on due Goal Creatinine. Due on due Goal FIT-DNA. Due on due Goal Tobacco Use. Due on due Goal Review Allergy L ist. Due on due Goal Unhealthy drug u se screening. Due on due Goal Update Social Hi story. Due on due Goal Height. Due on d ue Goal HPV. Due on due Goal Weight. Due on d ue Goal Medication Recon ciliation. Due on due Goal Zoster vaccine ( 1st). Due on due Goal Hepatitis C scre ening. Due on due Goal PHQ-9. Due on du e Goal CT-Colonography. Due on due Goal FIT. Due on due Goal Lipid panel. Due on due Goal AST (SGOT). Due on due Goal INFANTRY UNIT LEADER Scanned. Due on due Goal UDT. Due on due Goal OARS. Due on due Goal Order Annual PT. Due on due Goal COMMERCIAL CREDIT HEAD Paperwork. Due on due Goal ALT (SGPT). Due on due Goal Creatinine. Due on due Goal Tobacco Use. Due on due Goal Hepatitis C scre ening. Due on due Goal Unhealthy drug u se screening. Due on due Goal Review Allergy L ist. Due on due Goal FIT. Due on due Goal FIT-DNA. Due on due Goal PHQ-9. Due on du e Goal Weight. Due on d ue Goal HPV. Due on due Goal CT-Colonography. Due on due Goal Medication Recon ciliation. Due on due Goal Height. Due on d ue Goal Zoster vaccine ( 1st). Due on due Goal Update Social Hi story. Due on due Goal Lipid panel. Due on due Goal Creatinine. Due on due Goal Order Annual PT. Due on due Goal UDT. Due on due Goal AST (SGOT). Due on due Goal COMMERCIAL CREDIT HEAD Paperwork. Due on due Goal INFANTRY UNIT LEADER Scanned. Due on due Goal ALT (SGPT). Due on due Goal OARS. Due on due Goal Height. Due on d ue Goal HPV. Due on due Goal Zoster vaccine ( 1st). Due on due Goal CT-Colonography. Due on due Goal Unhealthy drug u se screening. Due on due Goal Hepatitis C scre ening. Due on due Goal Weight. Due on d ue Goal Lipid panel. Due on due Goal PHQ-9. Due on du e Goal Review Allergy L ist. Due on due Goal FIT. Due on due Goal Update Social Hi story. Due on due Goal Tobacco Use. Due on due Goal FIT-DNA. Due on due Goal Medication Recon ciliation. Due on due Goal UDT. Due on due Goal Order Annual PT. Due on due Goal COMMERCIAL CREDIT HEAD Paperwork. Due on due Goal INFANTRY UNIT LEADER Scanned. Due on due Goal AST (SGOT). Due on due Goal ALT (SGPT). Due on due Goal Creatinine. Due on due Goal OARS. Due on due Goal Weight. Due on d ue Goal FIT-DNA. Due on due Goal Hepatitis C scre ening. Due on due Goal Update Social Hi story. Due on due Goal PHQ-9. Due on du e Goal Review Allergy L ist. Due on due Goal Lipid panel. Due on due Goal FIT. Due on due Goal Medication Recon ciliation. Due on due Goal Tobacco Use. Due on due Goal Zoster vaccine ( 1st). Due on due Goal HPV. Due on due Goal Unhealthy drug u se screening. Due on due Goal CT-Colonography. Due on due Goal Height. Due on d ue Goal Update Social Hi story. Due on due Goal Height. Due on d ue Goal FIT-DNA. Due on due Goal Lipid panel. Due on due Goal Unhealthy drug u se screening. Due on due Goal HPV. Due on due Goal Tobacco Use. Due on due Goal CT-Colonography. Due on due Goal Hepatitis C scre ening. Due on due Goal Zoster vaccine ( 1st). Due on due Goal PHQ-9. Due on du e Goal FIT. Due on due Goal Weight. Due on d ue Goal OARS. Due on due Goal Order Annual PT. Due on due Goal ALT (SGPT). Due on due Goal AST (SGOT). Due on due Goal INFANTRY UNIT LEADER Scanned. Due on due Goal Creatinine. Due on due Goal UDT. Due on due Goal COMMERCIAL CREDIT HEAD Paperwork. Due on due Goal Review Allergy L ist. Due on due Goal Medication Recon ciliation. Due on due Goal COMMERCIAL CREDIT HEAD Paperwork. Due on due Goal ALT (SGPT). Due on due Goal AST (SGOT). Due on due Goal UDT. Due on due Goal Update Social Hi story. Due on due Goal Hepatitis C scre ening. Due on due Goal PHQ-9. Due on du e Goal Height. Due on d ue Goal Zoster vaccine ( 1st). Due on due Goal CT-Colonography. Due on due Goal FIT. Due on due Goal Unhealthy drug u se screening. Due on due Goal Weight. Due on d ue Goal Tobacco Use. Due on due Goal Medication Recon ciliation. Due on due Goal HPV. Due on due Goal Lipid panel. Due on due Goal Review Allergy L ist. Due on due Goal FIT-DNA. Due on due Goal Creatinine. Due on due Goal OARS. Due on due Goal Order Annual PT. Due on due Goal INFANTRY UNIT LEADER Scanned. Due on due Goal AST (SGOT). Due on due Goal OARS. Due on due Goal ALT (SGPT). Due on due Goal Creatinine. Due on due Goal INFANTRY UNIT LEADER Scanned. Due on due Goal COMMERCIAL CREDIT HEAD Paperwork. Due on due Goal Order Annual PT. Due on due Goal UDT. Due on due Goal Unhealthy drug u se screening. Due on due Goal Medication Recon ciliation. Due on due Goal CT-Colonography. Due on due Goal Hepatitis C scre ening. Due on due Goal Zoster vaccine ( ). Due on due Goal Tobacco Use. Due on due Goal PHQ-9. Due on du e Goal FIT. Due on due Goal HPV. Due on due Goal Weight. Due on d ue Goal Update Social Hi story. Due on due Goal FIT-DNA. Due on due Goal Review Allergy L ist. Due on due Goal Lipid panel. Due on due Goal Height. Due on d ue Goal Creatinine. Due on due Goal Order Annual PT. Due on due Goal COMMERCIAL CREDIT HEAD Paperwork. Due on due Goal AST (SGOT). Due on due Goal OARS. Due on due Goal INFANTRY UNIT LEADER Scanned. Due on due Goal ALT (SGPT). Due on due Goal UDT. Due on due Goal Weight. Due on d ue Goal HPV. Due on due Goal PHQ-9. Due on du e Goal FIT-DNA. Due on due Goal FIT. Due on due Goal Medication Recon ciliation. Due on due Goal Height. Due on d ue Goal Unhealthy drug u se screening. Due on due Goal Review Allergy L ist. Due on due Goal Update Social Hi story. Due on due Goal Tobacco Use. Due on due Goal Lipid panel. Due on due Goal Zoster vaccine ( 1st). Due on due Goal CT-Colonography. Due on due Goal Hepatitis C scre ening. Due on due Goal Tobacco cessation counseling completed Goal COMMERCIAL CREDIT HEAD Paperwork. Due on due Goal Order Annual PT. Due on due Goal AST (SGOT). Due on due Goal ALT (SGPT). Due on due Goal Creatinine. Due on due Goal UDT. Due on due Goal INFANTRY UNIT LEADER Scanned. Due on due Goal OARS. Due on due Goal FIT-DNA. Due on due Goal Update Social Hi story. Due on due Goal CT-Colonography. Due on due Goal Unhealthy drug u se screening. Due on due Goal Tobacco Use. Due on due Goal FIT. Due on due Goal PHQ-9. Due on du e Goal Zoster vaccine ( ). Due on due Goal HPV. Due on due Goal Weight. Due on d ue Goal Review Allergy L ist. Due on due Goal Lipid panel. Due on due Goal Hepatitis C scre ening. Due on due Goal Medication Recon ciliation. Due on due Goal Height. Due on d ue Goal Medication Recon ciliation. Due on due Goal Height. Due on d ue Goal HPV. Due on due Goal Zoster vaccine ( 1st). Due on due Goal PHQ-9. Due on du e Goal AST (SGOT). Due on due Goal Order Annual PT. Due on due Goal ALT (SGPT). Due on due Goal OARS. Due on due Goal COMMERCIAL CREDIT HEAD Paperwork. Due on due Goal INFANTRY UNIT LEADER Scanned. Due on due Goal UDT. Due on due Goal Creatinine. Due on due Goal FIT. Due on due Goal Weight. Due on d ue Goal CT-Colonography. Due on due Goal Unhealthy drug u se screening. Due on due Goal Hepatitis C scre ening. Due on due Goal Lipid panel. Due on due Goal Update Social Hi story. Due on due Goal Tobacco Use. Due on due Goal Review Allergy L ist. Due on due Goal FIT-DNA. Due on due Goal INFANTRY UNIT LEADER Scanned. Due on due Goal UDT. Due on due Goal COMMERCIAL CREDIT HEAD Paperwork. Due on due Goal Order Annual PT. Due on due Goal OARS. Due on due Goal AST (SGOT). Due on due Goal Creatinine. Due on due Goal ALT (SGPT). Due on due Goal Hepatitis C scre ening. Due on due Goal FIT. Due on due Goal Review Allergy L ist. Due on due Goal Medication Recon ciliation. Due on due Goal Update Social Hi story. Due on due Goal Height. Due on d ue Goal FIT-DNA. Due on due Goal Lipid panel. Due on due Goal CT-Colonography. Due on due Goal HPV. Due on due Goal Zoster vaccine ( 1st). Due on due Goal PHQ-9. Due on du e Goal Tobacco Use. Due on due Goal Unhealthy drug u se screening. Due on due Goal Weight. Due on d ue Goal UDT. Due on due Goal Creatinine. Due on due Goal OARS. Due on due Goal AST (SGOT). Due on due Goal ALT (SGPT). Due on due Goal COMMERCIAL CREDIT HEAD Paperwork. Due on due Goal INFANTRY UNIT LEADER Scanned. Due on due Goal Order Annual PT. Due on due Goal Unhealthy drug u se screening. Due on due Goal Medication Recon ciliation. Due on due Goal Weight. Due on d ue Goal PHQ-9. Due on du e Goal Tobacco Use. Due on due Goal HPV. Due on due Goal Review Allergy L ist. Due on due Goal Update Social Hi story. Due on due Goal CT-Colonography. Due on due Goal FIT-DNA. Due on due Goal Lipid panel. Due on due Goal Zoster vaccine ( 1st). Due on due Goal Height. Due on d ue Goal FIT. Due on due Goal Hepatitis C scre ening. Due on due Goal Creatinine. Due on due Goal UDT. Due on due Goal INFANTRY UNIT LEADER Scanned. Due on due Goal COMMERCIAL CREDIT HEAD Paperwork. Due on due Goal Order Annual PT. Due on due Goal AST (SGOT). Due on due Goal ALT (SGPT). Due on due Goal OARS. Due on due Goal FIT-DNA. Due on due Goal Update Social Hi story. Due on due Goal FIT. Due on due Goal Hepatitis C scre ening. Due on due Goal Tobacco Use. Due on due Goal Review Allergy L ist. Due on due Goal CT-Colonography. Due on due Goal PHQ-9. Due on du e Goal Zoster vaccine ( 1st). Due on due Goal Height. Due on d ue Goal Lipid panel. Due on due Goal Unhealthy drug u se screening. Due on due Goal HPV. Due on due Goal Medication Recon ciliation. Due on due Goal Weight. Due on d ue Goal INFANTRY UNIT LEADER Scanned. Due on due Goal COMMERCIAL CREDIT HEAD Paperwork. Due on due Goal Order Annual PT. Due on due Goal Creatinine. Due on due Goal ALT (SGPT). Due on due Goal OARS. Due on due Goal AST (SGOT). Due on due Goal UDT. Due on due Goal Tobacco Use. Due on due Goal Review Allergy L ist. Due on due Goal CT-Colonography. Due on due Goal Lipid panel. Due on due Goal Height. Due on d ue Goal Medication Recon ciliation. Due on due Goal Update Social Hi story. Due on due Goal Weight. Due on d ue Goal PHQ-9. Due on du e Goal FIT-DNA. Due on due Goal Zoster vaccine ( 1st). Due on due Goal Hepatitis C scre ening. Due on due Goal Unhealthy drug u se screening. Due on due Goal FIT. Due on due Goal HPV. Due on due Goal INFANTRY UNIT LEADER Scanned. Due on due Goal AST (SGOT). Due on due Goal ALT (SGPT). Due on due Goal Creatinine. Due on due Goal OARS. Due on due Goal UDT. Due on due Goal COMMERCIAL CREDIT HEAD Paperwork. Due on due Goal Order Annual PT. Due on due Goal Zoster vaccine ( 1st). Due on due Goal CT-Colonography. Due on due Goal Tobacco Use. Due on due Goal FIT-DNA. Due on due Goal Medication Recon ciliation. Due on due Goal FIT. Due on due Goal Review Allergy L ist. Due on due Goal Unhealthy drug u se screening. Due on due Goal HPV. Due on due Goal Lipid panel. Due on due Goal Weight. Due on d ue Goal Height. Due on d ue Goal PHQ-9. Due on du e Goal Hepatitis C scre ening. Due on due Goal Update Social Hi story. Due on due Goal Tobacco cessation counseling completed Goal AST (SGOT). Due on due Goal UDT. Due on due Goal INFANTRY UNIT LEADER Scanned. Due on due Goal Creatinine. Due on due Goal OARS. Due on due Goal COMMERCIAL CREDIT HEAD Paperwork. Due on due Goal Order Annual PT. Due on due Goal ALT (SGPT). Due on due Goal CT-Colonography. Due on due Goal Weight. Due on d ue Goal Review Allergy L ist. Due on due Goal Unhealthy drug u se screening. Due on due Goal FIT-DNA. Due on due Goal Lipid panel. Due on due Goal PHQ-9. Due on du e Goal Tobacco Use. Due on due Goal Hepatitis C scre ening. Due on due Goal FIT. Due on due Goal Update Social Hi story. Due on due Goal Zoster vaccine ( 1st). Due on due Goal Medication Recon ciliation. Due on due Goal HPV. Due on due Goal Height. Due on d ue Goal Order Annual PT. Due on due Goal AST (SGOT). Due on due Goal COMMERCIAL CREDIT HEAD Paperwork. Due on due Goal OARS. Due on due Goal INFANTRY UNIT LEADER Scanned. Due on due Goal UDT. Due on due Goal ALT (SGPT). Due on due Goal Creatinine. Due on due Goal FIT-DNA. Due on due Goal FIT. Due on due Goal Lipid panel. Due on due Goal Height. Due on d ue Goal Review Allergy L ist. Due on due Goal CT-Colonography. Due on due Goal Hepatitis C scre ening. Due on due Goal Update Social Hi story. Due on due Goal Unhealthy drug u se screening. Due on due Goal Weight. Due on d ue Goal HPV. Due on due Goal Zoster vaccine ( 1st). Due on due Goal PHQ-9. Due on du e Goal Tobacco Use. Due on due Goal Medication Recon ciliation. Due on due Goal INFANTRY UNIT LEADER Scanned. Due on due Goal Creatinine. Due on due Goal UDT. Due on due Goal COMMERCIAL CREDIT HEAD Paperwork. Due on due Goal OARS. Due on due Goal ALT (SGPT). Due on due Goal AST (SGOT). Due on due Goal Order Annual PT. Due on due Goal FIT-DNA. Due on due Goal Unhealthy drug u se screening. Due on due Goal PHQ-9. Due on du e Goal Zoster vaccine ( 1st). Due on due Goal Lipid panel. Due on due Goal CT-Colonography. Due on due Goal FIT. Due on due Goal Review Allergy L ist. Due on due Goal Tobacco Use. Due on due Goal Height. Due on d ue Goal Medication Recon ciliation. Due on due Goal HPV. Due on due Goal Weight. Due on d ue Goal Hepatitis C scre ening. Due on due Goal Update Social Hi story. Due on due Goal INFANTRY UNIT LEADER Scanned. Due on due Goal Creatinine. Due on due Goal ALT (SGPT). Due on due Goal UDT. Due on due Goal AST (SGOT). Due on due Goal COMMERCIAL CREDIT HEAD Paperwork. Due on due Goal OARS. Due on due Goal Order Annual PT. Due on due Goal Tobacco Use. Due on due Goal CT-Colonography. Due on due Goal FIT. Due on due Goal Height. Due on d ue Goal Unhealthy drug u se screening. Due on due Goal PHQ-9. Due on du e Goal Review Allergy L ist. Due on due Goal Weight. Due on d ue Goal HPV. Due on due Goal Zoster vaccine ( 1st). Due on due Goal Update Social Hi story. Due on due Goal Hepatitis C scre ening. Due on due Goal Medication Recon ciliation. Due on due Goal Lipid panel. Due on due Goal FIT-DNA. Due on due Goal OARS. Due on due Goal Order Annual PT. Due on due Goal Creatinine. Due on due Goal UDT. Due on due Goal AST (SGOT). Due on due Goal COMMERCIAL CREDIT HEAD Paperwork. Due on due Goal INFANTRY UNIT LEADER Scanned. Due on due Goal ALT (SGPT). Due on due Goal Unhealthy drug u se screening. Due on due Goal CT-Colonography. Due on due Goal FIT. Due on due Goal Review Allergy L ist. Due on due Goal HPV. Due on due Goal Lipid panel. Due on due Goal Update Social Hi story. Due on due Goal Zoster vaccine ( 1st). Due on due Goal Tobacco Use. Due on 023 due Goal Height. Due on d ue Goal Weight. Due on d ue Goal Medication Recon ciliation. Due on due Goal PHQ-9. Due on du e Goal Hepatitis C scre ening. Due on due Goal FIT-DNA. Due on due Goal Creatinine. Due on due Goal OARS. Due on due Goal Order Annual PT. Due on due Goal COMMERCIAL CREDIT HEAD Paperwork. Due on due Goal INFANTRY UNIT LEADER Scanned. Due on due Goal UDT. Due on due Goal AST (SGOT). Due on due Goal ALT (SGPT). Due on due Goal Zoster vaccine ( 1st). Due on due Goal Update Social Hi story. Due on due Goal PHQ-9. Due on du e Goal HPV. Due on due Goal Unhealthy drug u se screening. Due on due Goal Review Allergy L ist. Due on due Goal Medication Recon ciliation. Due on due Goal FIT-DNA. Due on due Goal CT-Colonography. Due on due Goal FIT. Due on due Goal Hepatitis C scre ening. Due on due Goal Weight. Due on d ue Goal Tobacco Use. Due on due Goal Height. Due on d ue Goal Lipid panel. Due on due Goal Creatinine. Due on due Goal COMMERCIAL CREDIT HEAD Paperwork. Due on due Goal Order Annual PT. Due on due Goal OARS. Due on due Goal ALT (SGPT). Due on due Goal INFANTRY UNIT LEADER Scanned. Due on due Goal AST (SGOT). Due on due Goal UDT. Due on due Goal Review Allergy L ist. Due on due Goal Weight. Due on d ue Goal FIT. Due on due Goal Lipid panel. Due on due Goal PHQ-9. Due on du e Goal Medication Recon ciliation. Due on due Goal FIT-DNA. Due on due Goal Unhealthy drug u se screening. Due on due Goal HPV. Due on due Goal Update Social Hi story. Due on due Goal Tobacco Use. Due on due Goal CT-Colonography. Due on due Goal Hepatitis C scre ening. Due on due Goal Zoster vaccine ( 1st). Due on due Goal Height. Due on d ue Goal COMMERCIAL CREDIT HEAD Paperwork. Due on due Goal AST (SGOT). Due on due Goal OARS. Due on due Goal Creatinine. Due on due Goal INFANTRY UNIT LEADER Scanned. Due on due Goal ALT (SGPT). Due on due Goal UDT. Due on due Goal Order Annual PT. Due on due Goal Unhealthy drug u se screening. Due on due Goal Height. Due on d ue Goal Medication Recon ciliation. Due on due Goal PHQ-9. Due on du e Goal Weight. Due on d ue Goal Tobacco Use. Due on due Goal Hepatitis C scre ening. Due on due Goal Review Allergy L ist. Due on due Goal FIT. Due on due Goal HPV. Due on due Goal CT-Colonography. Due on due Goal FIT-DNA. Due on due Goal Zoster vaccine ( 1st). Due on due Goal Update Social Hi story. Due on due Goal Lipid panel. Due on due Goal INFANTRY UNIT LEADER Scanned. Due on due Goal Creatinine. Due on due Goal COMMERCIAL CREDIT HEAD Paperwork. Due on due Goal OARS. Due on due Goal AST (SGOT). Due on due Goal Order Annual PT. Due on due Goal ALT (SGPT). Due on due Goal UDT. Due on due Goal CT-Colonography. Due on due Goal Hepatitis C scre ening. Due on due Goal FIT-DNA. Due on due Goal Weight. Due on d ue Goal PHQ-9. Due on du e Goal HPV. Due on due Goal Height. Due on d ue Goal Medication Recon ciliation. Due on due Goal Tobacco Use. Due on due Goal Review Allergy L ist. Due on due Goal Update Social Hi story. Due on due Goal FIT. Due on due Goal Unhealthy drug u se screening. Due on due Goal Zoster vaccine ( 1st). Due on due Goal Lipid panel. Due on due Goal COMMERCIAL CREDIT HEAD Paperwork. Due on due Goal Creatinine. Due on due Goal ALT (SGPT). Due on due Goal OARS. Due on due Goal UDT. Due on due Goal AST (SGOT). Due on due Goal Order Annual PT. Due on due Goal INFANTRY UNIT LEADER Scanned. Due on due Goal Height. Due on d ue Goal FIT-DNA. Due on due Goal Hepatitis C scre ening. Due on due Goal Unhealthy drug u se screening. Due on due Goal Update Social Hi story. Due on due Goal Weight. Due on d ue Goal Tobacco Use. Due on due Goal Zoster vaccine ( ). Due on due Goal FIT. Due on due Goal HPV. Due on due Goal PHQ-9. Due on du e Goal Lipid panel. Due on due Goal Review Allergy L ist. Due on due Goal CT-Colonography. Due on due Goal Medication Recon ciliation. Due on due Goal AST (SGOT). Due on due Goal ALT (SGPT). Due on due Goal Order Annual PT. Due on due Goal Creatinine. Due on due Goal INFANTRY UNIT LEADER Scanned. Due on due Goal OARS. Due on due Goal COMMERCIAL CREDIT HEAD Paperwork. Due on due Goal UDT. Due on due Goal HPV. Due on due Goal FIT. Due on due Goal CT-Colonography. Due on due Goal PHQ-9. Due on du e Goal Unhealthy drug u se screening. Due on due Goal Zoster vaccine ( ). Due on due Goal FIT-DNA. Due on due Goal Update Social Hi story. Due on due Goal Medication Recon ciliation. Due on due Goal Height. Due on d ue Goal Review Allergy L ist. Due on due Goal Lipid panel. Due on due Goal Tobacco Use. Due on due Goal Weight. Due on d ue Goal Hepatitis C scre ening. Due on due Goal FIT. Due on due Goal Height. Due on d ue Goal Medication Recon ciliation. Due on due Goal Zoster vaccine ( ). Due on due Goal Lipid panel. Due on due Goal FIT-DNA. Due on due Goal Unhealthy drug u se screening. Due on due Goal CT-Colonography. Due on due Goal Tobacco Use. Due on due Goal Creatinine. Due on due Goal OARS. Due on due Goal UDT. Due on due Goal COMMERCIAL CREDIT HEAD Paperwork. Due on due Goal AST (SGOT). Due on due Goal INFANTRY UNIT LEADER Scanned. Due on due Goal Order Annual PT. Due on due Goal ALT (SGPT). Due on due Goal Review Allergy L ist. Due on due Goal HPV. Due on due Goal PHQ-9. Due on du e Goal Hepatitis C scre ening. Due on due Goal Update Social Hi story. Due on due Goal Weight. Due on d ue Goal INFANTRY UNIT LEADER Scanned. Due on due Goal Creatinine. Due on due Goal AST (SGOT). Due on due Goal ALT (SGPT). Due on due Goal Order Annual PT. Due on due Goal OARS. Due on due Goal UDT. Due on due Goal COMMERCIAL CREDIT HEAD Paperwork. Due on due Goal Zoster vaccine ( 1st). Due on due Goal FIT-DNA. Due on due Goal Update Social Hi story. Due on due Goal Weight. Due on d ue Goal Hepatitis C scre ening. Due on due Goal Lipid panel. Due on due Goal Review Allergy L ist. Due on due Goal Medication Recon ciliation. Due on due Goal Unhealthy drug u se screening. Due on due Goal CT-Colonography. Due on due Goal Tobacco Use. Due on due Goal FIT. Due on due Goal Height. Due on d ue Goal HPV. Due on due Goal PHQ-9. Due on du e Goal INFANTRY UNIT LEADER Scanned. Due on due Goal Creatinine. Due on due Goal ALT (SGPT). Due on due Goal Order Annual PT. Due on due Goal OARS. Due on due Goal UDT. Due on due Goal AST (SGOT). Due on due Goal COMMERCIAL CREDIT HEAD Paperwork. Due on due Goal Lipid panel. Due on due Goal Tobacco Use. Due on due Goal CT-Colonography. Due on due Goal Hepatitis C scre ening. Due on due Goal Update Social Hi story. Due on due Goal Review Allergy L ist. Due on due Goal Medication Recon ciliation. Due on due Goal HPV. Due on due Goal PHQ-9. Due on du e Goal Height. Due on d ue Goal FIT. Due on due Goal Weight. Due on d ue Goal FIT-DNA. Due on due Goal Unhealthy drug u se screening. Due on due Goal Zoster vaccine ( ). Due on due Goal COMMERCIAL CREDIT HEAD Paperwork. Due on due Goal AST (SGOT). Due on due Goal OARS. Due on due Goal INFANTRY UNIT LEADER Scanned. Due on due Goal ALT (SGPT). Due on due Goal Order Annual PT. Due on due Goal UDT. Due on due Goal Creatinine. Due on due Goal Update Social Hi story. Due on due Goal Tobacco Use. Due on due Goal HPV. Due on due Goal Medication Recon ciliation. Due on due Goal Unhealthy drug u se screening. Due on due Goal PHQ-9. Due on du e Goal Zoster vaccine ( ). Due on due Goal FIT-DNA. Due on due Goal Hepatitis C scre ening. Due on due Goal Weight. Due on d ue Goal Lipid panel. Due on due Goal CT-Colonography. Due on due Goal Review Allergy L ist. Due on due Goal Height. Due on d ue Goal FIT. Due on due Goal COMMERCIAL CREDIT HEAD Paperwork. Due on due Goal INFANTRY UNIT LEADER Scanned. Due on due Goal Order Annual PT. Due on due Goal Creatinine. Due on due Goal UDT. Due on due Goal ALT (SGPT). Due on due Goal AST (SGOT). Due on due Goal OARS. Due on due Goal Zoster vaccine ( 1st). Due on due Goal Medication Recon ciliation. Due on due Goal Hepatitis C scre ening. Due on due Goal Weight. Due on d ue Goal CT-Colonography. Due on due Goal Update Social Hi story. Due on due Goal Tobacco Use. Due on due Goal Lipid panel. Due on due Goal Review Allergy L ist. Due on due Goal HPV. Due on due Goal FIT-DNA. Due on due Goal Height. Due on d ue Goal PHQ-9. Due on du e Goal Unhealthy drug u se screening. Due on due Goal FIT. Due on due Goal UDT. Due on due Goal Order Annual PT. Due on due Goal AST (SGOT). Due on due Goal COMMERCIAL CREDIT HEAD Paperwork. Due on due Goal ALT (SGPT). Due on due Goal Creatinine. Due on due Goal OARS. Due on due Goal INFANTRY UNIT LEADER Scanned. Due on due Goal PHQ-9. Due on du e Goal Lipid panel. Due on due Goal Hepatitis C scre ening. Due on due Goal Tobacco Use. Due on due Goal CT-Colonography. Due on due Goal FIT. Due on due Goal FIT-DNA. Due on due Goal Unhealthy drug u se screening. Due on due Goal Height. Due on d ue Goal Weight. Due on d ue Goal Review Allergy L ist. Due on due Goal Zoster vaccine ( 1st). Due on due Goal Medication Recon ciliation. Due on due Goal HPV. Due on due Goal Update Social Hi story. Due on due Goal UDT. Due on due Goal Order Annual PT. Due on due Goal AST (SGOT). Due on due Goal COMMERCIAL CREDIT HEAD Paperwork. Due on due Goal ALT (SGPT). Due on due Goal Creatinine. Due on due Goal OARS. Due on due Goal INFANTRY UNIT LEADER Scanned. Due on due Goal Hepatitis C scre ening. Due on due Goal Lipid panel. Due on due Goal PHQ-9. Due on du e Goal FIT-DNA. Due on due Goal HPV. Due on due Goal Height. Due on d ue Goal Medication Recon ciliation. Due on due Goal Unhealthy drug u se screening. Due on due Goal Update Social Hi story. Due on due Goal CT-Colonography. Due on due Goal FIT. Due on due Goal Weight. Due on d ue Goal Tobacco Use. Due on due Goal Review Allergy L ist. Due on due Goal Zoster vaccine ( ). Due on due Goal HPV. Due on due Goal Tobacco Use. Due on due Goal PHQ-9. Due on du e Goal Hepatitis C scre ening. Due on due Goal Lipid panel. Due on due Goal FIT. Due on due Goal Height. Due on d ue Goal Zoster vaccine ( ). Due on due Goal Weight. Due on d ue Goal Medication Recon ciliation. Due on due Goal Unhealthy drug u se screening. Due on due Goal CT-Colonography. Due on due Goal Update Social Hi story. Due on due Goal FIT-DNA. Due on due Goal Review Allergy L ist. Due on due Goal Height. Due on d ue Goal Medication Recon ciliation. Due on due Goal PHQ-9. Due on du e Goal Zoster vaccine ( ). Due on due Goal Tobacco Use. Due on due Goal HPV. Due on due Goal Weight. Due on d ue Goal Unhealthy drug u se screening. Due on due Goal Update Social Hi story. Due on due Goal FIT-DNA. Due on due Goal Hepatitis C scre ening. Due on due Goal Lipid panel. Due on due Goal CT-Colonography. Due on due Goal Review Allergy L ist. Due on due Goal FIT. Due on due Goal Height. Due on d ue Goal Medication Recon ciliation. Due on due Goal PHQ-9. Due on du e Goal Zoster vaccine ( 1st). Due on due Goal Tobacco Use. Due on due Goal HPV. Due on due Goal Weight. Due on d ue Goal Unhealthy drug u se screening. Due on due Goal Update Social Hi story. Due on due Goal FIT-DNA. Due on due Goal Hepatitis C scre ening. Due on due Goal Lipid panel. Due on due Goal CT-Colonography. Due on due Goal Review Allergy L ist. Due on due Goal FIT. 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 Neurology managing Aimovig.-Low back pain with bilateral radiculopathy worse. SCS helpful, but feels she is 'doing all she can to maintain.'-Gabapentin and [place] beneficial, providing 50-60% relief. Questions if gabapentin causes some difficulty with word finding, denies other SE. -No other concerns today Neck Pain low back pain Severity level i s 5. It occurs persistently. Location of pain is lower back and neck. Pain is radiated to the bilateral LE. low back pain Severity level i s 4. Duration: chronic. The problem is fluctuating. It occurs persistently. The client describes the pain as an ache and burning. Symptoms are aggravated by bending, lifting, twisting, walking, housework and prolonged positioning. Symptoms are relieved by heat, ice, massage, pain meds/drugs, stretching, rest, chiropractic, SCS and changing positions. Comments: Henry pino is a 64 y/o female who presents for follow up and medication refill in the setting of chronic neck pain and low back pain with radiation into the BL legs. Pain has been fluctuating this month. Met with [facility] for reprogramming today. Notes the SCS is now providing stimulation for the legs.Migraines have been manageable with Ajovy but daily headaches continues to persists ("I can live with the headaches). Believes the headaches are originating from the neck as she has been experiencing increase neck pain with radiation into the shoulders. Requests to start PT.Reports current medication regimen provides 60% pain relief and allows for increased functionality. Continues to utilize [place] 5-325mg with moderate benefit. Denies OIC, which is managed with Senna-S, or other side effects from current medication regimen. No other concerns today. low back pain Severity level i s 3. Duration: chronic. The problem is fluctuating. It occurs occasionally. The client describes the pain as an ache and burning. Symptoms are aggravated by lifting, standing, twisting, walking, housework and prolonged positioning. Symptoms are relieved by heat, ice, massage, pain meds/drugs, stretching, rest, chiropractic, SCS and changing positions. Comments: Henry pino is a 63 y/o female who presents for follow up and medication refill in the setting of chronic neck pain and low back pain with radiation into the BL legs. Pain has been fluctuating this month. Continues to use the Leyva SCS with benefit for the low back but complains of restless legs. Notes the legs aren't painful, just restless.Ongoing daily headaches and migraines has been the most bothersome. Notes the Ajovy has not been beneficial in managing the persistent headaches and migraines this month. Believes the increase in activities and recent cleaning of cobwebs (required her to have her arms constantly above the head) has been contributing to the ongoing issues. She states she has also been supplementing in caffeine pills. Understands the overuse of the caffeine could be causing rebound headaches.Reports current medication regimen provides 60% pain relief and allows for increased functionality. Continues to utilize [place] 5-325mg with moderate benefit. Denies OIC, which [...] to use the Leyva SCS with benefit. Of note, patient continues to be busy with taking care of her [employer] properties.Reports current medication regimen provides 50-60% pain relief and allows for increased functionality. Continues to utilize [place] 5-325mg with moderate benefit. Denies OIC, which is managed with Senna-S, or other side effects from current medication regimen. No other concerns today. low back pain Severity level i s 6. Duration: chronic. The problem is fluctuating. It occurs persistently. Symptoms are relieved by pain meds/drugs. low back pain Severity level i s 5. Duration: chronic. The problem is worsening. It occurs persistently. The client describes the pain as an ache and burning. Symptoms are aggravated by bending, lifting, standing, walking, housework and prolonged positioning. Symptoms are relieved by heat, ice, pain meds/drugs, stretching, rest, sitting and changing positions. Comments: Henry pino is a 63 y/o female who presents for follow up and medication refill in the setting of chronic neck pain and low back pain with radiation into the BL legs. Pain has been worse this month. BL feet pain has been the most bothersome. 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 Continues to use the [employer] SCS with benefit. Notes the device has turned my whole life around. She states she was unable to do the activities she's currently doing now prior to the SCS implant. Expressed gratefulness with having the opportunity of obtaining the stimulator granted to her.Have been following up with [facility] for management of the headaches. She states she was prescribed with Ajovy by her neurologist. Notes she has been able to use the medication with significant relief and has seen a decrease in headaches along with using Fioricet.Reports current medication regimen provides 30% pain relief and allows for increased functionality. Continues to utilize [place] 5-325mg with moderate benefit. Denies OIC, which [...] allows for increased functionality. Continues to utilize [place] 5-325mg with moderate benefit. Denies OIC, which [...] allows for increased functionality. Continues to utilize [place] 5-325mg with moderate benefit. Denies OIC, which [...] time (typically gets 6tabs/day). Upcoming appointment with [facility] on 11/26/23 for a brain MRI due to TremorsComplains of new onset of L flank pain, primarily around the kidneys. She states the pain began 2.5 weeks ago and denies any inciting events. Will be following up with her PCP for further care if pain continues to persist or worsen.Of note, patient is following with [facility] for psychiatry/mental health.Reports current medication regimen provides 30% pain relief and allows for increased functionality. Continues to utilize [place] 5-325mg with moderate benefit. Denies OIC, which [...] improved as well, upcoming neurology consult. Pt villasenor shad 2 bad headaches improved with fioricet since being off Topamax. Also currently seeing chiropractic for neck adjustments. Would like to hold off on the Cervical RFW as pain has improved, will consider once pain worsens.Reports current medication regimen provides 50% pain relief and allows for increased functionality. Continues to utilize [place] 5-325mg with moderate benefit. Denies OIC, which [...] and standing up. Recently completed PT at [facility] with short-term benefit, though notes pain returned [...] allows for increased functionality. Continues to utilize [place] 5-325mg with moderate benefit. Presents with a [...] allows for increased functionality. Continues to utilize [place] 5-325mg with moderate benefit. Notes she had [...] 07/02/[address] Scotty Mancia MD through [facility]. According to the visit summary note she brought in today, the sleep study did not show any significant sleep apnea but there was evidence of deep sleep and no REM sleep. Notes she was recommended a long acting opioid medication to help with the RLS.Reports current medication regimen provides 50% pain relief and allows for increased functionality. Continues to utilize [place] 5-325mg with moderate benefit. Denies OIC, which [...] allows for increased functionality. Continues to utilize [place] 5-325mg with moderate benefit and increased functionality. [...] this month. Continues to do PT at [facility] and use the [employer] SCS with benefit. Completed a in-hospital sleep [...] and 3/10 with medications. Continues to utilize [place] 5-325mg with moderate benefit. Denies OIC, which [...] this month. Continues to do PT at [facility] and use the S[employer] SCS with benefit. Notes the zapping sensations in the shoulders have been resolved since the reprogramming on 03/24/23. Have seen a sleep specialist, Dr. Scotty Mancia MD through [facility], for her ongoing struggles with sleep. [...] and 2/10 with medications. Continues to utilize [place] 5-325mg with moderate benefit. Denies OIC, which [...] oral opioids. Continues to do PT at [facility].Continues to the use the [employer] SCS with varying degrees of relief. Persistent [...] and 4/10 with medications. Continues to utilize [place] 5-325mg with moderate benefit. Willing to increase [...] this month. Have been doing PT through [facility] with benefit. She states the neck pain [...] to consult with a sleep specialist through [facility]. Hopes to be able to obtain at least 6-8 hours of sleep at night as she has been struggling with insomnia. Reports current medication regimen provides moderate pain relief and allows for increased functionality. Rates her pain as 5/10 without medications and 2/10 with medications. Continues to utilize [place] 5-325mg with moderate benefit. Denies OIC, which [...] better. She has also started PT in [place] and is hopeful it will provide benefit.S/p [...] allows for increased functionality. Continues to utilize [place] 5-325mg 3-4x/day with moderate benefit. Denies OIC [...] would like to go back PT in [place] closer to her home.Reports current medication regiment provides moderate pain relief and allows for increased functionality. Continues to utilize [place] 5-325mg 3-4x/day with moderate benefit. Denies OIC [...] allows for increased functionality. Continues to utilize [place] 5-325mg 3-4x/day with moderate benefit. Denies OIC [...] allows for increased functionality. Continues to utilize [place] 5-325mg 3-4x/day with moderate benefit. Denies OIC [...] and 4/10 with medications. Continues to utilize [place] 5-325mg 3-4x/day with moderate benefit. Endorses OIC [...] [place]. Inquires if the nurse strike in [place] will affect her surgery and if she can travel 10 days after her implant to visit her sister in [place]. Will consider postponing her trip 2.5 week after the procedure.Reports current medication regiment provides 50% relief and allows for increased functionality. Continues to utilize [place] 5-325mg 3-4x/day with moderate benefit. Endorses OIC [...] Continues to find benefit with PT through [facility].S/p Lumbar Epidural Blood Patch on [...] allows for increased functionality. Continues to utilize [place] 5-325mg 3-4x/day with moderate benefit. Endorses OIC which is managed with OTC. Denies other side effects from current medication regimen. No other concerns today. Comments: ira stoddard is a 62 y/o female who presents for follow up and medication refill in the setting of chronic lower back pain and legs. Pain has been stable this month. Notes benefits with PT through [facility]. Reports increasing restless leg syndrome [...] this month. Notes benefits with PT through [facility]. Reports increasing restless leg syndrome [...] on Gabapentin 900mg TID, Baclofen at HS, [place] helps her complete her house chores. Trailed [...] pain worse. has not seen neurologist or human resources support specialist since the surgery.Tried: Mirapex 2x with SE of intense VILLASENOR w/n 2 hours of taking, TENS Unit Currently on Gabapentin 900mg TID, Baclofen at HS, [place] helps her complete her house chores pt [...] mation No Information Assessments Type Assessment Date assessment Chronic pain syndrome 4 impression Coral is a 64 y/o female here with chronic neck pain and low back pain with radiation into the BL legs. Hx of L L5-S1 hemilaminectomy in 1996 and insomnia (completed sleep study in the past). 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 Right C3-4 inflammatory facet arthropathy.2. Moderate foraminal stenosis right C5-6, left C6-7.3. Multilevel disc bulging with mild to moderate central stenosis at C5-6 and C6-7.4. 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 Patient has been managing medications appropriately, and is not confused or oversedated during our office visit. MNPMP queried and shows no outside prescriptions. UDT results from 06/01/24 previously reviewed and are consistent with current medication regimen. Appropriate to continue with opioid therapy. assessment Headache, unspecified impression Daily headaches, man aged by neurology. Utilizing Fioricet for abortive and Ajovy for preventative. Suspect facetogenic pain also contributing. [Forwarded Hx]Tried: Topamax 25mg (weight loss and kidney stones) assessment Radiculopathy, lumbar region Jun impression Ongoing low back cadence n with radiation into the legs (R>L). S/p Leyva SCS implant on 10/10/22. Last reprogramming completed on 05/31/24 with some benefit. [Forwarded Hx]Hx of L L5-S1 hemilaminectomy in 1996.Last completed Lumbar MRI on 08/02/21 with results showing multilevel DDD and foraminal stenosis with right L4 and bilateral L5 nerve irritation and left L5/S1 laminotomy impression Ongoing low back cadence n with increased radicular symptoms. Last imaging in 2020, previous RAMEZ with some benefit. Mental Status Date Cognitive Assessment Orientation - [place] ed to time, place, person, situation. Patient Care Teams Name Effective Dates (start - stop) Status Members No Information
--- OUTSIDE RECORDS SUMMARY | 2024-07-12 12:49 | XMS_ITS | Continuity of Care Document ---
Author Organization MARIALUISA Sher Address [address] [place] [address] Phone Care Team Providers Care Hair Dresser Name Role Phone Torres AMINAHSusannah Unavailable Unavailable [...] Providers Copied on Encounter MARIALUISA Sher, [address], [place], [place], [id number], tel:[phone] [facility] No Information [address] [place], [address], [place]. tel:[phone] Referring Provider: REFERRAL KATHYA HARRIS. Christos [facility], [address], [place], [id number], [place] tel:[phone] [facility] No Information 5[address] [place], [address], [place]. tel:[phone] Referring Provider: Guillermina Freeman MD, [address] [place], [address]. tel:[phone] [facility] [address] [facility] [address], [place], [id number], [place] tel:[phone] [facility] No Information 3[address] [place], [address], [place]. tel:[phone] Referring Provider: REFERRAL KATHYA HARRIS. Christos [facility], [address], [id number], tel:[phone] [facility] No Information 8-[address] V[address]. [address] [place], [address], [place]. tel:[phone] Referring Provider: REFERRAL KATHYA HARRIS. Family History Family Member Type Diagnosis Age At Onset No Information Payers Payer name Insurance type Covered constitution party ID Authoriza tion(s) No Information Social [...]
--- OUTSIDE RECORDS SUMMARY | 2024-07-12 12:49 | XMS_ITS | Clinical Summary ---
Author Organization [facility] Address [place], [place] [address] Care Team Providers Care Sorter Operator Name Role Phone Mya Loco NP Primary [...] Active oxyCODONE (ROXICODONE) 5 mg immediate release tabletIndications:Chloe guerrero stone Take 1 Tablet (5 mg) by [...] Encounters Date Type Department Care Team Description 05/21/2024 10:40 AM CDT Nurse/Clinic Staff Only [facility] [address] [place] [address] [address] Infusion Therapy (feraheme) 05/21/2024 Travel 05/03/2024 Orders Only [facility] [address] [place] [address] [address] Scotty Mancia MD <No scans attached> 04/28/2024 11:15 AM CDT Orders Only [facility] [address] [place] [address] [address] Lab, [facility] 04/28/2024 Travel 04/12/2024 Telephone [facility] [address] [place] [address] [address] Scotty Mancia MD Order (Iron Infusion ) from Last 3 Months Immunizations Name Administration Dates Next Due Influenza, IIV3 (Age >=3 years) 09/02/2007 Family History Medical History Relation Name Comments Alcohol/Drug Brother Psychiatric illness Father depressi on Psychiatric illness Mother depressi on Thyroid Disease Mother surgical had removed-cancerous Psychiatric illness Paternal Aunt depress ion Psychiatric illness Paternal Grandfather bipolar Psychiatric illness Paternal Uncle tisha thalia and anxiety Psychiatric illness Son depressi [...] Sign Reading Time Taken Comments Blood Pressure 100/56 05/21/2024 11:33 AM CDT Pulse 57 05/21/2024 11:33 AM CDT Temperature 36.6 ??C (97.8 ??F) 01/07/2024 1 0:05 AM CDT Respiratory Rate 18 01/07/2024 11:2 0 AM CDT Oxygen Saturation 96% 05/21/2024 11: 33 AM CDT Inhaled Oxygen Concentration - - Weight 52.1 kg (114 lb 14.4 oz) 01/07/2024 8:11 AM CDT Height 156.8 cm (5' 1.73) 09/18/2023 3:25 PM CS T Body Mass Index 21.2 09/18/2023 3:25 PM SCHEDULE CHECKER Plan of Treatment Upcoming Encounters Date Type Department Care Team (Late st Contact Info) Description 08/04/2024 9:30 AM CDT Office Visit [facility] [address] [place] [address] Scotty Mancia MD [address] [facility] [place] [address] Health Maintenance Due Date Last Done Comments Pneumococcal series for age 6-64 (1 of 2 - PCV) 1968 Tdap 1973 Depression screening for age 12+ 1974 HIV for age 15-65 1977 Hepatitis C screening for ag e 18-79 1980 Tetanus booster 1982 Lipids for age 45-75 2007 Mammogram for age 45-75 2007 Zoster (shingles) series for age 50+ (1 of 2) 2012 Pap test for age 21-65 02/24/2024 02/23/2021, 2020 COVID-19 vaccine series (2023- season) 2024 Influenza for age 50-64 06/13/2024 09/02/2007 BMI (ht and wt on same day) for age 18+ 09/18/2024 09/18/2023, 07/02/2023, 07/28/2017, Additional history exists Colonoscopy through age 75 04/03/2031 04/03/2021, Medical Devices Implanted Type Area Field Support Technician Device Identifier Shelf Expiration Date Model / Serial / Lot Stent Uret [id number] Contour - [id number] Implanted:Qty: 1 on 01/07/2024 by Dk Byrd MD at [facility] Left: Ureter [facility] 05/28/2026 [id number] / / [id number] Procedures Procedure Name Priority Date/Time Associated Diagnosis Comments IRON PLUS IRON BINDING CAP Routine 04/28/2024 11:05 AM CDT Low iron stores SCAN-COLONOSCOPY 04/03/2021 12:0 0 AM CDT WARP CLAMPER THIN PREP PAP SCREEN IMAGED Routine 02/23/2021 1:27 PM CDT from Last 3 Months or Most Recently Relevant to Health Maintenance Results * (ABNORMAL) IRON PLUS IRON BINDING CAP (04/28/2024 11:05 AM CDT) IRON 74 37 - 145 ug/dL 04/28/2024 7:32 PM CDT [facility] UIBC (UNSATURATED) 152 112 - 347 ug/dL 04/28/2024 7:32 PM CDT [facility] IRON BINDING CAPACITY 226(L) 250 - 400 ug/dL 04/28/2024 7:32 PM CDT [facility] IRON,% SATURATION 33 14 - 50 % 04/28/2024 7:32 PM CDT [facility] Blood BLOOD SPECIMEN / Unknown Venipuncture / Unknown 04/28/2024 11:05 AM CDT 04/28/2024 11:06 AM CDT Scotty Mancia MD CHEMISTRY [facility] [address] [place] [address], * SCAN-COLONOSCOPY (04/03/2021 12:00 AM CDT) Scanner OTHER * WARP CLAMPER THIN PREP PAP SCREEN IMAGED (02/23/2021 1:27 PM CDT) Case Report Gynecologic Cytology Report ? Case: [id number] ? Authorizing Provider: ??Becki Cortes MD ??Collected: ? 02/23/2021 1327 ? Ordering Location: ? [facility] ?Received: ?02/26/2021 0904 ? First Screen: ?Binh Owen ? Specimen: ?WARP CLAMPER ThinPrep Vial Screening, Cervical/Vaginal ? 03/07/2021 10:25 AM [facility] INTERPRETATION/ RESULT NEGATIVE FOR INTRAEPITHELIAL LESION OR MALIGNANCY (NIL) (none) 03/07/2021 10:25 AM [facility] IMEN ADEQUACY Satisfactory for evaluation Endocervical component present 03/07/2021 10:25 AM [facility] HPV REQUEST HPV and PAP 03/07/2021 10:25 AM [facility] Date of LMP 03/07/2021 10:25 AM [facility] Comment:N/A Last Pap Date 03/07/2021 10:25 AM [facility] Comment:20 yrs ago Menstrual Status 03/07/2021 10:25 AM [facility] Comment:Menopause Additional Information 03/07/2021 10:25 AM [facility] Comment: Interpreted at [facility] Laboratory - [address], [place] [address] Automated Review Successful 03/07/2021 10:25 AM [facility] Comment:Specimen processed s uccessfully by automated prison psychiatrist device, ThinPrep Imaging System, [employer] ANCILLARY TESTING WARP CLAMPER HPV Ordered, Please see separate report 03/07/2021 10:25 AM [facility] Note The pap test [...] and malignant lesions. 03/07/2021 10:25 AM CDT [facility] Other (Cervical/Vagina l) 02/23/2021 1:27 PM CDT 02/26/2021 9:04 AM CDT Becki Cortes MD PATHOLOGY/CYTOLO GY [facility]ORAT[facility]-CENTRAL LABORATORY [address] [place] [address], from Last 3 Months or Most Recently Relevant to Health Maintenance Advance Directives * Full Code (Latest Code Status on File) Date Activated Date Inactivated Comments 01/07/2024 7:47 AM 01/07/2024 5:50 PM Question Answer Comments Code Status Discussion: Unable to Assess Preferences, Provider to review later Care Teams Sorter Operator Relationship Specialty Start Date End Date Mya Loco NP PCP - General Nurse Practitioner - Women's Health 04/17/23
== END 2024-07-12 12:46 | disposition home or self-care (01) ==
LOC: NPINS 12:45
PROVIDERS: PCP Nurse Practitioner Family; Visit Provider Psychiatry & Neurology Neurology
DX: G25.2 Other specified forms of tremor (principal)
CPT/HCPCS: 80171; 82175; 83655; 83825

== ENCOUNTER 2024-09-10 09:59 | Outpatient (CLI) | payer MEDICAID, SELFPAY ==
--- OUTSIDE RECORDS SUMMARY | 2024-09-10 10:02 | XMS_ITS ---
Author Organization [facility] Address [address] [place] [address] Care Team Providers Care Health Care Aide Name Role Phone Unavailable Unavailable Unavailable Surgery Details Not on file Complications Check Surgery Details section. Procedure Estimated Blood Loss Check Surgery Details section. Procedure Findings Check Surgery Details section. Procedure Specimens Taken Check Surgery Details section.
--- OUTSIDE RECORDS SUMMARY | 2024-09-10 10:02 | XMS_ITS | Referral Summary ---
Author Organization [facility] Address [address] [place] [address] Care Team Providers Care Clinical Social Work Therapist Name Role Phone Unavailable Primary Care Provider Unavailabl e Source Comments Patient records contain information from all sites at [facility]. For routine questions regarding patient records, call [phone] during business hours, M-F 8:00 AM - 5:00 PM Central Time. Record requests for emergency care only can be directed to [phone] at any time.[facility] Allergies Active Allergy Reactions Criticality Noted Date Comments Celecoxib Other (see comments),Hallucinations 01/21/2007 feels as though My body is crawling I didn't feel myself Penicillins Hives (Reselect Reaction) 01/21/2007 Medications atorvastatin (LIPITOR) 10 mg tablet Take 10 mg by mouth at bedtime. 02/07/2023 Active baclofen (LIORESAL) 10 mg tablet Take 10 mg by mouth 3 (three) times a day as needed for muscle spasms. 03/20/2022 Active gabapentin (NEURONTIN) 300 mg capsule Take 900 mg by mouth 3 (three) times a day. 10/08/2022 Active HYDROcodone-nell taminophen (NORCO) 5-325 mg per tablet Take 1 [...] mg by mouth at bedtime. 03/03/2023 Active butalbitaL-acet aminophen 25-325 mg tablet Take by mouth as [...] Viibryd 20 mg tablet 10 mg. 01/09/2024 Active Active Problems Problem Noted Date Diagnosed [...] Date Smoking Tobacco: Every Day Cigarettes 1 44.9 Started: 10/13/1979 Smokeless Tobacco: Never Nutrition Answer Date Recorded Nutrition: EVOO Fat Source Unknown 12/22 Nutrition: Servings of Fruits/Vegetables per Day Not on file 12/23/2023 Dental Answer Date Recorded Dental: Regular Dentist Unknown 12/23/19 24 Comments Unknown Sex and Gender Information Value Date Recorded Sex Assigned at Not on file Legal Sex Female 1:55 PM CDT Gender Identity Not on file Sexual Orientation [...] 10:51 AM CDT 02/12/2024 10:59 AM CDT us Richard Olmstead M.D. LAB BLOOD ADD-ON Final Resu lt [facility] [address] [place] [address], [facility] NPRG [facility] [address] [place] [address] from Last 3 Months or Most Recently Relevant to Health Maintenance Insurance [employer]
--- OUTSIDE RECORDS SUMMARY | 2024-09-10 10:02 | XMS_ITS | Clinical Summary ---
Author Organization [facility] Address [address] [place] [address] Care Team Providers Care Logistics Technician Name Role Phone Unavailable Primary Care Provider Unavailabl e Source Comments Patient records contain information from all sites at [facility]. For routine questions regarding patient records, call [phone] during business hours, M-F 8:00 AM - 5:00 PM Central Time. Record requests for emergency care only can be directed to [phone] at any time.[facility] Allergies Active Allergy Reactions Criticality Noted Date [...] 1962 Zoster Vaccines (1 of 2) 2012 Depression Monitoring (PHQ-9 for quality tracking) 10/13/2023 Cervical/Vaginal Cancer Screening 02/24/2024 02/23/2021 COVID-19 Vaccine (1 - 2023-2 5 season) 2024 Influenza Vaccine (#1) 2024 7, 09/02/2007, 08/22/2006 Fasting Glucose for Diabetes Screening 02/11/2027 02/12/2024 DTaP,Tdap,and Td Vaccines (2 - Td or Tdap) 01/11/2031 01/11/2021, 04/19/2009 Colonoscopy 04/03/2031 04/03/2021 Colorectal Cancer Screening 04/03/2031 Pneumococcal vaccine (0-64 years) Completed 12/02/2022, 02/23/2021 IPV Vaccines Aged Out No longer eligi ble based on patient's age to complete this topic Procedures Procedure Name Priority Date/Time Associated Diagnosis [...] CDT Richard Olmstead M.D. LAB BLOOD ADD-ON Final Resu lt [facility] [address] [place] [address], [place] NPRG [facility] [address] [place] [address] from Last 3 Months or Most Recently Relevant to Health Maintenance Insurance [employer]
--- OUTSIDE RECORDS SUMMARY | 2024-09-10 10:03 | XMS_ITS | Clinical Summary ---
Author Organization [employer] [facility] Address [place], [place] [address] Care Team Providers Care Oral Surgery Physician Name Role Phone Mya Loco NP Primary [...] oxyCODONE (ROXICODONE) 5 mg immediate release tabletIndications:Chloe lindsay Take 1 Tablet (5 mg) by [...] Encounters Date Type Department Care Team Description 07/30/2024 Telephone [facility] [address] [place] [address] Scotty Mancia MD Appointment Request (FOLLOW-UP) from Last 3 Months Immunizations Name Administration [...] 57 05/21/2024 11:33 AM CDT Temperature 36.6 C (97.8 F) 01/07/2024 10:05 AM CDT Respiratory Rate 18 01/07/2024 11:2 0 AM CDT Oxygen Saturation 96% 05/21/2024 11: 33 AM CDT Inhaled Oxygen Concentration - - Weight 52.1 kg (114 lb 14.4 oz) 01/07/2024 8:11 AM CDT Height 156.8 cm (5' 1.73) 09/18/2023 3:25 PM CS T Body Mass Index 21.2 09/18/2023 3:25 PM TAX CREDIT LEASING CONSULTANT Plan of Treatment Upcoming Encounters Date Type Department Care Team (Late st Contact Info) Description 09/15/2024 8:30 AM TAX CREDIT LEASING CONSULTANT Office Visit [facility] [address] [place] [address] Scotty Mancia MD [address] [place] [address] Health Maintenance Due Date Last Done Comments [...] 04/03/2031 04/03/2021, Medical Devices Implanted Type Area Word Processor Device Identifier Shelf Expiration Date Model / Serial / Lot Stent Uret [id number] Contour - [id number] Implanted:Qty: 1 on 01/07/2024 by Dk Byrd MD at [facility] Left: Ureter [facility] U[facility] 05/28/2026 [id number] / / [id number] Procedures Procedure Name Priority Date/Time Associated Diagnosis Comments SCAN-COLONOSCOPY 04/03/2021 12:0 0 AM CDT INDUSTRIAL ROOF PLUMBER THIN PREP PAP SCREEN IMAGED Routine 02/23/2021 1:27 PM CDT from Last 3 Months or Most Recently Relevant to Health Maintenance Results * SCAN-COLONOSCOPY (04/03/2021 12:00 AM CDT) Scanner OTHER * INDUSTRIAL ROOF PLUMBER THIN PREP PAP SCREEN IMAGED (02/23/2021 1:27 PM CDT) Case Report Gynecologic Cytology Report Case: [id number] Authorizing Provider: Becki Cortes MD Collected: 02/23/2021 1327 Ordering Location: [facility] Received: 02/26/2021 0904 First Screen: Binh Owen Specimen: INDUSTRIAL ROOF PLUMBER ThinPrep Vial Screening, Cervical/Vaginal 03/07/2021 10:25 AM CDT [facility]-C ENTRAL LABORATORY INTERPRETATION/ RESULT NEGATIVE FOR INTRAEPITHELIAL LESION OR MALIGNANCY (NIL) (none) 03/07/2021 10:25 AM [facility] IMEN ADEQUACY Satisfactory for evaluation Endocervical component present 03/07/2021 10:25 AM CDT [facility] HPV REQUEST HPV and PAP 03/07/2021 10:25 AM [facility] Date of LMP 03/07/2021 10:25 AM T [facility] Comment:N/A Last Pap Date 03/07/2021 10:25 AM T [facility] Comment:20 yrs ago Menstrual Status 03/07/2021 10:25 AM [facility] Comment:Menopause Additional Information 03/07/2021 10:25 AM T [facility] Comment: Interpreted at [facility] - [address], [place] [address] Automated Review Successful 03/07/2021 10:25 AM [facility] Comment:Specimen processed s uccessfully by automated library media technician device, ThinPrep Imaging System, [employer] ANCILLARY TESTING INDUSTRIAL ROOF PLUMBER HPV Ordered, Please see separate report 03/07/2021 10:25 AM [facility] Note The pap test [...] pre-malignant and malignant lesions. 03/07/2021 10:25 AM T [facility] Other (Cervical/Vagina l) 02/23/2021 1:27 PM CDT 02/26/2021 9:04 AM CDT Becki Cortes MD PATHOLOGY/CYTOLO GY [facility] [address] [place] [address], [place] from Last 3 Months or Most Recently Relevant to Health Maintenance Advance Directives * Full Code (Latest Code Status on File) Date Activated Date Inactivated Comments 01/07/2024 7:47 AM 01/07/2024 5:50 PM Question Answer Comments Code Status Discussion: Unable to Assess Preferences, Provider to review later Care Teams Oral Surgery Physician Relationship Specialty Start Date End Date Mya Loco NP PCP - General Nurse Practitioner - Women's Health 04/17/23
[2024-09-11 15:09] LABS: H pylori Ag Stool* Negative (Negative)
[2024-09-16 21:22] LABS: Ova and Parasite, Fecal Negative (Negative)
== END 2024-09-10 10:00 | disposition home or self-care (01) ==
PROVIDERS: PCP Nurse Practitioner Family; Visit Provider Nurse Practitioner Family
DX: R10.13 Epigastric pain (principal); R19.5 Other fecal abnormalities
CPT/HCPCS: 87177; 87209; 87338

== ENCOUNTER 2024-12-27 11:00 | Outpatient (CLI) | payer MEDICAID, SELFPAY ==
--- NOTE | 2024-12-27 11:00 | CRLHL7_ITS ---
For Patients: As a result of the Century Cures Act, medical imaging exams and procedure reports are released immediately into your electronic medical record. You may view this report before your referring provider. If you have questions, please contact your health care provider. INDICATION: Lung cancer screening. Smoking history. TECHNIQUE: CT chest low dose without contrast. COMPARISON: None. FINDINGS: Pulmonary nodules: There is a 2 millimeter ground-glass nodule in the right lower lobe (3/72), and 1 millimeter nodules in the left lower lobe (3/94, 109). There is a 2 millimeter nodule in the right major fissure (3/62). Lungs and pleural spaces: Bibasilar atelectasis. Heart and vasculature: Heart size is normal. Thoracic aorta and pulmonary artery are normal in caliber. Lymph nodes and mediastinum: No mediastinal, hilar, or axillary adenopathy. Chest wall: Unremarkable. Upper abdomen: Normal. Bones: Spinal stimulator lead tips at T6-T7. Bones are unremarkable for age with minimal degenerative disease at T12-L1. IMPRESSION: No suspicious lung lesions. Scattered sub 4 millimeter pulmonary nodules pain Lung-RADS Category 2: BENIGN. Continue annual screening with LDCT in 12 months. Please note that all CT scans at this facility use dose modulation, iterative reconstruction, and/or weight-based dosing when appropriate to reduce radiation dose to as low as reasonably achievable. Dictated by Mary Elizondo MD @ 12/27/2024 3:46:22 PM (Electronically Signed)
== END 2024-12-27 11:01 | disposition home or self-care (01) ==
LOC: CT 11:02
PROVIDERS: PCP Nurse Practitioner Family; Visit Provider Nurse Practitioner Family
DX: Z12.2 Encounter for screening for malignant neoplasm of respiratory organs (principal); R91.8 Other nonspecific abnormal finding of lung field; Z72.0 Tobacco use
CPT/HCPCS: 71271

== ENCOUNTER 2025-02-03 10:21 | Outpatient (CLI) | payer MEDICAID, SELFPAY | END 2025-02-03 10:22 | disposition home or self-care (01) | PROVIDERS: PCP Nurse Practitioner Family; Visit Provider Nurse Practitioner Family | DX: R10.11 Right upper quadrant pain (principal); M54.2 Cervicalgia; Z13.29 Encounter for screening for other suspected endocrine disorder | CPT/HCPCS: 80053; 82150; 83690; 84443; 85025 ==

== ENCOUNTER 2025-02-08 07:46 | Outpatient (CLI) | payer MEDICAID, SELFPAY ==
--- NOTE | 2025-02-08 08:15 | CRLHL7_ITS ---
For Patients: As a result of the Century Cures Act, medical imaging exams and procedure reports are released immediately into your electronic medical record. You may view this report before your referring provider. If you have questions, please contact your health care provider. INDICATION: Right upper quadrant pain. COMPARISON: None available. TECHNIQUE: Right upper quadrant grayscale and limited color Doppler ultrasound. FINDINGS: Liver: Homogeneous echotexture. Smooth contour. No suspicious focal lesion. No intrahepatic biliary ductal dilatation. Normal hepatopedal portal venous blood flow. Gallbladder: Nondistended. 13 mm echogenic focus with posterior acoustic shadowing located along the dependent wall of the gallbladder near the fundus consistent with a gallstone. Normal wall thickness. Negative sonographic Bales sign. CBD: 8mm Pancreas: Caliber of the uniform main pancreatic duct in the head of the pancreas anterior to the zahra splenic confluence is 2 mm, within the upper limit of normal. Normal where visualized. The pancreas is partially obscured and therefore incompletely evaluated. Right Kidney: Normal echotexture. No hydronephrosis. No convincing sonographic evidence of nephrolithiasis. Midline Vasculature: Unremarkable where visualized. Peritoneal Cavity: No significant ascites. Additional Findings: None. IMPRESSION: 1. Dilated common bile duct of undetermined cause. Correlation with laboratory findings is recommended. If abnormal then gastroenterology consultation is suggested for further evaluation (MRCP/ERCP). 2. Gallstone. No sonographic findings to indicate acute cholecystitis. 3. Incidental findings as above. Dictated by Anton Siddiqui MD @ 02/08/2025 8:34:59 AM (Electronically Signed)
== END 2025-02-08 07:47 | disposition home or self-care (01) ==
PROVIDERS: PCP Nurse Practitioner Family; Visit Provider Nurse Practitioner Family
DX: R10.11 Right upper quadrant pain (principal)
CPT/HCPCS: 76705

== ENCOUNTER 2025-04-22 10:54 | Outpatient (CLI) | payer MEDICAID, SELFPAY | END 2025-04-22 10:55 | disposition home or self-care (01) | PROVIDERS: PCP Nurse Practitioner Family; Visit Provider Nurse Practitioner Family | DX: Z00.00 Encounter for general adult medical examination without abnormal findings (principal); E03.9 Hypothyroidism, unspecified; E78.5 Hyperlipidemia, unspecified; R11.0 Nausea | CPT/HCPCS: 80053; 80061; 82150; 83690; 84443; 85025 ==

== ENCOUNTER 2025-05-31 09:00 | Outpatient (RCR) | payer MEDICAID, SELFPAY | END 2025-09-21 10:57 | disposition home or self-care (01) | PROVIDERS: PCP Nurse Practitioner Family; Visit Provider Nurse Practitioner Family | DX: R51.9 Headache, unspecified (principal); M47.892 Other spondylosis, cervical region; M54.16 Radiculopathy, lumbar region; Z51.89 Encounter for other specified aftercare | CPT/HCPCS: 71271; 97012; 97110; 97112; 97140; 97162; 97530 ==